=== PATIENT | male | born 1945 | race African-American/Black ===

== ENCOUNTER 2017-10-17 09:22 | Inpatient (IN) ==
--- NOTE | 2017-10-17 09:31 | DR.SOBA ---
HPI Time Seen Time Seen by Provider: 10/17/17 09:30 HPI Comment HPI Comment: PATIENT FROM SKILLED NURSING WENT TO XRAY FOR CHEST XRAY. HE DEVELOP SOB ABD IS BROUGHT TO ED. O2 DESATURATION WAS NOTED IN XRAY DEPARTMENT. PATIENT IS BEING COUGHING CLEAR SPUTUM AND VOMITED FEW DAYS AGO WITH POSSIBLE ASPIRATION. Complaints Chief Complaint Doctors Comments: SOB, O2 DESATURATION. Reviewed Nurses Notes Reviewed: Yes Source History Provided: Patient, Long-Term and Other (STAFF FROM XRAY DEPARTMENT.) Mode of Arrival Mode of Arrival: Wheelchair Duration Duration: Hours Context Onset:: At Rest PE Risk Factors:: Immobilization History of:: CHF Currently on:: Neither Prehospital Care:: O2 Modifying Factors Worsens:: Nothing Improves:: Nothing Associated Signs and Symptoms Associated Signs and Symptoms: Cough If Cough Cough: Clear PMH PMH Past Medical History: Coronary Artery Disease, Depression, Diabetes, Dyslipidemia, Hypertension, Liver Disease and Seizures Past Surgical History: Yes Surgical History: Appendectomy Family History Family Medical History: Diabetes Mellitus, Cancer, [place], Coronary Artery Disease, Heart Failure, Sudden Cardiac and Hypertension Social History Do you use any recreational Drugs:: No ROS Review of Systems Eyes: No Symptoms Reported ENTM: No Symptoms Reported Respiratoy: Productive Cough and Short of Breath Gastrointestinal/Abdominal: No Symptoms Reported Genitourinary: No Symptoms Reported Neurological: No Symptoms Reported Musculoskeletal: No Symptoms Reported Integumentary: Dryness Hematologic/Lymphatic: No Symptoms Reported Endocrine: No Symptoms Reported All Other Systems: Reviewed and Negative PE Vital Signs Vitals: Temperature 98.8 F Pulse Rate [Right Radial] 81 Pulse Rate 91 Respiratory Rate 24 Blood Pressure [Right Arm] 146/69 Blood Pressure [Left Arm] 141/88 Blood Pressure 183/82 O2 Sat by Pulse Oximetry 100 General Limitations: No Limitations General Appearance: Alert and In Distress Head Head Exam: Normal Inspection Eyes Eye exam: Normal Appearance and PERRL; negative Scleral Icterus and Conjunctival Injection ENT ENT Exam: Normal External Ear Exam Neck Neck Exam: Normal Inspection and Trachea Midline Chest Chest Inspection: Symmetric Chest Wall Rise Respiratory Respiratory Exam: Normal Lung Sounds Bilat and Respiratory Distress Respiratory Exam: Bilateral: Wheezing and Bilateral: Rhonchi, Left: Decreased Breath Sounds, Upper: Wheezing and Lower: Wheezing and Lower: Rhonchi Cardiovascular Cardiovascular Exam: Regular Rate, Normal Rhythm and Normal Heart Sounds Abdominal Exam Abdominal Exam: Normal Inspection, Normal Bowel Sounds and Soft; negative Tenderness Extremities Extremities Exam: Edema Back Back Exam: Normal Inspection Neurologic Neurological Exam: Alert and Oriented X3 MDM Differential Diagnosis Differential Diagnosis: Bronchitis, CHF, COPD, Dysrhythmia, Hyponatremia, Mycardial Infarction, Pneumonia, Pneumothorax, Pulmonary embolism, Respiratory Failure and Respiratory Insufficiency COURSE Treatment Treatment: SEE ORDERS. Education/Counseling Education/Counseling: Patient ROR Labs Reviewed Laboratory Results Reviewed?: Yes Result Diagrams: 10/17/17 09:40 10/17/17 09:40 Laboratory: WBC 7.0 X10^3/uL (3.6-10.0) 10/17/17 09:40 RBC 4.82 X10^6/uL (4.7-6.0) 10/17/17 09:40 Hgb 13.2 g/dL (13.5-18.0) L 10/17/17 09:40 Hct 39.5 % (42.0-54.0) L 10/17/17 09:40 MCV 82.0 fL (80.0-100.0) 10/17/17 09:40 MCH 27.4 pg (27.0-34.0) 10/17/17 09:40 MCHC 33.4 g/dL (33.0-35.0) 10/17/17 09:40 RDW 14.6 % (11.6-16.5) 10/17/17 09:40 Plt Count 189 X10^3/uL (150.0-450.0) 10/17/17 09:40 MPV 9.8 fL (7.4-11.0) 10/17/17 09:40 Neut % (Auto) 75.1 % (42.0-75.0) H 10/17/17 09:40 Lymph % (Auto) 14.1 % (21.0-51.0) L 10/17/17 09:40 [place] % (Auto) 9.8 % (0.0-13.0) 10/17/17 09:40 Eos % (Auto) 0.5 % (0.9-2.9) L 10/17/17 09:40 Baso % (Auto) 0.5 % (0.2-1.0) 10/17/17 09:40 Neut # (Auto) 5.2 x10^3/uL (2.2-4.8) H 10/17/17 09:40 Lymph # (Auto) 1.0 X10^3/uL (1.3-2.9) L 10/17/17 09:40 [place] # (Auto) 0.7 x10^3/uL (0.3-0.8) 10/17/17 09:40 Eos # (Auto) 0.0 x10^3/uL (0.0-0.2) 10/17/17 09:40 Baso # (Auto) 0.0 X10^3/uL (0.0-0.1) 10/17/17 09:40 Absolute Nucleated RBC 0.1 /100WBC 10/17/17 09:40 Sample Site Rr 10/17/17 11:33 ABG pH 7.370 (7.35-7.45) 10/17/17 11:33 ABG pCO2 42.0 mmHg (35.0-45.0) 10/17/17 11:33 ABG pO2 91.0 mmHg (80.0-100.0) 10/17/17 11:33 ABG HCO3 24.3 mmol/L (22-26) 10/17/17 11:33 ABG O2 Saturation 97.0 % (90-100) 10/17/17 11:33 ABG Base Excess -1.0 mmol/L (-2.0-2.0) 10/17/17 11:33 Ganesh Test Pos 10/17/17 11:33 A-a Gradient 356.0 mmHg 10/17/17 11:33 FiO2 70.000 10/17/17 11:33 Blood Gas Comments Pt lorenza well llj 10/17/17 11:33 Sodium 140 mmol/L (136-145) 10/17/17 09:40 Corrected Sodium 145 mmol/L (136-145) 10/17/17 09:40 Potassium 4.9 mmol/L (3.5-5.1) 10/17/17 09:40 Chloride 104 mmol/L (98-107) 10/17/17 09:40 Carbon Dioxide 26.9 mmol/L (21-32) 10/17/17 09:40 BUN 50 mg/dL (7-18) H 10/17/17 09:40 Creatinine 1.92 mg/dL (0.70-1.30) H 10/17/17 09:40 Est GFR (MDRD) Af Amer 45 (>60) L 10/17/17 09:40 Est GFR (MDRD) Non-Af 37 (>60) L 10/17/17 09:40 Glucose 297 mg/dL (65-99) H 10/17/17 09:40 Lactic Acid 2.4 mmol/L (0.4-2.0) H 10/17/17 09:40 Calcium 9.3 mg/dL (8.5-10.1) 10/17/17 09:40 Corrected Calcium TNP 10/17/17 09:40 Total Bilirubin 0.70 mg/dL (0.2-1.0) 10/17/17 09:40 AST 14 Units/L (15-37) L 10/17/17 09:40 ALT 17 Units/L (12-78) 10/17/17 09:40 Alkaline Phosphatase 67 Units/L (46-116) 10/17/17 09:40 Creatine Kinase 149 Units/L (39-308) 10/17/17 09:40 CK-MB (CK-2) 7.5 ng/mL (0-4.0) H* 10/17/17 09:40 CK/CKMB % Calc 5.0 % (<4) 10/17/17 09:40 Troponin I 0.07 ng/mL (0-1.5) 10/17/17 09:40 B-Natriuretic Peptide 420 pg/mL (0-79) H 10/17/17 09:40 Total Protein 8.2 g/dL (6.4-8.2) 10/17/17 09:40 Albumin 3.6 g/dL (3.4-5.0) 10/17/17 09:40 Globulin 4.6 g/dL (2.5-4.5) H 10/17/17 09:40 Albumin/Globulin Ratio 0.8 Ratio (1.1-2.1) L 10/17/17 09:40 XRAY XRAY Interpreted by: Radiologist XRAY Findings: REPORT DISCUSS WITH PATIENT. EKG Rhythm: NSR Block: RBBB ST: Old (EKG SIMILAR TO ONE ON RECORD.) and Infarct Diagnosis Discharge Problem: Pneumonia, Acute respiratory insufficiency
[2017-10-17 09:52] LABS: ABG BASE EXCESS -1.5 mmol/L (-2.0-2.0); ABG HCO3 23.7 mmol/L (22-26)
[2017-10-17 09:54] LABS: ABG ALLEN TEST POS
[2017-10-17 09:56] LABS: BASOPHILS % (AUTO) 0.5 % (0.2-1.0); EOSINOPHILS % (AUTO) 0.5 % (0.9-2.9); HEMATOCRIT 39.5 % (42.0-54.0); HEMOGLOBIN 13.2 g/dL (13.5-18.0); LYMPHOCYTES % (AUTO) 14.1 % (21.0-51.0); MEAN CORPUSCULAR HEMOGLOBIN 27.4 pg (27.0-34.0); MEAN CORPUSCULAR HGB CONC 33.4 g/dL (33.0-35.0); MEAN PLATELET VOLUME 9.8 fL (7.4-11.0); MONOCYTES # (AUTO) 0.7 x10^3/uL (0.3-0.8); MONOCYTES % (AUTO) 9.8 % (0.0-13.0); NEUTROPHILS # (AUTO) 5.2 x10^3/uL (2.2-4.8); NEUTROPHILS % (AUTO) 75.1 % (42.0-75.0); PLATELET COUNT 189 X10^3/uL (150.0-450.0); RED BLOOD COUNT 4.82 X10^6/uL (4.7-6.0); RED CELL DISTRIBUTION WIDTH 14.6 % (11.6-16.5)
[2017-10-17 10:11] LABS: LACTIC ACID 2.4 mmol/L (0.4-2.0)
[2017-10-17 10:21] LABS: B-TYPE NATRIURETIC PEPTIDE 420 pg/mL (0-79)
[2017-10-17] MEDS ORDERED: DUONEB 0.5 MG/3 MG ONE (10:26)
[2017-10-17] MEDS ORDERED: SALINE 3% 15 ML NEB TX ONE (10:26)
[2017-10-17] MEDS ORDERED: DUONEB 0.5 MG/3 MG NEB ONE (10:30)
[2017-10-17 10:35] LABS: ALANINE AMINOTRANSFERASE 17 Units/L (12-78); ALBUMIN 3.6 g/dL (3.4-5.0); ALKALINE PHOSPHATASE 67 Units/L (46-116); ASPARTATE AMINO TRANSFERASE 14 Units/L (15-37); BLOOD UREA NITROGEN 50 mg/dL (7-18); CALCIUM 9.3 mg/dL (8.5-10.1); CARBON DIOXIDE 26.9 mmol/L (21-32); CHLORIDE 104 mmol/L (98-107); COR NA(FOR HYPERGLY) 145 mmol/L (136-145); CREATINE KINASE 149 Units/L (39-308); CREATININE 1.92 mg/dL (0.70-1.30); SODIUM 140 mmol/L (136-145); TOTAL PROTEIN 8.2 g/dL (6.4-8.2); TROPONIN I 0.07 ng/mL (0-1.5); eGFR NON BLACK RACES 37 (>60)
[2017-10-17 10:36] LABS: CREATINE KINASE MB 7.5 ng/mL (0-4.0)
[2017-10-17] MEDS ORDERED: NS 1000 ML 1,000 ML IV SCH (11:00)
[2017-10-17] MEDS: CIPRO IV 400 MG PREMIX* 400 MG/200 ML IV.SOLN. IV SCH ×2 (11:07→20:32)
[2017-10-17 11:39] LABS: ABG HCO3 24.3 mmol/L (22-26)
[2017-10-17 11:40] LABS: ABG ALLEN TEST POS
[2017-10-17] MEDS ORDERED: TUSSIONEX PENNKINETIC SUSP PO PRN (12:16)
[2017-10-17] MEDS ORDERED: LASIX PO PRN ×2 (12:16→21:00)
[2017-10-17] MEDS ORDERED: LEVEMIR SC SCH (12:16)
[2017-10-17] MEDS: DUONEB 0.5 MG/3 MG NEB SCH ×3 (12:41→20:24)
[2017-10-17] MEDS ORDERED: DUONEB 0.5 MG/3 MG NEB SCH (13:00)
[2017-10-17 13:16] LABS: BILIRUBIN,URINE NEGATIVE (NEGATIVE); BLOOD/HEMOGLOBIN,URINE 5+ (NEGATIVE); GLUCOSE, URINE 3+ (NEGATIVE); KETONES,URINE NEGATIVE (NEGATIVE); LEUKOCYTE ESTERASE ,URINE 2+ (NEGATIVE); NITRITES,URINE NEGATIVE (NEGATIVE); PROTEIN,URINE 1+ (NEGATIVE); UROBILINOGEN,URINE NORMAL (NORMAL)
[2017-10-17 13:24] LABS: APPEARANCE,URINE CLOUDY (CLEAR); COLOR,URINE YELLOW (YELLOW)
[2017-10-17 13:25] LABS: AMORPHOUS SEDIMENT,UR 1+ /HPF (NEGATIVE); BACTERIA,URINE 2+ /HPF (NEGATIVE); MUCUS,URINE FEW /HPF (NEGATIVE); SQUAMOUS EPITHELIAL CELL,UR RARE /HPF (NEGATIVE)
[2017-10-17] MEDS ORDERED: NS 1/2 1000 ML IV 1,000 ML IV ONE (14:22)
[2017-10-17] MEDS: NS 1/2 1000 ML IV 1,000 ML IV SCH (14:28)
[2017-10-17] MEDS: ZOSYN VIAL 2.25 GRAMS 2.25 G in NS 100 ML IV + SPIKE MINIBAG* 100 ML IV SCH ×3 (14:28→20:40)
[2017-10-17] MEDS: ROBITUSSIN DM PO SCH ×3 (14:28→20:41)
[2017-10-17] MEDS: NORVASC TAB 10 MG PO SCH (14:31)
[2017-10-17] MEDS: ZOCOR TAB 20 MG PO SCH ×2 (14:33→20:39)
[2017-10-17 14:49] VITALS: BMI 41.0
[2017-10-17 15:20] LABS: CKMB % 4.8 % (<4); TROPONIN I 0.07 ng/mL (0-1.5)
[2017-10-17 15:25] LABS: CREATINE KINASE MB 5.9 ng/mL (0-4.0)
[2017-10-17] MEDS ORDERED: GLUCOPHAGE ONE (20:13)
[2017-10-17] MEDS: LEVEMIR SC SCH (20:33)
[2017-10-17] MEDS: OXYBUTYNIN CHLORIDE ER PO SCH (20:39)
[2017-10-17] MEDS: GLUCOPHAGE PO SCH (20:39)
[2017-10-17] MEDS: NEURONTIN CAP 300 MG PO SCH (20:39)
[2017-10-17] MEDS: COREG TAB 25 MG PO SCH (20:39)
[2017-10-17] MEDS ORDERED: VOLTAREN 1 % GEL MULTI DOSE TUBE TOP SCH (21:00)
[2017-10-17 21:26] LABS: CKMB % 4.5 % (<4); TROPONIN I 0.06 ng/mL (0-1.5)
[2017-10-17 21:29] LABS: CREATINE KINASE MB 4.8 ng/mL (0-4.0)
[2017-10-18] MEDS: DUONEB 0.5 MG/3 MG NEB SCH ×6 (00:25→20:02)
[2017-10-18] MEDS: ZOSYN VIAL 2.25 GRAMS 2.25 G in NS 100 ML IV + SPIKE MINIBAG* 100 ML IV SCH ×2 (03:11→09:32)
[2017-10-18] MEDS: NS 1/2 1000 ML IV 1,000 ML IV SCH ×3 (05:24→17:01)
[2017-10-18 06:31] LABS: BASOPHILS % (AUTO) 0.4 % (0.2-1.0); EOSINOPHILS # (AUTO) 0.1 x10^3/uL (0.0-0.2); HEMOGLOBIN 12.3 g/dL (13.5-18.0); LYMPHOCYTES # (AUTO) 1.2 X10^3/uL (1.3-2.9); LYMPHOCYTES % (AUTO) 14.4 % (21.0-51.0); MEAN CORPUSCULAR HEMOGLOBIN 26.9 pg (27.0-34.0); MEAN CORPUSCULAR HGB CONC 33.1 g/dL (33.0-35.0); MEAN CORPUSCULAR VOLUME 81.1 fL (80.0-100.0); MEAN PLATELET VOLUME 9.7 fL (7.4-11.0); MONOCYTES # (AUTO) 0.7 x10^3/uL (0.3-0.8); MONOCYTES % (AUTO) 8.9 % (0.0-13.0); NEUTROPHILS # (AUTO) 6.1 x10^3/uL (2.2-4.8); NEUTROPHILS % (AUTO) 75.3 % (42.0-75.0); PLATELET COUNT 177 X10^3/uL (150.0-450.0); RED BLOOD COUNT 4.56 X10^6/uL (4.7-6.0); RED CELL DISTRIBUTION WIDTH 14.3 % (11.6-16.5)
[2017-10-18 06:39] LABS: ALBUMIN 2.9 g/dL (3.4-5.0); CALCIUM 8.9 mg/dL (8.5-10.1); CARBON DIOXIDE 27.7 mmol/L (21-32); COR CA(FOR HYPOALB) 9.8 mg/dL (8.5-10.1); CREATININE 1.59 mg/dL (0.70-1.30); TOTAL PROTEIN 7.7 g/dL (6.4-8.2)
[2017-10-18] MEDS ORDERED: GLUCOPHAGE ONE (08:26)
[2017-10-18] MEDS: CIPRO IV 400 MG PREMIX* 400 MG/200 ML IV.SOLN. IV SCH ×2 (08:29→21:05)
[2017-10-18] MEDS: K-DUR TAB 20 MEQ PO SCH (08:31)
[2017-10-18] MEDS: GLUCOPHAGE PO SCH (08:31)
[2017-10-18] MEDS: ASPIRIN EC 81 MG PO SCH (08:31)
[2017-10-18] MEDS: ROBITUSSIN DM PO SCH ×4 (08:31→21:05)
[2017-10-18] MEDS: ZESTRIL TAB 40 MG PO SCH (08:31)
[2017-10-18] MEDS: NORVASC TAB 10 MG PO SCH (08:32)
[2017-10-18] MEDS: GLUCOTROL XL PO SCH (08:34)
[2017-10-18] MEDS: COREG TAB 25 MG PO SCH ×2 (08:37→21:05)
[2017-10-18] MEDS: LASIX IVP SCH ×2 (08:48→21:05)
[2017-10-18] MEDS ORDERED: LISINOPRIL 40 MG PO SCH (09:00)
[2017-10-18] MEDS ORDERED: GLIPIZIDE PO SCH (09:00)
--- NOTE | 2017-10-18 10:46 | DR.H&P ---
H&P - History & Physical for Day of: H&P Date: 10/17/17 - Chief Complaint Chief Complaint: SOB, COUGH - History of Present Illness History of Present Illness: IS A 72 YEAR OLD PATIENT OF OURS WHO IS A RESIDENT OF [facility]. HE PRESENTED WITH COMPLAINTS OF SHORNTESS OF BREATH, COUGH, AND VOMITING. GROUP HOME STAFF REPORTS THAT OXYGEN SATURATIONS HAVE BEEN DROPPING AND THAT PATIENT MAY HAVE ASPIRATED. ON ARRIVAL, VITALS WERE 98.8-91-26-56%RA-183/82. PATIENT WAS PLACED ON NASAL CANNULA WHERE AN INCREASE IN OXYGENATION TO THE 80S WAS NOTED. LABS WERE OBTAINED. ABNORMAL LAB VALUES INCLUDE THE FOLLOWING: HGB 13.2, HCT 39.5, BUN 50, CREATININE 1.92, GLUCOSE 297, LACTIC ACID 2.4, AST 14, CK-MB 7.5, BNP 420, GLOBULIN 4.6. URINALYSIS REVEALED: WBC 10-20, RBC 10-20, LEUKOCYTS 2+, BACTERIA 2+, OCCULT BLOOD 5+. ABG REVEALED: PH 7.370, PC02 41.0, P02 41.0, HC03 23.7, 02 SATURATION 74. URINE, BLOOD, AND SPUTUM CULTURES ARE PENDING. CHEST XRAY REVEALED DIFFUSE ALVEOLAR LEFT LUNG PNEUMONIA INVOLVING APPROXIMATELY 2/3 OF THE LEFT LUNG. HE WAS PLACED ON THE BIPAP AND ADMITTED TO THE INTENSIVE CARE UNIT ON THE PNEUMONIA PROTOCOL. HE WAS STARTED ON 1/2 NORMAL SALINE AT 75ML/HR, CIPRO 400MG IV Q12H, AND ZOSYN 2.25GM IV Q6H. WE WILL FOLLOW UP WITH AM LABS AND CHEST XRAY AND CONTINUE TO MONITOR. - Past Medical History Past Medical History: Coronary Artery Disease, Hypertension, Dyslipidemia, Diabetes, Liver Disease, Depression, Seizures - Past Surgical History Surgical History: Appendectomy - Family History Family Medical History: Diabetes Mellitus, Cancer, [place], Hypertension - Social History Does patient currently use any type of tobacco product: No Have you used tobacco products in the last 12 months: No Type of Tobacco Use: None Alcohol Use: None Drug Use: None - Medications Home Medications: No Known Drug Allergies Allergy (Verified 10/17/17 09:23) CONTINUE taking the following medications amlodipine [Norvasc] 10 mg PO QDAY 10/17/17 [History] diclofenac sodium [Voltaren] 2 g TOPICAL BID 10/17/17 [History] furosemide [Lasix] 20 mg PO BID 10/17/17 [History] gabapentin 300 mg PO HS 10/17/17 [History] insulin detemir U-100 [Levemir U-100 Insulin] 30 unit SUBCUT DAILY 10/17/17 [ History] insulin detemir U-100 [Levemir U-100 Insulin] 35 unit SUBCUT QHS 10/17/17 [ History] simvastatin 20 mg PO QHS 10/17/17 [History] - Review of Systems Constitutional: Weakness Eyes: No Symptoms Reported ENT: No Symptoms Reported Respiratory: See HPI, Cough, Shortness of Breath, SOB with Excertion, Sputum, Wheezing Cardiovascular: No Symptoms Reported Gastrointestinal: See HPI, Nausea, Vomiting Genitourinary: No Symptoms Reported Musculoskeletal: No Symptoms Reported Skin: No Symptoms Reported Neurological: Weakness - Physical Exam Vital Signs: Temperature 97.4 F Pulse Rate [Right Radial] 75 Pulse Rate 90 Respiratory Rate 22 Blood Pressure [Right Arm] 146/69 Blood Pressure [Left Arm] 158/72 Blood Pressure 183/82 O2 Sat by Pulse Oximetry 97 Oriented: Normal Eyes: Normal Ear: Normal Nose: Normal Throat: Normal Respiratory: Rhonchi Throughout, Wheezes Throughout Cardiovascular: Edema (BILATERAL LOWER EXTREMITIES ). negative: S3, S4, Murmur : Normal Auscultation: Bowel Sounds: Normal Palpation: Normal Tenderness: Normal Skin: Normal Musculoskeletal: Normal Psychiatric: Normal Mood Description: Calm Affect: Normal Speech Pattern: Clear - Assessment/Plan (1) Pneumonia Qualifiers: Pneumonia type: aspiration pneumonia Laterality: left Lung location: lower lobe of lung Qualified Code(s): J18.1 - Lobar pneumonia, unspecified organism Status: Acute Plan: ADMIT, PNEUMONIA PROTOCOL, CIPRO AND ZOSYN IV, SUPPLEMENTAL OXYGEN, RESPIRATORY TREATMENTS, BIPAP, CONTINUE TO MONITOR (2) Acute respiratory insufficiency Status: Acute Plan: BIPAP, MONITOR ABG, RESPIRATORY TREATMENTS, CONTINUE TO MONITOR - Allergies Allergies/Adverse Reactions: Allergies Allergy/AdvReac Type Severity Reaction Status Date / Time No Known Drug Allergies Allergy Verified 10/17/17 09:23
[2017-10-18] MEDS: HumuLIN R SUBCUT PRN ×3 (11:06→21:05)
[2017-10-18] MEDS: ZOSYN VIAL 3.375 GRAMS 3.375 G in NS 100 ML IV + SPIKE MINIBAG* 100 ML IV SCH ×2 (13:33→22:03)
[2017-10-18] MEDS ORDERED: NS 1/2 1000 ML IV 1,000 ML IV ONE (13:57)
[2017-10-18] MEDS: SNACK - Diabetic Appropriate PO SCH (20:16)
[2017-10-18] MEDS: NEURONTIN CAP 300 MG PO SCH (21:05)
[2017-10-18] MEDS: OXYBUTYNIN CHLORIDE ER PO SCH (21:05)
[2017-10-18] MEDS: ZOCOR TAB 20 MG PO SCH (21:05)
[2017-10-18] MEDS: LEVEMIR SC SCH (21:13)
[2017-10-19] MEDS: DUONEB 0.5 MG/3 MG NEB SCH ×6 (00:30→21:18)
[2017-10-19] MEDS ORDERED: NS 1/2 1000 ML IV 1,000 ML IV ONE ×2 (05:32→20:48)
[2017-10-19] MEDS: ZOSYN VIAL 3.375 GRAMS 3.375 G in NS 100 ML IV + SPIKE MINIBAG* 100 ML IV SCH (05:41)
[2017-10-19] MEDS: NS 1/2 1000 ML IV 1,000 ML IV SCH (05:41)
[2017-10-19 06:05] LABS: BASOPHILS % (AUTO) 0.2 % (0.2-1.0); EOSINOPHILS # (AUTO) 0.2 x10^3/uL (0.0-0.2); EOSINOPHILS % (AUTO) 2.1 % (0.9-2.9); HEMOGLOBIN 12.5 g/dL (13.5-18.0); LYMPHOCYTES # (AUTO) 0.9 X10^3/uL (1.3-2.9); LYMPHOCYTES % (AUTO) 11.6 % (21.0-51.0); MEAN CORPUSCULAR HEMOGLOBIN 27.3 pg (27.0-34.0); MEAN CORPUSCULAR HGB CONC 33.6 g/dL (33.0-35.0); MEAN CORPUSCULAR VOLUME 81.3 fL (80.0-100.0); MEAN PLATELET VOLUME 9.4 fL (7.4-11.0); MONOCYTES # (AUTO) 0.7 x10^3/uL (0.3-0.8); MONOCYTES % (AUTO) 8.7 % (0.0-13.0); NEUTROPHILS # (AUTO) 5.9 x10^3/uL (2.2-4.8); NEUTROPHILS % (AUTO) 77.4 % (42.0-75.0); PLATELET COUNT 198 X10^3/uL (150.0-450.0); RED BLOOD COUNT 4.56 X10^6/uL (4.7-6.0); RED CELL DISTRIBUTION WIDTH 14.6 % (11.6-16.5); WHITE BLOOD COUNT 7.6 X10^3/uL (3.6-10.0)
[2017-10-19 06:12] LABS: ALBUMIN 2.9 g/dL (3.4-5.0); CALCIUM 9.1 mg/dL (8.5-10.1); CARBON DIOXIDE 28.4 mmol/L (21-32); CREATININE 1.53 mg/dL (0.70-1.30); TOTAL PROTEIN 7.3 g/dL (6.4-8.2)
--- NOTE | 2017-10-19 08:21 | RAD ---
HISTORY: Hypoxia Study: Single-view chest Comparison: 10/17/2017 Findings: There has been worsening airspace disease throughout the left lung, with more confluent or consolidat steve disease now present within the mid and lower left lung and more patchy airspace opacities within the left lung apex. The right lung is relatively clear. No definite pleural effusion is identified. T he bony thorax is grossly intact IMPRESSION: 1. Overall worsened appearance of pneumonia throughout the left lung as above. Reported By:
[2017-10-19] MEDS: COREG TAB 25 MG PO SCH ×2 (08:39→20:55)
[2017-10-19] MEDS: ASPIRIN EC 81 MG PO SCH (08:39)
[2017-10-19] MEDS: GLUCOTROL XL PO SCH (08:39)
[2017-10-19] MEDS: ROBITUSSIN DM PO SCH ×4 (08:39→20:55)
[2017-10-19] MEDS: K-DUR TAB 20 MEQ PO SCH (08:39)
[2017-10-19] MEDS: ZESTRIL TAB 40 MG PO SCH (08:39)
[2017-10-19] MEDS: NORVASC TAB 10 MG PO SCH (08:39)
[2017-10-19] MEDS: CIPRO IV 400 MG PREMIX* 400 MG/200 ML IV.SOLN. IV SCH (08:40)
[2017-10-19] MEDS ORDERED: CONSULT PHARMACY - ANTIBIOTIC XX SCH (11:00)
[2017-10-19] MEDS: HumuLIN R SUBCUT PRN ×2 (11:36→16:55)
[2017-10-19] MEDS: MERREM VIAL 500 MG in NS 100 ML IV + SPIKE MINIBAG* 100 ML IV SCH ×2 (13:58→21:09)
[2017-10-19] MEDS: FORTAZ or TAZICEF VIAL INJ 2 G in NS 100 ML IV + SPIKE MINIBAG* 100 ML IV SCH ×2 (14:46→22:45)
[2017-10-19] MEDS: SNACK - Diabetic Appropriate PO SCH (20:52)
[2017-10-19] MEDS: LEVEMIR SC SCH (20:53)
[2017-10-19] MEDS: ZOCOR TAB 20 MG PO SCH (20:55)
[2017-10-19] MEDS: NEURONTIN CAP 300 MG PO SCH (20:56)
[2017-10-19] MEDS: OXYBUTYNIN CHLORIDE ER PO SCH (21:20)
[2017-10-20] MEDS: DUONEB 0.5 MG/3 MG NEB SCH ×6 (01:21→21:54)
[2017-10-20] MEDS: NS 1/2 1000 ML IV 1,000 ML IV SCH ×3 (04:52→17:24)
[2017-10-20 05:02] LABS: ABG BASE EXCESS 0.5 mmol/L (-2.0-2.0); ABG HCO3 24.6 mmol/L (22-26)
[2017-10-20 05:03] LABS: ABG ALLEN TEST POS
[2017-10-20] MEDS: MERREM VIAL 500 MG in NS 100 ML IV + SPIKE MINIBAG* 100 ML IV SCH (05:08)
[2017-10-20 05:15] LABS: BASOPHILS # (AUTO) 0.1 X10^3/uL (0.0-0.1); BASOPHILS % (AUTO) 0.6 % (0.2-1.0); EOSINOPHILS % (AUTO) 0.2 % (0.9-2.9); HEMATOCRIT 35.5 % (42.0-54.0); HEMOGLOBIN 11.7 g/dL (13.5-18.0); LYMPHOCYTES # (AUTO) 0.9 X10^3/uL (1.3-2.9); LYMPHOCYTES % (AUTO) 8.5 % (21.0-51.0); MEAN CORPUSCULAR HEMOGLOBIN 26.5 pg (27.0-34.0); MEAN CORPUSCULAR VOLUME 80.1 fL (80.0-100.0); MEAN PLATELET VOLUME 9.4 fL (7.4-11.0); MONOCYTES # (AUTO) 0.8 x10^3/uL (0.3-0.8); MONOCYTES % (AUTO) 8.2 % (0.0-13.0); NEUTROPHILS # (AUTO) 8.3 x10^3/uL (2.2-4.8); NEUTROPHILS % (AUTO) 82.5 % (42.0-75.0); PLATELET COUNT 213 X10^3/uL (150.0-450.0); RED BLOOD COUNT 4.43 X10^6/uL (4.7-6.0); RED CELL DISTRIBUTION WIDTH 14.4 % (11.6-16.5); WHITE BLOOD COUNT 10.1 X10^3/uL (3.6-10.0)
[2017-10-20 05:30] LABS: ALBUMIN 2.5 g/dL (3.4-5.0); CALCIUM 8.5 mg/dL (8.5-10.1); CARBON DIOXIDE 26.1 mmol/L (21-32); COR CA(FOR HYPOALB) 9.7 mg/dL (8.5-10.1); CREATININE 1.51 mg/dL (0.70-1.30); TOTAL PROTEIN 6.8 g/dL (6.4-8.2)
[2017-10-20] MEDS: FORTAZ or TAZICEF VIAL INJ 2 G in NS 100 ML IV + SPIKE MINIBAG* 100 ML IV SCH ×3 (06:05→21:07)
[2017-10-20] MEDS: HumuLIN R SUBCUT PRN (06:06)
[2017-10-20] MEDS: GLUCOTROL XL PO SCH (06:52)
--- NOTE | 2017-10-20 07:11 | RAD ---
HISTORY: Follow-up pneumonia Study: Chest AP portable Comparison: 10/18/2017, 10/17/2017 Findings: The patient is rotated to the left. The heart remains enlarged. No congestive heart failure is noted. The right lung is clear. Diffuse alveolar infiltrate is present in the left lung most prominent in t he upper lobe. This is most consistent with pneumonia. It is unchanged when compared with the prior e xamination. No definite pleural effusions are identified. The bony thorax is unremarkable. IMPRESSION: No change left lung infiltrates Reported By:
[2017-10-20] MEDS: ROBITUSSIN DM PO SCH ×4 (08:14→21:11)
[2017-10-20] MEDS: NORVASC TAB 10 MG PO SCH (08:14)
[2017-10-20] MEDS: K-DUR TAB 20 MEQ PO SCH (08:14)
[2017-10-20] MEDS: COREG TAB 25 MG PO SCH ×2 (08:15→21:11)
[2017-10-20] MEDS: ZESTRIL TAB 40 MG PO SCH (08:15)
[2017-10-20] MEDS: ASPIRIN EC 81 MG PO SCH (08:15)
[2017-10-20] MEDS ORDERED: HALDOL INJ IVP PRN (09:25)
[2017-10-20] MEDS ORDERED: HALDOL INJ IVP SCH (10:00)
--- NOTE | 2017-10-20 11:29 | PCM.PROG ---
Progress Note - Progress Note for Day of Date of Exam: 10/18/17 - Subjective Subjective: WAS ADMITTED FOR LEFT SIDED PNEUMONIA AND RESPIRATORY INSUFFICIENCY. HE REMAINS IN THE INTENSIVE CARE UNIT ON THE BIPAP. HE IS LYING IN BED WITH EYES CLOSED, BUT IS RESPONSIVE TO VERBAL STIMULI. ON EXAMINATION, HEART IS REGULAR IN RATE AND RHYTHM. BILATERAL LUNGS CONTINUE WITH SCATTERED WHEEZING AND RHONCHI. ABDOMEN IS ROUND, SOFT, AND NON-TENDER WITH NORMAL BOWEL SOUNDS NOTED IN ALL QUADRANTS. BILATERAL LOWER EXTREMITIES CONTINUE WITH 1+ PITTING EDEMA. THERE IS A WHATLEY CATHETER NOTED TO BEDSIDE DRAINAGE. HIS VITALS THIS MORNING ARE 97.4-75-22-99%-158/72. LABS WERE OBTAINED. ABNORMAL LAB VALUES INCLUDE THE FOLLOWING: RBC 4.56, HGB 12.3, HCT 37.0, CHLORIDE 108, BUN 41, CREATININE 1.59, GLUCOSE 197, AST 14, ALBUMIN 2.9. BLOOD, SPUTUM, AND URINE CULTURES ARE PENDING. TODAY, WE WILL CONTINUE WITH IV ANTIBIOTICS, BIPAP, AND RESPIRATORY TREATMENTS. OTHERWISE, WE WILL FOLLOW UP WITH AM LABS AND CONTINUE TO MONITOR PATIENT. - Past Medical Family Social History Past Med/Fam/Surg Hx: No changes since H&P Allergies: Allergies No Known Drug Allergies Allergy (Verified 10/17/17 09:23) - Review of Systems ROS: No change since H&P - Vital Signs and I&O's Vital Signs: Temperature 97.6 F Pulse Rate [Right Radial] 75 Pulse Rate 86 Respiratory Rate 22 Blood Pressure [Right Arm] 146/69 Blood Pressure [Left Arm] 167/78 Blood Pressure 183/82 O2 Sat by Pulse Oximetry 91 Intake and Output: Intake & Output 10/17/17 10/18/17 10/19/17 10/20/17 11:59 11:59 11:59 11:59 Intake Total 1920 / 1920 3482 / 3482 3282 / 3282 Output Total 1175 / 1175 2950 / 2950 1450 / 1450 Balance 745 / 745 532 / 532 1832 / 1832 - Physical Exam Oriented: Normal Eyes: Normal Ear: Normal Nose: Normal Throat: Normal Respiratory: Generalized, Diminished, Wheezes, Rhonchi Cardiovascular: Edema (BILATERAL LOWER EXTREMITIES ). negative: S3, S4, Murmur : Normal Auscultation: Bowel Sounds: Normal Palpation: Normal Tenderness: Normal Skin: Normal Musculoskeletal: Normal Psychiatric: Normal Mood Description: Calm Affect: Normal Speech Pattern: Clear - Laboratory and Diagnostics Result Diagrams: 10/20/17 04:50 10/20/17 04:50 Labs: 10/17/17 09:30 Blood Blood Culture - Preliminary 10/17/17 09:40 Blood Blood Culture - Preliminary 10/17/17 10:30 Sputum - Expectorated Sputum Sputum Culture - Final 10/17/17 10:30 Sputum - Expectorated Sputum - Final 10/17/17 12:51 Urine,Catheterized Urine Culture - Final [facility] WBC 10.1 X10^3/uL (3.6-10.0) H 10/20/17 04:50 RBC 4.43 X10^6/uL (4.7-6.0) L 10/20/17 04:50 Hgb 11.7 g/dL (13.5-18.0) L 10/20/17 04:50 Hct 35.5 % (42.0-54.0) L 10/20/17 04:50 MCV 80.1 fL (80.0-100.0) 10/20/17 04:50 MCH 26.5 pg (27.0-34.0) L 10/20/17 04:50 MCHC 33.0 g/dL (33.0-35.0) 10/20/17 04:50 RDW 14.4 % (11.6-16.5) 10/20/17 04:50 Plt Count 213 X10^3/uL (150.0-450.0) 10/20/17 04:50 MPV 9.4 fL (7.4-11.0) 10/20/17 04:50 Neut % (Auto) 82.5 % (42.0-75.0) H 10/20/17 04:50 Lymph % (Auto) 8.5 % (21.0-51.0) L 10/20/17 04:50 [place] % (Auto) 8.2 % (0.0-13.0) 10/20/17 04:50 Eos % (Auto) 0.2 % (0.9-2.9) L 10/20/17 04:50 Baso % (Auto) 0.6 % (0.2-1.0) 10/20/17 04:50 Neut # (Auto) 8.3 x10^3/uL (2.2-4.8) H 10/20/17 04:50 Lymph # (Auto) 0.9 X10^3/uL (1.3-2.9) L 10/20/17 04:50 [place] # (Auto) 0.8 x10^3/uL (0.3-0.8) 10/20/17 04:50 Eos # (Auto) 0.0 x10^3/uL (0.0-0.2) 10/20/17 04:50 Baso # (Auto) 0.1 X10^3/uL (0.0-0.1) 10/20/17 04:50 Absolute Nucleated RBC 0.0 /100WBC 10/20/17 04:50 Sample Site Rrad 10/20/17 04:52 ABG pH 7.430 (7.35-7.45) 10/20/17 04:52 ABG pCO2 37.0 mmHg (35.0-45.0) 10/20/17 04:52 ABG pO2 55.0 mmHg (80.0-100.0) L 10/20/17 04:52 ABG HCO3 24.6 mmol/L (22-26) 10/20/17 04:52 ABG O2 Saturation 89.0 % (90-100) L 10/20/17 04:52 ABG Base Excess 0.5 mmol/L (-2.0-2.0) 10/20/17 04:52 Ganesh Test Pos 10/20/17 04:52 A-a Gradient 469.0 mmHg 10/20/17 04:52 FiO2 80.000 10/20/17 04:52 Blood Gas Comments Katy abg well-mtf 10/20/17 04:52 Sodium 141 mmol/L (136-145) 10/20/17 04:50 Corrected Sodium 143 mmol/L (136-145) 10/20/17 04:50 Potassium 4.7 mmol/L (3.5-5.1) 10/20/17 04:50 Chloride 107 mmol/L (98-107) 10/20/17 04:50 Carbon Dioxide 26.1 mmol/L (21-32) 10/20/17 04:50 BUN 31 mg/dL (7-18) H 10/20/17 04:50 Creatinine 1.51 mg/dL (0.70-1.30) H 10/20/17 04:50 Est GFR (MDRD) Af Amer 59 (>60) 10/20/17 04:50 Est GFR (MDRD) Non-Af 49 (>60) L 10/20/17 04:50 Glucose 195 mg/dL (65-99) H 10/20/17 04:50 POC Glucose (mg/dL) 190 mg/dL (65-99) H 10/20/17 05:56 Lactic Acid 2.4 mmol/L (0.4-2.0) H 10/17/17 09:40 Calcium 8.5 mg/dL (8.5-10.1) 10/20/17 04:50 Corrected Calcium 9.7 mg/dL (8.5-10.1) 10/20/17 04:50 Total Bilirubin 0.80 mg/dL (0.2-1.0) 10/20/17 04:50 AST 20 Units/L (15-37) 10/20/17 04:50 ALT 19 Units/L (12-78) 10/20/17 04:50 Alkaline Phosphatase 55 Units/L (46-116) 10/20/17 04:50 Creatine Kinase 106 Units/L (39-308) 10/17/17 20:35 CK-MB (CK-2) 4.8 ng/mL (0-4.0) H* 10/17/17 20:35 CK/CKMB % Calc 4.5 % (<4) 10/17/17 20:35 Troponin I 0.06 ng/mL (0-1.5) 10/17/17 20:35 B-Natriuretic Peptide 420 pg/mL (0-79) H 10/17/17 09:40 Total Protein 6.8 g/dL (6.4-8.2) 10/20/17 04:50 Albumin 2.5 g/dL (3.4-5.0) L 10/20/17 04:50 Globulin 4.3 g/dL (2.5-4.5) 10/20/17 04:50 Albumin/Globulin Ratio 0.6 Ratio (1.1-2.1) L 10/20/17 04:50 Specimen Type Catherized urine 10/17/17 12:51 Urine Color Yellow (YELLOW) 10/17/17 12:51 Urine Appearance Cloudy (CLEAR) 10/17/17 12:51 Urine pH 8.0 (5.0 - 8.0) 10/17/17 12:51 Ur Specific Burt 1.010 (1.000-1.030) 10/17/17 12:51 Urine Protein 1+ (NEGATIVE) 10/17/17 12:51 Urine Glucose (UA) 3+ (NEGATIVE) 10/17/17 12:51 Urine Ketones Negative (NEGATIVE) 10/17/17 12:51 Urine Occult Blood 5+ (NEGATIVE) 10/17/17 12:51 Urine Nitrite Negative (NEGATIVE) 10/17/17 12:51 Urine Bilirubin Negative (NEGATIVE) 10/17/17 12:51 Urine Urobilinogen Normal (NORMAL) 10/17/17 12:51 Ur Leukocyte Esterase 2+ (NEGATIVE) 10/17/17 12:51 Urine RBC 10-20 /HPF (NONE SEEN) 10/17/17 12:51 Urine WBC 10-20 /HPF (NONE SEEN) 10/17/17 12:51 Ur Squamous Epith Cells Rare /HPF (NEGATIVE) 10/17/17 12:51 Amorphous Sediment 1+ /HPF (NEGATIVE) 10/17/17 12:51 Urine Bacteria 2+ /HPF (NEGATIVE) 10/17/17 12:51 Urine Mucus Few /HPF (NEGATIVE) 10/17/17 12:51 Ur Culture Indicated? 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 Diabetes mellitus complication status: with hyperglycemia Qualified Code(s): E11.65 - Type 2 diabetes mellitus with hyperglycemia; Z79.4 - assistant terminal manager (current) use of insulin Plan: MONITOR OTBS, CONTINUE GLUCOTROL, HMULIN R SLIDING SCALE, CONTINUE LEVEMIR , CONTINUE TO MONITOR (4) Hyperlipidemia Status: Acute Qualifiers: Hyperlipidemia type: mixed hyperlipidemia Qualified Code(s): E78.2 - Mixed hyperlipidemia Plan: CONTINUE ZOCOR, CONTINUE TO MONITOR (5) CHF (congestive heart failure) Status: Acute Qualifiers: Heart failure type: unspecified Heart failure chronicity: chronic Qualified Code(s): I50.9 - Heart failure, unspecified Plan: CONTINUE COREG, CONTINUE LASIX, CONTINUE ZESTRIL, CONTINUE TO MONITOR
[2017-10-20] MEDS: ZOFRAN INJ 4 MG VIAL IVP PRN (13:00)
[2017-10-20] MEDS ORDERED: NS 1/2 1000 ML IV 1,000 ML IV ONE (16:20)
--- NOTE | 2017-10-20 16:49 | PCM.PROG ---
Progress Note - Progress Note for Day of Date of Exam: 10/19/17 - Subjective Subjective: WAS ADMITTED FOR LEFT SIDED PNEUMONIA AND RESPIRATORY INSUFFICIENCY. HE REMAINS IN THE INTENSIVE CARE UNIT ON THE BIPAP. HE IS LYING IN BED WITH EYES CLOSED, BUT IS RESPONSIVE TO VERBAL STIMULI. ON EXAMINATION, HEART IS REGULAR IN RATE AND RHYTHM. BILATERAL LUNGS CONTINUE WITH SCATTERED WHEEZING AND RHONCHI. ABDOMEN IS ROUND, SOFT, AND NON-TENDER WITH NORMAL BOWEL SOUNDS NOTED IN ALL QUADRANTS. BILATERAL LOWER EXTREMITIES CONTINUE WITH 1+ PITTING EDEMA. THERE IS A WHATLEY CATHETER NOTED TO BEDSIDE DRAINAGE. HIS VITALS THIS MORNING ARE 99.0-77-22-97%bipap-166/73. LABS WERE OBTAINED. ABNORMAL LAB VALUES INCLUDE THE FOLLOWING: RBC 4.56, HGB 12.5, HCT 37.0, BUN 33, CREATININE 1.53, GLUCOSE 133, AST 14, ALBUMIN 2.9. URINE CULTURE REPORTS GROWTH OF PROTEUS MIRABILIS. IT IS RESISTANT TO THE CIPRO THAT HE IS CURRENTLY ON. A CHEST XRAY WAS OBTAINED AND REVEALED: There has been worsening airspace disease throughout the left lung, with more confluent or consolidative disease now present within the mid and lower left lung and more patchy airspace opacities within the left lung apex. The right lung is relatively clear. No definite pleural effusion is identified. The bony thorax is grossly intact. TODAY, WE WILL DISCONTINUE THE CIPRO AND ZOSYN AND START FORTAZ 2GM IV Q8H. OTHERWISE, WE WILL CONTINUE WITH RESPIRATORY TREATMENTS, BIPAP, AND CURRENT PLAN OF CARE. WE WILL FOLLOW UP WITH AM LABS AND CONTINUE TO MONITOR PATIENT. - Past Medical Family Social History Past Med/Fam/Surg Hx: No changes since H&P Allergies: Allergies No Known Drug Allergies Allergy (Verified 10/17/17 09:23) - Review of Systems ROS: No change since H&P - Vital Signs and I&O's Vital Signs: Temperature 97.3 F Pulse Rate [Right Radial] 73 Pulse Rate 70 Respiratory Rate 20 Blood Pressure [Right Arm] 146/69 Blood Pressure [Left Arm] 143/82 Blood Pressure 183/82 O2 Sat by Pulse Oximetry 91 Intake and Output: Intake & Output 10/18/17 10/19/17 10/20/17 10/21/17 11:59 11:59 11:59 11:59 Intake Total 0 / 1920 3482 / 3482 3282 / 3282 835 / 835 Output Total 1175 / 1175 2950 / 2950 1450 / 1450 350 / 350 Balance 745 / 745 532 / 532 1832 / 1832 485 / 485 - Physical Exam Oriented: Normal Eyes: Normal Ear: Normal Nose: Normal Throat: Normal Respiratory: Generalized, Diminished, Wheezes, Rhonchi Cardiovascular: Edema (BILATERAL LOWER EXTREMITIES ). negative: S3, S4, Murmur : Normal Auscultation: Bowel Sounds: Normal Palpation: Normal Tenderness: Normal Skin: Normal Musculoskeletal: Normal Psychiatric: Normal Mood Description: Calm Affect: Normal Speech Pattern: Clear - Laboratory and Diagnostics Result Diagrams: 10/20/17 04:50 10/20/17 04:50 Labs: 10/17/17 09:30 Blood Blood Culture - Preliminary 10/17/17 09:40 Blood Blood Culture - Preliminary 10/17/17 10:30 Sputum - Expectorated Sputum Sputum Culture - Final 10/17/17 10:30 Sputum - Expectorated Sputum - Final 10/17/17 12:51 Urine,Catheterized Urine Culture - Final [facility] WBC 10.1 X10^3/uL (3.6-10.0) H 10/20/17 04:50 RBC 4.43 X10^6/uL (4.7-6.0) L 10/20/17 04:50 Hgb 11.7 g/dL (13.5-18.0) L 10/20/17 04:50 Hct 35.5 % (42.0-54.0) L 10/20/17 04:50 MCV 80.1 fL (80.0-100.0) 10/20/17 04:50 MCH 26.5 pg (27.0-34.0) L 10/20/17 04:50 MCHC 33.0 g/dL (33.0-35.0) 10/20/17 04:50 RDW 14.4 % (11.6-16.5) 10/20/17 04:50 Plt Count 213 X10^3/uL (150.0-450.0) 10/20/17 04:50 MPV 9.4 fL (7.4-11.0) 10/20/17 04:50 Neut % (Auto) 82.5 % (42.0-75.0) H 10/20/17 04:50 Lymph % (Auto) 8.5 % (21.0-51.0) L 10/20/17 04:50 [place] % (Auto) 8.2 % (0.0-13.0) 10/20/17 04:50 Eos % (Auto) 0.2 % (0.9-2.9) L 10/20/17 04:50 Baso % (Auto) 0.6 % (0.2-1.0) 10/20/17 04:50 Neut # (Auto) 8.3 x10^3/uL (2.2-4.8) H 10/20/17 04:50 Lymph # (Auto) 0.9 X10^3/uL (1.3-2.9) L 10/20/17 04:50 [place] # (Auto) 0.8 x10^3/uL (0.3-0.8) 10/20/17 04:50 Eos # (Auto) 0.0 x10^3/uL (0.0-0.2) 10/20/17 04:50 Baso # (Auto) 0.1 X10^3/uL (0.0-0.1) 10/20/17 04:50 Absolute Nucleated RBC 0.0 /100WBC 10/20/17 04:50 Sample Site Rrad 10/20/17 04:52 ABG pH 7.430 (7.35-7.45) 10/20/17 04:52 ABG pCO2 37.0 mmHg (35.0-45.0) 10/20/17 04:52 ABG pO2 55.0 mmHg (80.0-100.0) L 10/20/17 04:52 ABG HCO3 24.6 mmol/L (22-26) 10/20/17 04:52 ABG O2 Saturation 89.0 % (90-100) L 10/20/17 04:52 ABG Base Excess 0.5 mmol/L (-2.0-2.0) 10/20/17 04:52 Ganesh Test Pos 10/20/17 04:52 A-a Gradient 469.0 mmHg 10/20/17 04:52 FiO2 80.000 10/20/17 04:52 Blood Gas Comments Katy abg well-mtf 10/20/17 04:52 Sodium 141 mmol/L (136-145) 10/20/17 04:50 Corrected Sodium 143 mmol/L (136-145) 10/20/17 04:50 Potassium 4.7 mmol/L (3.5-5.1) 10/20/17 04:50 Chloride 107 mmol/L (98-107) 10/20/17 04:50 Carbon Dioxide 26.1 mmol/L (21-32) 10/20/17 04:50 BUN 31 mg/dL (7-18) H 10/20/17 04:50 Creatinine 1.51 mg/dL (0.70-1.30) H 10/20/17 04:50 Est GFR (MDRD) Af Amer 59 (>60) 10/20/17 04:50 Est GFR (MDRD) Non-Af 49 (>60) L 10/20/17 04:50 Glucose 195 mg/dL (65-99) H 10/20/17 04:50 POC Glucose (mg/dL) 173 mg/dL (65-99) H 10/20/17 16:18 Lactic Acid 2.4 mmol/L (0.4-2.0) H 10/17/17 09:40 Calcium 8.5 mg/dL (8.5-10.1) 10/20/17 04:50 Corrected Calcium 9.7 mg/dL (8.5-10.1) 10/20/17 04:50 Total Bilirubin 0.80 mg/dL (0.2-1.0) 10/20/17 04:50 AST 20 Units/L (15-37) 10/20/17 04:50 ALT 19 Units/L (12-78) 10/20/17 04:50 Alkaline Phosphatase 55 Units/L (46-116) 10/20/17 04:50 Creatine Kinase 106 Units/L (39-308) 10/17/17 20:35 CK-MB (CK-2) 4.8 ng/mL (0-4.0) H* 10/17/17 20:35 CK/CKMB % Calc 4.5 % (<4) 10/17/17 20:35 Troponin I 0.06 ng/mL (0-1.5) 10/17/17 20:35 B-Natriuretic Peptide 420 pg/mL (0-79) H 10/17/17 09:40 Total Protein 6.8 g/dL (6.4-8.2) 10/20/17 04:50 Albumin 2.5 g/dL (3.4-5.0) L 10/20/17 04:50 Globulin 4.3 g/dL (2.5-4.5) 10/20/17 04:50 Albumin/Globulin Ratio 0.6 Ratio (1.1-2.1) L 10/20/17 04:50 Specimen Type Catherized urine 10/17/17 12:51 Urine Color Yellow (YELLOW) 10/17/17 12:51 Urine Appearance Cloudy (CLEAR) 10/17/17 12:51 Urine pH 8.0 (5.0 - 8.0) 10/17/17 12:51 Ur Specific [place] 1.010 (1.000-1.030) 10/17/17 12:51 Urine Protein 1+ (NEGATIVE) 10/17/17 12:51 Urine Glucose (UA) 3+ (NEGATIVE) 10/17/17 12:51 Urine Ketones Negative (NEGATIVE) 10/17/17 12:51 Urine Occult Blood 5+ (NEGATIVE) 10/17/17 12:51 Urine Nitrite Negative (NEGATIVE) 10/17/17 12:51 Urine Bilirubin Negative (NEGATIVE) 10/17/17 12:51 Urine Urobilinogen Normal (NORMAL) 10/17/17 12:51 Ur Leukocyte Esterase 2+ (NEGATIVE) 10/17/17 12:51 Urine RBC 10-20 /HPF (NONE SEEN) 10/17/17 12:51 Urine WBC 10-20 /HPF (NONE SEEN) 10/17/17 12:51 Ur Squamous Epith Cells Rare /HPF (NEGATIVE) 10/17/17 12:51 Amorphous Sediment 1+ /HPF (NEGATIVE) 10/17/17 12:51 Urine Bacteria 2+ /HPF (NEGATIVE) 10/17/17 12:51 Urine Mucus Few /HPF (NEGATIVE) 10/17/17 12:51 Ur Culture Indicated? Yes/culture set up 10/17/17 12:51 - Plan (1) Pneumonia Status: Acute Qualifiers: Pneumonia type: aspiration pneumonia Laterality: left Lung location: lower lobe of lung Qualified Code(s): J18.1 - Lobar pneumonia, unspecified organism Plan: ADMIT, PNEUMONIA PROTOCOL, CIPRO AND ZOSYN IV, SUPPLEMENTAL OXYGEN, RESPIRATORY TREATMENTS, BIPAP, CONTINUE TO MONITOR (2) Acute respiratory insufficiency Status: Acute Plan: BIPAP, MONITOR ABG, RESPIRATORY TREATMENTS, CONTINUE TO MONITOR (3) Diabetes Status: Acute Qualifiers: Diabetes mellitus type: type 2 Diabetes mellitus fpc insulin use: with fpc use Diabetes mellitus complication status: with hyperglycemia Qualified Code(s): E11.65 - Type 2 diabetes mellitus with hyperglycemia; Z79.4 - alf (current) use of insulin Plan: MONITOR OTBS, CONTINUE GLUCOTROL, HMULIN R SLIDING SCALE, CONTINUE LEVEMIR , CONTINUE TO MONITOR (4) Hyperlipidemia Status: Acute Qualifiers: Hyperlipidemia type: mixed hyperlipidemia Qualified Code(s): E78.2 - Mixed hyperlipidemia Plan: CONTINUE ZOCOR, CONTINUE TO MONITOR (5) CHF (congestive heart failure) Status: Acute Qualifiers: Heart failure type: unspecified Heart failure chronicity: chronic Qualified Code(s): I50.9 - Heart failure, unspecified Plan: CONTINUE COREG, CONTINUE LASIX, CONTINUE ZESTRIL, CONTINUE TO MONITOR (6) Urinary tract infection Status: Acute Qualifiers: Urinary tract infection type: acute cystitis Hematuria presence: with hematuria Qualified Code(s): N30.01 - Acute cystitis with hematuria Plan: FORTAZ 1GM IV Q8H, CONTINUE TO MONITOR
[2017-10-20] MEDS: ZOCOR TAB 20 MG PO SCH (21:11)
[2017-10-20] MEDS: COLACE CAP 100 MG PO SCH (21:11)
[2017-10-20] MEDS: NEURONTIN CAP 300 MG PO SCH (21:11)
[2017-10-20] MEDS: OXYBUTYNIN CHLORIDE ER PO SCH (21:11)
[2017-10-20] MEDS: LEVEMIR SC SCH (21:12)
[2017-10-20] MEDS: SNACK - Diabetic Appropriate PO SCH (23:27)
[2017-10-21] MEDS: DUONEB 0.5 MG/3 MG NEB SCH ×6 (00:41→20:00)
[2017-10-21 05:48] LABS: BASOPHILS % (AUTO) 0.3 % (0.2-1.0); EOSINOPHILS # (AUTO) 0.1 x10^3/uL (0.0-0.2); EOSINOPHILS % (AUTO) 0.8 % (0.9-2.9); HEMATOCRIT 33.2 % (42.0-54.0); HEMOGLOBIN 11.2 g/dL (13.5-18.0); LYMPHOCYTES % (AUTO) 10.4 % (21.0-51.0); MEAN CORPUSCULAR HEMOGLOBIN 27.3 pg (27.0-34.0); MEAN CORPUSCULAR HGB CONC 33.6 g/dL (33.0-35.0); MEAN CORPUSCULAR VOLUME 81.1 fL (80.0-100.0); MEAN PLATELET VOLUME 9.1 fL (7.4-11.0); MONOCYTES # (AUTO) 0.9 x10^3/uL (0.3-0.8); MONOCYTES % (AUTO) 9.4 % (0.0-13.0); NEUTROPHILS # (AUTO) 7.3 x10^3/uL (2.2-4.8); NEUTROPHILS % (AUTO) 79.1 % (42.0-75.0); PLATELET COUNT 231 X10^3/uL (150.0-450.0); RED CELL DISTRIBUTION WIDTH 14.8 % (11.6-16.5); WHITE BLOOD COUNT 9.2 X10^3/uL (3.6-10.0)
[2017-10-21 05:59] LABS: ALBUMIN 2.3 g/dL (3.4-5.0); CALCIUM 8.4 mg/dL (8.5-10.1); CARBON DIOXIDE 25.3 mmol/L (21-32); COR CA(FOR HYPOALB) 9.8 mg/dL (8.5-10.1); CREATININE 1.94 mg/dL (0.70-1.30); TOTAL PROTEIN 6.6 g/dL (6.4-8.2)
[2017-10-21] MEDS: NS 1/2 1000 ML IV 1,000 ML IV SCH ×3 (06:19→14:59)
[2017-10-21] MEDS: FORTAZ or TAZICEF VIAL INJ 2 G in NS 100 ML IV + SPIKE MINIBAG* 100 ML IV SCH ×2 (06:39→23:14)
--- NOTE | 2017-10-21 07:19 | RAD ---
HISTORY: Shortness of breath Study: Chest AP portable Comparison: 10/20/2017 Findings: The heart remains enlarged. No definite congestive heart failure is noted. The lungs are hypo inflate d. Left upper lobe pneumonia is unchanged. There are now some infiltrates visualized in the right upp er lobe. The right lower lobe is clear. No pleural effusions are identified. The bony thorax is unrem arkable. IMPRESSION: No change left lung infiltrates Infiltrate now visualized right upper lobe Reported By:
[2017-10-21] MEDS ORDERED: NS 1/2 1000 ML IV 1,000 ML IV ONE (08:34)
[2017-10-21] MEDS: ROBITUSSIN DM PO SCH ×4 (08:39→21:11)
[2017-10-21] MEDS: COREG TAB 25 MG PO SCH ×2 (08:40→22:04)
[2017-10-21] MEDS: MILK OF MAGNESIA PO SCH (08:40)
[2017-10-21] MEDS: ZESTRIL TAB 40 MG PO SCH (08:40)
[2017-10-21] MEDS: K-DUR TAB 20 MEQ PO SCH (08:40)
[2017-10-21] MEDS: NORVASC TAB 10 MG PO SCH (08:40)
[2017-10-21] MEDS: GLUCOTROL XL PO SCH (08:40)
[2017-10-21] MEDS: ASPIRIN EC 81 MG PO SCH (08:40)
[2017-10-21] MEDS: SOLU-Medrol 40 MG VIAL IVP SCH ×3 (09:36→21:59)
[2017-10-21] MEDS: ZOFRAN INJ 4 MG VIAL IVP PRN (09:47)
--- NOTE | 2017-10-21 09:59 | PCM.PROG ---
Progress Note - Progress Note for Day of Date of Exam: 10/20/17 - Subjective Subjective: WAS ADMITTED FOR LEFT SIDED PNEUMONIA AND RESPIRATORY INSUFFICIENCY. HE REMAINS IN THE INTENSIVE CARE UNIT ON THE BIPAP. STAFF REPORTS THAT PATIENT HAS BEEN AGITATED THROUGHOUT THE NIGHT AND PULLING MASK OFF CONSTANTLY. THEY REPORT THAT WHEN MASK IS REMOVED, PATIENTS OXYGEN SATURATIONS FALL INTO THE 70S. HE IS LYING IN BED WITH EYES CLOSED, BUT IS RESPONSIVE TO VERBAL STIMULI. ON EXAMINATION, HEART IS REGULAR IN RATE AND RHYTHM. BILATERAL LUNGS CONTINUE WITH SCATTERED WHEEZING AND RHONCHI. ABDOMEN IS ROUND, SOFT, AND NON-TENDER WITH NORMAL BOWEL SOUNDS NOTED IN ALL QUADRANTS. BILATERAL LOWER EXTREMITIES CONTINUE WITH 1+ PITTING EDEMA. THERE IS A WHATLEY CATHETER NOTED TO BEDSIDE DRAINAGE. HIS VITALS THIS MORNING ARE 97.6-75-22-92% BIPAP-167/78. LABS WERE OBTAINED. ABNORMAL LAB VALUES INCLUDE THE FOLLOWING: WBC 10.1-RBC 4.43, HGB 11.7, HCT 35.5, BUN 31, CREATININE 1.51, GLUCOSE 195, ALBUMIN 2.5. TODAYS ABG REVEALED: PH 7.430, PC02 37.0, P02 55.0, HC03 24.6, 02 SATURATION 89.0. A CHEST XRAY WAS OBTAINED AND REVEALED: The patient is rotated to the left. The heart remains enlarged. No congestive heart failure is noted. The right lung is clear. Diffuse alveolar infiltrate is present in the left lung most prominent in the upper lobe. This is most consistent with pneumonia. It is unchanged when compared with the prior examination. No definite pleural effusions are identified. The bony thorax is unremarkable. TODAY, WE WILL START HALDOL 1-2MG IV Q4H PRN AGITATION. OTHERWISE, WE WILL CONTINUE WITH IV ANTIBIOTICS, RESPIRATORY TREATMENTS, BIPAP, AND CURRENT PLAN OF CARE. PHYSICAL THERAPY WILL CONSULT WITH PATIENT. WE WILL FOLLOW UP WITH AM LABS AND CONTINUE TO MONITOR PATIENT. - Past Medical Family Social History Past Med/Fam/Surg Hx: No changes since H&P Allergies: Allergies No Known Drug Allergies Allergy (Verified 10/17/17 09:23) - Review of Systems ROS: No change since H&P - Vital Signs and I&O's Vital Signs: Temperature 97.2 F Pulse Rate [Right Radial] 70 Pulse Rate 72 Respiratory Rate 22 Blood Pressure [Right Arm] 146/69 Blood Pressure [Left Arm] 148/71 Blood Pressure 183/82 O2 Sat by Pulse Oximetry 95 Intake and Output: Intake & Output 10/18/17 10/19/17 10/20/17 10/21/17 11:59 11:59 11:59 11:59 Intake Total 1920 / 1920 3482 / 3482 3282 / 3282 2046 / 2046 Output Total 1175 / 1175 2950 / 2950 1450 / 1450 725 / 725 Balance 745 / 745 532 / 532 1832 / 1832 1322 / 1322 - Physical Exam Oriented: Normal Eyes: Normal Ear: Normal Nose: Normal Throat: Normal Respiratory: Generalized, Diminished, Wheezes, Rhonchi Cardiovascular: Edema (BILATERAL LOWER EXTREMITIES ). negative: S3, S4, Murmur : Normal Auscultation: Bowel Sounds: Normal Tenderness: Normal Skin: Normal Musculoskeletal: Normal Psychiatric: Normal Mood Description: Calm Affect: Normal Speech Pattern: Appropriate - Laboratory and Diagnostics Result Diagrams: 10/21/17 05:05 10/21/17 05:05 Labs: 10/17/17 09:30 Blood Blood Culture - Preliminary 10/17/17 09:40 Blood Blood Culture - Preliminary 10/17/17 10:30 Sputum - Expectorated Sputum Sputum Culture - Final 10/17/17 10:30 Sputum - Expectorated Sputum - Final 10/17/17 12:51 Urine,Catheterized Urine Culture - Final [facility] WBC 9.2 X10^3/uL (3.6-10.0) 10/21/17 05:05 RBC 4.10 X10^6/uL (4.7-6.0) L 10/21/17 05:05 Hgb 11.2 g/dL (13.5-18.0) L 10/21/17 05:05 Hct 33.2 % (42.0-54.0) L 10/21/17 05:05 MCV 81.1 fL (80.0-100.0) 10/21/17 05:05 MCH 27.3 pg (27.0-34.0) 10/21/17 05:05 MCHC 33.6 g/dL (33.0-35.0) 10/21/17 05:05 RDW 14.8 % (11.6-16.5) 10/21/17 05:05 Plt Count 231 X10^3/uL (150.0-450.0) 10/21/17 05:05 MPV 9.1 fL (7.4-11.0) 10/21/17 05:05 Neut % (Auto) 79.1 % (42.0-75.0) H 10/21/17 05:05 Lymph % (Auto) 10.4 % (21.0-51.0) L 10/21/17 05:05 [place] % (Auto) 9.4 % (0.0-13.0) 10/21/17 05:05 Eos % (Auto) 0.8 % (0.9-2.9) L 10/21/17 05:05 Baso % (Auto) 0.3 % (0.2-1.0) 10/21/17 05:05 Neut # (Auto) 7.3 x10^3/uL (2.2-4.8) H 10/21/17 05:05 Lymph # (Auto) 1.0 X10^3/uL (1.3-2.9) L 10/21/17 05:05 [place] # (Auto) 0.9 x10^3/uL (0.3-0.8) H 10/21/17 05:05 Eos # (Auto) 0.1 x10^3/uL (0.0-0.2) 10/21/17 05:05 Baso # (Auto) 0.0 X10^3/uL (0.0-0.1) 10/21/17 05:05 Absolute Nucleated RBC 0.0 /100WBC 10/21/17 05:05 Sample Site Rrad 10/20/17 04:52 ABG pH 7.430 (7.35-7.45) 10/20/17 04:52 ABG pCO2 37.0 mmHg (35.0-45.0) 10/20/17 04:52 ABG pO2 55.0 mmHg (80.0-100.0) L 10/20/17 04:52 ABG HCO3 24.6 mmol/L (22-26) 10/20/17 04:52 ABG O2 Saturation 89.0 % (90-100) L 10/20/17 04:52 ABG Base Excess 0.5 mmol/L (-2.0-2.0) 10/20/17 04:52 Ganesh Test Pos 10/20/17 04:52 A-a Gradient 469.0 mmHg 10/20/17 04:52 FiO2 80.000 10/20/17 04:52 Blood Gas Comments Katy abg well-mtf 10/20/17 04:52 Sodium 142 mmol/L (136-145) 10/21/17 05:05 Corrected Sodium 144 mmol/L (136-145) 10/21/17 05:05 Potassium 5.0 mmol/L (3.5-5.1) 10/21/17 05:05 Chloride 108 mmol/L (98-107) H 10/21/17 05:05 Carbon Dioxide 25.3 mmol/L (21-32) 10/21/17 05:05 BUN 47 mg/dL (7-18) H 10/21/17 05:05 Creatinine 1.94 mg/dL (0.70-1.30) H 10/21/17 05:05 Est GFR (MDRD) Af Amer 44 (>60) L 10/21/17 05:05 Est GFR (MDRD) Non-Af 36 (>60) L 10/21/17 05:05 Glucose 182 mg/dL (65-99) H 10/21/17 05:05 POC Glucose (mg/dL) 178 mg/dL (65-99) H 10/21/17 05:04 Lactic Acid 2.4 mmol/L (0.4-2.0) H 10/17/17 09:40 Calcium 8.4 mg/dL (8.5-10.1) L 10/21/17 05:05 Corrected Calcium 9.8 mg/dL (8.5-10.1) 10/21/17 05:05 Total Bilirubin 0.60 mg/dL (0.2-1.0) 10/21/17 05:05 AST 19 Units/L (15-37) 10/21/17 05:05 ALT 19 Units/L (12-78) 10/21/17 05:05 Alkaline Phosphatase 57 Units/L (46-116) 10/21/17 05:05 Creatine Kinase 106 Units/L (39-308) 10/17/17 20:35 CK-MB (CK-2) 4.8 ng/mL (0-4.0) H* 10/17/17 20:35 CK/CKMB % Calc 4.5 % (<4) 10/17/17 20:35 Troponin I 0.06 ng/mL (0-1.5) 10/17/17 20:35 B-Natriuretic Peptide 420 pg/mL (0-79) H 10/17/17 09:40 Total Protein 6.6 g/dL (6.4-8.2) 10/21/17 05:05 Albumin 2.3 g/dL (3.4-5.0) L 10/21/17 05:05 Globulin 4.3 g/dL (2.5-4.5) 10/21/17 05:05 Albumin/Globulin Ratio 0.5 Ratio (1.1-2.1) L 10/21/17 05:05 Specimen Type Catherized urine 10/17/17 12:51 Urine Color Yellow (YELLOW) 10/17/17 12:51 Urine Appearance Cloudy (CLEAR) 10/17/17 12:51 Urine pH 8.0 (5.0 - 8.0) 10/17/17 12:51 Ur Specific [place] 1.010 (1.000-1.030) 10/17/17 12:51 Urine Protein 1+ (NEGATIVE) 10/17/17 12:51 Urine Glucose (UA) 3+ (NEGATIVE) 10/17/17 12:51 Urine Ketones Negative (NEGATIVE) 10/17/17 12:51 Urine Occult Blood 5+ (NEGATIVE) 10/17/17 12:51 Urine Nitrite Negative (NEGATIVE) 10/17/17 12:51 Urine Bilirubin Negative (NEGATIVE) 10/17/17 12:51 Urine Urobilinogen Normal (NORMAL) 10/17/17 12:51 Ur Leukocyte Esterase 2+ (NEGATIVE) 10/17/17 12:51 Urine RBC 10-20 /HPF (NONE SEEN) 10/17/17 12:51 Urine WBC 10-20 /HPF (NONE SEEN) 10/17/17 12:51 Ur Squamous Epith Cells Rare /HPF (NEGATIVE) 10/17/17 12:51 Amorphous Sediment 1+ /HPF (NEGATIVE) 10/17/17 12:51 Urine Bacteria 2+ /HPF (NEGATIVE) 10/17/17 12:51 Urine Mucus Few /HPF (NEGATIVE) 10/17/17 12:51 Ur Culture Indicated? Yes/culture set up 10/17/17 12:51 - Plan (1) Pneumonia Status: Acute Qualifiers: Pneumonia type: aspiration pneumonia Laterality: left Lung location: lower lobe of lung Qualified Code(s): J18.1 - Lobar pneumonia, unspecified organism Plan: ADMIT, PNEUMONIA PROTOCOL, CIPRO AND ZOSYN IV, SUPPLEMENTAL OXYGEN, RESPIRATORY TREATMENTS, BIPAP, CONTINUE TO MONITOR (2) Acute respiratory insufficiency Status: Acute Plan: BIPAP, MONITOR ABG, RESPIRATORY TREATMENTS, CONTINUE TO MONITOR (3) Diabetes Status: Acute Qualifiers: Diabetes mellitus type: type 2 Diabetes mellitus long term acute care registered nurse insulin use: with long term acute care registered nurse use Diabetes mellitus complication status: with hyperglycemia Qualified Code(s): E11.65 - Type 2 diabetes mellitus with hyperglycemia; Z79.4 - MCC (current) use of insulin Plan: MONITOR OTBS, CONTINUE GLUCOTROL, HMULIN R SLIDING SCALE, CONTINUE LEVEMIR , CONTINUE TO MONITOR (4) Hyperlipidemia Status: Acute Qualifiers: Hyperlipidemia type: mixed hyperlipidemia Qualified Code(s): E78.2 - Mixed hyperlipidemia Plan: CONTINUE ZOCOR, CONTINUE TO MONITOR (5) CHF (congestive heart failure) Status: Acute Qualifiers: Heart failure type: unspecified Heart failure chronicity: chronic Qualified Code(s): I50.9 - Heart failure, unspecified Plan: CONTINUE COREG, CONTINUE LASIX, CONTINUE ZESTRIL, CONTINUE TO MONITOR (6) Urinary tract infection Status: Acute Qualifiers: Urinary tract infection type: acute cystitis Hematuria presence: with hematuria Qualified Code(s): N30.01 - Acute cystitis with hematuria Plan: FORTAZ 1GM IV Q8H, CONTINUE TO MONITOR (7) Agitation Status: Acute Plan: HALDOL 1-2MG IV Q4H PRN AGITATION, CONTINUE TO MONITOR
[2017-10-21] MEDS: HumuLIN R SUBCUT PRN ×3 (11:13→22:08)
--- NOTE | 2017-10-21 11:44 | PCM.PROG ---
Progress Note - Progress Note for Day of Date of Exam: 10/21/17 - Subjective Subjective: WAS ADMITTED FOR LEFT SIDED PNEUMONIA AND RESPIRATORY INSUFFICIENCY. HE REMAINS IN THE INTENSIVE CARE UNIT ON THE BIPAP. STAFF REPORTS THAT PATIENTS OXYGEN SATURATIONS CONTINUE TO FALL INTO THE 60S AND 70S WHEN THAT BIPAP IS REMOVED. ON EXAMINATION, HEART IS REGULAR IN RATE AND RHYTHM. BILATERAL LUNGS CONTINUE WITH SCATTERED WHEEZING AND RHONCHI. ABDOMEN IS ROUND, SOFT, AND NON-TENDER WITH NORMAL BOWEL SOUNDS NOTED IN ALL QUADRANTS. BILATERAL LOWER EXTREMITIES CONTINUE WITH 1+ PITTING EDEMA. THERE IS A WHATLEY CATHETER NOTED TO BEDSIDE DRAINAGE. HIS VITALS THIS MORNING ARE 97.2-70-22-96% BIPAP-148/71. LABS WERE OBTAINED. ABNORMAL LAB VALUES INCLUDE THE FOLLOWING: RBC 4.10, HGB 11.2, HCT 33.2, CHLORIDE 108, BUN 47, CREATININE 1.94, GLUCOSE 182 , CALCIUM 8.4, ALBUMIN 2.3. A CHEST XRAY WAS OBTAINED AND REVEALED: The heart remains enlarged. No definite congestive heart failure is noted. The lungs are hypo inflated. Left upper lobe pneumonia is unchanged. There are now some infiltrates visualized in the right upper lobe. The right lower lobe is clear. No pleural effusions are identified. The bony thorax is unremarkable. TODAY, WE WILL CONTINUE WITH IV ANTIBIOTICS, RESPIRATORY TREATMENTS, BIPAP, AND CURRENT PLAN OF CARE. WE WILL ALSO ADD SOLU-MEDROL 40MG IV Q8H. OTHERWISE, WE WILL FOLLOW UP WITH AM LABS AND CHEST XRAY AND CONTINUE TO MONITOR PATIENT. - Past Medical Family Social History Past Med/Fam/Surg Hx: No changes since H&P Allergies: Allergies No Known Drug Allergies Allergy (Verified 10/17/17 09:23) - Review of Systems ROS: No change since H&P - Vital Signs and I&O's Vital Signs: Temperature 97.2 F Pulse Rate [Right Radial] 70 Pulse Rate 72 Respiratory Rate 22 Blood Pressure [Right Arm] 146/69 Blood Pressure [Left Arm] 148/71 Blood Pressure 183/82 O2 Sat by Pulse Oximetry 95 Intake and Output: Intake & Output 10/18/17 10/19/17 10/20/17 10/21/17 11:59 11:59 11:59 11:59 Intake Total 1920 / 1920 3482 / 3482 3282 / 3282 [id number] Output Total 1175 / 1175 2950 / 2950 1450 / 1450 725 / 725 Balance 745 / 745 532 / 532 1832 / 1832 1322 / 1322 - Physical Exam Oriented: Normal Eyes: Normal Ear: Normal Nose: Normal Throat: Normal Respiratory: Generalized, Diminished, Wheezes, Rhonchi Cardiovascular: Edema (BILATERAL LOWER EXTREMITIES ). negative: S3, S4, Murmur : Normal Auscultation: Bowel Sounds: Normal Tenderness: Normal Skin: Normal Musculoskeletal: Normal Psychiatric: Normal Mood Description: Calm Affect: Normal Speech Pattern: Appropriate - Laboratory and Diagnostics Result Diagrams: 10/21/17 05:05 10/21/17 05:05 Labs: 10/17/17 09:30 Blood Blood Culture - Preliminary 10/17/17 09:40 Blood Blood Culture - Preliminary 10/17/17 10:30 Sputum - Expectorated Sputum Sputum Culture - Final 10/17/17 10:30 Sputum - Expectorated Sputum - Final 10/17/17 12:51 Urine,Catheterized Urine Culture - Final [facility] WBC 9.2 X10^3/uL (3.6-10.0) 10/21/17 05:05 RBC 4.10 X10^6/uL (4.7-6.0) L 10/21/17 05:05 Hgb 11.2 g/dL (13.5-18.0) L 10/21/17 05:05 Hct 33.2 % (42.0-54.0) L 10/21/17 05:05 MCV 81.1 fL (80.0-100.0) 10/21/17 05:05 MCH 27.3 pg (27.0-34.0) 10/21/17 05:05 MCHC 33.6 g/dL (33.0-35.0) 10/21/17 05:05 RDW 14.8 % (11.6-16.5) 10/21/17 05:05 Plt Count 231 X10^3/uL (150.0-450.0) 10/21/17 05:05 MPV 9.1 fL (7.4-11.0) 10/21/17 05:05 Neut % (Auto) 79.1 % (42.0-75.0) H 10/21/17 05:05 Lymph % (Auto) 10.4 % (21.0-51.0) L 10/21/17 05:05 [place] % (Auto) 9.4 % (0.0-13.0) 10/21/17 05:05 Eos % (Auto) 0.8 % (0.9-2.9) L 10/21/17 05:05 Baso % (Auto) 0.3 % (0.2-1.0) 10/21/17 05:05 Neut # (Auto) 7.3 x10^3/uL (2.2-4.8) H 10/21/17 05:05 Lymph # (Auto) 1.0 X10^3/uL (1.3-2.9) L 10/21/17 05:05 [place] # (Auto) 0.9 x10^3/uL (0.3-0.8) H 10/21/17 05:05 Eos # (Auto) 0.1 x10^3/uL (0.0-0.2) 10/21/17 05:05 Baso # (Auto) 0.0 X10^3/uL (0.0-0.1) 10/21/17 05:05 Absolute Nucleated RBC 0.0 /100WBC 10/21/17 05:05 Sample Site Rrad 10/20/17 04:52 ABG pH 7.430 (7.35-7.45) 10/20/17 04:52 ABG pCO2 37.0 mmHg (35.0-45.0) 10/20/17 04:52 ABG pO2 55.0 mmHg (80.0-100.0) L 10/20/17 04:52 ABG HCO3 24.6 mmol/L (22-26) 10/20/17 04:52 ABG O2 Saturation 89.0 % (90-100) L 10/20/17 04:52 ABG Base Excess 0.5 mmol/L (-2.0-2.0) 10/20/17 04:52 Agnesh Test Pos 10/20/17 04:52 A-a Gradient 469.0 mmHg 10/20/17 04:52 FiO2 80.000 10/20/17 04:52 Blood Gas Comments Katy abg well-mtf 10/20/17 04:52 Sodium 142 mmol/L (136-145) 10/21/17 05:05 Corrected Sodium 144 mmol/L (136-145) 10/21/17 05:05 Potassium 5.0 mmol/L (3.5-5.1) 10/21/17 05:05 Chloride 108 mmol/L (98-107) H 10/21/17 05:05 Carbon Dioxide 25.3 mmol/L (21-32) 10/21/17 05:05 BUN 47 mg/dL (7-18) H 10/21/17 05:05 Creatinine 1.94 mg/dL (0.70-1.30) H 10/21/17 05:05 Est GFR (MDRD) Af Amer 44 (>60) L 10/21/17 05:05 Est GFR (MDRD) Non-Af 36 (>60) L 10/21/17 05:05 Glucose 182 mg/dL (65-99) H 10/21/17 05:05 POC Glucose (mg/dL) 182 mg/dL (65-99) H 10/21/17 11:06 Lactic Acid 2.4 mmol/L (0.4-2.0) H 10/17/17 09:40 Calcium 8.4 mg/dL (8.5-10.1) L 10/21/17 05:05 Corrected Calcium 9.8 mg/dL (8.5-10.1) 10/21/17 05:05 Total Bilirubin 0.60 mg/dL (0.2-1.0) 10/21/17 05:05 AST 19 Units/L (15-37) 10/21/17 05:05 ALT 19 Units/L (12-78) 10/21/17 05:05 Alkaline Phosphatase 57 Units/L (46-116) 10/21/17 05:05 Creatine Kinase 106 Units/L (39-308) 10/17/17 20:35 CK-MB (CK-2) 4.8 ng/mL (0-4.0) H* 10/17/17 20:35 CK/CKMB % Calc 4.5 % (<4) 10/17/17 20:35 Troponin I 0.06 ng/mL (0-1.5) 10/17/17 20:35 B-Natriuretic Peptide 420 pg/mL (0-79) H 10/17/17 09:40 Total Protein 6.6 g/dL (6.4-8.2) 10/21/17 05:05 Albumin 2.3 g/dL (3.4-5.0) L 10/21/17 05:05 Globulin 4.3 g/dL (2.5-4.5) 10/21/17 05:05 Albumin/Globulin Ratio 0.5 Ratio (1.1-2.1) L 10/21/17 05:05 Specimen Type Catherized urine 10/17/17 12:51 Urine Color Yellow (YELLOW) 10/17/17 12:51 Urine Appearance Cloudy (CLEAR) 10/17/17 12:51 Urine pH 8.0 (5.0 - 8.0) 10/17/17 12:51 Ur Specific [place] 1.010 (1.000-1.030) 10/17/17 12:51 Urine Protein 1+ (NEGATIVE) 10/17/17 12:51 Urine Glucose (UA) 3+ (NEGATIVE) 10/17/17 12:51 Urine Ketones Negative (NEGATIVE) 10/17/17 12:51 Urine Occult Blood 5+ (NEGATIVE) 10/17/17 12:51 Urine Nitrite Negative (NEGATIVE) 10/17/17 12:51 Urine Bilirubin Negative (NEGATIVE) 10/17/17 12:51 Urine Urobilinogen Normal (NORMAL) 10/17/17 12:51 Ur Leukocyte Esterase 2+ (NEGATIVE) 10/17/17 12:51 Urine RBC 10-20 /HPF (NONE SEEN) 10/17/17 12:51 Urine WBC 10-20 /HPF (NONE SEEN) 10/17/17 12:51 Ur Squamous Epith Cells Rare /HPF (NEGATIVE) 10/17/17 12:51 Amorphous Sediment 1+ /HPF (NEGATIVE) 10/17/17 12:51 Urine Bacteria 2+ /HPF (NEGATIVE) 10/17/17 12:51 Urine Mucus Few /HPF (NEGATIVE) 10/17/17 12:51 Ur Culture Indicated? Yes/culture set up 10/17/17 12:51 - Plan (1) Pneumonia Status: Acute Qualifiers: Pneumonia type: aspiration pneumonia Laterality: left Lung location: lower lobe of lung Qualified Code(s): J18.1 - Lobar pneumonia, unspecified organism Plan: PNEUMONIA PROTOCOL, FORTAZ 2GM IV Q8H, SOLU-MEDROL 40MG IV Q8H, SUPPLEMENTAL OXYGEN, RESPIRATORY TREATMENTS, BIPAP, CONTINUE TO MONITOR (2) Acute respiratory insufficiency Status: Acute Plan: BIPAP, SOLU-MEDROL 40MG IV Q8H, MONITOR ABG, RESPIRATORY TREATMENTS, CONTINUE TO MONITOR (3) Diabetes Status: Acute Qualifiers: Diabetes mellitus type: type 2 Diabetes mellitus roasterman insulin use: with senior living use Diabetes mellitus complication status: with hyperglycemia Qualified Code(s): E11.65 - Type 2 diabetes mellitus with hyperglycemia; Z79.4 - ferry terminal agent (current) use of insulin Plan: MONITOR OTBS, CONTINUE GLUCOTROL, HMULIN R SLIDING SCALE, CONTINUE LEVEMIR , CONTINUE TO MONITOR (4) Hyperlipidemia Status: Acute Qualifiers: Hyperlipidemia type: mixed hyperlipidemia Qualified Code(s): E78.2 - Mixed hyperlipidemia Plan: CONTINUE ZOCOR, CONTINUE TO MONITOR (5) CHF (congestive heart failure) Status: Acute Qualifiers: Heart failure type: unspecified Heart failure chronicity: chronic Qualified Code(s): I50.9 - Heart failure, unspecified Plan: CONTINUE COREG, CONTINUE LASIX, CONTINUE ZESTRIL, CONTINUE TO MONITOR (6) Urinary tract infection Status: Acute Qualifiers: Urinary tract infection type: acute cystitis Hematuria presence: with hematuria Qualified Code(s): N30.01 - Acute cystitis with hematuria Plan: FORTAZ 1GM IV Q8H, CONTINUE TO MONITOR (7) Agitation Status: Acute Plan: HALDOL 1-2MG IV Q4H PRN AGITATION, CONTINUE TO MONITOR
[2017-10-21] MEDS: LEVEMIR SC SCH (21:59)
[2017-10-21] MEDS: COLACE CAP 100 MG PO SCH (22:02)
[2017-10-21] MEDS: OXYBUTYNIN CHLORIDE ER PO SCH (22:03)
[2017-10-21] MEDS: ZOCOR TAB 20 MG PO SCH (22:03)
[2017-10-21] MEDS: NEURONTIN CAP 300 MG PO SCH (22:03)
[2017-10-21] MEDS: SNACK - Diabetic Appropriate PO SCH (23:10)
[2017-10-22] MEDS ORDERED: NS 1/2 1000 ML IV 1,000 ML IV ONE ×2 (00:29→08:34)
[2017-10-22] MEDS: NS 1/2 1000 ML IV 1,000 ML IV SCH ×4 (00:47→18:39)
[2017-10-22] MEDS: DUONEB 0.5 MG/3 MG NEB SCH ×6 (00:55→20:36)
[2017-10-22] MEDS: SOLU-Medrol 40 MG VIAL IVP SCH ×3 (05:02→21:47)
[2017-10-22] MEDS: HumuLIN R SUBCUT PRN ×3 (05:43→16:10)
[2017-10-22 06:04] LABS: ABG BASE EXCESS -5.5 mmol/L (-2.0-2.0); ABG HCO3 20.7 mmol/L (22-26)
[2017-10-22 06:05] LABS: ABG ALLEN TEST POS
[2017-10-22 06:21] LABS: ALBUMIN 2.3 g/dL (3.4-5.0); CALCIUM 8.3 mg/dL (8.5-10.1); CARBON DIOXIDE 22.4 mmol/L (21-32); COR CA(FOR HYPOALB) 9.7 mg/dL (8.5-10.1); CREATININE 2.57 mg/dL (0.70-1.30); TOTAL PROTEIN 7.2 g/dL (6.4-8.2)
--- NOTE | 2017-10-22 06:37 | RAD ---
HISTORY: Shortness of breath Study: Chest AP portable Comparison: 10/21/2017 Findings: The heart remains mildly enlarged. No definite congestive heart failure is noted. Hypo inflation kevin ins present. Left upper lobe infiltrate is slightly improved when compared with the prior examination . The right upper lobe infiltrate is unchanged and could be seen to abut the minor fissure. The right lower lobe is clear. No pleural effusions are identified. The bony thorax is unremarkable. IMPRESSION: No significant change from the prior day's examination Reported By:
[2017-10-22 06:38] LABS: BASOPHILS # (AUTO) 0.1 X10^3/uL (0.0-0.1); BASOPHILS % (AUTO) 0.6 % (0.2-1.0); HEMATOCRIT 34.7 % (42.0-54.0); HEMOGLOBIN 11.4 g/dL (13.5-18.0); LYMPHOCYTES # (AUTO) 0.6 X10^3/uL (1.3-2.9); LYMPHOCYTES % (AUTO) 6.3 % (21.0-51.0); MEAN CORPUSCULAR HEMOGLOBIN 26.7 pg (27.0-34.0); MEAN CORPUSCULAR HGB CONC 32.9 g/dL (33.0-35.0); MEAN CORPUSCULAR VOLUME 81.2 fL (80.0-100.0); MEAN PLATELET VOLUME 8.7 fL (7.4-11.0); MONOCYTES # (AUTO) 0.3 x10^3/uL (0.3-0.8); MONOCYTES % (AUTO) 3.1 % (0.0-13.0); NEUTROPHILS # (AUTO) 8.4 x10^3/uL (2.2-4.8); PLATELET COUNT 266 X10^3/uL (150.0-450.0); RED BLOOD COUNT 4.27 X10^6/uL (4.7-6.0); RED CELL DISTRIBUTION WIDTH 14.4 % (11.6-16.5); WHITE BLOOD COUNT 9.3 X10^3/uL (3.6-10.0)
[2017-10-22] MEDS: NORVASC TAB 10 MG PO SCH (08:48)
[2017-10-22] MEDS: ROBITUSSIN DM PO SCH ×4 (08:48→20:31)
[2017-10-22] MEDS: GLUCOTROL XL PO SCH (08:49)
[2017-10-22] MEDS: ASPIRIN EC 81 MG PO SCH (08:49)
[2017-10-22] MEDS: MILK OF MAGNESIA PO SCH (08:49)
[2017-10-22] MEDS: COREG TAB 25 MG PO SCH ×2 (08:49→20:32)
[2017-10-22] MEDS: ZESTRIL TAB 40 MG PO SCH (08:49)
[2017-10-22] MEDS: FORTAZ or TAZICEF VIAL INJ 2 G in NS 100 ML IV + SPIKE MINIBAG* 100 ML IV SCH ×2 (08:54→09:14)
[2017-10-22] MEDS: K-DUR TAB 20 MEQ PO SCH (09:02)
[2017-10-22] MEDS: SNACK - Diabetic Appropriate PO SCH (20:30)
[2017-10-22] MEDS: NEURONTIN CAP 300 MG PO SCH (20:31)
[2017-10-22] MEDS: ZOCOR TAB 20 MG PO SCH (20:31)
[2017-10-22] MEDS: LEVEMIR SC SCH (20:31)
[2017-10-22] MEDS: OXYBUTYNIN CHLORIDE ER PO SCH (20:32)
[2017-10-22] MEDS: COLACE CAP 100 MG PO SCH (20:32)
[2017-10-22] MEDS: FORTAZ or TAZICEF VIAL INJ 1 G in NS 100 ML IV + SPIKE MINIBAG* 100 ML IV SCH (21:46)
[2017-10-23] MEDS: DUONEB 0.5 MG/3 MG NEB SCH ×5 (00:04→21:04)
[2017-10-23] MEDS ORDERED: NS 1/2 1000 ML IV 1,000 ML IV ONE ×2 (03:05→18:27)
[2017-10-23] MEDS: NS 1/2 1000 ML IV 1,000 ML IV SCH ×3 (05:41→18:29)
[2017-10-23] MEDS: SOLU-Medrol 40 MG VIAL IVP SCH ×3 (05:41→22:20)
[2017-10-23] MEDS: HumuLIN R SUBCUT PRN ×3 (05:43→16:25)
[2017-10-23 06:03] LABS: BASOPHILS % (AUTO) 0.2 % (0.2-1.0); HEMATOCRIT 34.2 % (42.0-54.0); HEMOGLOBIN 11.4 g/dL (13.5-18.0); LYMPHOCYTES # (AUTO) 0.4 X10^3/uL (1.3-2.9); LYMPHOCYTES % (AUTO) 3.4 % (21.0-51.0); MEAN CORPUSCULAR HEMOGLOBIN 26.9 pg (27.0-34.0); MEAN CORPUSCULAR HGB CONC 33.4 g/dL (33.0-35.0); MEAN CORPUSCULAR VOLUME 80.5 fL (80.0-100.0); MEAN PLATELET VOLUME 8.6 fL (7.4-11.0); MONOCYTES # (AUTO) 0.4 x10^3/uL (0.3-0.8); MONOCYTES % (AUTO) 3.9 % (0.0-13.0); NEUTROPHILS # (AUTO) 9.8 x10^3/uL (2.2-4.8); NEUTROPHILS % (AUTO) 92.5 % (42.0-75.0); PLATELET COUNT 293 X10^3/uL (150.0-450.0); RED BLOOD COUNT 4.25 X10^6/uL (4.7-6.0); WHITE BLOOD COUNT 10.6 X10^3/uL (3.6-10.0)
[2017-10-23 06:34] LABS: ALBUMIN 2.2 g/dL (3.4-5.0); CALCIUM 8.2 mg/dL (8.5-10.1); CARBON DIOXIDE 24.5 mmol/L (21-32); COR CA(FOR HYPOALB) 9.6 mg/dL (8.5-10.1); CREATININE 2.39 mg/dL (0.70-1.30); TOTAL PROTEIN 6.8 g/dL (6.4-8.2)
[2017-10-23] MEDS: GLUCOTROL XL PO SCH (06:37)
--- NOTE | 2017-10-23 06:54 | RAD ---
HISTORY: Shortness of breath. Prior history of coronary artery disease, CHF, hypertension and diabet es. Study: Single-view chest Comparison: 10/22/2017. Technique: Examination is again seen to be expiratory. Findings: Trachea is midline. There is mild cardiomegaly. A changing pattern of bilateral infiltrates is seen w ith improvement in the left perihilar/left upper lobe infiltrate and worsening of right perihilar inf iltrate. No pleural effusion or pneumothorax is seen. Degenerative changes seen involving the left sh oulder. IMPRESSION: Changing pattern of bilateral infiltrates without overall improvement. Mild cardiomegaly. Reported By:
[2017-10-23 07:08] LABS: BAND NEUTROPHILS % 3 % (0-10); PLATELET MORPHOLOGY COMMENT NORMAL (NORMAL)
[2017-10-23] MEDS: ZOFRAN INJ 4 MG VIAL IVP PRN (08:00)
[2017-10-23] MEDS: K-DUR TAB 20 MEQ PO SCH (08:10)
[2017-10-23] MEDS: ASPIRIN EC 81 MG PO SCH (09:48)
[2017-10-23] MEDS: ROBITUSSIN DM PO SCH ×4 (09:48→20:50)
[2017-10-23] MEDS: MILK OF MAGNESIA PO SCH (09:48)
[2017-10-23] MEDS: COREG TAB 25 MG PO SCH ×2 (09:48→20:50)
[2017-10-23] MEDS: NORVASC TAB 10 MG PO SCH (09:48)
[2017-10-23] MEDS: ZESTRIL TAB 40 MG PO SCH (09:48)
[2017-10-23] MEDS: FORTAZ or TAZICEF VIAL INJ 1 G in NS 100 ML IV + SPIKE MINIBAG* 100 ML IV SCH ×2 (09:49→22:19)
[2017-10-23] MEDS: LEVEMIR SC SCH ×2 (09:54→20:50)
[2017-10-23] MEDS: SNACK - Diabetic Appropriate PO SCH (20:49)
[2017-10-23] MEDS: COLACE CAP 100 MG PO SCH (20:50)
[2017-10-23] MEDS: NEURONTIN CAP 300 MG PO SCH (20:50)
[2017-10-23] MEDS: OXYBUTYNIN CHLORIDE ER PO SCH (20:50)
[2017-10-23] MEDS: ZOCOR TAB 20 MG PO SCH (20:50)
[2017-10-24] MEDS: ZOFRAN INJ 4 MG VIAL IVP PRN (01:15)
[2017-10-24] MEDS: DUONEB 0.5 MG/3 MG NEB SCH ×6 (01:49→21:03)
[2017-10-24 05:15] LABS: ABG BASE EXCESS -1.9 mmol/L (-2.0-2.0); ABG HCO3 24.3 mmol/L (22-26)
[2017-10-24 05:20] LABS: ABG ALLEN TEST POS
[2017-10-24] MEDS ORDERED: DULCOLAX SUPPOSITORY 10 MG RECTAL ONE (05:27)
[2017-10-24 05:33] LABS: BASOPHILS # (AUTO) 0.1 X10^3/uL (0.0-0.1); BASOPHILS % (AUTO) 0.5 % (0.2-1.0); HEMATOCRIT 34.5 % (42.0-54.0); HEMOGLOBIN 11.6 g/dL (13.5-18.0); LYMPHOCYTES # (AUTO) 0.4 X10^3/uL (1.3-2.9); LYMPHOCYTES % (AUTO) 3.4 % (21.0-51.0); MEAN CORPUSCULAR HEMOGLOBIN 26.8 pg (27.0-34.0); MEAN CORPUSCULAR HGB CONC 33.7 g/dL (33.0-35.0); MEAN CORPUSCULAR VOLUME 79.5 fL (80.0-100.0); MEAN PLATELET VOLUME 8.5 fL (7.4-11.0); MONOCYTES # (AUTO) 0.7 x10^3/uL (0.3-0.8); MONOCYTES % (AUTO) 6.2 % (0.0-13.0); NEUTROPHILS % (AUTO) 89.9 % (42.0-75.0); PLATELET COUNT 340 X10^3/uL (150.0-450.0); RED BLOOD COUNT 4.34 X10^6/uL (4.7-6.0); RED CELL DISTRIBUTION WIDTH 14.4 % (11.6-16.5); WHITE BLOOD COUNT 11.1 X10^3/uL (3.6-10.0)
[2017-10-24] MEDS: SOLU-Medrol 40 MG VIAL IVP SCH (05:42)
[2017-10-24] MEDS: HumuLIN R SUBCUT PRN ×4 (05:43→21:30)
[2017-10-24 05:47] LABS: ALBUMIN 2.2 g/dL (3.4-5.0); CARBON DIOXIDE 24.9 mmol/L (21-32); COR CA(FOR HYPOALB) 9.4 mg/dL (8.5-10.1); CREATININE 1.81 mg/dL (0.70-1.30); TOTAL PROTEIN 6.5 g/dL (6.4-8.2)
[2017-10-24] MEDS: NS 1/2 1000 ML IV 1,000 ML IV SCH ×3 (07:00→11:30)
[2017-10-24] MEDS: ROBITUSSIN DM PO SCH ×4 (08:17→21:16)
[2017-10-24] MEDS: MILK OF MAGNESIA PO SCH (08:17)
[2017-10-24] MEDS: NORVASC TAB 10 MG PO SCH (08:18)
[2017-10-24] MEDS: COREG TAB 25 MG PO SCH ×2 (08:18→21:14)
[2017-10-24] MEDS: LEVEMIR SC SCH ×2 (08:18→21:31)
[2017-10-24] MEDS: ZESTRIL TAB 40 MG PO SCH (08:18)
[2017-10-24] MEDS: ASPIRIN EC 81 MG PO SCH (08:18)
[2017-10-24] MEDS: K-DUR TAB 20 MEQ PO SCH (08:19)
[2017-10-24] MEDS ORDERED: NS 1/2 1000 ML IV 1,000 ML IV ONE (08:35)
[2017-10-24] MEDS: FORTAZ or TAZICEF VIAL INJ 1 G in NS 100 ML IV + SPIKE MINIBAG* 100 ML IV SCH ×2 (09:00→21:19)
--- NOTE | 2017-10-24 10:35 | RAD ---
HISTORY: Shortness of breath Study: Single view of the chest. Comparison: 10/23/2017 Findings: Cardiomegaly with pulmonary edema like pattern. There is a more confluent opacity in the right upper lobe. Small bilateral pleural effusions. Osseous structures demonstrate no acute abnormality. IMPRESSION: 1. Cardiomegaly and pulmonary edema with more confluent opacity in the right upper lobe. This makes it impossible to exclude superimposed infection. Reported By:
[2017-10-24] MEDS: MUCOMYST 20% 200 MG/ML NEB SCH ×2 (12:35→21:04)
[2017-10-24] MEDS: LEVAQUIN PREMIX IV 750 MG 750 MG/150 ML BAG IV SCH (15:43)
[2017-10-24] MEDS: COLACE CAP 100 MG PO SCH (21:13)
[2017-10-24] MEDS: NEURONTIN CAP 300 MG PO SCH (21:14)
[2017-10-24] MEDS: ZOCOR TAB 20 MG PO SCH (21:17)
[2017-10-24] MEDS: OXYBUTYNIN CHLORIDE ER PO SCH (21:18)
[2017-10-25] MEDS: DUONEB 0.5 MG/3 MG NEB SCH ×6 (01:47→20:59)
[2017-10-25] MEDS ORDERED: NS 1/2 1000 ML IV 1,000 ML IV ONE ×2 (02:39→23:54)
[2017-10-25] MEDS: NS 1/2 1000 ML IV 1,000 ML IV SCH ×2 (02:55→06:57)
[2017-10-25] MEDS: SNACK - Diabetic Appropriate PO SCH ×2 (02:56→20:20)
[2017-10-25] MEDS: FORTAZ or TAZICEF VIAL INJ 1 G in NS 100 ML IV + SPIKE MINIBAG* 100 ML IV SCH ×3 (06:14→21:05)
[2017-10-25 06:49] LABS: BASOPHILS % (AUTO) 0.2 % (0.2-1.0); EOSINOPHILS # (AUTO) 0.1 x10^3/uL (0.0-0.2); EOSINOPHILS % (AUTO) 0.9 % (0.9-2.9); HEMOGLOBIN 11.8 g/dL (13.5-18.0); LYMPHOCYTES # (AUTO) 0.9 X10^3/uL (1.3-2.9); LYMPHOCYTES % (AUTO) 9.4 % (21.0-51.0); MEAN CORPUSCULAR HGB CONC 33.7 g/dL (33.0-35.0); MEAN PLATELET VOLUME 8.1 fL (7.4-11.0); MONOCYTES % (AUTO) 10.5 % (0.0-13.0); NEUTROPHILS # (AUTO) 7.3 x10^3/uL (2.2-4.8); PLATELET COUNT 339 X10^3/uL (150.0-450.0); RED BLOOD COUNT 4.38 X10^6/uL (4.7-6.0); RED CELL DISTRIBUTION WIDTH 14.4 % (11.6-16.5); WHITE BLOOD COUNT 9.3 X10^3/uL (3.6-10.0)
[2017-10-25 07:15] LABS: ALANINE AMINOTRANSFERASE 17 Units/L (12-78); ALBUMIN 2.1 g/dL (3.4-5.0); ALKALINE PHOSPHATASE 55 Units/L (46-116); ASPARTATE AMINO TRANSFERASE 13 Units/L (15-37); BLOOD UREA NITROGEN 70 mg/dL (7-18); CALCIUM 8.5 mg/dL (8.5-10.1); CARBON DIOXIDE 28.3 mmol/L (21-32); CHLORIDE 108 mmol/L (98-107); CREATININE 1.53 mg/dL (0.70-1.30); SODIUM 141 mmol/L (136-145); TOTAL PROTEIN 6.4 g/dL (6.4-8.2); eGFR NON BLACK RACES 48 (>60)
[2017-10-25] MEDS: ASPIRIN EC 81 MG PO SCH (08:52)
[2017-10-25] MEDS: MUCOMYST 20% 200 MG/ML NEB SCH ×2 (09:58→20:59)
[2017-10-25] MEDS: COREG TAB 25 MG PO SCH ×2 (10:01→21:02)
[2017-10-25] MEDS: ZESTRIL TAB 40 MG PO SCH (10:01)
[2017-10-25] MEDS: ROBITUSSIN DM PO SCH ×4 (10:01→21:02)
[2017-10-25] MEDS: MILK OF MAGNESIA PO SCH (10:04)
[2017-10-25] MEDS: NORVASC TAB 10 MG PO SCH (10:04)
[2017-10-25] MEDS: K-DUR TAB 20 MEQ PO SCH (10:04)
[2017-10-25] MEDS: LEVEMIR SC SCH ×2 (11:10→21:03)
--- NOTE | 2017-10-25 11:23 | PCM.PROG ---
Progress Note - Progress Note for Day of Date of Exam: 10/25/17 - Subjective Subjective: WAS ADMITTED FOR LEFT SIDED PNEUMONIA AND RESPIRATORY INSUFFICIENCY. HE REMAINS IN THE INTENSIVE CARE UNIT ON THE BIPAP. STAFF REPORTS THAT PATIENTS OXYGEN SATURATIONS CONTINUE TO FALL INTO THE 60S AND 70S WHEN THAT BIPAP IS REMOVED. ON EXAMINATION, HEART IS REGULAR IN RATE AND RHYTHM. BILATERAL LUNGS CONTINUE WITH SCATTERED WHEEZING AND RHONCHI. ABDOMEN IS ROUND, SOFT, AND NON-TENDER WITH NORMAL BOWEL SOUNDS NOTED IN ALL QUADRANTS. BILATERAL LOWER EXTREMITIES CONTINUE WITH 1+ PITTING EDEMA. THERE IS A WHATLEY CATHETER NOTED TO BEDSIDE DRAINAGE. HIS VITALS THIS MORNING ARE 97.2-70-22-96% BIPAP-148/71. LABS WERE OBTAINED. ABNORMAL LAB VALUES INCLUDE THE FOLLOWING: RBC 4.10, HGB 11.2, HCT 33.2, CHLORIDE 108, BUN 47, CREATININE 1.94, GLUCOSE 182 , CALCIUM 8.4, ALBUMIN 2.3. A CHEST XRAY WAS OBTAINED AND REVEALED: The heart remains enlarged. No definite congestive heart failure is noted. The lungs are hypo inflated. Left upper lobe pneumonia is unchanged. There are now some infiltrates visualized in the right upper lobe. The right lower lobe is clear. No pleural effusions are identified. The bony thorax is unremarkable. TODAY, WE WILL CONTINUE WITH IV ANTIBIOTICS, RESPIRATORY TREATMENTS, BIPAP, AND CURRENT PLAN OF CARE. WE WILL ALSO ADD SOLU-MEDROL 40MG IV Q8H. OTHERWISE, WE WILL FOLLOW UP WITH AM LABS AND CHEST XRAY AND CONTINUE TO MONITOR PATIENT. - Past Medical Family Social History Past Med/Fam/Surg Hx: No changes since H&P Allergies: Allergies No Known Drug Allergies Allergy (Verified 10/17/17 09:23) - Review of Systems ROS: No change since H&P - Vital Signs and I&O's Vital Signs: Temperature 97.5 F Pulse Rate [Left Brachial] 58 Pulse Rate [Apical] 74 Pulse Rate [Right Radial] 68 Pulse Rate 69 Respiratory Rate 19 Blood Pressure [Right Arm] 146/69 Blood Pressure [Left Arm] 139/64 Blood Pressure 183/82 O2 Sat by Pulse Oximetry 87 Intake and Output: Intake & Output 10/22/17 10/23/17 10/24/17 10/25/17 11:59 11:59 11:59 11:59 Intake Total 3278 / 3278 3658 / 3658 2089 / 208 2365 / 2365 Output Total 550 / 550 1200 / 1200 2225 / 2225 2300 / 2300 Balance 2728 / 2728 2458 / 2458 -136 / -136 65 / 65 - Physical Exam Oriented: Normal Eyes: Normal Ear: Normal Nose: Normal Throat: Normal Respiratory: Generalized, Diminished, Wheezes, Rhonchi Cardiovascular: Edema (BILATERAL LOWER EXTREMITIES ). negative: S3, S4, Murmur : Normal Auscultation: Bowel Sounds: Normal Tenderness: Normal Skin: Normal Musculoskeletal: Normal Psychiatric: Normal Mood Description: Calm Affect: Normal Speech Pattern: Unclear (MODERATE RESP DISTRESS) - Laboratory and Diagnostics Result Diagrams: 10/25/17 05:50 10/25/17 05:50 Labs: 10/24/17 11:19 Stool Stool Culture - Preliminary 10/24/17 11:19 Stool - Final 10/17/17 09:40 Blood Blood Culture - Final 10/17/17 09:30 Blood Blood Culture - Final 10/17/17 10:30 Sputum - Expectorated Sputum Sputum Culture - Final 10/17/17 10:30 Sputum - Expectorated Sputum - Final 10/17/17 12:51 Urine,Catheterized Urine Culture - Final [facility] WBC 9.3 X10^3/uL (3.6-10.0) 10/25/17 05:50 RBC 4.38 X10^6/uL (4.7-6.0) L 10/25/17 05:50 Hgb 11.8 g/dL (13.5-18.0) L 10/25/17 05:50 Hct 35.0 % (42.0-54.0) L 10/25/17 05:50 MCV 80.0 fL (80.0-100.0) 10/25/17 05:50 MCH 27.0 pg (27.0-34.0) 10/25/17 05:50 MCHC 33.7 g/dL (33.0-35.0) 10/25/17 05:50 RDW 14.4 % (11.6-16.5) 10/25/17 05:50 Plt Count 339 X10^3/uL (150.0-450.0) 10/25/17 05:50 Plt Count Comment Adequate (ADEQUATE) 10/23/17 05:35 MPV 8.1 fL (7.4-11.0) 10/25/17 05:50 Neut % (Auto) 79.0 % (42.0-75.0) H 10/25/17 05:50 Lymph % (Auto) 9.4 % (21.0-51.0) L 10/25/17 05:50 [place] % (Auto) 10.5 % (0.0-13.0) 10/25/17 05:50 Eos % (Auto) 0.9 % (0.9-2.9) 10/25/17 05:50 Baso % (Auto) 0.2 % (0.2-1.0) 10/25/17 05:50 Neut # (Auto) 7.3 x10^3/uL (2.2-4.8) H 10/25/17 05:50 Lymph # (Auto) 0.9 X10^3/uL (1.3-2.9) L 10/25/17 05:50 [place] # (Auto) 1.0 x10^3/uL (0.3-0.8) H 10/25/17 05:50 Eos # (Auto) 0.1 x10^3/uL (0.0-0.2) 10/25/17 05:50 Baso # (Auto) 0.0 X10^3/uL (0.0-0.1) 10/25/17 05:50 Absolute Nucleated RBC 0.0 /100WBC 10/25/17 05:50 Total Counted 100 10/23/17 05:35 Neutrophils % (Manual) 86 % (39-76) H 10/23/17 05:35 Band Neutrophils % 3 % (0-10) 10/23/17 05:35 Lymphocytes % (Manual) 7 % (13-43) L 10/23/17 05:35 Monocytes % (Manual) 4 % (4-9) 10/23/17 05:35 Plt Morphology Comment Normal (NORMAL) 10/23/17 05:35 RBC Morphology Normal (NORMAL) 10/23/17 05:35 Sample Site Lrad 10/24/17 05:03 ABG pH 7.330 (7.35-7.45) L 10/24/17 05:03 ABG pCO2 46.0 mmHg (35.0-45.0) H 10/24/17 05:03 ABG pO2 44.0 mmHg (80.0-100.0) L* 10/24/17 05:03 ABG HCO3 24.3 mmol/L (22-26) 10/24/17 05:03 ABG O2 Saturation 76.0 % (90-100) L* 10/24/17 05:03 ABG Base Excess -1.9 mmol/L (-2.0-2.0) 10/24/17 05:03 Ganesh Test Pos 10/24/17 05:03 A-a Gradient 255.0 mmHg 10/24/17 05:03 FiO2 50.000 10/24/17 05:03 Blood Gas Comments Katy abg well-mtf 10/24/17 05:03 Sodium 141 mmol/L (136-145) 10/25/17 05:50 Corrected Sodium TNP 10/25/17 05:50 Potassium 4.9 mmol/L (3.5-5.1) 10/25/17 05:50 Chloride 108 mmol/L (98-107) H 10/25/17 05:50 Carbon Dioxide 28.3 mmol/L (21-32) 10/25/17 05:50 BUN 70 mg/dL (7-18) H 10/25/17 05:50 Creatinine 1.53 mg/dL (0.70-1.30) H 10/25/17 05:50 Est GFR (MDRD) Af Amer 58 (>60) L 10/25/17 05:50 Est GFR (MDRD) Non-Af 48 (>60) L 10/25/17 05:50 Glucose 65 mg/dL (65-99) 10/25/17 05:50 POC Glucose (mg/dL) 68 mg/dL (65-99) 10/25/17 11:07 Lactic Acid 2.4 mmol/L (0.4-2.0) H 10/17/17 09:40 Calcium 8.5 mg/dL (8.5-10.1) 10/25/17 05:50 Corrected Calcium 10.0 mg/dL (8.5-10.1) 10/25/17 05:50 Total Bilirubin 0.40 mg/dL (0.2-1.0) 10/25/17 05:50 AST 13 Units/L (15-37) L 10/25/17 05:50 ALT 17 Units/L (12-78) 10/25/17 05:50 Alkaline Phosphatase 55 Units/L (46-116) 10/25/17 05:50 Creatine Kinase 106 Units/L (39-308) 10/17/17 20:35 CK-MB (CK-2) 4.8 ng/mL (0-4.0) H* 10/17/17 20:35 CK/CKMB % Calc 4.5 % (<4) 10/17/17 20:35 Troponin I 0.06 ng/mL (0-1.5) 10/17/17 20:35 B-Natriuretic Peptide 420 pg/mL (0-79) H 10/17/17 09:40 Total Protein 6.4 g/dL (6.4-8.2) 10/25/17 05:50 Albumin 2.1 g/dL (3.4-5.0) L 10/25/17 05:50 Globulin 4.3 g/dL (2.5-4.5) 10/25/17 05:50 Albumin/Globulin Ratio 0.5 Ratio (1.1-2.1) L 10/25/17 05:50 Specimen Type Catherized urine 10/17/17 12:51 Urine Color Yellow (YELLOW) 10/17/17 12:51 Urine Appearance Cloudy (CLEAR) 10/17/17 12:51 Urine pH 8.0 (5.0 - 8.0) 10/17/17 12:51 Ur Specific [place] 1.010 (1.000-1.030) 10/17/17 12:51 Urine Protein 1+ (NEGATIVE) 10/17/17 12:51 Urine Glucose (UA) 3+ (NEGATIVE) 10/17/17 12:51 Urine Ketones Negative (NEGATIVE) 10/17/17 12:51 Urine Occult Blood 5+ (NEGATIVE) 10/17/17 12:51 Urine Nitrite Negative (NEGATIVE) 10/17/17 12:51 Urine Bilirubin Negative (NEGATIVE) 10/17/17 12:51 Urine Urobilinogen Normal (NORMAL) 10/17/17 12:51 Ur Leukocyte Esterase 2+ (NEGATIVE) 10/17/17 12:51 Urine RBC 10-20 /HPF (NONE SEEN) 10/17/17 12:51 Urine WBC 10-20 /HPF (NONE SEEN) 10/17/17 12:51 Ur Squamous Epith Cells Rare /HPF (NEGATIVE) 10/17/17 12:51 Amorphous Sediment 1+ /HPF (NEGATIVE) 10/17/17 12:51 Urine Bacteria 2+ /HPF (NEGATIVE) 10/17/17 12:51 Urine Mucus Few /HPF (NEGATIVE) 10/17/17 12:51 Ur Culture Indicated? Yes/culture set up 10/17/17 12:51 Stool Description 10g brn semisolid 10/24/17 11:19 Stl Occult Blood (IFOB) Negative (NEGATIVE) 10/24/17 11:19 - Plan (1) Pneumonia Status: Acute Qualifiers: Pneumonia type: aspiration pneumonia Laterality: left Lung location: lower lobe of lung Qualified Code(s): J18.1 - Lobar pneumonia, unspecified organism Plan: PNEUMONIA PROTOCOL, FORTAZ 2GM IV Q8H, SOLU-MEDROL 40MG IV Q8H, SUPPLEMENTAL OXYGEN, RESPIRATORY TREATMENTS, BIPAP, CONTINUE TO MONITOR. ABGS, NURSING STAFF TO ATTEMPT TO CONTACT FAMILY FOR CODE STATUS AND DISCUSS POSSIBLE TRANSFER TO TERTIARY CARE (2) CHF (congestive heart failure) Status: Acute Qualifiers: Heart failure type: unspecified Heart failure chronicity: chronic Qualified Code(s): I50.9 - Heart failure, unspecified Plan: CONTINUE COREG, CONTINUE LASIX, CONTINUE ZESTRIL, CONTINUE TO MONITOR (3) Acute respiratory insufficiency Status: Acute Plan: BIPAP, SOLU-MEDROL 40MG IV Q8H, MONITOR ABG, RESPIRATORY TREATMENTS, CONTINUE TO MONITOR (4) Diabetes Status: Acute Qualifiers: Diabetes mellitus type: type 2 Diabetes mellitus termite helper insulin use: with termite helper use Diabetes mellitus complication status: with hyperglycemia Qualified Code(s): E11.65 - Type 2 diabetes mellitus with hyperglycemia; Z79.4 - intermediate (current) use of insulin Plan: MONITOR OTBS, CONTINUE GLUCOTROL, HMULIN R SLIDING SCALE, CONTINUE LEVEMIR , CONTINUE TO MONITOR (5) Hyperlipidemia Status: Acute Qualifiers: Hyperlipidemia type: mixed hyperlipidemia Qualified Code(s): E78.2 - Mixed hyperlipidemia Plan: CONTINUE ZOCOR, CONTINUE TO MONITOR
[2017-10-25 11:46] LABS: ABG ALLEN TEST POS; ABG BASE EXCESS -0.3 mmol/L (-2.0-2.0); ABG HCO3 25.4 mmol/L (22-26)
[2017-10-25] MEDS: LASIX IVP SCH ×2 (12:09→21:02)
[2017-10-25] MEDS: ZOCOR TAB 20 MG PO SCH (21:02)
[2017-10-25] MEDS: NEURONTIN CAP 300 MG PO SCH (21:02)
[2017-10-25] MEDS: OXYBUTYNIN CHLORIDE ER PO SCH (21:02)
[2017-10-25] MEDS: COLACE CAP 100 MG PO SCH (21:02)
[2017-10-25] MEDS: HumuLIN R SUBCUT PRN (21:03)
[2017-10-26] MEDS: DUONEB 0.5 MG/3 MG NEB SCH ×6 (01:09→20:20)
[2017-10-26] MEDS: HumuLIN R SUBCUT PRN (06:01)
[2017-10-26] MEDS: FORTAZ or TAZICEF VIAL INJ 1 G in NS 100 ML IV + SPIKE MINIBAG* 100 ML IV SCH ×3 (06:01→22:01)
[2017-10-26 06:24] LABS: BASOPHILS % (AUTO) 0.2 % (0.2-1.0); EOSINOPHILS # (AUTO) 0.4 x10^3/uL (0.0-0.2); EOSINOPHILS % (AUTO) 4.2 % (0.9-2.9); HEMATOCRIT 34.7 % (42.0-54.0); HEMOGLOBIN 11.9 g/dL (13.5-18.0); LYMPHOCYTES # (AUTO) 0.6 X10^3/uL (1.3-2.9); LYMPHOCYTES % (AUTO) 6.8 % (21.0-51.0); MEAN CORPUSCULAR HEMOGLOBIN 27.2 pg (27.0-34.0); MEAN CORPUSCULAR HGB CONC 34.3 g/dL (33.0-35.0); MEAN CORPUSCULAR VOLUME 79.2 fL (80.0-100.0); MEAN PLATELET VOLUME 8.5 fL (7.4-11.0); MONOCYTES # (AUTO) 0.8 x10^3/uL (0.3-0.8); MONOCYTES % (AUTO) 8.7 % (0.0-13.0); NEUTROPHILS # (AUTO) 7.5 x10^3/uL (2.2-4.8); NEUTROPHILS % (AUTO) 80.1 % (42.0-75.0); PLATELET COUNT 332 X10^3/uL (150.0-450.0); RED BLOOD COUNT 4.38 X10^6/uL (4.7-6.0); RED CELL DISTRIBUTION WIDTH 14.2 % (11.6-16.5); WHITE BLOOD COUNT 9.4 X10^3/uL (3.6-10.0)
[2017-10-26 06:38] LABS: ALBUMIN 2.1 g/dL (3.4-5.0); CALCIUM 8.3 mg/dL (8.5-10.1); CARBON DIOXIDE 24.9 mmol/L (21-32); COR CA(FOR HYPOALB) 9.8 mg/dL (8.5-10.1); CREATININE 1.55 mg/dL (0.70-1.30); TOTAL PROTEIN 6.3 g/dL (6.4-8.2)
--- NOTE | 2017-10-26 07:42 | RAD ---
Examination: Portable AP chest History: Pneumonia Comparison reference 10/24/2017 Findings: Continued mild cardiomegaly. Marked pulmonary vascular distention with diffuse bilateral in terstitial infiltrates. The previously noted confluent density in the right upper lobe has cleared. T here is no evidence for large pleural effusion or pneumothorax. Impression: Persistent cardiomegaly and vascular congestion with suspect pulmonary edema. No localize d consolidation to suggest pneumonia is demonstrated at this time. Reported By:
[2017-10-26] MEDS: MUCOMYST 20% 200 MG/ML NEB SCH ×2 (08:48→20:20)
[2017-10-26] MEDS: ASPIRIN EC 81 MG PO SCH (10:10)
[2017-10-26] MEDS: ROBITUSSIN DM PO SCH ×4 (10:10→22:00)
[2017-10-26] MEDS: NORVASC TAB 10 MG PO SCH (10:11)
[2017-10-26] MEDS: MILK OF MAGNESIA PO SCH (10:11)
[2017-10-26] MEDS: COREG TAB 25 MG PO SCH ×2 (10:11→21:58)
[2017-10-26] MEDS: ZESTRIL TAB 40 MG PO SCH (10:11)
[2017-10-26] MEDS: K-DUR TAB 20 MEQ PO SCH (10:11)
[2017-10-26] MEDS: LEVEMIR SC SCH ×2 (10:13→21:59)
--- NOTE | 2017-10-26 13:30 | PCM.PROG ---
Progress Note - Progress Note for Day of Date of Exam: 10/26/17 - Subjective Subjective: WAS ADMITTED FOR LEFT SIDED PNEUMONIA AND RESPIRATORY INSUFFICIENCY. HE REMAINS IN THE INTENSIVE CARE UNIT WITH BIPAP PRN, CURRENTLY ON NC AT [facility], IMPROVING RESP DISTRESS SINCE YESTERDAY AFTERNOON. ON EXAMINATION, HEART IS REGULAR IN RATE AND RHYTHM. BILATERAL LUNGS CONTINUE WITH SCATTERED WHEEZING AND RHONCHI. ABDOMEN IS ROUND, SOFT, AND NON-TENDER WITH NORMAL BOWEL SOUNDS NOTED IN ALL QUADRANTS. BILATERAL LOWER EXTREMITIES CONTINUE WITH 1+ PITTING EDEMA. THERE IS A WHATLEY CATHETER NOTED TO BEDSIDE DRAINAGE. WE WILL CONTINUE WITH IV ANTIBIOTICS, RESPIRATORY TREATMENTS, BIPAP, AND CURRENT PLAN OF CARE. WILL FOLLOW UP WITH AM LABS AND CHEST XRAY AND CONTINUE TO MONITOR PATIENT. - Past Medical Family Social History Past Med/Fam/Surg Hx: No changes since H&P Allergies: Allergies No Known Drug Allergies Allergy (Verified 10/17/17 09:23) - Review of Systems ROS: No change since H&P - Vital Signs and I&O's Vital Signs: Temperature 97.8 F Pulse Rate [Left Brachial] 94 Pulse Rate [Apical] 74 Pulse Rate [Right Radial] 68 Pulse Rate 62 Respiratory Rate 15 Blood Pressure [Right Arm] 146/69 Blood Pressure [Left Arm] 172/76 Blood Pressure 183/82 O2 Sat by Pulse Oximetry 91 Intake and Output: Intake & Output 10/24/17 10/25/17 10/26/17 10/27/17 11:59 11:59 11:59 11:59 Intake Total 2089 / 2089 3165 / 3165 1900 / 1900 Output Total 2225 / 2225 2300 / 2300 2620 / 2620 Balance -136 / -136 865 / 865 -720 / -720 - Physical Exam Oriented: Normal Eyes: Normal Ear: Normal Nose: Normal Throat: Normal Respiratory: Generalized, Diminished, Wheezes, Rhonchi Cardiovascular: Edema (BILATERAL LOWER EXTREMITIES ). negative: S3, S4, Murmur : Normal Auscultation: Bowel Sounds: Normal Tenderness: Normal Skin: Normal Musculoskeletal: Motor Deficit (MILD GENERALIZED MUSCLE WEAKNESS) Psychiatric: Normal Mood Description: Calm Affect: Normal Speech Pattern: Clear, Appropriate - Laboratory and Diagnostics Result Diagrams: 10/26/17 05:31 10/26/17 05:31 Labs: 10/24/17 11:19 Stool Stool Culture - Preliminary 10/24/17 11:19 Stool - Final 10/17/17 09:40 Blood Blood Culture - Final 10/17/17 09:30 Blood Blood Culture - Final 10/17/17 10:30 Sputum - Expectorated Sputum Sputum Culture - Final 10/17/17 10:30 Sputum - Expectorated Sputum - Final 10/17/17 12:51 Urine,Catheterized Urine Culture - Final [facility] WBC 9.4 X10^3/uL (3.6-10.0) 10/26/17 05:31 RBC 4.38 X10^6/uL (4.7-6.0) L 10/26/17 05:31 Hgb 11.9 g/dL (13.5-18.0) L 10/26/17 05:31 Hct 34.7 % (42.0-54.0) L 10/26/17 05:31 MCV 79.2 fL (80.0-100.0) L 10/26/17 05:31 MCH 27.2 pg (27.0-34.0) 10/26/17 05:31 MCHC 34.3 g/dL (33.0-35.0) 10/26/17 05:31 RDW 14.2 % (11.6-16.5) 10/26/17 05:31 Plt Count 332 X10^3/uL (150.0-450.0) 10/26/17 05:31 Plt Count Comment Adequate (ADEQUATE) 10/23/17 05:35 MPV 8.5 fL (7.4-11.0) 10/26/17 05:31 Neut % (Auto) 80.1 % (42.0-75.0) H 10/26/17 05:31 Lymph % (Auto) 6.8 % (21.0-51.0) L 10/26/17 05:31 [place] % (Auto) 8.7 % (0.0-13.0) 10/26/17 05:31 Eos % (Auto) 4.2 % (0.9-2.9) H 10/26/17 05:31 Baso % (Auto) 0.2 % (0.2-1.0) 10/26/17 05:31 Neut # (Auto) 7.5 x10^3/uL (2.2-4.8) H 10/26/17 05:31 Lymph # (Auto) 0.6 X10^3/uL (1.3-2.9) L 10/26/17 05:31 [place] # (Auto) 0.8 x10^3/uL (0.3-0.8) 10/26/17 05:31 Eos # (Auto) 0.4 x10^3/uL (0.0-0.2) H 10/26/17 05:31 Baso # (Auto) 0.0 X10^3/uL (0.0-0.1) 10/26/17 05:31 Absolute Nucleated RBC 0.0 /100WBC 10/26/17 05:31 Total Counted 100 10/23/17 05:35 Neutrophils % (Manual) 86 % (39-76) H 10/23/17 05:35 Band Neutrophils % 3 % (0-10) 10/23/17 05:35 Lymphocytes % (Manual) 7 % (13-43) L 10/23/17 05:35 Monocytes % (Manual) 4 % (4-9) 10/23/17 05:35 Plt Morphology Comment Normal (NORMAL) 10/23/17 05:35 RBC Morphology Normal (NORMAL) 10/23/17 05:35 Sample Site Rr 10/25/17 11:41 ABG pH 7.360 (7.35-7.45) 10/25/17 11:41 ABG pCO2 45.0 mmHg (35.0-45.0) 10/25/17 11:41 ABG pO2 58.0 mmHg (80.0-100.0) L 10/25/17 11:41 ABG HCO3 25.4 mmol/L (22-26) 10/25/17 11:41 ABG O2 Saturation 89.0 % (90-100) L 10/25/17 11:41 ABG Base Excess -0.3 mmol/L (-2.0-2.0) 10/25/17 11:41 Ganesh Test Pos 10/25/17 11:41 A-a Gradient 171.0 mmHg 10/25/17 11:41 FiO2 40.000 10/25/17 11:41 Blood Gas Comments Pt lorenza well. cdn 10/25/17 11:41 Sodium 140 mmol/L (136-145) 10/26/17 05:31 Corrected Sodium 142 mmol/L (136-145) 10/26/17 05:31 Potassium 4.6 mmol/L (3.5-5.1) 10/26/17 05:31 Chloride 108 mmol/L (98-107) H 10/26/17 05:31 Carbon Dioxide 24.9 mmol/L (21-32) 10/26/17 05:31 BUN 62 mg/dL (7-18) H 10/26/17 05:31 Creatinine 1.55 mg/dL (0.70-1.30) H 10/26/17 05:31 Est GFR (MDRD) Af Amer 57 (>60) L 10/26/17 05:31 Est GFR (MDRD) Non-Af 47 (>60) L 10/26/17 05:31 Glucose 180 mg/dL (65-99) H 10/26/17 05:31 POC Glucose (mg/dL) 129 mg/dL (65-99) H 10/26/17 11:46 Lactic Acid 2.4 mmol/L (0.4-2.0) H 10/17/17 09:40 Calcium 8.3 mg/dL (8.5-10.1) L 10/26/17 05:31 Corrected Calcium 9.8 mg/dL (8.5-10.1) 10/26/17 05:31 Total Bilirubin 0.40 mg/dL (0.2-1.0) 10/26/17 05:31 AST 20 Units/L (15-37) 10/26/17 05:31 ALT 20 Units/L (12-78) 10/26/17 05:31 Alkaline Phosphatase 58 Units/L (46-116) 10/26/17 05:31 Creatine Kinase 106 Units/L (39-308) 10/17/17 20:35 CK-MB (CK-2) 4.8 ng/mL (0-4.0) H* 10/17/17 20:35 CK/CKMB % Calc 4.5 % (<4) 10/17/17 20:35 Troponin I 0.06 ng/mL (0-1.5) 10/17/17 20:35 B-Natriuretic Peptide 420 pg/mL (0-79) H 10/17/17 09:40 Total Protein 6.3 g/dL (6.4-8.2) L 10/26/17 05:31 Albumin 2.1 g/dL (3.4-5.0) L 10/26/17 05:31 Globulin 4.2 g/dL (2.5-4.5) 10/26/17 05:31 Albumin/Globulin Ratio 0.5 Ratio (1.1-2.1) L 10/26/17 05:31 Specimen Type Catherized urine 10/17/17 12:51 Urine Color Yellow (YELLOW) 10/17/17 12:51 Urine Appearance Cloudy (CLEAR) 10/17/17 12:51 Urine pH 8.0 (5.0 - 8.0) 10/17/17 12:51 Ur Specific [place] 1.010 (1.000-1.030) 10/17/17 12:51 Urine Protein 1+ (NEGATIVE) 10/17/17 12:51 Urine Glucose (UA) 3+ (NEGATIVE) 10/17/17 12:51 Urine Ketones Negative (NEGATIVE) 10/17/17 12:51 Urine Occult Blood 5+ (NEGATIVE) 10/17/17 12:51 Urine Nitrite Negative (NEGATIVE) 10/17/17 12:51 Urine Bilirubin Negative (NEGATIVE) 10/17/17 12:51 Urine Urobilinogen Normal (NORMAL) 10/17/17 12:51 Ur Leukocyte Esterase 2+ (NEGATIVE) 10/17/17 12:51 Urine RBC 10-20 /HPF (NONE SEEN) 10/17/17 12:51 Urine WBC 10-20 /HPF (NONE SEEN) 10/17/17 12:51 Ur Squamous Epith Cells Rare /HPF (NEGATIVE) 10/17/17 12:51 Amorphous Sediment 1+ /HPF (NEGATIVE) 10/17/17 12:51 Urine Bacteria 2+ /HPF (NEGATIVE) 10/17/17 12:51 Urine Mucus Few /HPF (NEGATIVE) 10/17/17 12:51 Ur Culture Indicated? Yes/culture set up 10/17/17 12:51 Stool Description 10g brn semisolid 10/24/17 11:19 Stl Occult Blood (IFOB) Negative (NEGATIVE) 10/24/17 11:19 - Plan (1) Pneumonia Status: Acute Qualifiers: Pneumonia type: aspiration pneumonia Laterality: left Lung location: lower lobe of lung Qualified Code(s): J18.1 - Lobar pneumonia, unspecified organism Plan: PNEUMONIA PROTOCOL, FORTAZ 2GM IV Q8H, SOLU-MEDROL 40MG IV Q8H, SUPPLEMENTAL OXYGEN, RESPIRATORY TREATMENTS, BIPAP PRN AND CONTINUOUS SUPPLEMENTAL O2. CONTINUE TO MONITOR. ABGS, NURSING STAFF TO ATTEMPT TO CONTACT FAMILY FOR CODE STATUS AND DISCUSS POSSIBLE TRANSFER TO TERTIARY CARE IF CONDITION WORSENS. PT CURRENTLY STABLE THIS AM. (2) CHF (congestive heart failure) Status: Acute Qualifiers: Heart failure type: unspecified Heart failure chronicity: chronic Qualified Code(s): I50.9 - Heart failure, unspecified Plan: CONTINUE COREG, CONTINUE LASIX, CONTINUE ZESTRIL, CONTINUE TO MONITOR (3) Acute respiratory insufficiency Status: Acute Plan: BIPAP, SOLU-MEDROL 40MG IV Q8H, MONITOR ABG, RESPIRATORY TREATMENTS, CONTINUE TO MONITOR (4) Diabetes Status: Acute Qualifiers: Diabetes mellitus type: type 2 Diabetes mellitus superintendent marine oil terminal insulin use: with superintendent marine oil terminal use Diabetes mellitus complication status: with hyperglycemia Qualified Code(s): E11.65 - Type 2 diabetes mellitus with hyperglycemia; Z79.4 - half-way (current) use of insulin Plan: MONITOR OTBS, CONTINUE GLUCOTROL, HMULIN R SLIDING SCALE, CONTINUE LEVEMIR , CONTINUE TO MONITOR (5) Hyperlipidemia Status: Acute Qualifiers: Hyperlipidemia type: mixed hyperlipidemia Qualified Code(s): E78.2 - Mixed hyperlipidemia Plan: CONTINUE ZOCOR, CONTINUE TO MONITOR
[2017-10-26] MEDS: NS 1/2 1000 ML IV 1,000 ML IV SCH ×3 (13:36→17:17)
[2017-10-26] MEDS: LEVAQUIN PREMIX IV 750 MG 750 MG/150 ML BAG IV SCH ×2 (14:40→17:20)
[2017-10-26] MEDS: LASIX IVP SCH ×2 (14:41→21:59)
[2017-10-26] MEDS: SNACK - Diabetic Appropriate PO SCH (20:30)
[2017-10-26] MEDS: COLACE CAP 100 MG PO SCH (21:58)
[2017-10-26] MEDS: NEURONTIN CAP 300 MG PO SCH (21:59)
[2017-10-26] MEDS: OXYBUTYNIN CHLORIDE ER PO SCH (22:00)
[2017-10-26] MEDS: ZOCOR TAB 20 MG PO SCH (22:00)
[2017-10-27] MEDS: DUONEB 0.5 MG/3 MG NEB SCH ×6 (00:17→20:03)
[2017-10-27 05:23] LABS: BASOPHILS # (AUTO) 0.1 X10^3/uL (0.0-0.1); BASOPHILS % (AUTO) 0.8 % (0.2-1.0); EOSINOPHILS # (AUTO) 0.5 x10^3/uL (0.0-0.2); EOSINOPHILS % (AUTO) 5.8 % (0.9-2.9); HEMATOCRIT 32.5 % (42.0-54.0); HEMOGLOBIN 11.1 g/dL (13.5-18.0); LYMPHOCYTES # (AUTO) 0.7 X10^3/uL (1.3-2.9); LYMPHOCYTES % (AUTO) 8.7 % (21.0-51.0); MEAN CORPUSCULAR VOLUME 79.4 fL (80.0-100.0); MEAN PLATELET VOLUME 8.8 fL (7.4-11.0); MONOCYTES # (AUTO) 0.5 x10^3/uL (0.3-0.8); MONOCYTES % (AUTO) 6.4 % (0.0-13.0); NEUTROPHILS # (AUTO) 6.3 x10^3/uL (2.2-4.8); NEUTROPHILS % (AUTO) 78.3 % (42.0-75.0); PLATELET COUNT 305 X10^3/uL (150.0-450.0); RED CELL DISTRIBUTION WIDTH 14.5 % (11.6-16.5)
[2017-10-27 05:35] LABS: ALBUMIN 1.9 g/dL (3.4-5.0); CALCIUM 8.1 mg/dL (8.5-10.1); CARBON DIOXIDE 26.6 mmol/L (21-32); COR CA(FOR HYPOALB) 9.8 mg/dL (8.5-10.1); CREATININE 1.49 mg/dL (0.70-1.30); TOTAL PROTEIN 5.9 g/dL (6.4-8.2)
[2017-10-27] MEDS: FORTAZ or TAZICEF VIAL INJ 1 G in NS 100 ML IV + SPIKE MINIBAG* 100 ML IV SCH ×3 (05:44→22:37)
[2017-10-27] MEDS: ROBITUSSIN DM PO SCH ×4 (08:35→20:48)
[2017-10-27] MEDS: LEVEMIR SC SCH ×2 (08:35→20:49)
[2017-10-27] MEDS: ASPIRIN EC 81 MG PO SCH (08:37)
[2017-10-27] MEDS: NORVASC TAB 10 MG PO SCH (08:37)
[2017-10-27] MEDS: MILK OF MAGNESIA PO SCH (08:37)
[2017-10-27] MEDS: ZESTRIL TAB 40 MG PO SCH (08:37)
[2017-10-27] MEDS: K-DUR TAB 20 MEQ PO SCH (08:37)
[2017-10-27] MEDS: COREG TAB 25 MG PO SCH ×2 (08:37→20:47)
[2017-10-27] MEDS: NS 1/2 1000 ML IV 1,000 ML IV SCH ×2 (08:38→13:48)
--- NOTE | 2017-10-27 13:46 | PCM.PROG ---
Progress Note - Progress Note for Day of Date of Exam: 10/22/17 - Subjective Subjective: WAS ADMITTED FOR LEFT SIDED PNEUMONIA AND RESPIRATORY INSUFFICIENCY. HE REMAINS IN THE INTENSIVE CARE UNIT ON THE BIPAP. HE CONTINUES WITH SHORTNESS OF BREATH AND COUGH. ON EXAMINATION, HEART IS REGULAR IN RATE AND RHYTHM. BILATERAL LUNGS CONTINUE WITH SCATTERED WHEEZING AND RHONCHI. ABDOMEN IS ROUND, SOFT, AND NON-TENDER WITH NORMAL BOWEL SOUNDS NOTED IN ALL QUADRANTS. BILATERAL LOWER EXTREMITIES CONTINUE WITH 1+ PITTING EDEMA. THERE IS A WHATLEY CATHETER NOTED TO BEDSIDE DRAINAGE. HIS VITALS THIS MORNING ARE 97.0-69- 12-99%-141/67. LABS WERE OBTAINED. ABNORMAL LAB VALUES INCLUDE THE FOLLOWING: RBC 4.27, HGB 11.4, HCT 34.7, POTASSIUM 5.5, BUN 80, CREATININE 2.57, GLUCOSE 299, CALCIUM 8.3, ALBUMIN 2.3, GLOBULIN 4.9. TODAYS ABG REVEALED PH 7.300, P02 74, HC03 20.7, BASE EXCESS -5.5. A CHEST XRAY WAS OBTAINED AND REVEALED: The heart remains mildly enlarged. No definite congestive heart failure is noted. Hypo inflation remains present. Left upper lobe infiltrate is slightly improved when compared with the prior examination. The right upper lobe infiltrate is unchanged and could be seen to abut the minor fissure. The right lower lobe is clear. No pleural effusions are identified. The bony thorax is unremarkable. TODAY, WE WILL CONTINUE WITH IV ANTIBIOTICS, RESPIRATORY TREATMENTS, BIPAP, AND CURRENT PLAN OF CARE. WE WILL OBTAIN AN ECHOCARDIOGRAM THIS MORNING AND CONTINUE WITH IV FLUIDS. OTHERWISE, WE WILL FOLLOW UP WITH AM LABS AND CHEST XRAY AND CONTINUE TO MONITOR PATIENT. - Past Medical Family Social History Past Med/Fam/Surg Hx: No changes since H&P Allergies: Allergies No Known Drug Allergies Allergy (Verified 10/17/17 09:23) - Review of Systems ROS: No change since H&P - Vital Signs and I&O's Vital Signs: Temperature 98.3 F Pulse Rate [Left Brachial] 67 Pulse Rate [Apical] 74 Pulse Rate [Right Radial] 68 Pulse Rate 71 Respiratory Rate 13 Blood Pressure [Right Arm] 146/69 Blood Pressure [Left Arm] 149/66 Blood Pressure 183/82 O2 Sat by Pulse Oximetry 95 Intake and Output: Intake & Output 10/25/17 10/26/17 10/27/1710/28/18 11:59 11:59 11:59 11:59 Intake Total 3165 / 3165 1900 / 1900 1212 / 1212 Output Total 2300 / 2300 2620 / 2620 3300 / 3300 Balance 865 / 865 -720 / -720 -2088 / -2087 - Physical Exam Oriented: Normal Eyes: Normal Ear: Normal Nose: Normal Throat: Normal Respiratory: Generalized, Diminished, Wheezes, Rhonchi Cardiovascular: Edema (BILATERAL LOWER EXTREMITIES ). negative: S3, S4, Murmur : Normal Auscultation: Bowel Sounds: Normal Tenderness: Normal Skin: Normal Musculoskeletal: Motor Deficit (MILD GENERALIZED MUSCLE WEAKNESS) Psychiatric: Normal Mood Description: Calm Affect: Normal Speech Pattern: Clear, Appropriate - Laboratory and Diagnostics Result Diagrams: 10/27/17 04:54 10/27/17 04:54 Labs: 10/24/17 11:19 Stool Stool Culture - Final 10/24/17 11:19 Stool - Final 10/17/17 09:40 Blood Blood Culture - Final 10/17/17 09:30 Blood Blood Culture - Final 10/17/17 10:30 Sputum - Expectorated Sputum Sputum Culture - Final 10/17/17 10:30 Sputum - Expectorated Sputum - Final 10/17/17 12:51 Urine,Catheterized Urine Culture - Final [facility] WBC 8.0 X10^3/uL (3.6-10.0) 10/27/17 04:54 RBC 4.10 X10^6/uL (4.7-6.0) L 10/27/17 04:54 Hgb 11.1 g/dL (13.5-18.0) L 10/27/17 04:54 Hct 32.5 % (42.0-54.0) L 10/27/17 04:54 MCV 79.4 fL (80.0-100.0) L 10/27/17 04:54 MCH 27.0 pg (27.0-34.0) 10/27/17 04:54 MCHC 34.0 g/dL (33.0-35.0) 10/27/17 04:54 RDW 14.5 % (11.6-16.5) 10/27/17 04:54 Plt Count 305 X10^3/uL (150.0-450.0) 10/27/17 04:54 Plt Count Comment Adequate (ADEQUATE) 10/23/17 05:35 MPV 8.8 fL (7.4-11.0) 10/27/17 04:54 Neut % (Auto) 78.3 % (42.0-75.0) H 10/27/17 04:54 Lymph % (Auto) 8.7 % (21.0-51.0) L 10/27/17 04:54 [place] % (Auto) 6.4 % (0.0-13.0) 10/27/17 04:54 Eos % (Auto) 5.8 % (0.9-2.9) H 10/27/17 04:54 Baso % (Auto) 0.8 % (0.2-1.0) 10/27/17 04:54 Neut # (Auto) 6.3 x10^3/uL (2.2-4.8) H 10/27/17 04:54 Lymph # (Auto) 0.7 X10^3/uL (1.3-2.9) L 10/27/17 04:54 [place] # (Auto) 0.5 x10^3/uL (0.3-0.8) 10/27/17 04:54 Eos # (Auto) 0.5 x10^3/uL (0.0-0.2) H 10/27/17 04:54 Baso # (Auto) 0.1 X10^3/uL (0.0-0.1) 10/27/17 04:54 Absolute Nucleated RBC 0.1 /100WBC 10/27/17 04:54 Total Counted 100 10/23/17 05:35 Neutrophils % (Manual) 86 % (39-76) H 10/23/17 05:35 Band Neutrophils % 3 % (0-10) 10/23/17 05:35 Lymphocytes % (Manual) 7 % (13-43) L 10/23/17 05:35 Monocytes % (Manual) 4 % (4-9) 10/23/17 05:35 Plt Morphology Comment Normal (NORMAL) 10/23/17 05:35 RBC Morphology Normal (NORMAL) 10/23/17 05:35 Sample Site Rr 10/25/17 11:41 ABG pH 7.360 (7.35-7.45) 10/25/17 11:41 ABG pCO2 45.0 mmHg (35.0-45.0) 10/25/17 11:41 ABG pO2 58.0 mmHg (80.0-100.0) L 10/25/17 11:41 ABG HCO3 25.4 mmol/L (22-26) 10/25/17 11:41 ABG O2 Saturation 89.0 % (90-100) L 10/25/17 11:41 ABG Base Excess -0.3 mmol/L (-2.0-2.0) 10/25/17 11:41 Ganesh Test Pos 10/25/17 11:41 A-a Gradient 171.0 mmHg 10/25/17 11:41 FiO2 40.000 10/25/17 11:41 Blood Gas Comments Pt lorenza well. cdn 10/25/17 11:41 Sodium 142 mmol/L (136-145) 10/27/17 04:54 Corrected Sodium 143 mmol/L (136-145) 10/27/17 04:54 Potassium 4.5 mmol/L (3.5-5.1) 10/27/17 04:54 Chloride 109 mmol/L (98-107) H 10/27/17 04:54 Carbon Dioxide 26.6 mmol/L (21-32) 10/27/17 04:54 BUN 49 mg/dL (7-18) H 10/27/17 04:54 Creatinine 1.49 mg/dL (0.70-1.30) H 10/27/17 04:54 Est GFR (MDRD) Af Amer 60 (>60) 10/27/17 04:54 Est GFR (MDRD) Non-Af 49 (>60) L 10/27/17 04:54 Glucose 141 mg/dL (65-99) H 10/27/17 04:54 POC Glucose (mg/dL) 157 mg/dL (65-99) H 10/27/17 11:25 Lactic Acid 2.4 mmol/L (0.4-2.0) H 10/17/17 09:40 Calcium 8.1 mg/dL (8.5-10.1) L 10/27/17 04:54 Corrected Calcium 9.8 mg/dL (8.5-10.1) 10/27/17 04:54 Total Bilirubin 0.40 mg/dL (0.2-1.0) 10/27/17 04:54 AST 16 Units/L (15-37) 10/27/17 04:54 ALT 18 Units/L (12-78) 10/27/17 04:54 Alkaline Phosphatase 57 Units/L (46-116) 10/27/17 04:54 Creatine Kinase 106 Units/L (39-308) 10/17/17 20:35 CK-MB (CK-2) 4.8 ng/mL (0-4.0) H* 10/17/17 20:35 CK/CKMB % Calc 4.5 % (<4) 10/17/17 20:35 Troponin I 0.06 ng/mL (0-1.5) 10/17/17 20:35 B-Natriuretic Peptide 420 pg/mL (0-79) H 10/17/17 09:40 Total Protein 5.9 g/dL (6.4-8.2) L 10/27/17 04:54 Albumin 1.9 g/dL (3.4-5.0) L 10/27/17 04:54 Globulin 4.0 g/dL (2.5-4.5) 10/27/17 04:54 Albumin/Globulin Ratio 0.5 Ratio (1.1-2.1) L 10/27/17 04:54 Specimen Type Catherized urine 10/17/17 12:51 Urine Color Yellow (YELLOW) 10/17/17 12:51 Urine Appearance Cloudy (CLEAR) 10/17/17 12:51 Urine pH 8.0 (5.0 - 8.0) 10/17/17 12:51 Ur Specific [place] 1.010 (1.000-1.030) 10/17/17 12:51 Urine Protein 1+ (NEGATIVE) 10/17/17 12:51 Urine Glucose (UA) 3+ (NEGATIVE) 10/17/17 12:51 Urine Ketones Negative (NEGATIVE) 10/17/17 12:51 Urine Occult Blood 5+ (NEGATIVE) 10/17/17 12:51 Urine Nitrite Negative (NEGATIVE) 10/17/17 12:51 Urine Bilirubin Negative (NEGATIVE) 10/17/17 12:51 Urine Urobilinogen Normal (NORMAL) 10/17/17 12:51 Ur Leukocyte Esterase 2+ (NEGATIVE) 10/17/17 12:51 Urine RBC 10-20 /HPF (NONE SEEN) 10/17/17 12:51 Urine WBC 10-20 /HPF (NONE SEEN) 10/17/17 12:51 Ur Squamous Epith Cells Rare /HPF (NEGATIVE) 10/17/17 12:51 Amorphous Sediment 1+ /HPF (NEGATIVE) 10/17/17 12:51 Urine Bacteria 2+ /HPF (NEGATIVE) 10/17/17 12:51 Urine Mucus Few /HPF (NEGATIVE) 10/17/17 12:51 Ur Culture Indicated? Yes/culture set up 10/17/17 12:51 Stool Description 10g brn semisolid 10/24/17 11:19 Stl Occult Blood (IFOB) Negative (NEGATIVE) 10/24/17 11:19 - Plan (1) Pneumonia Status: Acute Qualifiers: Pneumonia type: aspiration pneumonia Laterality: left Lung location: lower lobe of lung Qualified Code(s): J18.1 - Lobar pneumonia, unspecified organism Plan: PNEUMONIA PROTOCOL, FORTAZ 2GM IV Q8H, SOLU-MEDROL 40MG IV Q8H, SUPPLEMENTAL OXYGEN, RESPIRATORY TREATMENTS, BIPAP PRN AND CONTINUOUS SUPPLEMENTAL O2. CONTINUE TO MONITOR. ABGS, NURSING STAFF TO ATTEMPT TO CONTACT FAMILY FOR CODE STATUS AND DISCUSS POSSIBLE TRANSFER TO TERTIARY CARE IF CONDITION WORSENS. PT CURRENTLY STABLE THIS AM. (2) Acute respiratory insufficiency Status: Acute Plan: BIPAP, SOLU-MEDROL 40MG IV Q8H, MONITOR ABG, RESPIRATORY TREATMENTS, CONTINUE TO MONITOR (3) Diabetes Status: Acute Qualifiers: Diabetes mellitus type: type 2 Diabetes mellitus nursing home insulin use: with nursing home use Diabetes mellitus complication status: with hyperglycemia Qualified Code(s): E11.65 - Type 2 diabetes mellitus with hyperglycemia; Z79.4 - rat exterminator (current) use of insulin Plan: MONITOR OTBS, CONTINUE GLUCOTROL, HMULIN R SLIDING SCALE, CONTINUE LEVEMIR , CONTINUE TO MONITOR (4) Hyperlipidemia Status: Acute Qualifiers: Hyperlipidemia type: mixed hyperlipidemia Qualified Code(s): E78.2 - Mixed hyperlipidemia Plan: CONTINUE ZOCOR, CONTINUE TO MONITOR (5) CHF (congestive heart failure) Status: Acute Qualifiers: Heart failure type: unspecified Heart failure chronicity: chronic Qualified Code(s): I50.9 - Heart failure, unspecified Plan: CONTINUE COREG, CONTINUE LASIX, CONTINUE ZESTRIL, CONTINUE TO MONITOR (6) Urinary tract infection Status: Acute Qualifiers: Urinary tract infection type: acute cystitis Hematuria presence: with hematuria Qualified Code(s): N30.01 - Acute cystitis with hematuria Plan: FORTAZ 1GM IV Q8H, CONTINUE TO MONITOR (7) Agitation Status: Acute Plan: HALDOL 1-2MG IV Q4H PRN AGITATION, CONTINUE TO MONITOR
--- NOTE | 2017-10-27 14:17 | PCM.PROG ---
Progress Note - Progress Note for Day of Date of Exam: 10/23/17 - Subjective Subjective: WAS ADMITTED FOR LEFT SIDED PNEUMONIA AND RESPIRATORY INSUFFICIENCY. HE REMAINS IN THE INTENSIVE CARE UNIT ON THE BIPAP. HE CONTINUES WITH SHORTNESS OF BREATH AND COUGH. ON EXAMINATION, HEART IS REGULAR IN RATE AND RHYTHM. BILATERAL LUNGS CONTINUE WITH SCATTERED WHEEZING AND RHONCHI. ABDOMEN IS ROUND, SOFT, AND NON-TENDER WITH NORMAL BOWEL SOUNDS NOTED IN ALL QUADRANTS. BILATERAL LOWER EXTREMITIES CONTINUE WITH 1+ PITTING EDEMA. THERE IS A WHATLEY CATHETER NOTED TO BEDSIDE DRAINAGE. HIS VITALS THIS MORNING ARE 97.0-69- 12-99%-141/67. LABS WERE OBTAINED. ABNORMAL LAB VALUES INCLUDE THE FOLLOWING: RBC 4.27, HGB 11.4, HCT 34.7, POTASSIUM 5.5, BUN 80, CREATININE 2.57, GLUCOSE 299, CALCIUM 8.3, ALBUMIN 2.3, GLOBULIN 4.9. TODAYS ABG REVEALED PH 7.300, P02 74, HC03 20.7, BASE EXCESS -5.5. A CHEST XRAY WAS OBTAINED AND REVEALED: The heart remains mildly enlarged. No definite congestive heart failure is noted. Hypo inflation remains present. Left upper lobe infiltrate is slightly improved when compared with the prior examination. The right upper lobe infiltrate is unchanged and could be seen to abut the minor fissure. The right lower lobe is clear. No pleural effusions are identified. The bony thorax is unremarkable. TODAY, WE WILL CONTINUE WITH IV ANTIBIOTICS, RESPIRATORY TREATMENTS, BIPAP, AND CURRENT PLAN OF CARE. WE WILL OBTAIN AN ECHOCARDIOGRAM THIS MORNING AND CONTINUE WITH IV FLUIDS. OTHERWISE, WE WILL FOLLOW UP WITH AM LABS AND CHEST XRAY AND CONTINUE TO MONITOR PATIENT. - Past Medical Family Social History Past Med/Fam/Surg Hx: No changes since H&P Allergies: Allergies No Known Drug Allergies Allergy (Verified 10/17/17 09:23) - Review of Systems ROS: No change since H&P - Vital Signs and I&O's Vital Signs: Temperature 98.2 F Pulse Rate [Left Brachial] 74 Pulse Rate [Apical] 74 Pulse Rate [Right Radial] 68 Pulse Rate 71 Respiratory Rate 16 Blood Pressure [Right Arm] 146/69 Blood Pressure [Left Arm] 157/72 Blood Pressure 183/82 O2 Sat by Pulse Oximetry 93 Intake and Output: Intake & Output 10/25/17 10/26/17 10/27/1710/28/18 11:59 11:59 11:59 11:59 Intake Total 3165 / 3165 1900 / 1900 1212 / 1212 1080 / 1080 Output Total 2300 / 2300 2620 / 2620 3300 / 3300 700 / 700 Balance 865 / 865 -720 / -720 -2088 / -2088 380 / 380 - Physical Exam Oriented: Normal Eyes: Normal Ear: Normal Nose: Normal Throat: Normal Respiratory: Generalized, Diminished, Wheezes, Rhonchi Cardiovascular: Edema (BILATERAL LOWER EXTREMITIES ). negative: S3, S4, Murmur : Normal Auscultation: Bowel Sounds: Normal Palpation: Normal Tenderness: Normal Skin: Normal Musculoskeletal: Motor Deficit (MILD GENERALIZED MUSCLE WEAKNESS) Psychiatric: Normal Mood Description: Calm Affect: Normal Speech Pattern: Clear, Appropriate - Laboratory and Diagnostics Result Diagrams: 10/27/17 04:54 10/27/17 04:54 Labs: 10/24/17 11:19 Stool Stool Culture - Final 10/24/17 11:19 Stool - Final 10/17/17 09:40 Blood Blood Culture - Final 10/17/17 09:30 Blood Blood Culture - Final 10/17/17 10:30 Sputum - Expectorated Sputum Sputum Culture - Final 10/17/17 10:30 Sputum - Expectorated Sputum - Final 10/17/17 12:51 Urine,Catheterized Urine Culture - Final [facility] WBC 8.0 X10^3/uL (3.6-10.0) 10/27/17 04:54 RBC 4.10 X10^6/uL (4.7-6.0) L 10/27/17 04:54 Hgb 11.1 g/dL (13.5-18.0) L 10/27/17 04:54 Hct 32.5 % (42.0-54.0) L 10/27/17 04:54 MCV 79.4 fL (80.0-100.0) L 10/27/17 04:54 MCH 27.0 pg (27.0-34.0) 10/27/17 04:54 MCHC 34.0 g/dL (33.0-35.0) 10/27/17 04:54 RDW 14.5 % (11.6-16.5) 10/27/17 04:54 Plt Count 305 X10^3/uL (150.0-450.0) 10/27/17 04:54 Plt Count Comment Adequate (ADEQUATE) 10/23/17 05:35 MPV 8.8 fL (7.4-11.0) 10/27/17 04:54 Neut % (Auto) 78.3 % (42.0-75.0) H 10/27/17 04:54 Lymph % (Auto) 8.7 % (21.0-51.0) L 10/27/17 04:54 [place] % (Auto) 6.4 % (0.0-13.0) 10/27/17 04:54 Eos % (Auto) 5.8 % (0.9-2.9) H 10/27/17 04:54 Baso % (Auto) 0.8 % (0.2-1.0) 10/27/17 04:54 Neut # (Auto) 6.3 x10^3/uL (2.2-4.8) H 10/27/17 04:54 Lymph # (Auto) 0.7 X10^3/uL (1.3-2.9) L 10/27/17 04:54 [place] # (Auto) 0.5 x10^3/uL (0.3-0.8) 10/27/17 04:54 Eos # (Auto) 0.5 x10^3/uL (0.0-0.2) H 10/27/17 04:54 Baso # (Auto) 0.1 X10^3/uL (0.0-0.1) 10/27/17 04:54 Absolute Nucleated RBC 0.1 /100WBC 10/27/17 04:54 Total Counted 100 10/23/17 05:35 Neutrophils % (Manual) 86 % (39-76) H 10/23/17 05:35 Band Neutrophils % 3 % (0-10) 10/23/17 05:35 Lymphocytes % (Manual) 7 % (13-43) L 10/23/17 05:35 Monocytes % (Manual) 4 % (4-9) 10/23/17 05:35 Plt Morphology Comment Normal (NORMAL) 10/23/17 05:35 RBC Morphology Normal (NORMAL) 10/23/17 05:35 Sample Site Rr 10/25/17 11:41 ABG pH 7.360 (7.35-7.45) 10/25/17 11:41 ABG pCO2 45.0 mmHg (35.0-45.0) 10/25/17 11:41 ABG pO2 58.0 mmHg (80.0-100.0) L 10/25/17 11:41 ABG HCO3 25.4 mmol/L (22-26) 10/25/17 11:41 ABG O2 Saturation 89.0 % (90-100) L 10/25/17 11:41 ABG Base Excess -0.3 mmol/L (-2.0-2.0) 10/25/17 11:41 Ganesh Test Pos 10/25/17 11:41 A-a Gradient 171.0 mmHg 10/25/17 11:41 FiO2 40.000 10/25/17 11:41 Blood Gas Comments Pt lorenza well. cdn 10/25/17 11:41 Sodium 142 mmol/L (136-145) 10/27/17 04:54 Corrected Sodium 143 mmol/L (136-145) 10/27/17 04:54 Potassium 4.5 mmol/L (3.5-5.1) 10/27/17 04:54 Chloride 109 mmol/L (98-107) H 10/27/17 04:54 Carbon Dioxide 26.6 mmol/L (21-32) 10/27/17 04:54 BUN 49 mg/dL (7-18) H 10/27/17 04:54 Creatinine 1.49 mg/dL (0.70-1.30) H 10/27/17 04:54 Est GFR (MDRD) Af Amer 60 (>60) 10/27/17 04:54 Est GFR (MDRD) Non-Af 49 (>60) L 10/27/17 04:54 Glucose 141 mg/dL (65-99) H 10/27/17 04:54 POC Glucose (mg/dL) 157 mg/dL (65-99) H 10/27/17 11:25 Lactic Acid 2.4 mmol/L (0.4-2.0) H 10/17/17 09:40 Calcium 8.1 mg/dL (8.5-10.1) L 10/27/17 04:54 Corrected Calcium 9.8 mg/dL (8.5-10.1) 10/27/17 04:54 Total Bilirubin 0.40 mg/dL (0.2-1.0) 10/27/17 04:54 AST 16 Units/L (15-37) 10/27/17 04:54 ALT 18 Units/L (12-78) 10/27/17 04:54 Alkaline Phosphatase 57 Units/L (46-116) 10/27/17 04:54 Creatine Kinase 106 Units/L (39-308) 10/17/17 20:35 CK-MB (CK-2) 4.8 ng/mL (0-4.0) H* 10/17/17 20:35 CK/CKMB % Calc 4.5 % (<4) 10/17/17 20:35 Troponin I 0.06 ng/mL (0-1.5) 10/17/17 20:35 B-Natriuretic Peptide 420 pg/mL (0-79) H 10/17/17 09:40 Total Protein 5.9 g/dL (6.4-8.2) L 10/27/17 04:54 Albumin 1.9 g/dL (3.4-5.0) L 10/27/17 04:54 Globulin 4.0 g/dL (2.5-4.5) 10/27/17 04:54 Albumin/Globulin Ratio 0.5 Ratio (1.1-2.1) L 10/27/17 04:54 Specimen Type Catherized urine 10/17/17 12:51 Urine Color Yellow (YELLOW) 10/17/17 12:51 Urine Appearance Cloudy (CLEAR) 10/17/17 12:51 Urine pH 8.0 (5.0 - 8.0) 10/17/17 12:51 Ur Specific [place] 1.010 (1.000-1.030) 10/17/17 12:51 Urine Protein 1+ (NEGATIVE) 10/17/17 12:51 Urine Glucose (UA) 3+ (NEGATIVE) 10/17/17 12:51 Urine Ketones Negative (NEGATIVE) 10/17/17 12:51 Urine Occult Blood 5+ (NEGATIVE) 10/17/17 12:51 Urine Nitrite Negative (NEGATIVE) 10/17/17 12:51 Urine Bilirubin Negative (NEGATIVE) 10/17/17 12:51 Urine Urobilinogen Normal (NORMAL) 10/17/17 12:51 Ur Leukocyte Esterase 2+ (NEGATIVE) 10/17/17 12:51 Urine RBC 10-20 /HPF (NONE SEEN) 10/17/17 12:51 Urine WBC 10-20 /HPF (NONE SEEN) 10/17/17 12:51 Ur Squamous Epith Cells Rare /HPF (NEGATIVE) 10/17/17 12:51 Amorphous Sediment 1+ /HPF (NEGATIVE) 10/17/17 12:51 Urine Bacteria 2+ /HPF (NEGATIVE) 10/17/17 12:51 Urine Mucus Few /HPF (NEGATIVE) 10/17/17 12:51 Ur Culture Indicated? Yes/culture set up 10/17/17 12:51 Stool Description 10g brn semisolid 10/24/17 11:19 Stl Occult Blood (IFOB) Negative (NEGATIVE) 10/24/17 11:19 - Plan (1) Pneumonia Status: Acute Qualifiers: Pneumonia type: aspiration pneumonia Laterality: left Lung location: lower lobe of lung Qualified Code(s): J18.1 - Lobar pneumonia, unspecified organism Plan: PNEUMONIA PROTOCOL, FORTAZ 2GM IV Q8H, SOLU-MEDROL 40MG IV Q8H, SUPPLEMENTAL OXYGEN, RESPIRATORY TREATMENTS, BIPAP PRN AND CONTINUOUS SUPPLEMENTAL O2. CONTINUE TO MONITOR. ABGS, NURSING STAFF TO ATTEMPT TO CONTACT FAMILY FOR CODE STATUS AND DISCUSS POSSIBLE TRANSFER TO TERTIARY CARE IF CONDITION WORSENS. PT CURRENTLY STABLE THIS AM. (2) Acute respiratory insufficiency Status: Acute Plan: BIPAP, SOLU-MEDROL 40MG IV Q8H, MONITOR ABG, RESPIRATORY TREATMENTS, CONTINUE TO MONITOR (3) Diabetes Status: Acute Qualifiers: Diabetes mellitus type: type 2 Diabetes mellitus terminal make up operator insulin use: with terminal make up operator use Diabetes mellitus complication status: with hyperglycemia Qualified Code(s): E11.65 - Type 2 diabetes mellitus with hyperglycemia; Z79.4 - longterm (current) use of insulin Plan: MONITOR OTBS, CONTINUE GLUCOTROL, HMULIN R SLIDING SCALE, CONTINUE LEVEMIR , CONTINUE TO MONITOR (4) Hyperlipidemia Status: Acute Qualifiers: Hyperlipidemia type: mixed hyperlipidemia Qualified Code(s): E78.2 - Mixed hyperlipidemia Plan: CONTINUE ZOCOR, CONTINUE TO MONITOR (5) CHF (congestive heart failure) Status: Acute Qualifiers: Heart failure type: unspecified Heart failure chronicity: chronic Qualified Code(s): I50.9 - Heart failure, unspecified Plan: CONTINUE COREG, CONTINUE LASIX, CONTINUE ZESTRIL, CONTINUE TO MONITOR (6) Urinary tract infection Status: Acute Qualifiers: Urinary tract infection type: acute cystitis Hematuria presence: with hematuria Qualified Code(s): N30.01 - Acute cystitis with hematuria Plan: FORTAZ 1GM IV Q8H, CONTINUE TO MONITOR (7) Agitation Status: Acute Plan: HALDOL 1-2MG IV Q4H PRN AGITATION, CONTINUE TO MONITOR
[2017-10-27] MEDS: HumuLIN R SUBCUT PRN ×2 (16:48→21:17)
[2017-10-27] MEDS ORDERED: NS 500 ML IV 500 ML IV ONE (16:52)
--- NOTE | 2017-10-27 18:29 | PCM.PROG ---
Progress Note - Progress Note for Day of Date of Exam: 10/24/17 - Subjective Subjective: WAS ADMITTED FOR LEFT SIDED PNEUMONIA AND RESPIRATORY INSUFFICIENCY. HE REMAINS IN THE INTENSIVE CARE UNIT ON THE BIPAP. HE CONTINUES WITH SHORTNESS OF BREATH AND COUGH. HE CONTINUES TO DESAT WHEN THE BIPAP IS REMOVED. ON EXAMINATION, HEART IS REGULAR IN RATE AND RHYTHM. BILATERAL LUNGS CONTINUE WITH SCATTERED WHEEZING AND RHONCHI. ABDOMEN IS ROUND, SOFT, AND NON- TENDER WITH NORMAL BOWEL SOUNDS NOTED IN ALL QUADRANTS. BILATERAL LOWER EXTREMITIES CONTINUE WITH 1+ PITTING EDEMA. THERE IS A WHATLEY CATHETER NOTED TO BEDSIDE DRAINAGE. HIS VITALS THIS MORNING ARE 97.9-66-20-97%bipap- 165/72. LABS WERE OBTAINED. ABNORMAL LAB VALUES INCLUDE THE FOLLOWING: WBC 11.1, RBC 4.34, HGB 11.6, HCT 34.5, BUN 86, CREATININE 1.81, GLUCOSE 266, CALCIUM 8.0, ALBUMIN 2.2. AN AB02 SATURATION 76.0, HC03 G WAS OBTAINED TODAY ANND REVEALED: PH 7.330, PC02 46.0, P02 44.0, HC03 24.3. A CHEST XRAY WAS OBTAINED AND REVEALED : Cardiomegaly and pulmonary edema with more confluent opacity in the right upper lobe. This makes it impossible to exclude superimposed infection. TODAY, WE WILL CONTINUE WITH IV ANTIBIOTICS, RESPIRATORY TREATMENTS, BIPAP, AND CURRENT PLAN OF CARE. WE WILL ADD MUCOMYST TO HIS NEB [place]. OTHERWISE, WE WILL FOLLOW UP WITH AM LABS AND CHEST XRAY AND CONTINUE TO MONITOR PATIENT. - Past Medical Family Social History Past Med/Fam/Surg Hx: No changes since H&P Allergies: Allergies No Known Drug Allergies Allergy (Verified 10/17/17 09:23) - Review of Systems ROS: No change since H&P - Vital Signs and I&O's Vital Signs: Temperature 97.6 F Pulse Rate [Left Brachial] 64 Pulse Rate [Apical] 74 Pulse Rate [Right Radial] 68 Pulse Rate 63 Respiratory Rate 15 Blood Pressure [Right Arm] 146/69 Blood Pressure [Left Arm] 168/75 Blood Pressure 183/82 O2 Sat by Pulse Oximetry 94 Intake and Output: Intake & Output 10/25/17 10/26/17 10/27/17 10/28/17 11:59 11:59 11:59 11:59 Intake Total 3165 / 3165 1900 / 1900 1212 / 1212 1455 / 1455 Output Total 2300 / 2300 2620 / 2620 3300 / 3300 700 / 700 Balance 865 / 865 -720 / -720 -2088 / -2088 755 / 755 - Physical Exam Oriented: Normal Eyes: Normal Ear: Normal Nose: Normal Throat: Normal Respiratory: Generalized, Diminished, Wheezes, Rhonchi Cardiovascular: Edema (BILATERAL LOWER EXTREMITIES ). negative: S3, S4, Murmur : Normal Auscultation: Bowel Sounds: Normal Tenderness: Normal Skin: Normal Musculoskeletal: Motor Deficit (MILD GENERALIZED MUSCLE WEAKNESS) Psychiatric: Normal Mood Description: Calm Affect: Normal Speech Pattern: Clear, Appropriate - Laboratory and Diagnostics Result Diagrams: 10/27/17 04:54 10/27/17 04:54 Labs: 10/24/17 11:19 Stool Stool Culture - Final 10/24/17 11:19 Stool - Final 10/17/17 09:40 Blood Blood Culture - Final 10/17/17 09:30 Blood Blood Culture - Final 10/17/17 10:30 Sputum - Expectorated Sputum Sputum Culture - Final 10/17/17 10:30 Sputum - Expectorated Sputum - Final 10/17/17 12:51 Urine,Catheterized Urine Culture - Final [facility] WBC 8.0 X10^3/uL (3.6-10.0) 10/27/17 04:54 RBC 4.10 X10^6/uL (4.7-6.0) L 10/27/17 04:54 Hgb 11.1 g/dL (13.5-18.0) L 10/27/17 04:54 Hct 32.5 % (42.0-54.0) L 10/27/17 04:54 MCV 79.4 fL (80.0-100.0) L 10/27/17 04:54 MCH 27.0 pg (27.0-34.0) 10/27/17 04:54 MCHC 34.0 g/dL (33.0-35.0) 10/27/17 04:54 RDW 14.5 % (11.6-16.5) 10/27/17 04:54 Plt Count 305 X10^3/uL (150.0-450.0) 10/27/17 04:54 Plt Count Comment Adequate (ADEQUATE) 10/23/17 05:35 MPV 8.8 fL (7.4-11.0) 10/27/17 04:54 Neut % (Auto) 78.3 % (42.0-75.0) H 10/27/17 04:54 Lymph % (Auto) 8.7 % (21.0-51.0) L 10/27/17 04:54 [place] % (Auto) 6.4 % (0.0-13.0) 10/27/17 04:54 Eos % (Auto) 5.8 % (0.9-2.9) H 10/27/17 04:54 Baso % (Auto) 0.8 % (0.2-1.0) 10/27/17 04:54 Neut # (Auto) 6.3 x10^3/uL (2.2-4.8) H 10/27/17 04:54 Lymph # (Auto) 0.7 X10^3/uL (1.3-2.9) L 10/27/17 04:54 [place] # (Auto) 0.5 x10^3/uL (0.3-0.8) 10/27/17 04:54 Eos # (Auto) 0.5 x10^3/uL (0.0-0.2) H 10/27/17 04:54 Baso # (Auto) 0.1 X10^3/uL (0.0-0.1) 10/27/17 04:54 Absolute Nucleated RBC 0.1 /100WBC 10/27/17 04:54 Total Counted 100 10/23/17 05:35 Neutrophils % (Manual) 86 % (39-76) H 10/23/17 05:35 Band Neutrophils % 3 % (0-10) 10/23/17 05:35 Lymphocytes % (Manual) 7 % (13-43) L 10/23/17 05:35 Monocytes % (Manual) 4 % (4-9) 10/23/17 05:35 Plt Morphology Comment Normal (NORMAL) 10/23/17 05:35 RBC Morphology Normal (NORMAL) 10/23/17 05:35 Sample Site Rr 10/25/17 11:41 ABG pH 7.360 (7.35-7.45) 10/25/17 11:41 ABG pCO2 45.0 mmHg (35.0-45.0) 10/25/17 11:41 ABG pO2 58.0 mmHg (80.0-100.0) L 10/25/17 11:41 ABG HCO3 25.4 mmol/L (22-26) 10/25/17 11:41 ABG O2 Saturation 89.0 % (90-100) L 10/25/17 11:41 ABG Base Excess -0.3 mmol/L (-2.0-2.0) 10/25/17 11:41 Ganesh Test Pos 10/25/17 11:41 A-a Gradient 171.0 mmHg 10/25/17 11:41 FiO2 40.000 10/25/17 11:41 Blood Gas Comments Pt lorenza well. cdn 10/25/17 11:41 Sodium 142 mmol/L (136-145) 10/27/17 04:54 Corrected Sodium 143 mmol/L (136-145) 10/27/17 04:54 Potassium 4.5 mmol/L (3.5-5.1) 10/27/17 04:54 Chloride 109 mmol/L (98-107) H 10/27/17 04:54 Carbon Dioxide 26.6 mmol/L (21-32) 10/27/17 04:54 BUN 49 mg/dL (7-18) H 10/27/17 04:54 Creatinine 1.49 mg/dL (0.70-1.30) H 10/27/17 04:54 Est GFR (MDRD) Af Amer 60 (>60) 10/27/17 04:54 Est GFR (MDRD) Non-Af 49 (>60) L 10/27/17 04:54 Glucose 141 mg/dL (65-99) H 10/27/17 04:54 POC Glucose (mg/dL) 202 mg/dL (65-99) H 10/27/17 16:41 Lactic Acid 2.4 mmol/L (0.4-2.0) H 10/17/17 09:40 Calcium 8.1 mg/dL (8.5-10.1) L 10/27/17 04:54 Corrected Calcium 9.8 mg/dL (8.5-10.1) 10/27/17 04:54 Total Bilirubin 0.40 mg/dL (0.2-1.0) 10/27/17 04:54 AST 16 Units/L (15-37) 10/27/17 04:54 ALT 18 Units/L (12-78) 10/27/17 04:54 Alkaline Phosphatase 57 Units/L (46-116) 10/27/17 04:54 Creatine Kinase 106 Units/L (39-308) 10/17/17 20:35 CK-MB (CK-2) 4.8 ng/mL (0-4.0) H* 10/17/17 20:35 CK/CKMB % Calc 4.5 % (<4) 10/17/17 20:35 Troponin I 0.06 ng/mL (0-1.5) 10/17/17 20:35 B-Natriuretic Peptide 420 pg/mL (0-79) H 10/17/17 09:40 Total Protein 5.9 g/dL (6.4-8.2) L 10/27/17 04:54 Albumin 1.9 g/dL (3.4-5.0) L 10/27/17 04:54 Globulin 4.0 g/dL (2.5-4.5) 10/27/17 04:54 Albumin/Globulin Ratio 0.5 Ratio (1.1-2.1) L 10/27/17 04:54 Specimen Type Catherized urine 10/17/17 12:51 Urine Color Yellow (YELLOW) 10/17/17 12:51 Urine Appearance Cloudy (CLEAR) 10/17/17 12:51 Urine pH 8.0 (5.0 - 8.0) 10/17/17 12:51 Ur Specific [place] 1.010 (1.000-1.030) 10/17/17 12:51 Urine Protein 1+ (NEGATIVE) 10/17/17 12:51 Urine Glucose (UA) 3+ (NEGATIVE) 10/17/17 12:51 Urine Ketones Negative (NEGATIVE) 10/17/17 12:51 Urine Occult Blood 5+ (NEGATIVE) 10/17/17 12:51 Urine Nitrite Negative (NEGATIVE) 10/17/17 12:51 Urine Bilirubin Negative (NEGATIVE) 10/17/17 12:51 Urine Urobilinogen Normal (NORMAL) 10/17/17 12:51 Ur Leukocyte Esterase 2+ (NEGATIVE) 10/17/17 12:51 Urine RBC 10-20 /HPF (NONE SEEN) 10/17/17 12:51 Urine WBC 10-20 /HPF (NONE SEEN) 10/17/17 12:51 Ur Squamous Epith Cells Rare /HPF (NEGATIVE) 10/17/17 12:51 Amorphous Sediment 1+ /HPF (NEGATIVE) 10/17/17 12:51 Urine Bacteria 2+ /HPF (NEGATIVE) 10/17/17 12:51 Urine Mucus Few /HPF (NEGATIVE) 10/17/17 12:51 Ur Culture Indicated? Yes/culture set up 10/17/17 12:51 Stool Description 10g brn semisolid 10/24/17 11:19 Stl Occult Blood (IFOB) Negative (NEGATIVE) 10/24/17 11:19 - Plan (1) Pneumonia Status: Acute Qualifiers: Pneumonia type: aspiration pneumonia Laterality: left Lung location: lower lobe of lung Qualified Code(s): J18.1 - Lobar pneumonia, unspecified organism Plan: PNEUMONIA PROTOCOL, FORTAZ 2GM IV Q8H, SOLU-MEDROL 40MG IV Q8H, SUPPLEMENTAL OXYGEN, RESPIRATORY TREATMENTS, BIPAP PRN AND CONTINUOUS SUPPLEMENTAL O2. CONTINUE TO MONITOR. ABGS, NURSING STAFF TO ATTEMPT TO CONTACT FAMILY FOR CODE STATUS AND DISCUSS POSSIBLE TRANSFER TO TERTIARY CARE IF CONDITION WORSENS. PT CURRENTLY STABLE THIS AM. (2) Acute respiratory insufficiency Status: Acute Plan: BIPAP, SOLU-MEDROL 40MG IV Q8H, MONITOR ABG, RESPIRATORY TREATMENTS, CONTINUE TO MONITOR (3) Diabetes Status: Acute Qualifiers: Diabetes mellitus type: type 2 Diabetes mellitus buttermaker helper insulin use: with buttermaker helper use Diabetes mellitus complication status: with hyperglycemia Qualified Code(s): E11.65 - Type 2 diabetes mellitus with hyperglycemia; Z79.4 - termination clerk (current) use of insulin Plan: MONITOR OTBS, CONTINUE GLUCOTROL, HMULIN R SLIDING SCALE, CONTINUE LEVEMIR , CONTINUE TO MONITOR (4) Hyperlipidemia Status: Acute Qualifiers: Hyperlipidemia type: mixed hyperlipidemia Qualified Code(s): E78.2 - Mixed hyperlipidemia Plan: CONTINUE ZOCOR, CONTINUE TO MONITOR (5) CHF (congestive heart failure) Status: Acute Qualifiers: Heart failure type: unspecified Heart failure chronicity: chronic Qualified Code(s): I50.9 - Heart failure, unspecified Plan: CONTINUE COREG, CONTINUE LASIX, CONTINUE ZESTRIL, CONTINUE TO MONITOR (6) Urinary tract infection Status: Acute Qualifiers: Urinary tract infection type: acute cystitis Hematuria presence: with hematuria Qualified Code(s): N30.01 - Acute cystitis with hematuria Plan: FORTAZ 1GM IV Q8H, CONTINUE TO MONITOR (7) Agitation Status: Acute Plan: HALDOL 1-2MG IV Q4H PRN AGITATION, CONTINUE TO MONITOR
[2017-10-27] MEDS: SNACK - Diabetic Appropriate PO SCH (19:59)
[2017-10-27] MEDS: NEURONTIN CAP 300 MG PO SCH (20:47)
[2017-10-27] MEDS: COLACE CAP 100 MG PO SCH (20:47)
[2017-10-27] MEDS: OXYBUTYNIN CHLORIDE ER PO SCH (20:48)
[2017-10-27] MEDS: ZOCOR TAB 20 MG PO SCH (20:49)
[2017-10-28] MEDS: NS 1/2 1000 ML IV 1,000 ML IV SCH ×2 (01:12→15:51)
[2017-10-28] MEDS: DUONEB 0.5 MG/3 MG NEB SCH ×6 (01:20→21:16)
[2017-10-28] MEDS: FORTAZ or TAZICEF VIAL INJ 1 G in NS 100 ML IV + SPIKE MINIBAG* 100 ML IV SCH ×3 (05:30→21:16)
[2017-10-28 06:08] LABS: BASOPHILS % (AUTO) 0.3 % (0.2-1.0); EOSINOPHILS # (AUTO) 0.5 x10^3/uL (0.0-0.2); EOSINOPHILS % (AUTO) 6.1 % (0.9-2.9); HEMATOCRIT 34.1 % (42.0-54.0); HEMOGLOBIN 11.5 g/dL (13.5-18.0); LYMPHOCYTES # (AUTO) 1.1 X10^3/uL (1.3-2.9); LYMPHOCYTES % (AUTO) 12.7 % (21.0-51.0); MEAN CORPUSCULAR HGB CONC 33.8 g/dL (33.0-35.0); MEAN PLATELET VOLUME 8.8 fL (7.4-11.0); MONOCYTES # (AUTO) 0.7 x10^3/uL (0.3-0.8); MONOCYTES % (AUTO) 7.6 % (0.0-13.0); NEUTROPHILS # (AUTO) 6.4 x10^3/uL (2.2-4.8); NEUTROPHILS % (AUTO) 73.3 % (42.0-75.0); PLATELET COUNT 333 X10^3/uL (150.0-450.0); RED BLOOD COUNT 4.27 X10^6/uL (4.7-6.0); RED CELL DISTRIBUTION WIDTH 14.2 % (11.6-16.5); WHITE BLOOD COUNT 8.7 X10^3/uL (3.6-10.0)
[2017-10-28 06:39] LABS: ALANINE AMINOTRANSFERASE 23 Units/L (12-78); ALBUMIN 2.2 g/dL (3.4-5.0); ALKALINE PHOSPHATASE 65 Units/L (46-116); ASPARTATE AMINO TRANSFERASE 22 Units/L (15-37); BLOOD UREA NITROGEN 36 mg/dL (7-18); CALCIUM 8.5 mg/dL (8.5-10.1); CARBON DIOXIDE 27.4 mmol/L (21-32); CHLORIDE 109 mmol/L (98-107); COR CA(FOR HYPOALB) 9.9 mg/dL (8.5-10.1); COR NA(FOR HYPERGLY) 143 mmol/L (136-145); CREATININE 1.35 mg/dL (0.70-1.30); SODIUM 142 mmol/L (136-145); TOTAL PROTEIN 6.6 g/dL (6.4-8.2); eGFR NON BLACK RACES 55 (>60)
--- NOTE | 2017-10-28 07:42 | RAD ---
History follow-up of pneumonia Reported By: Study: Portable AP chest Comparison: October 26 Findings: The heart is mildly enlarged as before. There is improvement in airspace disease most sugge stive of resolving pulmonary edema. There is no significant vascular congestion or pleural effusion. Impression: 1. Resolving pulmonary edema 2. Mild cardiomegaly
[2017-10-28] MEDS: NORVASC TAB 10 MG PO SCH (08:52)
[2017-10-28] MEDS: MILK OF MAGNESIA PO SCH (08:52)
[2017-10-28] MEDS: ASPIRIN EC 81 MG PO SCH (08:52)
[2017-10-28] MEDS: ROBITUSSIN DM PO SCH ×4 (08:52→21:15)
[2017-10-28] MEDS: K-DUR TAB 20 MEQ PO SCH (08:52)
[2017-10-28] MEDS: COREG TAB 25 MG PO SCH ×2 (08:52→21:14)
[2017-10-28] MEDS: ZESTRIL TAB 40 MG PO SCH (08:52)
[2017-10-28] MEDS: LEVEMIR SC SCH ×2 (08:54→21:15)
[2017-10-28] MEDS: HumuLIN R SUBCUT PRN ×3 (10:54→21:16)
[2017-10-28] MEDS ORDERED: DULCOLAX SUPPOSITORY 10 MG RECTAL ONE (15:59)
[2017-10-28] MEDS: LEVAQUIN PREMIX IV 750 MG 750 MG/150 ML BAG IV SCH (16:02)
[2017-10-28] MEDS: SNACK - Diabetic Appropriate PO SCH (21:14)
[2017-10-28] MEDS: COLACE CAP 100 MG PO SCH (21:14)
[2017-10-28] MEDS: OXYBUTYNIN CHLORIDE ER PO SCH (21:15)
[2017-10-28] MEDS: NEURONTIN CAP 300 MG PO SCH (21:15)
[2017-10-28] MEDS: ZOCOR TAB 20 MG PO SCH (21:16)
[2017-10-29] MEDS: DUONEB 0.5 MG/3 MG NEB SCH ×3 (01:20→09:10)
[2017-10-29] MEDS: NS 1/2 1000 ML IV 1,000 ML IV SCH (03:16)
[2017-10-29 06:17] LABS: BASOPHILS # (AUTO) 0.1 X10^3/uL (0.0-0.1); BASOPHILS % (AUTO) 0.7 % (0.2-1.0); EOSINOPHILS # (AUTO) 0.4 x10^3/uL (0.0-0.2); EOSINOPHILS % (AUTO) 5.3 % (0.9-2.9); HEMATOCRIT 32.8 % (42.0-54.0); HEMOGLOBIN 11.2 g/dL (13.5-18.0); LYMPHOCYTES # (AUTO) 1.2 X10^3/uL (1.3-2.9); LYMPHOCYTES % (AUTO) 14.4 % (21.0-51.0); MEAN CORPUSCULAR HEMOGLOBIN 27.2 pg (27.0-34.0); MEAN CORPUSCULAR VOLUME 79.9 fL (80.0-100.0); MEAN PLATELET VOLUME 8.8 fL (7.4-11.0); MONOCYTES # (AUTO) 0.7 x10^3/uL (0.3-0.8); MONOCYTES % (AUTO) 8.3 % (0.0-13.0); NEUTROPHILS % (AUTO) 71.3 % (42.0-75.0); PLATELET COUNT 300 X10^3/uL (150.0-450.0); RED BLOOD COUNT 4.11 X10^6/uL (4.7-6.0); RED CELL DISTRIBUTION WIDTH 14.1 % (11.6-16.5); WHITE BLOOD COUNT 8.4 X10^3/uL (3.6-10.0)
[2017-10-29] MEDS: FORTAZ or TAZICEF VIAL INJ 1 G in NS 100 ML IV + SPIKE MINIBAG* 100 ML IV SCH (06:19)
[2017-10-29 06:24] LABS: ALANINE AMINOTRANSFERASE 24 Units/L (12-78); ALBUMIN 2.1 g/dL (3.4-5.0); ALKALINE PHOSPHATASE 66 Units/L (46-116); ASPARTATE AMINO TRANSFERASE 22 Units/L (15-37); BLOOD UREA NITROGEN 27 mg/dL (7-18); CALCIUM 8.5 mg/dL (8.5-10.1); CARBON DIOXIDE 29.3 mmol/L (21-32); CHLORIDE 109 mmol/L (98-107); COR NA(FOR HYPERGLY) 144 mmol/L (136-145); CREATININE 1.22 mg/dL (0.70-1.30); SODIUM 142 mmol/L (136-145); TOTAL PROTEIN 6.3 g/dL (6.4-8.2); eGFR NON BLACK RACES > 60 (>60)
--- NOTE | 2017-10-29 06:59 | RAD ---
HISTORY: Follow-up pneumonia Study: Chest AP portable Comparison: 10/28/2017 Findings: The heart is enlarged. No congestive heart failure is noted. The lungs are hypo inflated. No infiltra francisco or pleural effusions are identified. The visualized bony thorax is unremarkable. IMPRESSION: Moderate cardiomegaly without congestive heart failure No infiltrates Reported By:
[2017-10-29] MEDS: NORVASC TAB 10 MG PO SCH (08:34)
[2017-10-29] MEDS: ASPIRIN EC 81 MG PO SCH (08:34)
[2017-10-29] MEDS: ZESTRIL TAB 40 MG PO SCH (08:34)
[2017-10-29] MEDS: MILK OF MAGNESIA PO SCH (08:34)
[2017-10-29] MEDS: ROBITUSSIN DM PO SCH ×3 (08:34→13:25)
[2017-10-29] MEDS: LEVEMIR SC SCH (08:34)
[2017-10-29] MEDS: COREG TAB 25 MG PO SCH (08:34)
[2017-10-29] MEDS: K-DUR TAB 20 MEQ PO SCH (08:34)
[2017-10-29] MEDS: HumuLIN R SUBCUT PRN (11:07)
[2017-10-29 13:04] VITALS: BP 149/73
--- NOTE | 2018-01-30 01:37 | DR.CARTERD ---
- Discharge Summary for: Discharge Summary for Date of:: 10/29/17 - Admission Date Date of Admission: 10/17/17 - Admission Diagnoses Admission Diagnosis: (1) Pneumonia (2) Acute respiratory insufficiency - Discharge Date Discharge Date: 10/29/17 - Discharge Diagnoses Discharge Diagnosis: (1) Pneumonia (2) Acute respiratory insufficiency (3) Diabetes (4) Hyperlipidemia (5) CHF (congestive heart failure) (6) Urinary tract infection (7) Agitation - Hospital Course Hospital Course: DAY ONE, IS A 72 YEAR OLD PATIENT OF OURS WHO IS A RESIDENT OF [facility]. HE PRESENTED WITH COMPLAINTS OF SHORNTESS OF BREATH, COUGH, AND VOMITING. [facility] STAFF REPORTED THAT OXYGEN SATURATIONS HAVE BEEN DROPPING AND THAT PATIENT MAY HAVE ASPIRATED. ON ARRIVAL, VITALS WERE 98.8-91-26-56%RA-183/82. PATIENT WAS PLACED ON NASAL CANNULA WHERE AN INCREASE IN OXYGENATION TO THE 80S WAS NOTED. LABS WERE OBTAINED. ABNORMAL LAB VALUES INCLUDED THE FOLLOWING: HGB 13.2, HCT 39.5, BUN 50, CREATININE 1.92, GLUCOSE 297, LACTIC ACID 2.4, AST 14, CK-MB 7.5, BNP 420, GLOBULIN 4.6. URINALYSIS REVE ALED: WBC 10-20, RBC 10-20, LEUKOCYTS 2+, BACTERIA 2+, OCCULT BLOOD 5+. ABG REVEALED: PH 7.370, PC02 41.0, P02 41.0, HC03 23.7, 02 SATURATION 74. URINE, BLOOD, AND SPUTUM CULTURES ARE PENDING. CHEST XRAY REVEALED DIFFUSE ALVEOLAR LEFT LUNG PNEUMONIA INVOLVING APPROXIMATELY 2/3 OF THE LEFT LUNG. HE WAS PLACED ON THE BIPAP AND ADMITTED TO THE INTENSIVE CARE UNIT ON THE PNEUMONIA PROTOCOL. HE WAS STARTED ON 1/2 NORMAL SALINE AT 75ML/HR, CIPRO 400MG IV Q12H, AND ZOSYN 2.25GM IV Q6H. WE FOLLOWED UP WITH AM LABS AND CHEST XRAY AND CONTINUED TO MONITOR. DAY TWO, HE REMAINED IN THE INTENSIVE CARE UNIT ON THE BIPAP. HE WAS LYING IN BED WITH EYES CLOSED, BUT WAS RESPONSIVE TO VERBAL STIMULI. ON EXAMINATION, HEART WAS REGULAR IN RATE AND RHYTHM. BILATERAL LUNGS CONTINUED WITH SCATTERED WHEEZING AND RHONCHI. ABDOMEN WAS ROUND, SOFT, AND NON-TENDER WITH NORMAL BOWEL SOUNDS NOTED IN ALL QUADRANTS. BILATERAL LOWER EXTREMITIES CONTINUED WITH 1+ PITTING EDEMA. THERE WAS A WHATLEY CATHETER NOTED TO BEDSIDE DRAINAGE. HIS VITALS THIS MORNING WERE 97.4-75-22-99%-158/72. LABS WERE OBTAINED. ABNORMAL LAB VALUES INCLUDED THE FOLLOWING: RBC 4.56, HGB 12.3, HCT 37.0, CHLORIDE 108, BUN 41, CREATININE 1.59, GLUCOSE 197, AST 14, ALBUMIN 2.9. BLOOD, SPUTUM, AND URINE CULTURES ARE PENDING. WE CONTINUED WITH IV ANTIBIOTICS, BIPAP, AND RESPIRATORY TREATMENTS. WE FOLLOWED UP WITH AM LABS AND CONTINUED TO MONITOR PATIENT. DAY FOUR, HE REMAINED IN THE INTENSIVE CARE UNIT ON THE BIPAP. STAFF REPORTED THAT PATIENT HAD BEEN AGITATED THROUGHOUT THE NIGHT AND PULLING MASK OFF CONSTANTLY. THEY REPORTED THAT WHEN MASK IS REMOVED, PATIENTS OXYGEN SATURATIONS FELL INTO THE 70S. HE WAS LYING IN BED WITH EYES CLOSED, BUT WAS RESPONSIVE TO VERBAL STIMULI. ON EXAMINATION, HEART WAS REGULAR IN RATE AND RHYTHM. BILATERAL LUNGS CONTINUED WITH SCATTERED WHEEZING AND RHONCHI. ABDOMEN WAS ROUND, SOFT, AND NON-TENDER WITH NORMAL BOWEL SOUNDS NOTED IN ALL QUADRANTS. BILATERAL LOWER EXTREMITIES CONTINUED WITH 1+ PITTING EDEMA. THERE WAS A WHATLEY CATHETER NOTED TO BEDSIDE DRAINAGE. HIS VITALS THIS MORNING WERE 97.6-75-22-92% BIPAP-167/78. LABS WERE OBTAINED. ABNORMAL LAB VALUES INCLUDED THE FOLLOWING: WBC 10.1-RBC 4.43, HGB 11.7, HCT 35.5, BUN 31, CREATININE 1.51, GLUCOSE 195, ALBUMIN 2.5. TODAYS ABG REVEALED: PH 7.430, PC02 37.0, P02 55.0, HC03 24.6, 02 SATURATION 89.0. A CHEST XRAY WAS OBTAINED AND REVEALED: The patient is rotated to the left. The heart remains enlarged. No congestive heart failure is noted. The right lung is clear. Diffuse alveolar infiltrate is present in the left lung most prominent in the upper lobe. This is most consistent with pneumonia. It is unchanged when compared with the prior examination. No definite pleural effusions are identified. The bony thorax is unremarkable. TODAY, WE STARTED HALDOL 1-2MG IV Q4H PRN AGITATION. WE CONTINUED WITH IV ANTIBIOTICS, RESPIRATORY TREATMENTS, BIPAP, AND CURRENT PLAN OF CARE. PHYSICAL THERAPY CONSULTED WITH PATIENT. WE FOLLOWED UP WITH AM LABS AND CONTINUED TO MONITOR PATIENT. DAY SEVEN, HE REMAINED IN THE INTENSIVE CARE UNIT ON THE BIPAP. HE CONTINUED WITH SHORTNESS OF BREATH AND COUGH. ON EXAMINATION, HEART WAS REGULAR IN RATE AND RHYTHM. BILATERAL LUNGS CONTINUED WITH SCATTERED WHEEZING AND RHONCHI. ABDOMEN WAS ROUND, SOFT, AND NON-TENDER WITH NORMAL BOWEL SOUNDS NOTED IN ALL QUADRANTS. BILATERAL LOWER EXTREMITIES CONTINUED WITH 1+ PITTING EDEMA. THERE WAS A WHATLEY CATHETER NOTED TO BEDSIDE DRAINAGE. HIS VITALS THIS MORNING WERE 97.0-69-12-99%-141/67. LABS WERE OBTAINED. ABNORMAL LAB VALUES INCLUDED THE FOLLOWING: RBC 4.27, HGB 11.4, HCT 34.7, POTASSIUM 5.5, BUN 80, CREATININE 2.57, GLUCOSE 299, CALCIUM 8.3, ALBUMIN 2.3, GLOBULIN 4.9. TODAYS ABG REVEALED PH 7.300, P02 74, HC03 20.7, BASE EXCESS -5.5. A CHEST XRAY WAS OBTAINED AND REVEALED: The heart remains mildly enlarged. No definite congestive heart failure is noted. Hypo inflation remains present. Left upper lobe infiltrate is slightly improved when compared with the prior examination. The right upper lobe infiltrate is unchanged and could be seen to abut the minor fissure. The right lower lobe is clear. No pleural effusions are identified. The bony thorax is u nremarkable. WE CONTINUED WITH IV ANTIBIOTICS, RESPIRATORY TREATMENTS, BIPAP, AND CURRENT PLAN OF CARE. WE OBTAINED AN ECHOCARDIOGRAM THIS MORNING AND CONTINUED WITH IV FLUIDS. WE FOLLOWED UP WITH AM LABS AND CHEST XRAY AND CONTINUED TO MONITOR PATIENT. DAY THIRTEEN, HE REMAINED IN THE INTENSIVE CARE UNIT.HE CURRENTLY ON NASAL CANNULA AT 4 LITERS. A BIPAP UNIT WAS OBTAINED FOR [facility] USE FOR PATIENT. LAB VALUES ARE WITHIN NORMAL RANGE FOR PATIENT. VITALS ARE STABLE. LUNG SOUNDS NOTED TO BE CLEAR BILATERALLY. A REPEAT CHEST X- RAY REVEALED: Moderate cardiomegaly without congestive heart failure. WE DISCUSSED WITH PATIENT ON PLAN TO DISCHARGE HIM BACK TO THE [facility] WITH BIPAP. PATIENT WAS IN AGREEMENT WITH PLAN. WE PLANNED FOR DISCHARGE. INSTRUCTION S FOR MEDICATIONS AND FOLLOW UP DISCUSSED WITH PATIENT AND FAMILY, BOTH VOICED UNDERSTANDING. PATIENT DISCHARGED TO [facility] IN STABLE CONDITION WITH STAFF. - Discharge Medications Discharge Medications: Home Medication List amlodipine [Norvasc] 10 mg PO QDAY 10/17/17 [History] diclofenac sodium [Voltaren] 2 g TOPICAL BID 10/17/17 [History] gabapentin 300 mg PO HS 10/17/17 [History] simvastatin 20 mg PO QHS 10/17/17 [History] ipratropium-albuterol 1 ea NEB TID #50 ml 10/28/17 [Rx] levofloxacin [Levaquin] 500 mg PO QDAY #7 tab 10/28/17 [Rx] Prescriptions: levofloxacin [Levaquin] Nick Dinero Ambulatory Orders Lisinopril 40 mg PO DAILY 09/05/14 aspirin 1 tab PO DAILY 09/05/14 carvedilol 25 mg PO BID 09/05/14 furosemide 20 mg PO BID PRN 09/05/14 oxybutynin chloride [Ditropan XL] 5 mg PO HS 09/05/14 potassium chloride [K-Tab] 20 meq PO DAILY 09/05/14 Insulin Aspart [NovoLog insulin 10 mL vial] 5 unit SC AC 02/09/16 insulin detemir U-100 [Levemir U-100 Insulin] 30 units SUBCUT DAILY 02/09/16 insulin detemir U-100 [Levemir U-100 Insulin] 35 units SUBCUT HS 02/09/16 metformin 1,000 mg PO BID 02/09/16 naproxen 1 tab PO Q8H PRN 02/09/16 furosemide [Lasix] 20 mg PO BID 11/04/17 glipizide 5 mg PO QDAY 11/04/17 - Discharge Disposition Discharge Disposition: WE WILL FOLLOW UP WITH PATIENT AT [facility] IN ONE WEEK.
== END 2017-10-29 14:05 | DRG 178 ==
LOC: ER 09:22 → ICU 12:05
PROVIDERS: ADMIT Internal Medicine; ATTEND Internal Medicine
DX: J69.0 Pneumonitis due to inhalation of food and vomit; R26.89 Other abnormalities of gait and mobility; E78.2 Mixed hyperlipidemia; F32.89 Other specified depressive episodes; R94.31 Abnormal electrocardiogram [ECG] [EKG]; B96.4 Proteus (mirabilis) (morganii) as the cause of diseases classified elsewhere; R06.02 Shortness of breath; E11.65 Type 2 diabetes mellitus with hyperglycemia; Z79.4 Long term (current) use of insulin; R05 Cough; I51.7 Cardiomegaly; R06.89 Other abnormalities of breathing; R60.0 Localized edema; I25.10 Atherosclerotic heart disease of native coronary artery without angina pectoris; N30.01 Acute cystitis with hematuria; I50.9 Heart failure, unspecified
CPT/HCPCS: 36415; 36600; 71010; 71020; 71045; 71046; 80053; 81001; 82270; 82550; 82553; 82705; 82803; 83605; 83880; 84484; 85025; 87040; 87045; 87070; 87086; 87088; 87186; 87205; 87427; 87449; 87899; 93005; 93306; 94640; 94660; 96365; 96367; 96374; 97110; 97163; 97166; 97530; 99231; 99283; 99284; 99285; A4222; A4618; A7030; J0713; J0744; J1630; J1815; J1940; J1956; J2185; J2405; J2543; J2920; J7030; J7040; J7050; J7608; J7620

== ENCOUNTER 2019-03-04 23:44 | Inpatient (IN) ==
[2019-03-05 00:23] VITALS: BMI 42.0
--- NOTE | 2019-03-05 00:28 | DR.GENAD ---
HPI Time Seen Time Seen by Provider: 03/05/19 00:26 PCP Primary Care Physician: ENEDELIA HPI Comment HPI Comment: PATIENT IS 73YR OLD MALE IN THE EMERGENCY ROOM FROM THE NE WITH CHEST PAIN AND INCREASING SOB ALL DAY. HE DID NOT FEEL GOOD YESTERDAY. HISTORY HTN AND DM. EXTREMITIES ARE SWOLLEN AND PATIENT IS SOB. NO FEVER. Complaint/Symptoms Chief Complaint Doctors Comments: CHEST PAIN WITH INCREASING SOB ALL DAY. Chief Complaint:: LONGTERM CALLED AND STATES PT HAS HAD SOB AND CHEST TIGHT ALL DAY , UPON ASKING PT HE STATES HE HAS BEEN FEELING BAD WITH SOB AND CHEST SINCE 2 PM. PT IN NO DISTRESS IN TRIAGE. Nurses notes reviewed Nurses Notes Review: Yes Source History Provided: Patient and [facility] Mode of Arrival Mode of Arrival: Stretcher Timing Onset of Chief Complaint: 03/05/19 Came on: Gradually Duration Duration: Constant Duration: Days Location Location: LEGS TIGHT. Modifying Factors Worsens:: MOVEMENT. Improves:: LAYING STILL. Associated Signs and Symptoms Associated Signs and Symptoms: SOB. Other History Other History: HTN AND DM. PMH PMH Past Medical History: Yes Past Medical History: Anemia, Arthritis, Coronary Artery Disease, Depression, Diabetes, Dyslipidemia, Hypertension, Liver Disease and Seizures Past Surgical History: Yes Surgical History: Appendectomy Family History History of Family Medical Conditions: Yes Family Medical History: Diabetes Mellitus, Cancer, [place] and Hypertension Social History Does patient currently use any type of tobacco product: No Have you used tobacco products in the last 12 months: No Type of Tobacco Use: None Does any household member use tobacco: No Alcohol Use: None Do you use any recreational Drugs:: No Lives With: Other Lives Where: [facility] infectious screening In the last 2 months have you had wt loss of >10#?: NO Have you had fever, night sweats or hemotysis?: No Have you traveled outside the country in the last 6 months?: No Isolation: Standard ROS Review of Systems Constitutional: Weakness and Fatigue; negative Chills and Fever Eyes: See HPI ENTM: See HPI, Nose Discharge and Nose Congestion; negative Ear Pain and Throat Pain Respiratoy: See HPI, Moist Cough, Short of Breath and Wheezing Cardiovascular: See HPI, Chest Pain and Other (SUBSTERNAL CHEST TIGHTNESS.) Gastrointestinal/Abdominal: See HPI; negative Abdominal Pain, Constipation, Di arrhea, Nausea and Vomiting Genitourinary: See HPI; negative Dysuria and Hematuria Neurological: See HPI and Weakness; negative Headache and Dizziness Musculoskeletal: See HPI and Muscle Pain Integumentary: See HPI Hematologic/Lymphatic: See HPI, Easy Bleeding and Easy Bruising; negative Swollen Glands and Lymphadenopathy Endocrine: No Symptoms Reported and See HPI Psychiatric: No Symptoms Reported and See HPI All Other Systems: Reviewed and Negative PE Vital Signs Vitals: Temperature 96 F Pulse Rate [Right] 56 Pulse Rate 60 Respiratory Rate 21 Blood Pressure [Right Arm] 167/70 Blood Pressure [Left Arm] 147/57 Blood Pressure 181/84 O2 Sat by Pulse Oximetry 90 General Limitations: No Limitations General Appearance: Alert and In Distress Head Head Exam: Normal Inspection and Atraumatic Eyes Eye exam: PERRL; negative Scleral Icterus and Conjunctival Injection ENT ENT Exam: Normal Oropharynx, Normal External Ear Exam and TM's Normal Bilaterally External Ear Exam: Normal External Inspection; negative Mastoid Tenderness TM/Canal Exam: Bilateral: Normal Nose Exam: Normal Nose Exam; negative Sinus Tenderness, Nasal Deviation and Septal Hematoma Mouth Exam: negative Lip Swelling and Tongue Swelling Throat Exam: negative Tonsillar Erythema, Tonsillomegaly and Tonsillar Exudate Neck Neck Exam: Full ROM Chest Chest Inspection: Normal Inspection and Symmetric Chest Wall Rise Respiratory Respiratory Exam: Accessory Muscle Use and Respiratory Distress; negative Chest Wall Tenderness Respiratory Exam: Bilateral: Wheezing and Bilateral: Rhonchi and Lower: Wheezing and Lower: Rhonchi Cardiovascular Cardiovascular Exam: Normal Rhythm, Normal Heart Sounds and +S3; negative Systolic Murmur and Diastolic Murmur Abdominal Exam Abdominal Exam: Normal Bowel Sounds and Soft; negative Tenderness Extremities Extremities Exam: Edema Back Back Exam: Tenderness and Paraspinal Tenderness; negative (R) CVA Tenderness and (L) CVA Tenderness Neurologic Neurological Exam: Alert and Oriented X3; negative Motor Sensory Deficit Psychiatric Psychiatric Exam: Normal Affect and Normal Mood Skin Skin Exam: Other (EDMA EXTREMITIES.) MDM Differential Diagnosis Differential Diagnosis: CHF, CP, [place], COPD, HTN COURSE Treatment Treatment: SEE ORDERS. LASIX 40MG IV. Consultation Consultation Comments: DR. MCDANIELS WILL ADMIT PATIENT. Education/Counseling Education/Counseling: Patient and Family Educated On: Diagnosis ROR Labs Reviewed Laboratory Results Reviewed?: Yes Result Diagrams: 03/11/19 04:01 03/11/19 04:01 Laboratory: 03/05/19 00:37 Blood Blood Culture - Final 03/05/19 00:45 Blood Blood Culture - Final 03/05/19 03:34 Urine,Catheterized Urine Culture - Final Proteus Mirabilis WBC 7.7 X10^3/uL (3.6-10.0) 03/06/19 06:04 RBC 3.77 X10^6/uL (4.7-6.0) L 03/06/19 06:04 Hgb 10.4 g/dL (13.5-18.0) L 03/06/19 06:04 Hct 32.2 % (42.0-54.0) L 03/06/19 06:04 MCV 85.4 fL (80.0-100.0) 03/06/19 06:04 MCH 27.6 pg (27.0-34.0) 03/06/19 06:04 MCHC 32.3 g/dL (33.0-35.0) L 03/06/19 06:04 RDW 15.7 % (11.6-16.5) 03/06/19 06:04 Plt Count 193 X10^3/uL (150.0-450.0) 03/06/19 06:04 MPV 8.8 fL (7.4-11.0) 03/06/19 06:04 Neut % (Auto) 85.6 % (42.0-75.0) H 03/06/19 06:04 Lymph % (Auto) 8.0 % (21.0-51.0) L 03/06/19 06:04 Moody % (Auto) 5.8 % (0.0-13.0) 03/06/19 06:04 Eos % (Auto) 0.3 % (0.9-2.9) L 03/06/19 06:04 Baso % (Auto) 0.3 % (0.2-1.0) 03/06/19 06:04 Neut # (Auto) 6.6 x10^3/uL (2.2-4.8) H 03/06/19 06:04 Lymph # (Auto) 0.6 X10^3/uL (1.3-2.9) L 03/06/19 06:04 Moody # (Auto) 0.4 x10^3/uL (0.3-0.8) 03/06/19 06:04 Eos # (Auto) 0.0 x10^3/uL (0.0-0.2) 03/06/19 06:04 Baso # (Auto) 0.0 X10^3/uL (0.0-0.1) 03/06/19 06:04 Absolute Nucleated RBC 0.0 /100WBC 03/06/19 06:04 Sample Site Left radial 03/06/19 13:12 ABG pH 7.140 (7.35-7.45) L* 03/06/19 13:12 ABG pCO2 92.0 mmHg (35.0-45.0) H* 03/06/19 13:12 ABG pO2 56.0 mmHg (80.0-100.0) L 03/06/19 13:12 ABG HCO3 31.3 mmol/L (22-26) H* 03/06/19 13:12 ABG O2 Saturation 78.0 % (90-100) L* 03/06/19 13:12 ABG Base Excess -0.1 mmol/L (-2.0-2.0) 03/06/19 13:12 Ganesh Test Pos 03/06/19 13:12 A-a Gradient 57.0 mmHg 03/06/19 13:12 FiO2 32.0 03/06/19 13:12 Blood Gas Comments Katy well aw 03/06/19 13:12 Sodium 146 mmol/L (136-145) H 03/06/19 06:04 Corrected Sodium 148 mmol/L (136-145) H 03/06/19 06:04 Potassium 5.8 mmol/L (3.5-5.1) H 03/06/19 06:04 Chloride 111 mmol/L (98-107) H 03/06/19 06:04 Carbon Dioxide 31.4 mmol/L (21-32) 03/06/19 06:04 BUN 51 mg/dL (7-18) H 03/06/19 06:04 Creatinine 1.65 mg/dL (0.70-1.30) H 03/06/19 06:04 Est GFR (MDRD) Af Amer 53 (>60) L 03/06/19 06:04 Est GFR (MDRD) Non-Af 44 (>60) L 03/06/19 06:04 Glucose 179 mg/dL (65-99) H 03/06/19 06:04 POC Glucose (mg/dL) 164 mg/dL (65-99) H 03/06/19 12:04 Calcium 8.3 mg/dL (8.5-10.1) L 03/06/19 06:04 Corrected Calcium 8.9 mg/dL (8.5-10.1) 03/06/19 06:04 Total Bilirubin 0.70 mg/dL (0.2-1.0) 03/06/19 06:04 AST 22 Units/L (15-37) 03/06/19 06:04 ALT 38 Units/L (12-78) 03/06/19 06:04 Alkaline Phosphatase 90 Units/L (46-116) 03/06/19 06:04 Creatine Kinase 243 Units/L (39-308) 03/06/19 06:04 CK-MB (CK-2) 7.1 ng/mL (0-4.0) H* 03/06/19 06:04 CK/CKMB % Calc 2.9 % (<4) 03/06/19 06:04 Troponin I 0.08 ng/mL (0-1.5) 03/06/19 06:04 Total Protein 6.8 g/dL (6.4-8.2) 03/06/19 06:04 Albumin 3.3 g/dL (3.4-5.0) L 03/06/19 06:04 Globulin 3.5 g/dL (2.5-4.5) 03/06/19 06:04 Albumin/Globulin Ratio 0.9 Ratio (1.1-2.1) L 03/06/19 06:04 Specimen Type Catherized urine 03/05/19 03:34 Urine Color Yellow (YELLOW) 03/05/19 03:34 Urine Appearance Slightly hazy (CLEAR) 03/05/19 03:34 Urine pH 5.0 (5.0 - 8.0) 03/05/19 03:34 Ur Specific [place]aton 1.015 (1.000-1.030) 03/05/19 03:34 Urine Protein 1+ (NEGATIVE) 03/05/19 03:34 Urine Glucose (UA) Negative (NEGATIVE) 03/05/19 03:34 Urine Ketones Negative (NEGATIVE) 03/05/19 03:34 Urine Occult Blood Negative (NEGATIVE) 03/05/19 03:34 Urine Nitrite Negative (NEGATIVE) 03/05/19 03:34 Urine Bilirubin Negative (NEGATIVE) 03/05/19 03:34 Urine Urobilinogen Normal (NORMAL) 03/05/19 03:34 Ur Leukocyte Esterase 2+ (NEGATIVE) 03/05/19 03:34 Urine RBC 0-2 /HPF (0-3) 03/05/19 03:34 Urine WBC 5-10 /HPF (0-5) A 03/05/19 03:34 Ur Squamous Epith Cells Few /HPF (NEGATIVE) 03/05/19 03:34 Amorphous Sediment Trace /HPF (NEGATIVE) 03/05/19 03:34 Urine Bacteria Trace /HPF (NEGATIVE) 03/05/19 03:34 Hyaline Casts Few /LPF (NEGATIVE) 03/05/19 03:34 Urine Trichomonas Rare /HPF (NEGATIVE) 03/05/19 03:34 Ur Culture Indicated? Yes/culture set up 03/05/19 03:34 XRAY XRAY Interpreted by: Radiologist XRAY Findings: REPORT NOTED AND DISCUSSED WITH PATIENT AND FAMILY. EKG Rate: 55 [place]: Normal Rhythm: SB Block: RBBB Hypertrophy: None ST: Old, Inf and Infarct Opioid Opioid Risk Tool Age (Paras box if 16-45): No Total: 0 Total Score Risk Category: Low Risk Copyright: Daniel NAGY predicting aberrant behaviors Diagnosis Discharge Problem: Trichomonas infection CHF (congestive heart failure) Qualifiers: Heart failure type: combined systolic and diastolic Heart failure chronicity: acute on chronic Qualified Code(s): I50.43 - Acute on chronic combined systolic (congestive) and diastolic (congestive) heart failure UTI (urinary tract infection) Qualifiers: Urinary tract infection type: site unspecified Hematuria presence: with hematuria Qualified Code(s): N39.0 - Urinary tract infection, site not specified Chest pain Qualifiers: Chest pain type: precordial pain Qualified Code(s): R07.2 - Precordial pain Instructions Forms: Excuse From Work Patient Portal
[2019-03-05 01:06] LABS: BASOPHILS % (AUTO) 0.4 % (0.2-1.0); EOSINOPHILS # (AUTO) 0.1 x10^3/uL (0.0-0.2); HEMATOCRIT 33.7 % (42.0-54.0); HEMOGLOBIN 10.8 g/dL (13.5-18.0); LYMPHOCYTES # (AUTO) 0.8 X10^3/uL (1.3-2.9); LYMPHOCYTES % (AUTO) 14.5 % (21.0-51.0); MEAN CORPUSCULAR HEMOGLOBIN 27.4 pg (27.0-34.0); MEAN CORPUSCULAR HGB CONC 32.2 g/dL (33.0-35.0); MEAN PLATELET VOLUME 8.7 fL (7.4-11.0); MONOCYTES # (AUTO) 0.3 x10^3/uL (0.3-0.8); NEUTROPHILS # (AUTO) 4.2 x10^3/uL (2.2-4.8); NEUTROPHILS % (AUTO) 78.1 % (42.0-75.0); PLATELET COUNT 220 X10^3/uL (150.0-450.0); RED BLOOD COUNT 3.96 X10^6/uL (4.7-6.0); RED CELL DISTRIBUTION WIDTH 15.1 % (11.6-16.5); WHITE BLOOD COUNT 5.4 X10^3/uL (3.6-10.0)
[2019-03-05 01:20] LABS: BLOOD UREA NITROGEN 47 mg/dL (7-18); CARBON DIOXIDE 29.9 mmol/L (21-32); CHLORIDE 109 mmol/L (98-107); COR NA(FOR HYPERGLY) 148 mmol/L (136-145); CREATININE 1.75 mg/dL (0.70-1.30); SODIUM 145 mmol/L (136-145); eGFR NON BLACK RACES 41 (>60)
[2019-03-05 01:42] LABS: ALANINE AMINOTRANSFERASE 42 Units/L (12-78); ALBUMIN 3.4 g/dL (3.4-5.0); ALKALINE PHOSPHATASE 91 Units/L (46-116); ASPARTATE AMINO TRANSFERASE 22 Units/L (15-37); CKMB % 2.3 % (<4); CREATINE KINASE 287 Units/L (39-308); TOTAL PROTEIN 7.1 g/dL (6.4-8.2)
[2019-03-05 01:44] LABS: CREATINE KINASE MB 6.7 ng/mL (0-4.0)
[2019-03-05] MEDS ORDERED: LASIX IVP ONE ×2 (02:15→02:22)
[2019-03-05 03:45] LABS: BILIRUBIN,URINE NEGATIVE (NEGATIVE); BLOOD/HEMOGLOBIN,URINE NEGATIVE (NEGATIVE); GLUCOSE, URINE NEGATIVE (NEGATIVE); KETONES,URINE NEGATIVE (NEGATIVE); LEUKOCYTE ESTERASE ,URINE 2+ (NEGATIVE); NITRITES,URINE NEGATIVE (NEGATIVE); PROTEIN,URINE 1+ (NEGATIVE); UROBILINOGEN,URINE NORMAL (NORMAL)
[2019-03-05 03:55] LABS: APPEARANCE,URINE SLIGHTLY HAZY (CLEAR); COLOR,URINE YELLOW (YELLOW)
[2019-03-05 03:56] LABS: AMORPHOUS SEDIMENT,UR TRACE /HPF (NEGATIVE); BACTERIA,URINE TRACE /HPF (NEGATIVE); HYALINE CASTS, URINE FEW /LPF (NEGATIVE); RBC,URINE 0-2 /HPF (0-3); SQUAMOUS EPITHELIAL CELL,UR FEW /HPF (NEGATIVE); TRICHOMONAS,URINE RARE /HPF (NEGATIVE)
[2019-03-05 09:31] LABS: CKMB % 2.4 % (<4)
[2019-03-05 09:45] LABS: TROPONIN I 0.08 ng/mL (0-1.5)
[2019-03-05 09:46] LABS: CREATINE KINASE MB 5.9 ng/mL (0-4.0)
--- NOTE | 2019-03-05 11:14 | DR.H&P ---
H&P - History & Physical for Day of: H&P Date: 03/05/19 - Chief Complaint Chief Complaint: CHEST PAIN, SOB - History of Present Illness History of Present Illness: IS A 73 YEAR OLD PATIENT OF OURS WHO IS A RESIDENT OF [facility]. ABIDA COMPLAINED OF CHEST PAIN AND SHORTNESS OF BREATH SINCE 2PM. HE REPORTS THAT SYMPTOMS HAVE INCREASINGLY WORSENED. HE HAS A PMH OF Anemia, Arthritis, Coronary Artery Disease, Depression, Diabetes, Dyslipidemia, Hypertension, Liver Disease, and Seizures. ON ARRIVAL, VITALS WERE 96.4-60-18-94%-181/84. LABS WERE OBTAINED. ABNORMAL LAB VALUES INCLUDE THE FOLLOWING: RBC 3.96, HGB 10.8, HCT 33.7, POTASSIUM 5.4, CHLORIDE 109, BUN 47, CREATININE 1.75, GLUCOSE 226, CALCIUM 8.0, CK-MB 6.7. CARDIAC ENZYMES ARE OTHERWISE WITHIN NORMAL LIMITS. URINALYSIS REVEALED: WBC 5- 10, RBC 0-2, LEUKOCYTES 2+, BACTERIA TRACE, TRICHOMONAS RARE. URINE AND BLOOD CULTURES WERE SET UP. AN EKG WAS OBTAINED AND REVEALED: SINUS RHYTHM WITH HR 55. A CHEST XRAY WAS OBTAINED AND REVEALED: PERSISTENT CARDIOMEGALY WITH MODERATE TO SEVERE PULMOARY EDEMA IS SEEN WHICH APPEARS WORSE WHEN COMPARED TO PRIOR EXAMINATION. THIS IS WORRISOME FOR PROGRESSION OF CONGESTIVE HEART FAILURE. HE WAS GIVEN LASIX 40MG IV X 1 DOSE IN THE ER. HE WAS ADMITTED FOR FURTHER EVALUATION AND TREATMENT OF CHF, CHEST PAIN, AND A URINARY TRACT INFECTION. HE WAS STARTED ON ROCEPHIN 1G IV DAILY, LASIX 40MG IV Q12H, AND HOME MEDICATIONS W ERE RESUMED. WE WILL OBTAIN AN ECHO, CAROTID DOPPLER, AND SERIAL CARDIAC ENZYMES AND EKGS. OTHERWISE, WE PLAN TO FOLLOW UP WITH AM LABS AND CONTINUE TO MONITOR. - Past Medical History Past Medical History: Coronary Artery Disease, Hypertension, Dyslipidemia, Diabetes, Liver Disease, Depression, Anemia, Seizures, Arthritis - Past Surgical History Surgical History: Appendectomy - Family History Family Medical History: Diabetes Mellitus, Cancer, [place], Hypertension - Social History Does patient currently use any type of tobacco product: No Have you used tobacco products in the last 12 months: No Type of Tobacco Use: None Does any household member use tobacco: No Alcohol Use: None Prescription drug monitoring program results: PDMP was not reviewed - Medications Home Medications: No Known Drug Allergies Allergy (Verified 03/05/19 00:25) CONTINUE taking the following medications aspirin [Aspir-81] 81 mg PO DAILY 03/05/19 [History] clonidine 1 patch TRANSDERMAL WEEKLY 03/05/19 [History] ferrous fumarate [Ferrocite] 324 mg PO DAILY 03/05/19 [History] furosemide 40 mg PO PRN PRN 03/05/19 [History] insulin regular human [Novolin R Regular U-100 Insuln] See Protocol SUBCUT PRN PRN 03/05/19 [History] lisinopril 40 mg PO DAILY 03/05/19 [History] - Review of Systems Eyes: No Symptoms Reported ENT: No Symptoms Reported Respiratory: Shortness of Breath, SOB with Excertion Cardiovascular: Chest Pain, Edema (BLE 1+ PITTING EDEMA ) Gastrointestinal: No Symptoms Reported Genitourinary: No Symptoms Reported Musculoskeletal: No Symptoms Reported Skin: No Symptoms Reported Neurological: No Symptoms Reported - Physical Exam Vital Signs: Temperature 96.4 F Pulse Rate [Right] 61 Pulse Rate 60 Respiratory Rate 32 Blood Pressure [Right Arm] 168/88 Blood Pressure [Left Arm] 147/57 Blood Pressure 181/84 O2 Sat by Pulse Oximetry 95 Oriented: Normal Eyes: Normal Ear: Normal Nose: Normal Throat: Normal Respiratory: Diminished Throughout Cardiovascular: Normal, Edema (BLE 1+ PITTING EDEMA ). negative: S3, S4, Murmur : Normal Auscultation: Bowel Sounds: Normal Palpation: Normal Tenderness: Normal Skin: Normal Musculoskeletal: Normal Psychiatric: Normal Mood Description: Calm Affect: Normal Speech Pattern: Clear - Assessment/Plan (1) CHF (congestive heart failure) Qualifiers: Heart failure type: unspecified Heart failure chronicity: acute on chronic Qualified Code(s): I50.9 - Heart failure, unspecified Status: Acute Plan: LASIX 40MG IV BID, RESUME HOME MEDS, SUPPLEMENTAL OXYGEN, CONTINUE TO MONITOR (2) UTI (urinary tract infection) Qualifiers: Urinary tract infection type: site unspecified Hematuria presence: with hematuria Qualified Code(s): N39.0 - Urinary tract infection, site not specified; R31.9 - Hematuria, unspecified Status: Acute Plan: ROCEPHIN 1G IV DAILY, CONTINUE TO MONITOR (3) Chest pain Qualifiers: Chest pain type: precordial pain Qualified Code(s): R07.2 - Precordial pain Status: Acute Plan: SERIAL CE AND EKG, ECHO, CAROTID DOPPLER (4) Diabetes Qualifiers: Diabetes mellitus type: type 2 Diabetes mellitus fdc insulin use: without fdc use Diabetes mellitus complication status: with other specified complication Qualified Code(s): E11.69 - Type 2 diabetes mellitus with other specified complication Status: Acute Plan: MONITOR OTBS, HUMULIN R SLIDING SCALE, CONTINUE TO MONITOR - Allergies Allergies/Adverse Reactions: Allergies Allergy/AdvReac Type Severity Reaction Status Date / Time No Known Drug Allergies Allergy Verified 03/05/19 00:25
[2019-03-05] MEDS ORDERED: LISINOPRIL 40 MG PO SCH (12:33)
[2019-03-05] MEDS ORDERED: K-DUR TAB 20 MEQ PO SCH (12:33)
[2019-03-05] MEDS ORDERED: CATAPRES-TTS-1 TD SCH (12:33)
[2019-03-05] MEDS ORDERED: NS 500 ML IV 500 ML IV ONE (12:51)
--- NOTE | 2019-03-05 12:51 | VAS ---
HISTORYCP, SOB, HX CVA Concern for carotid artery stenosis. [Carotid atherosclerosis].EXAM: BILATERAL DOPPLER CAROTID ULTRASOUND EXAMTechnique: Multiple spain scale and color flow Doppler images of the right and left carotid arterial system were obtained. The vertebral arterial system was evaluated as well.Findings:Nonocclusive color flow Doppler is seen throughout the right and left carotid arterial system. No hemodynamically significant carotid arterial stenosis is seen based on velocity criteria. There is [mild] atherosclerosis and [soft] plaque formation of the bilateral carotid bulbs and ICAs with associated intimal thickening but [without] evidence for high-grade stenosis (>70%) or occlusion of the carotid arteries. The right and left vertebral artery demonstrate antegrade flow.IMPRESSION:[Mild] atherosclerosis and [soft] plaque formation of the bilateral carotid bulbs and [in both] ICAs with associated carotid intimal thickening but without evidence for high-grade stenosis or occlusion of the carotid arteries, based on Doppler velocity criteria.Appropriate, antegrade, vertebral arterial flow.Peak right ICA velocity: [101] centimeter/seconds.Peak right CCA velocity: [99] centimeter/seconds.Peak left ICA velocity: [104] centimeter/seconds.Peak left CCA velocity: [83] centimeter/seconds.Right ICA to CCA ratio: [1.0].Left ICA to CCA ratio: [1.2].Electronically signed by: DIANE MATIAS III (Mar 05, 2019 12:50:42)
[2019-03-05] MEDS: ASPIRIN EC 81 MG PO SCH (12:53)
[2019-03-05] MEDS: NORVASC TAB 10 MG PO SCH (12:54)
[2019-03-05] MEDS: COREG TAB 25 MG PO SCH ×2 (12:54→20:45)
[2019-03-05] MEDS: ROCEPHIN VIAL 1 GRAM 1 G in NS 100 ML IV + SPIKE MINIBAG* 100 ML IV SCH (12:54)
[2019-03-05] MEDS: ZOCOR TAB 20 MG PO SCH ×2 (12:55→20:45)
[2019-03-05] MEDS: K-DUR TAB 20 MEQ PO SCH (12:55)
[2019-03-05] MEDS: LASIX IVP SCH ×2 (12:56→20:45)
[2019-03-05] MEDS: FERROUS GLUCONATE PO SCH (13:23)
[2019-03-05] MEDS: ZESTRIL TAB 40 MG PO SCH (13:23)
[2019-03-05 13:48] LABS: CKMB % 2.9 % (<4); TROPONIN I 0.09 ng/mL (0-1.5)
[2019-03-05 13:50] LABS: CREATINE KINASE MB 6.7 ng/mL (0-4.0)
[2019-03-05] MEDS: VOLTAREN 1 % GEL MULTI DOSE TUBE TOP SCH ×2 (14:58→23:30)
[2019-03-05] MEDS: SNACK - Diabetic Appropriate PO SCH (20:30)
[2019-03-05] MEDS: NEURONTIN CAP 300 MG PO SCH (20:45)
[2019-03-05] MEDS: OXYBUTYNIN CHLORIDE ER PO SCH (20:45)
[2019-03-06 06:28] LABS: BASOPHILS % (AUTO) 0.3 % (0.2-1.0); EOSINOPHILS % (AUTO) 0.3 % (0.9-2.9); HEMATOCRIT 32.2 % (42.0-54.0); HEMOGLOBIN 10.4 g/dL (13.5-18.0); LYMPHOCYTES # (AUTO) 0.6 X10^3/uL (1.3-2.9); MEAN CORPUSCULAR HEMOGLOBIN 27.6 pg (27.0-34.0); MEAN CORPUSCULAR HGB CONC 32.3 g/dL (33.0-35.0); MEAN CORPUSCULAR VOLUME 85.4 fL (80.0-100.0); MEAN PLATELET VOLUME 8.8 fL (7.4-11.0); MONOCYTES # (AUTO) 0.4 x10^3/uL (0.3-0.8); MONOCYTES % (AUTO) 5.8 % (0.0-13.0); NEUTROPHILS # (AUTO) 6.6 x10^3/uL (2.2-4.8); NEUTROPHILS % (AUTO) 85.6 % (42.0-75.0); PLATELET COUNT 193 X10^3/uL (150.0-450.0); RED BLOOD COUNT 3.77 X10^6/uL (4.7-6.0); RED CELL DISTRIBUTION WIDTH 15.7 % (11.6-16.5); WHITE BLOOD COUNT 7.7 X10^3/uL (3.6-10.0)
[2019-03-06 07:06] LABS: ALBUMIN 3.3 g/dL (3.4-5.0); CALCIUM 8.3 mg/dL (8.5-10.1); CARBON DIOXIDE 31.4 mmol/L (21-32); COR CA(FOR HYPOALB) 8.9 mg/dL (8.5-10.1); CREATININE 1.65 mg/dL (0.70-1.30); TOTAL PROTEIN 6.8 g/dL (6.4-8.2); TROPONIN I 0.08 ng/mL (0-1.5)
[2019-03-06 07:51] LABS: CKMB % 2.9 % (<4); CREATINE KINASE MB 7.1 ng/mL (0-4.0)
[2019-03-06] MEDS: ROCEPHIN VIAL 1 GRAM 1 G in NS 100 ML IV + SPIKE MINIBAG* 100 ML IV SCH (11:13)
[2019-03-06 13:18] LABS: ABG BASE EXCESS -0.1 mmol/L (-2.0-2.0)
[2019-03-06 13:20] LABS: ABG ALLEN TEST POS; ABG HCO3 31.3 mmol/L (22-26)
--- NOTE | 2019-03-06 13:21 | RAD ---
HISTORYCHF chest painSTUDYAP [id number] cardiac enlargement with bilateral pulmonary edema. Radio graphic detail is quite limited on this image. Considering technical differences there is no change s patito 1 day earlier.IMPRESSIONPersistent cardiomegaly with bilateral pulmonary edema, no change.Electr onically signed by: TONY GOLDMAN (Mar 06, 2019 13:19:48)
[2019-03-06] MEDS ORDERED: HumuLIN R SUBCUT PRN (13:42)
[2019-03-06] MEDS ORDERED: SOLU-Medrol 40 MG VIAL ONE (13:44)
[2019-03-06] MEDS ORDERED: NS 1000 ML 1,000 ML ONE (13:44)
[2019-03-06] MEDS ORDERED: LEVAQUIN PREMIX IV 500 MG 500 MG/100 ML BAG IV ONE (13:44)
[2019-03-06] MEDS: NS 1000 ML 1,000 ML IV SCH (13:48)
[2019-03-06] MEDS: SOLU-Medrol 40 MG VIAL IVP SCH ×2 (13:49→21:48)
[2019-03-06] MEDS: LEVAQUIN PREMIX IV 500 MG 500 MG/100 ML BAG IV SCH (13:50)
[2019-03-06] MEDS: DUONEB 0.5 MG/3 MG (3 mL) NEB SCH ×3 (14:00→19:59)
[2019-03-06] MEDS: PULMICORT NEB TX 0.5 MG NEB SCH ×2 (14:00→19:59)
[2019-03-06] MEDS ORDERED: ATROPINE SULFATE ABBOJECT IVP ONE ×2 (14:01→16:28)
[2019-03-06] MEDS ORDERED: ATROPINE SULFATE ABBOJECT ONE ×2 (14:06→16:30)
[2019-03-06] MEDS: ASPIRIN EC 81 MG PO SCH (14:39)
[2019-03-06] MEDS: FERROUS GLUCONATE PO SCH (14:39)
[2019-03-06] MEDS: LASIX IVP SCH ×2 (14:39→21:46)
[2019-03-06] MEDS: K-DUR TAB 20 MEQ PO SCH (14:39)
[2019-03-06] MEDS: COREG TAB 25 MG PO SCH ×2 (14:39→21:46)
[2019-03-06] MEDS: NORVASC TAB 10 MG PO SCH (14:40)
[2019-03-06] MEDS: VOLTAREN 1 % GEL MULTI DOSE TUBE TOP SCH ×2 (14:41→21:48)
[2019-03-06] MEDS: ZESTRIL TAB 40 MG PO SCH (14:42)
[2019-03-06] MEDS: HumuLIN R SUBCUT PRN ×2 (16:23→21:49)
[2019-03-06 17:19] LABS: ABG BASE EXCESS -0.2 mmol/L (-2.0-2.0)
[2019-03-06 17:20] LABS: ABG ALLEN TEST POS; ABG HCO3 30.2 mmol/L (22-26)
[2019-03-06] MEDS ORDERED: SNACK - Diabetic Appropriate PO SCH (20:00)
[2019-03-06] MEDS: ZOCOR TAB 20 MG PO SCH (21:47)
[2019-03-06] MEDS: OXYBUTYNIN CHLORIDE ER PO SCH (21:47)
[2019-03-06] MEDS: NEURONTIN CAP 300 MG PO SCH (21:47)
[2019-03-07] MEDS: NS 1000 ML 1,000 ML IV SCH (04:30)
[2019-03-07 06:00] LABS: ALBUMIN 3.1 g/dL (3.4-5.0); CALCIUM 8.4 mg/dL (8.5-10.1); CARBON DIOXIDE 28.4 mmol/L (21-32); COR CA(FOR HYPOALB) 9.1 mg/dL (8.5-10.1); CREATININE 1.76 mg/dL (0.70-1.30); TOTAL PROTEIN 6.9 g/dL (6.4-8.2)
[2019-03-07 06:04] LABS: BASOPHILS % (AUTO) 0.1 % (0.2-1.0); HEMATOCRIT 33.3 % (42.0-54.0); HEMOGLOBIN 10.9 g/dL (13.5-18.0); LYMPHOCYTES # (AUTO) 0.3 X10^3/uL (1.3-2.9); LYMPHOCYTES % (AUTO) 5.8 % (21.0-51.0); MEAN CORPUSCULAR HEMOGLOBIN 27.6 pg (27.0-34.0); MEAN CORPUSCULAR HGB CONC 32.6 g/dL (33.0-35.0); MEAN CORPUSCULAR VOLUME 84.7 fL (80.0-100.0); MEAN PLATELET VOLUME 9.3 fL (7.4-11.0); MONOCYTES # (AUTO) 0 x10^3/uL (0.3-0.8); MONOCYTES % (AUTO) 0.6 % (0.0-13.0); NEUTROPHILS # (AUTO) 5.2 x10^3/uL (2.2-4.8); NEUTROPHILS % (AUTO) 93.5 % (42.0-75.0); PLATELET COUNT 199 X10^3/uL (150.0-450.0); RED BLOOD COUNT 3.93 X10^6/uL (4.7-6.0); WHITE BLOOD COUNT 5.6 X10^3/uL (3.6-10.0)
[2019-03-07] MEDS: SOLU-Medrol 40 MG VIAL IVP SCH ×2 (06:22→14:03)
[2019-03-07] MEDS: HumuLIN R SUBCUT PRN ×2 (06:23→21:05)
[2019-03-07 07:23] LABS: PLATELET MORPHOLOGY COMMENT NORMAL (NORMAL)
[2019-03-07] MEDS: MORPHINE SULFATE INJ 2 MG INJ IVP PRN ×2 (07:44→13:21)
--- NOTE | 2019-03-07 08:21 | RAD ---
HISTORYCHF. Hypoxia.STUDYCHEST, 1 [id number]/11/2020.FINDINGSThe trachea is midline. The cardiac silhouette is enlarged. There is diffuse interstitial prominence throughout both lungs compatible with pulmonary edema. No dense consolidation is evident within the limitations of the study. Bony thorax is grossly unremarkable.IMPRESSIONCardiomegaly and pulmonary edema similar to the comparison study.Electronically signed by: KIMBERLY LYONS (Mar 07, 2019 08:20:30)
[2019-03-07] MEDS: LEVAQUIN PREMIX IV 500 MG 500 MG/100 ML BAG IV SCH (09:30)
[2019-03-07] MEDS: LASIX IVP SCH (09:30)
[2019-03-07] MEDS: K-DUR TAB 20 MEQ PO SCH (09:35)
[2019-03-07] MEDS: ASPIRIN EC 81 MG PO SCH (09:35)
[2019-03-07] MEDS: NORVASC TAB 10 MG PO SCH (09:35)
[2019-03-07] MEDS: ZESTRIL TAB 40 MG PO SCH (09:35)
[2019-03-07] MEDS: FERROUS GLUCONATE PO SCH (09:35)
[2019-03-07] MEDS: COREG TAB 25 MG PO SCH ×2 (09:35→21:04)
[2019-03-07] MEDS: DUONEB 0.5 MG/3 MG (3 mL) NEB SCH ×4 (09:35→21:18)
[2019-03-07] MEDS: PULMICORT NEB TX 0.5 MG NEB SCH ×2 (09:35→21:18)
[2019-03-07] MEDS: ROCEPHIN VIAL 1 GRAM 1 G in NS 100 ML IV + SPIKE MINIBAG* 100 ML IV SCH (09:36)
[2019-03-07] MEDS: VOLTAREN 1 % GEL MULTI DOSE TUBE TOP SCH (09:36)
[2019-03-07 12:06] LABS: ABG ALLEN TEST POS; ABG BASE EXCESS 0.9 mmol/L (-2.0-2.0); ABG HCO3 28.2 mmol/L (22-26)
[2019-03-07 13:01] LABS: CKMB % 1.7 % (<4); TROPONIN I 0.06 ng/mL (0-1.5)
[2019-03-07 13:05] LABS: CREATINE KINASE MB 5.7 ng/mL (0-4.0)
[2019-03-07] MEDS ORDERED: NS 1/2 1000 ML IV 1,000 ML IV ONE (13:28)
[2019-03-07] MEDS ORDERED: HALDOL INJ IVP PRN (13:59)
[2019-03-07] MEDS: NS 1/2 1000 ML IV 1,000 ML IV SCH ×2 (14:02→20:01)
[2019-03-07 19:26] LABS: CKMB % 1.2 % (<4); TROPONIN I 0.07 ng/mL (0-1.5)
[2019-03-07] MEDS: COLACE CAP 100 MG PO SCH (21:03)
[2019-03-07] MEDS: SNACK - Diabetic Appropriate PO SCH (21:03)
[2019-03-07] MEDS: MILK OF MAGNESIA PO SCH (21:04)
[2019-03-07] MEDS: NEURONTIN CAP 300 MG PO SCH (21:04)
[2019-03-07] MEDS: OXYBUTYNIN CHLORIDE ER PO SCH (21:05)
[2019-03-07] MEDS: ZOCOR TAB 20 MG PO SCH (21:05)
[2019-03-08 01:07] LABS: CKMB % 0.8 % (<4); TROPONIN I 0.07 ng/mL (0-1.5)
[2019-03-08 01:09] LABS: CREATINE KINASE MB 5.6 ng/mL (0-4.0)
[2019-03-08] MEDS ORDERED: NS 1/2 1000 ML IV 1,000 ML IV ONE ×2 (03:42→23:22)
[2019-03-08] MEDS: NS 1/2 1000 ML IV 1,000 ML IV SCH ×3 (03:45→20:39)
[2019-03-08 05:13] LABS: BASOPHILS % (AUTO) 0.1 % (0.2-1.0); HEMOGLOBIN 10.1 g/dL (13.5-18.0); LYMPHOCYTES # (AUTO) 0.3 X10^3/uL (1.3-2.9); LYMPHOCYTES % (AUTO) 5.3 % (21.0-51.0); MEAN CORPUSCULAR HEMOGLOBIN 28.2 pg (27.0-34.0); MEAN CORPUSCULAR HGB CONC 33.6 g/dL (33.0-35.0); MEAN CORPUSCULAR VOLUME 83.7 fL (80.0-100.0); MEAN PLATELET VOLUME 9.2 fL (7.4-11.0); MONOCYTES # (AUTO) 0.1 x10^3/uL (0.3-0.8); MONOCYTES % (AUTO) 2.3 % (0.0-13.0); NEUTROPHILS # (AUTO) 5.9 x10^3/uL (2.2-4.8); NEUTROPHILS % (AUTO) 92.3 % (42.0-75.0); PLATELET COUNT 182 X10^3/uL (150.0-450.0); RED BLOOD COUNT 3.59 X10^6/uL (4.7-6.0); RED CELL DISTRIBUTION WIDTH 15.3 % (11.6-16.5); WHITE BLOOD COUNT 6.3 X10^3/uL (3.6-10.0)
[2019-03-08 05:22] LABS: ALBUMIN 3.2 g/dL (3.4-5.0); CALCIUM 8.5 mg/dL (8.5-10.1); CARBON DIOXIDE 28.9 mmol/L (21-32); COR CA(FOR HYPOALB) 9.1 mg/dL (8.5-10.1); CREATININE 1.57 mg/dL (0.70-1.30); TOTAL PROTEIN 6.7 g/dL (6.4-8.2)
[2019-03-08] MEDS: HumuLIN R SUBCUT PRN ×4 (05:46→22:33)
[2019-03-08] MEDS: SOLU-Medrol 40 MG VIAL IVP SCH ×4 (05:46→21:00)
[2019-03-08 05:47] LABS: ABG BASE EXCESS 5.6 mmol/L (-2.0-2.0)
[2019-03-08 05:50] LABS: ABG ALLEN TEST POS; ABG HCO3 31.6 mmol/L (22-26)
[2019-03-08 06:08] LABS: PLATELET MORPHOLOGY COMMENT NORMAL (NORMAL)
--- NOTE | 2019-03-08 08:39 | RAD ---
HISTORYCHF and coronary artery diseaseSTUDYPortable AP chestCOMPARISONJanuary 2019FINDINGSThere is limited inspiration overall. There is mild vascular congestion overall improved. There is improved pulmonary edema. There is unchanged cardiomegaly. There is no obvious pleural effusion. There is severe elevation of the right hemidiaphragm.IMPRESSIONPersistent moderately severe cardiomegaly. Improving vascular congestion and pulmonary edema.Electronically signed by: LAURI MARIN (Mar 08, 2019 08:38:02)
[2019-03-08] MEDS: LEVAQUIN PREMIX IV 500 MG 500 MG/100 ML BAG IV SCH (08:48)
[2019-03-08] MEDS: ROCEPHIN VIAL 1 GRAM 1 G in NS 100 ML IV + SPIKE MINIBAG* 100 ML IV SCH (08:49)
[2019-03-08] MEDS: COREG TAB 25 MG PO SCH ×2 (08:49→20:41)
[2019-03-08] MEDS: ZESTRIL TAB 40 MG PO SCH (08:49)
[2019-03-08] MEDS: ASPIRIN EC 81 MG PO SCH (08:49)
[2019-03-08] MEDS: NORVASC TAB 10 MG PO SCH (08:49)
[2019-03-08] MEDS: FERROUS GLUCONATE PO SCH (08:50)
[2019-03-08] MEDS: K-DUR TAB 20 MEQ PO SCH (08:50)
[2019-03-08] MEDS: VOLTAREN 1 % GEL MULTI DOSE TUBE TOP SCH ×3 (09:00→22:32)
[2019-03-08] MEDS: DUONEB 0.5 MG/3 MG (3 mL) NEB SCH ×4 (09:14→21:40)
[2019-03-08] MEDS: PULMICORT NEB TX 0.5 MG NEB SCH ×2 (09:15→21:40)
--- NOTE | 2019-03-08 11:27 | PCM.PROG ---
Progress Note - Progress Note for Day of Date of Exam: 03/06/19 - Subjective Subjective: WAS ADMITTED FOR TREATMENT OF CHF, UTI, COPD EXACERBATION, CHEST PAIN, AND DIABETES. TODAY, HE IS LYING IN BED WITH EYES CLOSED ON MORNING ROUNDS. HE AWAKENS TO VERBAL STIMULI. NURSING STAFF REPORTS THAT HIS OXYGEN SATURATIONS FELL TO THE LOW 70s WHEN OXYGEN WAS OFF EARLY THIS MORNING. THEY REPORT THAT HE HAS BEEN CONFUSED AND AGITATED. ON EXAMINATION, HEART IS REGULAR IN RATE AND RHYTHM. BILATERAL LUNGS ARE NOTED WITH SCATTERED WHEEZING THROUGHOUT, DIMINISHED. ABDOMEN IS ROUND, SOFT, AND NOTED WITH NORMAL BOWEL SOUNDS IN ALL QUADRANTS. HIS VITALS THIS MORNING ARE: 96.9-52-22-99%NC-151/67. LABS WERE OBTAINED. ABNORMAL LAB VALUES INCLUDED THE FOLLOWING: RBC 3.77, HGB 10.4, HCT 32.2, SODIUM 146, POTASSIUM 5.8, CHLORIDE 111, BUN 51, CREATININE 1.65, GLUCOSE 179, CALCIUM 8.3, CK-MB 7.1, ALBUMIN 3.3. URINE CULTURE AND BLOOD CULTURES ARE PENDING. A CHEST XRAY WAS OBTAINED AND REVEALED: Persistent cardiomegaly with bilateral pulmonary edema, no change. ECHO REVEALED AN EJECTIO N FRACTION OF 58%. HE IS CURRENTLY RECEIVING NS AT 75ML/HR, LASIX 40MG IV Q12H, HUMULIN R SLIDING SCAEL, ROCEPHIN 1G IV DAILY, AND RESPIRATORY TX. TODAY, WE WILL START LEVAQUIN 500MG IV DAILY, ADD PULMICORT TO NEB TX, SOLU-MEDROL 80MG IV Q8H, MORPHINE 2MG IV Q2H PRN PAIN, AND ORDER FOR HIM TO WEAR THE BIPAP. OTHERWISE, WE WILL CONTINUE WITH CURRENT PLAN OF CARE. WE WILL FOLLOW UP WITH AM LABS AND CONTINUE TO MONITOR. - Past Medical Family Social History Past Med/Fam/Surg Hx: No changes since H&P Allergies: Allergies No Known Drug Allergies Allergy (Verified 03/05/19 00:25) - Review of Systems ROS: No change since H&P - Vital Signs and I&O's Vital Signs: Temperature 98.3 F Pulse Rate [Right] 77 Pulse Rate 71 Respiratory Rate 25 Blood Pressure [Right Arm] 178/74 Blood Pressure [Left Arm] 147/57 Blood Pressure 181/84 O2 Sat by Pulse Oximetry 95 Intake and Output: Intake & Output 03/05/19 03/06/19 03/07/19 03/08/19 11:59 11:59 11:59 11:59 Intake Total 295 / 295 1420 / 1420 2309 / 2309 Output Total 1750 / 1750 1100 / 1100 2925 / 2925 Balance -1455 / -1455 320 / 320 -616 / -616 - Physical Exam Oriented: Normal Eyes: Normal Ear: Normal Nose: Normal Throat: Normal Cardiovascular: Normal, Edema (BLE 1+ PITTING EDEMA ). negative: S3, S4, Murmur : Normal Auscultation: Bowel Sounds: Normal Palpation: Normal Tenderness: Normal Skin: Normal Musculoskeletal: Normal Psychiatric: Normal Mood Description: Calm Affect: Normal Speech Pattern: Appropriate - Laboratory and Diagnostics Result Diagrams: 03/08/19 04:14 03/08/19 04:14 Labs: 03/05/19 00:45 Blood Blood Culture - Preliminary 03/05/19 00:37 Blood Blood Culture - Preliminary 03/05/19 03:34 Urine,Catheterized Urine Culture - Final [facility] WBC 6.3 X10^3/uL (3.6-10.0) 03/08/19 04:14 RBC 3.59 X10^6/uL (4.7-6.0) L 03/08/19 04:14 Hgb 10.1 g/dL (13.5-18.0) L 03/08/19 04:14 Hct 30.0 % (42.0-54.0) L 03/08/19 04:14 MCV 83.7 fL (80.0-100.0) 03/08/19 04:14 MCH 28.2 pg (27.0-34.0) 03/08/19 04:14 MCHC 33.6 g/dL (33.0-35.0) 03/08/19 04:14 RDW 15.3 % (11.6-16.5) 03/08/19 04:14 Plt Count 182 X10^3/uL (150.0-450.0) 03/08/19 04:14 Plt Count Comment Adequate (ADEQUATE) 03/08/19 04:14 MPV 9.2 fL (7.4-11.0) 03/08/19 04:14 Neut % (Auto) 92.3 % (42.0-75.0) H 03/08/19 04:14 Lymph % (Auto) 5.3 % (21.0-51.0) L 03/08/19 04:14 [place] % (Auto) 2.3 % (0.0-13.0) 03/08/19 04:14 Eos % (Auto) 0.0 % (0.9-2.9) L 03/08/19 04:14 Baso % (Auto) 0.1 % (0.2-1.0) L 03/08/19 04:14 Neut # (Auto) 5.9 x10^3/uL (2.2-4.8) H 03/08/19 04:14 Lymph # (Auto) 0.3 X10^3/uL (1.3-2.9) L 03/08/19 04:14 [place] # (Auto) 0.1 x10^3/uL (0.3-0.8) L 03/08/19 04:14 Eos # (Auto) 0.0 x10^3/uL (0.0-0.2) 03/08/19 04:14 Baso # (Auto) 0.0 X10^3/uL (0.0-0.1) 03/08/19 04:14 Absolute Nucleated RBC 0.2 /100WBC 03/08/19 04:14 Total Counted 100 03/08/19 04:14 Neutrophils % (Manual) 93 % (39-76) H 03/08/19 04:14 Lymphocytes % (Manual) 4 % (13-43) L 03/08/19 04:14 Monocytes % (Manual) 3 % (4-9) L 03/08/19 04:14 Plt Morphology Comment Normal (NORMAL) 03/08/19 04:14 RBC Morphology Normal (NORMAL) 03/08/19 04:14 Sample Site Lrad 03/08/19 05:44 ABG pH 7.400 (7.35-7.45) 03/08/19 05:44 ABG pCO2 51.0 mmHg (35.0-45.0) H* 03/08/19 05:44 ABG pO2 77.0 mmHg (80.0-100.0) L 03/08/19 05:44 ABG HCO3 31.6 mmol/L (22-26) H* 03/08/19 05:44 ABG O2 Saturation 95.0 % (90-100) 03/08/19 05:44 ABG Base Excess 5.6 mmol/L (-2.0-2.0) H 03/08/19 05:44 Ganesh Test Pos 03/08/19 05:44 A-a Gradient 180.0 mmHg 03/08/19 05:44 FiO2 45.0 03/08/19 05:44 Blood Gas Comments Katy abg well-mtf 03/08/19 05:44 Sodium 147 mmol/L (136-145) H 03/08/19 04:14 Corrected Sodium 150 mmol/L (136-145) H 03/08/19 04:14 Potassium 5.4 mmol/L (3.5-5.1) H 03/08/19 04:14 Chloride 112 mmol/L (98-107) H 03/08/19 04:14 Carbon Dioxide 28.9 mmol/L (21-32) 03/08/19 04:14 BUN 57 mg/dL (7-18) H 03/08/19 04:14 Creatinine 1.57 mg/dL (0.70-1.30) H 03/08/19 04:14 Est GFR (MDRD) Af Amer 56 (>60) L 03/08/19 04:14 Est GFR (MDRD) Non-Af 46 (>60) L 03/08/19 04:14 Glucose 236 mg/dL (65-99) H 03/08/19 04:14 POC Glucose (mg/dL) 241 mg/dL (65-99) H 03/08/19 05:25 Calcium 8.5 mg/dL (8.5-10.1) 03/08/19 04:14 Corrected Calcium 9.1 mg/dL (8.5-10.1) 03/08/19 04:14 Total Bilirubin 0.50 mg/dL (0.2-1.0) 03/08/19 04:14 AST 30 Units/L (15-37) 03/08/19 04:14 ALT 39 Units/L (12-78) 03/08/19 04:14 Alkaline Phosphatase 80 Units/L (46-116) 03/08/19 04:14 Creatine Kinase 673 Units/L (39-308) H 03/08/19 00:15 CK-MB (CK-2) 5.6 ng/mL (0-4.0) H* 03/08/19 00:15 CK/CKMB % Calc 0.8 % (<4) 03/08/19 00:15 Troponin I 0.07 ng/mL (0-1.5) 03/08/19 00:15 Total Protein 6.7 g/dL (6.4-8.2) 03/08/19 04:14 Albumin 3.2 g/dL (3.4-5.0) L 03/08/19 04:14 Globulin 3.5 g/dL (2.5-4.5) 03/08/19 04:14 Albumin/Globulin Ratio 0.9 Ratio (1.1-2.1) L 03/08/19 04:14 Specimen Type Catherized urine 03/05/19 03:34 Urine Color Yellow (YELLOW) 03/05/19 03:34 Urine Appearance Slightly hazy (CLEAR) 03/05/19 03:34 Urine pH 5.0 (5.0 - 8.0) 03/05/19 03:34 Ur Specific [place] 1.015 (1.000-1.030) 03/05/19 03:34 Urine Protein 1+ (NEGATIVE) 03/05/19 03:34 Urine Glucose (UA) Negative (NEGATIVE) 03/05/19 03:34 Urine Ketones Negative (NEGATIVE) 03/05/19 03:34 Urine Occult Blood Negative (NEGATIVE) 03/05/19 03:34 Urine Nitrite Negative (NEGATIVE) 03/05/19 03:34 Urine Bilirubin Negative (NEGATIVE) 03/05/19 03:34 Urine Urobilinogen Normal (NORMAL) 03/05/19 03:34 Ur Leukocyte Esterase 2+ (NEGATIVE) 03/05/19 03:34 Urine RBC 0-2 /HPF (0-3) 03/05/19 03:34 Urine WBC 5-10 /HPF (0-5) A 03/05/19 03:34 Ur Squamous Epith Cells Few /HPF (NEGATIVE) 03/05/19 03:34 Amorphous Sediment Trace /HPF (NEGATIVE) 03/05/19 03:34 Urine Bacteria Trace /HPF (NEGATIVE) 03/05/19 03:34 Hyaline Casts Few /LPF (NEGATIVE) 03/05/19 03:34 Urine Trichomonas Rare /HPF (NEGATIVE) 03/05/19 03:34 Ur Culture Indicated? Yes/culture set up 03/05/19 03:34 - Plan (1) CHF (congestive heart failure) Status: Acute Qualifiers: Heart failure type: unspecified Heart failure chronicity: acute on chronic Qualified Code(s): I50.9 - Heart failure, unspecified Plan: LASIX 40MG IV BID, NEB TX, BIPAP, RESUME HOME MEDS, SUPPLEMENTAL OXYGEN, CONTINUE TO MONITOR (2) COPD exacerbation Status: Acute Plan: SOLU-MEDROL IV, MORPHINE PRN, NEB TX, BIPAP, CONTINUE TO MONITOR (3) UTI (urinary tract infection) Status: Acute Qualifiers: Urinary tract infection type: site unspecified Hematuria presence: with hematuria Qualified Code(s): N39.0 - Urinary tract infection, site not specified; R31.9 - Hematuria, unspecified Plan: LEVAQUIN IV, ROCEPHIN 1G IV DAILY, CONTINUE TO MONITOR (4) Chest pain Status: Acute Qualifiers: Chest pain type: precordial pain Qualified Code(s): R07.2 - Precordial pain Plan: SERIAL CE AND EKG, ECHO, CAROTID DOPPLER (5) Diabetes Status: Acute Qualifiers: Diabetes mellitus type: type 2 Diabetes mellitus middle or intermediate school principal insulin use: without senior care use Diabetes mellitus complication status: with other specified complication Qualified Code(s): E11.69 - Type 2 diabetes mellitus with other specified complication Plan: MONITOR OTBS, HUMULIN R SLIDING SCALE, CONTINUE TO MONITOR
--- NOTE | 2019-03-08 11:40 | PCM.PROG ---
Progress Note - Progress Note for Day of Date of Exam: 03/07/19 - Subjective Subjective: WAS ADMITTED FOR TREATMENT OF CHF, UTI, COPD EXACERBATION, CHEST PAIN, AND DIABETES. TODAY, HE IS LYING IN BED WITH EYES CLOSED ON MORNING ROUNDS. HE AWAKENS TO VERBAL STIMULI. HE IS UTILIZING THE BIPAP. THEY REPORT THAT HE HAS CONTINUED WITH CONFUSION AND AGITATION. HIS HEART RATE FELL INTO THE 30S-40S THROUGHOUT THE NIGHT.HE WAS GIVEN ATROPINE IV. ON EXAMINATION, HEART IS REGULAR IN RATE AND RHYTHM. BILATERAL LUNGS ARE NOTED WITH SCATTERED WHEEZING THROUGHOUT, DIMINISHED. ABDOMEN IS ROUND, SOFT, AND NOTED WITH NORMAL BOWEL SOUNDS IN ALL QUADRANTS. HIS VITALS THIS MORNING ARE: 98.3-72-25-91%-172/77. LABS WERE OBTAINED. ABNORMAL LAB VALUES INCLUDED THE FOLLOWING: RBC 3.93, HGB 10.9, HCT 33.3, SODIUM 148, POTASSIUM 5.4, CHLORIDE 111, BUN 60, CREATININE 1.76, GLUCOSE 195, CALCIUM 8.4, ALBUMIN 3.1. ABG REVEALED: PH 7.310, PC02 56.0, P02 75.0, HC03 28.2, 02 SATURATION 93.0. URINE CULTURE AND BLOOD CULTURES ARE PENDING. A CHEST XRAY WAS OBTAINED AND REVEALED: Cardiomegaly and pulmonary edema similar to the comparison study. ECHO REVEALED AN EJECTION FRACTION OF 58%. HE IS CURRENTLY RECEIVING NS AT 75ML/HR, LASIX 40MG IV Q12H, HUMULIN R SLIDING SCALE, ROCEPHIN 1G IV DAILY, LEVAQUIN IV, SOLU-MEDROL 80MG IV Q8H, AND RESPIRATORY TX. TODAY, WE WILL HOLD LASIX AND CHANGE IV FLUIDS TO 1/2NS AT 125ML/HR DUE TO KIDNEY FUNCTION. OTHERWISE, WE WILL CONTINUE WITH CURRENT PLAN O F CARE. WE WILL FOLLOW UP WITH AM LABS, ABG, CHEST XRAY, AND CONTINUE TO MONITOR. - Past Medical Family Social History Past Med/Fam/Surg Hx: No changes since H&P Allergies: Allergies No Known Drug Allergies Allergy (Verified 03/05/19 00:25) - Review of Systems ROS: No change since H&P - Vital Signs and I&O's Vital Signs: Temperature 98.3 F Pulse Rate [Right] 77 Pulse Rate 71 Respiratory Rate 25 Blood Pressure [Right Arm] 178/74 Blood Pressure [Left Arm] 147/57 Blood Pressure 181/84 O2 Sat by Pulse Oximetry 95 Intake and Output: Intake & Output 03/05/19 03/06/19 03/07/19 03/08/19 11:59 11:59 11:59 11:59 Intake Total 295 / 295 1420 / 1420 2309 / 2309 Output Total 1750 / 1750 1100 / 1100 2925 / 2925 Balance -1455 / -1455 320 / 320 -616 / -616 - Physical Exam Oriented: Normal Eyes: Normal Ear: Normal Nose: Normal Throat: Normal Cardiovascular: Normal, Edema (BLE 1+ PITTING EDEMA ). negative: S3, S4, Murmur : Normal Auscultation: Bowel Sounds: Normal Tenderness: Normal Skin: Normal Musculoskeletal: Normal Psychiatric: Normal Mood Description: Calm Affect: Normal Speech Pattern: Appropriate - Laboratory and Diagnostics Result Diagrams: 03/08/19 04:14 03/08/19 04:14 Labs: 03/05/19 00:45 Blood Blood Culture - Preliminary 03/05/19 00:37 Blood Blood Culture - Preliminary 03/05/19 03:34 Urine,Catheterized Urine Culture - Final [facility] WBC 6.3 X10^3/uL (3.6-10.0) 03/08/19 04:14 RBC 3.59 X10^6/uL (4.7-6.0) L 03/08/19 04:14 Hgb 10.1 g/dL (13.5-18.0) L 03/08/19 04:14 Hct 30.0 % (42.0-54.0) L 03/08/19 04:14 MCV 83.7 fL (80.0-100.0) 03/08/19 04:14 MCH 28.2 pg (27.0-34.0) 03/08/19 04:14 MCHC 33.6 g/dL (33.0-35.0) 03/08/19 04:14 RDW 15.3 % (11.6-16.5) 03/08/19 04:14 Plt Count 182 X10^3/uL (150.0-450.0) 03/08/19 04:14 Plt Count Comment Adequate (ADEQUATE) 03/08/19 04:14 MPV 9.2 fL (7.4-11.0) 03/08/19 04:14 Neut % (Auto) 92.3 % (42.0-75.0) H 03/08/19 04:14 Lymph % (Auto) 5.3 % (21.0-51.0) L 03/08/19 04:14 [place] % (Auto) 2.3 % (0.0-13.0) 03/08/19 04:14 Eos % (Auto) 0.0 % (0.9-2.9) L 03/08/19 04:14 Baso % (Auto) 0.1 % (0.2-1.0) L 03/08/19 04:14 Neut # (Auto) 5.9 x10^3/uL (2.2-4.8) H 03/08/19 04:14 Lymph # (Auto) 0.3 X10^3/uL (1.3-2.9) L 03/08/19 04:14 Henry # (Auto) 0.1 x10^3/uL (0.3-0.8) L 03/08/19 04:14 Eos # (Auto) 0.0 x10^3/uL (0.0-0.2) 03/08/19 04:14 Baso # (Auto) 0.0 X10^3/uL (0.0-0.1) 03/08/19 04:14 Absolute Nucleated RBC 0.2 /100WBC 03/08/19 04:14 Total Counted 100 03/08/19 04:14 Neutrophils % (Manual) 93 % (39-76) H 03/08/19 04:14 Lymphocytes % (Manual) 4 % (13-43) L 03/08/19 04:14 Monocytes % (Manual) 3 % (4-9) L 03/08/19 04:14 Plt Morphology Comment Normal (NORMAL) 03/08/19 04:14 RBC Morphology Normal (NORMAL) 03/08/19 04:14 Sample Site Lrad 03/08/19 05:44 ABG pH 7.400 (7.35-7.45) 03/08/19 05:44 ABG pCO2 51.0 mmHg (35.0-45.0) H* 03/08/19 05:44 ABG pO2 77.0 mmHg (80.0-100.0) L 03/08/19 05:44 ABG HCO3 31.6 mmol/L (22-26) H* 03/08/19 05:44 ABG O2 Saturation 95.0 % (90-100) 03/08/19 05:44 ABG Base Excess 5.6 mmol/L (-2.0-2.0) H 03/08/19 05:44 Ganesh Test Pos 03/08/19 05:44 A-a Gradient 180.0 mmHg 03/08/19 05:44 FiO2 45.0 03/08/19 05:44 Blood Gas Comments Katy abg well-mtf 03/08/19 05:44 Sodium 147 mmol/L (136-145) H 03/08/19 04:14 Corrected Sodium 150 mmol/L (136-145) H 03/08/19 04:14 Potassium 5.4 mmol/L (3.5-5.1) H 03/08/19 04:14 Chloride 112 mmol/L (98-107) H 03/08/19 04:14 Carbon Dioxide 28.9 mmol/L (21-32) 03/08/19 04:14 BUN 57 mg/dL (7-18) H 03/08/19 04:14 Creatinine 1.57 mg/dL (0.70-1.30) H 03/08/19 04:14 Est GFR (MDRD) Af Amer 56 (>60) L 03/08/19 04:14 Est GFR (MDRD) Non-Af 46 (>60) L 03/08/19 04:14 Glucose 236 mg/dL (65-99) H 03/08/19 04:14 POC Glucose (mg/dL) 241 mg/dL (65-99) H 03/08/19 05:25 Calcium 8.5 mg/dL (8.5-10.1) 03/08/19 04:14 Corrected Calcium 9.1 mg/dL (8.5-10.1) 03/08/19 04:14 Total Bilirubin 0.50 mg/dL (0.2-1.0) 03/08/19 04:14 AST 30 Units/L (15-37) 03/08/19 04:14 ALT 39 Units/L (12-78) 03/08/19 04:14 Alkaline Phosphatase 80 Units/L (46-116) 03/08/19 04:14 Creatine Kinase 673 Units/L (39-308) H 03/08/19 00:15 CK-MB (CK-2) 5.6 ng/mL (0-4.0) H* 03/08/19 00:15 CK/CKMB % Calc 0.8 % (<4) 03/08/19 00:15 Troponin I 0.07 ng/mL (0-1.5) 03/08/19 00:15 Total Protein 6.7 g/dL (6.4-8.2) 03/08/19 04:14 Albumin 3.2 g/dL (3.4-5.0) L 03/08/19 04:14 Globulin 3.5 g/dL (2.5-4.5) 03/08/19 04:14 Albumin/Globulin Ratio 0.9 Ratio (1.1-2.1) L 03/08/19 04:14 Specimen Type Catherized urine 03/05/19 03:34 Urine Color Yellow (YELLOW) 03/05/19 03:34 Urine Appearance Slightly hazy (CLEAR) 03/05/19 03:34 Urine pH 5.0 (5.0 - 8.0) 03/05/19 03:34 Ur Specific [place] 1.015 (1.000-1.030) 03/05/19 03:34 Urine Protein 1+ (NEGATIVE) 03/05/19 03:34 Urine Glucose (UA) Negative (NEGATIVE) 03/05/19 03:34 Urine Ketones Negative (NEGATIVE) 03/05/19 03:34 Urine Occult Blood Negative (NEGATIVE) 03/05/19 03:34 Urine Nitrite Negative (NEGATIVE) 03/05/19 03:34 Urine Bilirubin Negative (NEGATIVE) 03/05/19 03:34 Urine Urobilinogen Normal (NORMAL) 03/05/19 03:34 Ur Leukocyte Esterase 2+ (NEGATIVE) 03/05/19 03:34 Urine RBC 0-2 /HPF (0-3) 03/05/19 03:34 Urine WBC 5-10 /HPF (0-5) A 03/05/19 03:34 Ur Squamous Epith Cells Few /HPF (NEGATIVE) 03/05/19 03:34 Amorphous Sediment Trace /HPF (NEGATIVE) 03/05/19 03:34 Urine Bacteria Trace /HPF (NEGATIVE) 03/05/19 03:34 Hyaline Casts Few /LPF (NEGATIVE) 03/05/19 03:34 Urine Trichomonas Rare /HPF (NEGATIVE) 03/05/19 03:34 Ur Culture Indicated? Yes/culture set up 03/05/19 03:34 - Plan (1) CHF (congestive heart failure) Status: Acute Qualifiers: Heart failure type: unspecified Heart failure chronicity: acute on chronic Qualified Code(s): I50.9 - Heart failure, unspecified Plan: LASIX 40MG IV BID, NEB TX, BIPAP, RESUME HOME MEDS, SUPPLEMENTAL OXYGEN, CONTINUE TO MONITOR (2) COPD exacerbation Status: Acute Plan: SOLU-MEDROL IV, MORPHINE PRN, NEB TX, BIPAP, CONTINUE TO MONITOR (3) UTI (urinary tract infection) Status: Acute Qualifiers: Urinary tract infection type: site unspecified Hematuria presence: with hematuria Qualified Code(s): N39.0 - Urinary tract infection, site not specified; R31.9 - Hematuria, unspecified Plan: LEVAQUIN IV, ROCEPHIN 1G IV DAILY, CONTINUE TO MONITOR (4) Chest pain Status: Acute Qualifiers: Chest pain type: precordial pain Qualified Code(s): R07.2 - Precordial pain Plan: SERIAL CE AND EKG, ECHO, CAROTID DOPPLER (5) Diabetes Status: Acute Qualifiers: Diabetes mellitus type: type 2 Diabetes mellitus penitentiary insulin use: without penitentiary use Diabetes mellitus complication status: with other specified complication Qualified Code(s): E11.69 - Type 2 diabetes mellitus with other specified complication Plan: MONITOR OTBS, HUMULIN R SLIDING SCALE, CONTINUE TO MONITOR
[2019-03-08] MEDS: LASIX IVP SCH ×2 (12:17→20:34)
[2019-03-08] MEDS: MILK OF MAGNESIA PO SCH ×2 (12:50→20:39)
[2019-03-08] MEDS ORDERED: FLAGYL TAB 500 MG PO NR (15:00)
[2019-03-08] MEDS: ZOCOR TAB 20 MG PO SCH (20:34)
[2019-03-08] MEDS: NEURONTIN CAP 300 MG PO SCH (20:34)
[2019-03-08] MEDS: OXYBUTYNIN CHLORIDE ER PO SCH (20:34)
[2019-03-08] MEDS: SNACK - Diabetic Appropriate PO SCH (20:36)
[2019-03-08] MEDS: COLACE CAP 100 MG PO SCH (20:38)
--- NOTE | 2019-03-08 21:25 | PCM.PROG ---
Progress Note - Progress Note for Day of Date of Exam: 03/08/19 - Subjective Subjective: WAS ADMITTED FOR TREATMENT OF CHF, UTI, COPD EXACERBATION, CHEST PAIN, AND DIABETIES. TODAY, HE IS LYING IN BED WITH EYES CLOSED ON MORNING ROUNDS. HE AWAKENS TO VERBAL STIMULI. HE IS UTILIZING THE BIPAP. STAFF REPORTS THAT HE HAS RESTED BETTER THROUGHTOUT THE NIGHT. ON EXAMINATION, HEART IS REGULAR IN RATE AND RHYTHM. BILATERAL LUNGS ARE NOTED WITH SCATTERED WHEEZING THROUGHOUT, DIMINISHED. ABDOMEN IS ROUND, SOFT, AND NOTED WITH NORMAL BOWEL SOUNDS IN ALL QUADRANTS. HIS VITALS THIS MORNING ARE: 98.3-77-24-94%-180/72. LABS WERE OBTAINED. ABNORMAL LAB VALUES INCLUDED THE FOLLOWING: RBC 3.59, HGB 10.1, HCT 30.0, SODIUM 147, POTASSIUM 5.4, CHLORIDE 112, BUN 57, CREATININE 1.57, GLUCOSE 236, ALBUMIN 3.2. ABG REVEALED: PH 7.400, PC02 51.0, P02 77.0, HC03 31.6, 02 SATURATION 95.0, BASE EXCESS 5.6. URINE CULTURE REPORTED GROWTH OF PROTEUS MIRABILIS. A CHEST XRAY WAS OBTAINED AND REVEALED: Persistent moderately severe cardiomegaly. Improving vascular congestion and pulmonary edema. ECHO REVEALED AN EJECTION FRACTION OF 58%. HE IS CURRENTLY RECEIVING NS AT 125ML/HR, HUMULIN R SLIDING SCALE, ROCEPHIN 1G IV DAILY, LEVAQUIN IV, SOLU-MEDROL 80MG IV Q8H, AND RESPIRATORY TX. TODAY, WE WILL DECREASE IV FLUIDS AND RESUME LASIX. OTHERWISE, WE WILL CONTINUE WITH CURRENT PLAN OF CARE. WE WILL FOLLOW UP WITH AM LABS, ABG, CHEST XRAY, AND CONTINUE TO MONITOR. - Past Medical Family Social History Past Med/Fam/Surg Hx: No changes since H&P Allergies: Allergies No Known Drug Allergies Allergy (Verified 03/05/19 00:25) - Review of Systems ROS: No change since H&P - Vital Signs and I&O's Vital Signs: Temperature 98.5 F Pulse Rate [Right] 77 Pulse Rate 75 Respiratory Rate 26 Blood Pressure [Right Arm] 178/74 Blood Pressure [Left Arm] 147/57 Blood Pressure 175/77 O2 Sat by Pulse Oximetry 91 Intake and Output: Intake & Output 03/06/19 03/07/19 03/08/1920 11:59 11:59 11:59 11:59 Intake Total 295 / 295 1420 / 1420 2309 / 2309 1228 / 1228 Output Total 1750 / 1750 1100 / 1100 2925 / 2925 1100 / 1100 Balance -1455 / -1455 320 / 320 -616 / -616 128 / 128 - Physical Exam Oriented: Normal Eyes: Normal Ear: Normal Nose: Normal Throat: Normal Cardiovascular: Normal, Edema (BLE 1+ PITTING EDEMA ). negative: S3, S4, Murmur : Normal Auscultation: Bowel Sounds: Normal Palpation: Normal Tenderness: Normal Skin: Normal Musculoskeletal: Normal Psychiatric: Normal Mood Description: Calm Affect: Normal Speech Pattern: Appropriate - Laboratory and Diagnostics Result Diagrams: 03/08/19 04:14 03/08/19 04:14 Labs: 03/05/19 00:45 Blood Blood Culture - Preliminary 03/05/19 00:37 Blood Blood Culture - Preliminary 03/05/19 03:34 Urine,Catheterized Urine Culture - Final [facility] WBC 6.3 X10^3/uL (3.6-10.0) 03/08/19 04:14 RBC 3.59 X10^6/uL (4.7-6.0) L 03/08/19 04:14 Hgb 10.1 g/dL (13.5-18.0) L 03/08/19 04:14 Hct 30.0 % (42.0-54.0) L 03/08/19 04:14 MCV 83.7 fL (80.0-100.0) 03/08/19 04:14 MCH 28.2 pg (27.0-34.0) 03/08/19 04:14 MCHC 33.6 g/dL (33.0-35.0) 03/08/19 04:14 RDW 15.3 % (11.6-16.5) 03/08/19 04:14 Plt Count 182 X10^3/uL (150.0-450.0) 03/08/19 04:14 Plt Count Comment Adequate (ADEQUATE) 03/08/19 04:14 MPV 9.2 fL (7.4-11.0) 03/08/19 04:14 Neut % (Auto) 92.3 % (42.0-75.0) H 03/08/19 04:14 Lymph % (Auto) 5.3 % (21.0-51.0) L 03/08/19 04:14 [place] % (Auto) 2.3 % (0.0-13.0) 03/08/19 04:14 Eos % (Auto) 0.0 % (0.9-2.9) L 03/08/19 04:14 Baso % (Auto) 0.1 % (0.2-1.0) L 03/08/19 04:14 Neut # (Auto) 5.9 x10^3/uL (2.2-4.8) H 03/08/19 04:14 Lymph # (Auto) 0.3 X10^3/uL (1.3-2.9) L 03/08/19 04:14 [place] # (Auto) 0.1 x10^3/uL (0.3-0.8) L 03/08/19 04:14 Eos # (Auto) 0.0 x10^3/uL (0.0-0.2) 03/08/19 04:14 Baso # (Auto) 0.0 X10^3/uL (0.0-0.1) 03/08/19 04:14 Absolute Nucleated RBC 0.2 /100WBC 03/08/19 04:14 Total Counted 100 03/08/19 04:14 Neutrophils % (Manual) 93 % (39-76) H 03/08/19 04:14 Lymphocytes % (Manual) 4 % (13-43) L 03/08/19 04:14 Monocytes % (Manual) 3 % (4-9) L 03/08/19 04:14 Plt Morphology Comment Normal (NORMAL) 03/08/19 04:14 RBC Morphology Normal (NORMAL) 03/08/19 04:14 Sample Site Lrad 03/08/19 05:44 ABG pH 7.400 (7.35-7.45) 03/08/19 05:44 ABG pCO2 51.0 mmHg (35.0-45.0) H* 03/08/19 05:44 ABG pO2 77.0 mmHg (80.0-100.0) L 03/08/19 05:44 ABG HCO3 31.6 mmol/L (22-26) H* 03/08/19 05:44 ABG O2 Saturation 95.0 % (90-100) 03/08/19 05:44 ABG Base Excess 5.6 mmol/L (-2.0-2.0) H 03/08/19 05:44 Ganesh Test Pos 03/08/19 05:44 A-a Gradient 180.0 mmHg 03/08/19 05:44 FiO2 45.0 03/08/19 05:44 Blood Gas Comments Katy abg well-mtf 03/08/19 05:44 Sodium 147 mmol/L (136-145) H 03/08/19 04:14 Corrected Sodium 150 mmol/L (136-145) H 03/08/19 04:14 Potassium 5.4 mmol/L (3.5-5.1) H 03/08/19 04:14 Chloride 112 mmol/L (98-107) H 03/08/19 04:14 Carbon Dioxide 28.9 mmol/L (21-32) 03/08/19 04:14 BUN 57 mg/dL (7-18) H 03/08/19 04:14 Creatinine 1.57 mg/dL (0.70-1.30) H 03/08/19 04:14 Est GFR (MDRD) Af Amer 56 (>60) L 03/08/19 04:14 Est GFR (MDRD) Non-Af 46 (>60) L 03/08/19 04:14 Glucose 236 mg/dL (65-99) H 03/08/19 04:14 POC Glucose (mg/dL) 217 mg/dL (65-99) H 03/08/19 20:21 Calcium 8.5 mg/dL (8.5-10.1) 03/08/19 04:14 Corrected Calcium 9.1 mg/dL (8.5-10.1) 03/08/19 04:14 Total Bilirubin 0.50 mg/dL (0.2-1.0) 03/08/19 04:14 AST 30 Units/L (15-37) 03/08/19 04:14 ALT 39 Units/L (12-78) 03/08/19 04:14 Alkaline Phosphatase 80 Units/L (46-116) 03/08/19 04:14 Creatine Kinase 673 Units/L (39-308) H 03/08/19 00:15 CK-MB (CK-2) 5.6 ng/mL (0-4.0) H* 03/08/19 00:15 CK/CKMB % Calc 0.8 % (<4) 03/08/19 00:15 Troponin I 0.07 ng/mL (0-1.5) 03/08/19 00:15 Total Protein 6.7 g/dL (6.4-8.2) 03/08/19 04:14 Albumin 3.2 g/dL (3.4-5.0) L 03/08/19 04:14 Globulin 3.5 g/dL (2.5-4.5) 03/08/19 04:14 Albumin/Globulin Ratio 0.9 Ratio (1.1-2.1) L 03/08/19 04:14 Specimen Type Catherized urine 03/05/19 03:34 Urine Color Yellow (YELLOW) 03/05/19 03:34 Urine Appearance Slightly hazy (CLEAR) 03/05/19 03:34 Urine pH 5.0 (5.0 - 8.0) 03/05/19 03:34 Ur Specific [place] 1.015 (1.000-1.030) 03/05/19 03:34 Urine Protein 1+ (NEGATIVE) 03/05/19 03:34 Urine Glucose (UA) Negative (NEGATIVE) 03/05/19 03:34 Urine Ketones Negative (NEGATIVE) 03/05/19 03:34 Urine Occult Blood Negative (NEGATIVE) 03/05/19 03:34 Urine Nitrite Negative (NEGATIVE) 03/05/19 03:34 Urine Bilirubin Negative (NEGATIVE) 03/05/19 03:34 Urine Urobilinogen Normal (NORMAL) 03/05/19 03:34 Ur Leukocyte Esterase 2+ (NEGATIVE) 03/05/19 03:34 Urine RBC 0-2 /HPF (0-3) 03/05/19 03:34 Urine WBC 5-10 /HPF (0-5) A 03/05/19 03:34 Ur Squamous Epith Cells Few /HPF (NEGATIVE) 03/05/19 03:34 Amorphous Sediment Trace /HPF (NEGATIVE) 03/05/19 03:34 Urine Bacteria Trace /HPF (NEGATIVE) 03/05/19 03:34 Hyaline Casts Few /LPF (NEGATIVE) 03/05/19 03:34 Urine Trichomonas Rare /HPF (NEGATIVE) 03/05/19 03:34 Ur Culture Indicated? Yes/culture set up 03/05/19 03:34 - Plan (1) CHF (congestive heart failure) Status: Acute Qualifiers: Heart failure type: unspecified Heart failure chronicity: acute on chronic Qualified Code(s): I50.9 - Heart failure, unspecified Plan: LASIX 20MG IV BID, NEB TX, BIPAP, RESUME HOME MEDS, SUPPLEMENTAL OXYGEN, CONTINUE TO MONITOR (2) COPD exacerbation Status: Acute Plan: SOLU-MEDROL IV, MORPHINE PRN, NEB TX, BIPAP, CONTINUE TO MONITOR (3) UTI (urinary tract infection) Status: Acute Qualifiers: Urinary tract infection type: site unspecified Hematuria presence: with hematuria Qualified Code(s): N39.0 - Urinary tract infection, site not specified; R31.9 - Hematuria, unspecified Plan: LEVAQUIN IV, ROCEPHIN 1G IV DAILY, CONTINUE TO MONITOR (4) Chest pain Status: Acute Qualifiers: Chest pain type: precordial pain Qualified Code(s): R07.2 - Precordial pain Plan: SERIAL CE AND EKG, ECHO, CAROTID DOPPLER (5) Diabetes Status: Acute Qualifiers: Diabetes mellitus type: type 2 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
[2019-03-09] MEDS: NS 1/2 1000 ML IV 1,000 ML IV SCH ×4 (00:07→20:07)
[2019-03-09 04:45] LABS: ABG ALLEN TEST P; ABG HCO3 32.4 mmol/L (22-26)
[2019-03-09] MEDS: SOLU-Medrol 40 MG VIAL IVP SCH (05:26)
[2019-03-09] MEDS: HumuLIN R SUBCUT PRN ×3 (06:09→20:53)
[2019-03-09 06:21] LABS: BASOPHILS % (AUTO) 0.1 % (0.2-1.0); HEMATOCRIT 31.6 % (42.0-54.0); HEMOGLOBIN 10.5 g/dL (13.5-18.0); LYMPHOCYTES # (AUTO) 0.3 X10^3/uL (1.3-2.9); LYMPHOCYTES % (AUTO) 4.2 % (21.0-51.0); MEAN CORPUSCULAR HEMOGLOBIN 27.7 pg (27.0-34.0); MEAN CORPUSCULAR HGB CONC 33.2 g/dL (33.0-35.0); MEAN CORPUSCULAR VOLUME 83.6 fL (80.0-100.0); MEAN PLATELET VOLUME 9.6 fL (7.4-11.0); MONOCYTES # (AUTO) 0.4 x10^3/uL (0.3-0.8); MONOCYTES % (AUTO) 5.1 % (0.0-13.0); NEUTROPHILS # (AUTO) 6.7 x10^3/uL (2.2-4.8); NEUTROPHILS % (AUTO) 90.6 % (42.0-75.0); PLATELET COUNT 195 X10^3/uL (150.0-450.0); RED BLOOD COUNT 3.78 X10^6/uL (4.7-6.0); RED CELL DISTRIBUTION WIDTH 15.1 % (11.6-16.5); WHITE BLOOD COUNT 7.4 X10^3/uL (3.6-10.0)
[2019-03-09 06:48] LABS: ALANINE AMINOTRANSFERASE 78 Units/L (12-78); ALBUMIN 3.4 g/dL (3.4-5.0); ALKALINE PHOSPHATASE 80 Units/L (46-116); ASPARTATE AMINO TRANSFERASE 80 Units/L (15-37); BLOOD UREA NITROGEN 59 mg/dL (7-18); CALCIUM 8.5 mg/dL (8.5-10.1); CARBON DIOXIDE 28.1 mmol/L (21-32); CHLORIDE 110 mmol/L (98-107); COR NA(FOR HYPERGLY) 152 mmol/L (136-145); CREATININE 1.76 mg/dL (0.70-1.30); SODIUM 148 mmol/L (136-145); TOTAL PROTEIN 6.8 g/dL (6.4-8.2); eGFR NON BLACK RACES 41 (>60)
[2019-03-09 07:30] LABS: PLATELET MORPHOLOGY COMMENT NORMAL (NORMAL)
--- NOTE | 2019-03-09 07:32 | RAD ---
HISTORYShortness of breathSTUDYCHEST, 1 [id number] twinFINDINGSThe heart is markedly enlarged. Mild pulmonary venous congestion is present. No definite interstitial edema, alveolar edema, or alveolar infiltrates are identified. Hypo inflation is present. No definite pleural effusions are identified. Bony thorax is unremarkable.IMPRESSIONMarked cardiomegaly with pulmonary venous congestionLungs hypoinflated but free of acute infiltratesElectronically signed by: KATHRINE FALLON (Mar 09, 2019 07:31:10)
[2019-03-09] MEDS: ROCEPHIN VIAL 1 GRAM 1 G in NS 100 ML IV + SPIKE MINIBAG* 100 ML IV SCH (08:42)
[2019-03-09] MEDS: LEVAQUIN PREMIX IV 500 MG 500 MG/100 ML BAG IV SCH (08:42)
[2019-03-09] MEDS: LASIX IVP SCH (08:42)
[2019-03-09] MEDS: NORVASC TAB 10 MG PO SCH (08:43)
[2019-03-09] MEDS: FERROUS GLUCONATE PO SCH (08:43)
[2019-03-09] MEDS: VOLTAREN 1 % GEL MULTI DOSE TUBE TOP SCH ×2 (08:43→20:08)
[2019-03-09] MEDS: ASPIRIN EC 81 MG PO SCH (08:43)
[2019-03-09] MEDS: COREG TAB 25 MG PO SCH ×2 (08:43→20:06)
[2019-03-09] MEDS: ZESTRIL TAB 40 MG PO SCH (08:44)
[2019-03-09] MEDS: MILK OF MAGNESIA PO SCH ×2 (08:45→20:07)
[2019-03-09] MEDS: PULMICORT NEB TX 0.5 MG NEB SCH ×2 (08:50→20:59)
[2019-03-09] MEDS: DUONEB 0.5 MG/3 MG (3 mL) NEB SCH ×4 (08:51→20:59)
[2019-03-09] MEDS: MORPHINE SULFATE INJ 2 MG INJ IVP PRN (09:40)
[2019-03-09] MEDS ORDERED: MORPHINE SULFATE INJ 2 MG INJ IVP ONE (10:05)
[2019-03-09] MEDS ORDERED: XYLOCAINE JELLY TOP ONE ×2 (10:05→10:14)
[2019-03-09] MEDS: K-DUR TAB 20 MEQ PO SCH (10:46)
[2019-03-09] MEDS: FORTAZ or TAZICEF VIAL INJ 1 G in NS 100 ML IV + SPIKE MINIBAG* 100 ML IV SCH ×3 (12:01→21:25)
[2019-03-09] MEDS: NEURONTIN CAP 300 MG PO SCH (20:06)
[2019-03-09] MEDS: COLACE CAP 100 MG PO SCH (20:06)
[2019-03-09] MEDS: OXYBUTYNIN CHLORIDE ER PO SCH (20:06)
[2019-03-09] MEDS: SNACK - Diabetic Appropriate PO SCH (20:07)
[2019-03-09] MEDS: ZOCOR TAB 20 MG PO SCH (20:07)
--- NOTE | 2019-03-09 21:03 | PCM.PROG ---
Progress Note - Progress Note for Day of Date of Exam: 03/09/19 - Subjective Subjective: WAS ADMITTED FOR TREATMENT OF CHF, UTI, COPD EXACERBATION, CHEST PAIN, AND DIABETIES. TODAY, HE IS LYING IN BED WITH EYES OPEN ON MORNING ROUNDS. HE CONTINUES WITH COMPLAINTS OF SHORTNESS OF BREATH. HE IS CURRENTLY UTILIZING OXYGEN VIA NASAL CANNULA AT 2L/MIN. STAFF REPORTS THAT HE HAS BEEN AGITATED AND PULLING AT EQUIPMENT LAST NIGHT AND THIS MORNING. ON EXAMINATION, HEART IS REGULAR IN RATE AND RHYTHM. BILATERAL LUNGS ARE NOTED WITH SCATTERED WHEEZING THROUGHOUT, DIMINISHED. ABDOMEN IS ROUND, SOFT, AND NOTED WITH NORMAL BOWEL SOUNDS IN ALL QUADRANTS. HIS VITALS THIS MORNING ARE: 98.8-76-10-92%-180/77. LABS WERE OBTAINED. ABNORMAL LAB VALUES INCLUDED THE FOLLOWING: RBC 3.78, HGB 10.5, HCT 31.6, SODIUM 148, CHLORIDE 110, BUN 59, CREATININE 1.76, GLUCOSE 250, AST 80. URINE CULTURE REPORTED GROWTH OF PROTEUS MIRABILIS. A CHEST XRAY WAS OBTAINED AND REVEALED: Marked cardiomegaly with pulmonary venous congestion. Lungs hypoinflated but free of acute infiltrates. HE IS CURRENTLY RECEIVING NS AT 125ML/HR, HUMULIN R SLIDING SCALE, ROCEPHIN 1G IV DAILY, LEVAQUIN IV, SOLU-MEDROL 80MG IV Q8H, AND RESPIRATORY TX. TODAY, WE WILL HOLD LASIX, DISCONTINUE ROCEPHIN, AND START FORTAZ 1G IV Q8H. OTHERWISE, WE WILL CONTINUE WITH CURRENT PLAN OF CARE. WE WILL FOLLOW UP WITH AM LABS, ABG, CHEST XRAY, AND CONTINUE TO MONITOR. - Past Medical Family Social History Past Med/Fam/Surg Hx: No changes since H&P Allergies: Allergies No Known Drug Allergies Allergy (Verified 03/05/19 00:25) - Review of Systems ROS: No change since H&P - Vital Signs and I&O's Vital Signs: Temperature 98.2 F Pulse Rate [Right] 77 Pulse Rate 65 Respiratory Rate 14 Blood Pressure [Right Arm] 178/74 Blood Pressure [Left Arm] 147/57 Blood Pressure 144/68 O2 Sat by Pulse Oximetry 99 Intake and Output: Intake & Output 03/07/19 03/08/19 03/09/19 03/10/19 11:59 11:59 11:59 11:59 Intake Total 1420 / 1420 2309 / 2309 2741 / 2741 1124 / 1124 Output Total 1100 / 1100 2925 / 2925 2425 / 2425 1100 / 1100 Balance 320 / 320 -616 / -616 316 / 316 - Physical Exam Oriented: Normal Eyes: Normal Ear: Normal Nose: Normal Throat: Normal Cardiovascular: Normal, Edema (BLE 1+ PITTING EDEMA ). negative: S3, S4, Murmur : Normal Auscultation: Bowel Sounds: Normal Palpation: Normal Tenderness: Normal Skin: Normal Musculoskeletal: Normal Psychiatric: Normal Mood Description: Calm Affect: Normal Speech Pattern: Appropriate - Laboratory and Diagnostics Result Diagrams: 03/09/19 04:33 03/09/19 04:33 Labs: 03/05/19 00:45 Blood Blood Culture - Preliminary 03/05/19 00:37 Blood Blood Culture - Preliminary 03/05/19 03:34 Urine,Catheterized Urine Culture - Final [facility] WBC 7.4 X10^3/uL (3.6-10.0) 03/09/19 04:33 RBC 3.78 X10^6/uL (4.7-6.0) L 03/09/19 04:33 Hgb 10.5 g/dL (13.5-18.0) L 03/09/19 04:33 Hct 31.6 % (42.0-54.0) L 03/09/19 04:33 MCV 83.6 fL (80.0-100.0) 03/09/19 04:33 MCH 27.7 pg (27.0-34.0) 03/09/19 04:33 MCHC 33.2 g/dL (33.0-35.0) 03/09/19 04:33 RDW 15.1 % (11.6-16.5) 03/09/19 04:33 Plt Count 195 X10^3/uL (150.0-450.0) 03/09/19 04:33 Plt Count Comment Adequate (ADEQUATE) 03/09/19 04:33 MPV 9.6 fL (7.4-11.0) 03/09/19 04:33 Neut % (Auto) 90.6 % (42.0-75.0) H 03/09/19 04:33 Lymph % (Auto) 4.2 % (21.0-51.0) L 03/09/19 04:33 [place] % (Auto) 5.1 % (0.0-13.0) 03/09/19 04:33 Eos % (Auto) 0.0 % (0.9-2.9) L 03/09/19 04:33 Baso % (Auto) 0.1 % (0.2-1.0) L 03/09/19 04:33 Neut # (Auto) 6.7 x10^3/uL (2.2-4.8) H 03/09/19 04:33 Lymph # (Auto) 0.3 X10^3/uL (1.3-2.9) L 03/09/19 04:33 [place] # (Auto) 0.4 x10^3/uL (0.3-0.8) 03/09/19 04:33 Eos # (Auto) 0.0 x10^3/uL (0.0-0.2) 03/09/19 04:33 Baso # (Auto) 0.0 X10^3/uL (0.0-0.1) 03/09/19 04:33 Absolute Nucleated RBC 0.2 /100WBC 03/09/19 04:33 Total Counted 100 03/09/19 04:33 Neutrophils % (Manual) 82 % (39-76) H 03/09/19 04:33 Lymphocytes % (Manual) 10 % (13-43) L 03/09/19 04:33 Monocytes % (Manual) 6 % (4-9) 03/09/19 04:33 Eosinophils % (Manual) 2 % (0-6) 03/09/19 04:33 Plt Morphology Comment Normal (NORMAL) 03/09/19 04:33 RBC Morphology Normal (NORMAL) 03/09/19 04:33 PT 15.8 SECONDS (11.8-14.3) 03/09/19 04:33 INR Target Range - 03/09/19 04:33 INR 1.31 (0.8-1.3) H 03/09/19 04:33 APTT 23.5 SECONDS (22.9-36.5) 03/09/19 04:33 PTT Comment - 03/09/19 04:33 Sample Site Rr 03/09/19 04:43 ABG pH 7.340 (7.35-7.45) L 03/09/19 04:43 ABG pCO2 60.0 mmHg (35.0-45.0) H* 03/09/19 04:43 ABG pO2 67.0 mmHg (80.0-100.0) L 03/09/19 04:43 ABG HCO3 32.4 mmol/L (22-26) H* 03/09/19 04:43 ABG O2 Saturation 92.0 % (90-100) 03/09/19 04:43 ABG Base Excess 5.0 mmol/L (-2.0-2.0) H 03/09/19 04:43 Ganesh Test P 03/09/19 04:43 A-a Gradient 86.0 mmHg 03/09/19 04:43 FiO2 32.0 03/09/19 04:43 Blood Gas Comments Katy well 03/09/19 04:43 Sodium 148 mmol/L (136-145) H 03/09/19 04:33 Corrected Sodium 152 mmol/L (136-145) H 03/09/19 04:33 Potassium 5.0 mmol/L (3.5-5.1) 03/09/19 04:33 Chloride 110 mmol/L (98-107) H 03/09/19 04:33 Carbon Dioxide 28.1 mmol/L (21-32) 03/09/19 04:33 BUN 59 mg/dL (7-18) H 03/09/19 04:33 Creatinine 1.76 mg/dL (0.70-1.30) H 03/09/19 04:33 Est GFR (MDRD) Af Amer 49 (>60) L 03/09/19 04:33 Est GFR (MDRD) Non-Af 41 (>60) L 03/09/19 04:33 Glucose 250 mg/dL (65-99) H 03/09/19 04:33 POC Glucose (mg/dL) 234 mg/dL (65-99) H 03/09/19 19:49 Calcium 8.5 mg/dL (8.5-10.1) 03/09/19 04:33 Corrected Calcium TNP 03/09/19 04:33 Total Bilirubin 0.70 mg/dL (0.2-1.0) 03/09/19 04:33 AST 80 Units/L (15-37) H 03/09/19 04:33 ALT 78 Units/L (12-78) 03/09/19 04:33 Alkaline Phosphatase 80 Units/L (46-116) 03/09/19 04:33 Creatine Kinase 673 Units/L (39-308) H 03/08/19 00:15 CK-MB (CK-2) 5.6 ng/mL (0-4.0) H* 03/08/19 00:15 CK/CKMB % Calc 0.8 % (<4) 03/08/19 00:15 Troponin I 0.07 ng/mL (0-1.5) 03/08/19 00:15 Total Protein 6.8 g/dL (6.4-8.2) 03/09/19 04:33 Albumin 3.4 g/dL (3.4-5.0) 03/09/19 04:33 Globulin 3.4 g/dL (2.5-4.5) 03/09/19 04:33 Albumin/Globulin Ratio 1.0 Ratio (1.1-2.1) L 03/09/19 04:33 Specimen Type Catherized urine 03/05/19 03:34 Urine Color Yellow (YELLOW) 03/05/19 03:34 Urine Appearance Slightly hazy (CLEAR) 03/05/19 03:34 Urine pH 5.0 (5.0 - 8.0) 03/05/19 03:34 Ur Specific [place] 1.015 (1.000-1.030) 03/05/19 03:34 Urine Protein 1+ (NEGATIVE) 03/05/19 03:34 Urine Glucose (UA) Negative (NEGATIVE) 03/05/19 03:34 Urine Ketones Negative (NEGATIVE) 03/05/19 03:34 Urine Occult Blood Negative (NEGATIVE) 03/05/19 03:34 Urine Nitrite Negative (NEGATIVE) 03/05/19 03:34 Urine Bilirubin Negative (NEGATIVE) 03/05/19 03:34 Urine Urobilinogen Normal (NORMAL) 03/05/19 03:34 Ur Leukocyte Esterase 2+ (NEGATIVE) 03/05/19 03:34 Urine RBC 0-2 /HPF (0-3) 03/05/19 03:34 Urine WBC 5-10 /HPF (0-5) A 03/05/19 03:34 Ur Squamous Epith Cells Few /HPF (NEGATIVE) 03/05/19 03:34 Amorphous Sediment Trace /HPF (NEGATIVE) 03/05/19 03:34 Urine Bacteria Trace /HPF (NEGATIVE) 03/05/19 03:34 Hyaline Casts Few /LPF (NEGATIVE) 03/05/19 03:34 Urine Trichomonas Rare /HPF (NEGATIVE) 03/05/19 03:34 Ur Culture Indicated? Yes/culture set up 03/05/19 03:34 - Plan (1) CHF (congestive heart failure) Status: Acute Qualifiers: Heart failure type: unspecified Heart failure chronicity: acute on chronic Qualified Code(s): I50.9 - Heart failure, unspecified Plan: NEB TX, BIPAP, RESUME HOME MEDS, SUPPLEMENTAL OXYGEN, CONTINUE TO MONITOR (2) COPD exacerbation Status: Acute Plan: SOLU-MEDROL IV, MORPHINE PRN, NEB TX, BIPAP, CONTINUE TO MONITOR (3) UTI (urinary tract infection) Status: Acute Qualifiers: Urinary tract infection type: site unspecified Hematuria presence: with hematuria Qualified Code(s): N39.0 - Urinary tract infection, site not specified; R31.9 - Hematuria, unspecified Plan: LEVAQUIN IV, FORTAZ 1G IV Q8H, CONTINUE TO MONITOR (4) Chest pain Status: Acute Qualifiers: Chest pain type: precordial pain Qualified Code(s): R07.2 - Precordial pain Plan: SERIAL CE AND EKG, ECHO, CAROTID DOPPLER (5) Diabetes Status: Acute Qualifiers: Diabetes mellitus type: type 2 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
[2019-03-10] MEDS ORDERED: NS 1/2 1000 ML IV 1,000 ML IV ONE (02:30)
[2019-03-10] MEDS: NS 1/2 1000 ML IV 1,000 ML IV SCH ×3 (02:33→13:59)
[2019-03-10] MEDS: FORTAZ or TAZICEF VIAL INJ 1 G in NS 100 ML IV + SPIKE MINIBAG* 100 ML IV SCH ×3 (05:25→21:10)
[2019-03-10 06:14] LABS: BASOPHILS % (AUTO) 0.1 % (0.2-1.0); HEMATOCRIT 29.3 % (42.0-54.0); HEMOGLOBIN 9.9 g/dL (13.5-18.0); LYMPHOCYTES # (AUTO) 0.5 X10^3/uL (1.3-2.9); LYMPHOCYTES % (AUTO) 6.1 % (21.0-51.0); MEAN CORPUSCULAR HGB CONC 33.7 g/dL (33.0-35.0); MEAN CORPUSCULAR VOLUME 83.1 fL (80.0-100.0); MEAN PLATELET VOLUME 9.1 fL (7.4-11.0); MONOCYTES # (AUTO) 0.7 x10^3/uL (0.3-0.8); MONOCYTES % (AUTO) 9.1 % (0.0-13.0); NEUTROPHILS # (AUTO) 6.2 x10^3/uL (2.2-4.8); NEUTROPHILS % (AUTO) 84.7 % (42.0-75.0); PLATELET COUNT 187 X10^3/uL (150.0-450.0); RED BLOOD COUNT 3.53 X10^6/uL (4.7-6.0); RED CELL DISTRIBUTION WIDTH 15.5 % (11.6-16.5); WHITE BLOOD COUNT 7.4 X10^3/uL (3.6-10.0)
--- NOTE | 2019-03-10 06:33 | RAD ---
HISTORYCongestive heart failureSTUDYCHEST, 1 [id number] examination is under exposed. The heart is enlarged. No congestive heart failure, infiltrates, or pleural effusions are identified. The bony thorax is unremarkable.IMPRESSIONMarked cardiomegaly without congestive heart failureNo infiltratesElectronically signed by: KATHRINE FALLON (Mar 10, 2019 06:31:34)
[2019-03-10 06:44] LABS: ABG BASE EXCESS 6.7 mmol/L (-2.0-2.0)
[2019-03-10 06:46] LABS: ABG HCO3 33.9 mmol/L (22-26)
[2019-03-10 06:58] LABS: ALBUMIN 3.1 g/dL (3.4-5.0); CALCIUM 8.3 mg/dL (8.5-10.1); CARBON DIOXIDE 33.6 mmol/L (21-32); CREATININE 1.52 mg/dL (0.70-1.30); TOTAL PROTEIN 6.3 g/dL (6.4-8.2)
[2019-03-10] MEDS: DUONEB 0.5 MG/3 MG (3 mL) NEB SCH ×4 (08:45→20:22)
[2019-03-10] MEDS: PULMICORT NEB TX 0.5 MG NEB SCH ×2 (08:46→20:19)
[2019-03-10] MEDS: NORVASC TAB 10 MG PO SCH (09:52)
[2019-03-10] MEDS: LEVAQUIN PREMIX IV 500 MG 500 MG/100 ML BAG IV SCH (09:52)
[2019-03-10] MEDS: ASPIRIN EC 81 MG PO SCH (09:52)
[2019-03-10] MEDS: FERROUS GLUCONATE PO SCH (09:52)
[2019-03-10] MEDS: COREG TAB 25 MG PO SCH ×2 (09:52→21:08)
[2019-03-10] MEDS: MILK OF MAGNESIA PO SCH ×2 (09:53→21:08)
[2019-03-10] MEDS: VOLTAREN 1 % GEL MULTI DOSE TUBE TOP SCH ×2 (09:53→21:09)
[2019-03-10] MEDS: ZESTRIL TAB 40 MG PO SCH (09:53)
[2019-03-10] MEDS: K-DUR TAB 20 MEQ PO SCH (09:54)
[2019-03-10] MEDS ORDERED: AMINOPHYLLINE IV NR (12:00)
[2019-03-10] MEDS ORDERED: NS IV NR (12:00)
[2019-03-10] MEDS: HumuLIN R SUBCUT PRN ×3 (14:11→21:12)
--- NOTE | 2019-03-10 16:56 | PCM.PROG ---
Progress Note - Progress Note for Day of Date of Exam: 03/10/19 - Subjective Subjective: WAS ADMITTED FOR TREATMENT OF CHF, UTI, COPD EXACERBATION, CHEST PAIN, AND DIABETIES. TODAY, HE IS LYING IN BED WITH EYES CLOSED ON MORNING ROUNDS. HE AWAKENS TO VERBAL STIMULI. HE CONTINUES WITH COMPLAINTS OF SHORTNESS OF BREATH. HE IS CURRENTLY UTILIZING OXYGEN VIA NASAL CANNULA AT 2L/MIN. STAFF REPORTS THAT HE HAS BEEN AGITATED AND PULLING AT EQUIPMENT LAST NIGHT AND THIS MORNING. HE IS CURRENTLY IN SOFT WRIST RESTRAINTS. ON EXAMINATION, HEART IS REGULAR IN RATE AND RHYTHM. BILATERAL LUNGS ARE NOTED WITH SCATTERED WHEEZING THROUGHOUT, DIMINISHED. ABDOMEN IS ROUND, SOFT, AND NOTED WITH NORMAL BOWEL SOUNDS IN ALL QUADRANTS. HIS VITALS THIS MORNING ARE: 97.0-71-21-99%-178/79. LABS WERE OBTAINED. ABNORMAL LAB VALUES INCLUDED THE FOLLOWING: RBC 3.53, HGB 9.9, HCT 29.3, SODIUM 149, CHLORIDE 111, CARBON DIOXIDE 33.6, BUN 54, CREATININE 1.52, GLUCOSE 161, CALCIUM 8.3, AST 76, ALT 89, TOTAL PROTEIN 6.3, ALBUMIN 3.1. URINE CULTURE REPORTED GROWTH OF PROTEUS MIRABILIS. BLOOD AND SPUTUM CULTURES ARE PENDING. A CHEST XRAY WAS OBTAINED AND REVEALED: Marked cardiomegaly without congestive heart failure. No infiltrate. HE IS CURRENTLY RECEIVING NS AT 125ML/HR, HUMULIN R SLIDING SCALE, FORTAZ 1G IV Q8H, LEVAQUIN IV, SOLU-MEDROL 80MG IV Q8H, AND RESPIRATORY TX. TODAY, WE WILL START THEOPHYLLINE, PHARMACY TO DOSE. OTHERWISE, WE WILL CONTINUE WITH CURRENT PLAN OF CARE. WE WILL FOLLOW UP WITH AM LABS, ABG, CHEST XRAY, AND CONTINUE TO MONITOR. - Past Medical Family Social History Past Med/Fam/Surg Hx: No changes since H&P Allergies: Allergies No Known Drug Allergies Allergy (Verified 03/05/19 00:25) - Review of Systems ROS: No change since H&P - Vital Signs and I&O's Vital Signs: Temperature 97.9 F Pulse Rate [Right] 77 Pulse Rate 69 Respiratory Rate 14 Blood Pressure [Right Arm] 178/74 Blood Pressure [Left Arm] 147/57 Blood Pressure 171/78 O2 Sat by Pulse Oximetry 99 Intake and Output: Intake & Output 03/08/19 03/09/19 03/10/1916/20 11:59 11:59 11:59 11:59 Intake Total 2309 / 2309 2741 / 2741 2300 / 2300 Output Total 2925 / 2925 2425 / 2425 1999 Balance -616 / -616 316 / 316 300 / 300 - Physical Exam Oriented: Normal Eyes: Normal Ear: Normal Nose: Normal Throat: Normal Cardiovascular: Normal, Edema (BLE 1+ PITTING EDEMA ). negative: S3, S4, Murmur : Normal Auscultation: Bowel Sounds: Normal Tenderness: Normal Skin: Normal Musculoskeletal: Normal Psychiatric: Normal Mood Description: Calm Affect: Normal Speech Pattern: Appropriate, Unclear - Laboratory and Diagnostics Result Diagrams: 03/10/19 04:19 03/10/19 04:19 Labs: 03/05/19 00:37 Blood Blood Culture - Final 03/05/19 00:45 Blood Blood Culture - Final 03/10/19 09:13 Sputum - Expectorated Sputum - Final 03/05/19 03:34 Urine,Catheterized Urine Culture - Final [facility] WBC 7.4 X10^3/uL (3.6-10.0) 03/10/19 04:19 RBC 3.53 X10^6/uL (4.7-6.0) L 03/10/19 04:19 Hgb 9.9 g/dL (13.5-18.0) L 03/10/19 04:19 Hct 29.3 % (42.0-54.0) L 03/10/19 04:19 MCV 83.1 fL (80.0-100.0) 03/10/19 04:19 MCH 28.0 pg (27.0-34.0) 03/10/19 04:19 MCHC 33.7 g/dL (33.0-35.0) 03/10/19 04:19 RDW 15.5 % (11.6-16.5) 03/10/19 04:19 Plt Count 187 X10^3/uL (150.0-450.0) 03/10/19 04:19 Plt Count Comment Adequate (ADEQUATE) 03/09/19 04:33 MPV 9.1 fL (7.4-11.0) 03/10/19 04:19 Neut % (Auto) 84.7 % (42.0-75.0) H 03/10/19 04:19 Lymph % (Auto) 6.1 % (21.0-51.0) L 03/10/19 04:19 [place] % (Auto) 9.1 % (0.0-13.0) 03/10/19 04:19 Eos % (Auto) 0.0 % (0.9-2.9) L 03/10/19 04:19 Baso % (Auto) 0.1 % (0.2-1.0) L 03/10/19 04:19 Neut # (Auto) 6.2 x10^3/uL (2.2-4.8) H 03/10/19 04:19 Lymph # (Auto) 0.5 X10^3/uL (1.3-2.9) L 03/10/19 04:19 [place] # (Auto) 0.7 x10^3/uL (0.3-0.8) 03/10/19 04:19 Eos # (Auto) 0.0 x10^3/uL (0.0-0.2) 03/10/19 04:19 Baso # (Auto) 0.0 X10^3/uL (0.0-0.1) 03/10/19 04:19 Absolute Nucleated RBC 0.1 /100WBC 03/10/19 04:19 Total Counted 100 03/09/19 04:33 Neutrophils % (Manual) 82 % (39-76) H 03/09/19 04:33 Lymphocytes % (Manual) 10 % (13-43) L 03/09/19 04:33 Monocytes % (Manual) 6 % (4-9) 03/09/19 04:33 Eosinophils % (Manual) 2 % (0-6) 03/09/19 04:33 Plt Morphology Comment Normal (NORMAL) 03/09/19 04:33 RBC Morphology Normal (NORMAL) 03/09/19 04:33 PT 15.8 SECONDS (11.8-14.3) 03/09/19 04:33 INR Target Range - 03/09/19 04:33 INR 1.31 (0.8-1.3) H 03/09/19 04:33 APTT 23.5 SECONDS (22.9-36.5) 03/09/19 04:33 PTT Comment - 03/09/19 04:33 Sample Site Lrad 03/10/19 06:39 ABG pH 7.360 (7.35-7.45) 03/10/19 06:39 ABG pCO2 60.0 mmHg (35.0-45.0) H* 03/10/19 06:39 ABG pO2 78.0 mmHg (80.0-100.0) L 03/10/19 06:39 ABG HCO3 33.9 mmol/L (22-26) H* 03/10/19 06:39 ABG O2 Saturation 95.0 % (90-100) 03/10/19 06:39 ABG Base Excess 6.7 mmol/L (-2.0-2.0) H 03/10/19 06:39 Ganesh Test Na 03/10/19 06:39 A-a Gradient 47.0 mmHg 03/10/19 06:39 FiO2 28.0 03/10/19 06:39 Blood Gas Comments Katy abg well-mtf 03/10/19 06:39 Sodium 149 mmol/L (136-145) H 03/10/19 04:19 Corrected Sodium 150 mmol/L (136-145) H 03/10/19 04:19 Potassium 4.9 mmol/L (3.5-5.1) 03/10/19 04:19 Chloride 111 mmol/L (98-107) H 03/10/19 04:19 Carbon Dioxide 33.6 mmol/L (21-32) H 03/10/19 04:19 BUN 54 mg/dL (7-18) H 03/10/19 04:19 Creatinine 1.52 mg/dL (0.70-1.30) H 03/10/19 04:19 Est GFR (MDRD) Af Amer 58 (>60) L 03/10/19 04:19 Est GFR (MDRD) Non-Af 48 (>60) L 03/10/19 04:19 Glucose 161 mg/dL (65-99) H 03/10/19 04:19 POC Glucose (mg/dL) 231 mg/dL (65-99) H 03/10/19 13:55 Calcium 8.3 mg/dL (8.5-10.1) L 03/10/19 04:19 Corrected Calcium 9.0 mg/dL (8.5-10.1) 03/10/19 04:19 Total Bilirubin 0.60 mg/dL (0.2-1.0) 03/10/19 04:19 AST 76 Units/L (15-37) H 03/10/19 04:19 ALT 89 Units/L (12-78) H 03/10/19 04:19 Alkaline Phosphatase 71 Units/L (46-116) 03/10/19 04:19 Creatine Kinase 673 Units/L (39-308) H 03/08/19 00:15 CK-MB (CK-2) 5.6 ng/mL (0-4.0) H* 03/08/19 00:15 CK/CKMB % Calc 0.8 % (<4) 03/08/19 00:15 Troponin I 0.07 ng/mL (0-1.5) 03/08/19 00:15 Total Protein 6.3 g/dL (6.4-8.2) L 03/10/19 04:19 Albumin 3.1 g/dL (3.4-5.0) L 03/10/19 04:19 Globulin 3.2 g/dL (2.5-4.5) 03/10/19 04:19 Albumin/Globulin Ratio 1.0 Ratio (1.1-2.1) L 03/10/19 04:19 Specimen Type Catherized urine 03/05/19 03:34 Urine Color Yellow (YELLOW) 03/05/19 03:34 Urine Appearance Slightly hazy (CLEAR) 03/05/19 03:34 Urine pH 5.0 (5.0 - 8.0) 03/05/19 03:34 Ur Specific [place] 1.015 (1.000-1.030) 03/05/19 03:34 Urine Protein 1+ (NEGATIVE) 03/05/19 03:34 Urine Glucose (UA) Negative (NEGATIVE) 03/05/19 03:34 Urine Ketones Negative (NEGATIVE) 03/05/19 03:34 Urine Occult Blood Negative (NEGATIVE) 03/05/19 03:34 Urine Nitrite Negative (NEGATIVE) 03/05/19 03:34 Urine Bilirubin Negative (NEGATIVE) 03/05/19 03:34 Urine Urobilinogen Normal (NORMAL) 03/05/19 03:34 Ur Leukocyte Esterase 2+ (NEGATIVE) 03/05/19 03:34 Urine RBC 0-2 /HPF (0-3) 03/05/19 03:34 Urine WBC 5-10 /HPF (0-5) A 03/05/19 03:34 Ur Squamous Epith Cells Few /HPF (NEGATIVE) 03/05/19 03:34 Amorphous Sediment Trace /HPF (NEGATIVE) 03/05/19 03:34 Urine Bacteria Trace /HPF (NEGATIVE) 03/05/19 03:34 Hyaline Casts Few /LPF (NEGATIVE) 03/05/19 03:34 Urine Trichomonas Rare /HPF (NEGATIVE) 03/05/19 03:34 Ur Culture Indicated? Yes/culture set up 03/05/19 03:34 - Plan (1) CHF (congestive heart failure) Status: Acute Qualifiers: Heart failure type: unspecified Heart failure chronicity: acute on chronic Qualified Code(s): I50.9 - Heart failure, unspecified Plan: NEB TX, BIPAP, RESUME HOME MEDS, SUPPLEMENTAL OXYGEN, CONTINUE TO MONITOR (2) COPD exacerbation Status: Acute Plan: THEOPHYLLINE, SOLU-MEDROL IV, MORPHINE PRN, NEB TX, BIPAP, CONTINUE TO MONITOR (3) UTI (urinary tract infection) Status: Acute Qualifiers: Urinary tract infection type: site unspecified Hematuria presence: with hematuria Qualified Code(s): N39.0 - Urinary tract infection, site not specified; R31.9 - Hematuria, unspecified Plan: LEVAQUIN IV, FORTAZ 1G IV Q8H, CONTINUE TO MONITOR (4) Chest pain Status: Acute Qualifiers: Chest pain type: precordial pain Qualified Code(s): R07.2 - Precordial pain Plan: SERIAL CE AND EKG, ECHO, CAROTID DOPPLER (5) Diabetes Status: Acute Qualifiers: Diabetes mellitus type: type 2 Diabetes mellitus long term care phlebotomist insulin use: without long term care phlebotomist use Diabetes mellitus complication status: with other specified complication Qualified Code(s): E11.69 - Type 2 diabetes mellitus with other specified complication Plan: MONITOR OTBS, HUMULIN R SLIDING SCALE, CONTINUE TO MONITOR
[2019-03-10] MEDS: SNACK - Diabetic Appropriate PO SCH (20:45)
[2019-03-10] MEDS: COLACE CAP 100 MG PO SCH (21:08)
[2019-03-10] MEDS: THEO-DUR TAB 200 MG PO SCH (21:08)
[2019-03-10] MEDS: ZOCOR TAB 20 MG PO SCH (21:08)
[2019-03-10] MEDS: NEURONTIN CAP 300 MG PO SCH (21:09)
[2019-03-10] MEDS: OXYBUTYNIN CHLORIDE ER PO SCH (21:09)
[2019-03-11] MEDS ORDERED: NS 1/2 1000 ML IV 1,000 ML IV ONE (04:04)
[2019-03-11] MEDS: NS 1/2 1000 ML IV 1,000 ML IV SCH ×2 (04:10→08:20)
[2019-03-11 05:27] LABS: BASOPHILS % (AUTO) 0.7 % (0.2-1.0); EOSINOPHILS # (AUTO) 0.1 x10^3/uL (0.0-0.2); EOSINOPHILS % (AUTO) 1.8 % (0.9-2.9); HEMATOCRIT 30.2 % (42.0-54.0); LYMPHOCYTES # (AUTO) 0.7 X10^3/uL (1.3-2.9); LYMPHOCYTES % (AUTO) 10.1 % (21.0-51.0); MEAN CORPUSCULAR HEMOGLOBIN 27.9 pg (27.0-34.0); MEAN CORPUSCULAR VOLUME 84.4 fL (80.0-100.0); MEAN PLATELET VOLUME 9.2 fL (7.4-11.0); MONOCYTES # (AUTO) 0.6 x10^3/uL (0.3-0.8); MONOCYTES % (AUTO) 8.6 % (0.0-13.0); NEUTROPHILS # (AUTO) 5.5 x10^3/uL (2.2-4.8); NEUTROPHILS % (AUTO) 78.8 % (42.0-75.0); PLATELET COUNT 173 X10^3/uL (150.0-450.0); RED BLOOD COUNT 3.57 X10^6/uL (4.7-6.0); RED CELL DISTRIBUTION WIDTH 15.4 % (11.6-16.5)
[2019-03-11 05:38] LABS: ABG ALLEN TEST POS
[2019-03-11] MEDS: FORTAZ or TAZICEF VIAL INJ 1 G in NS 100 ML IV + SPIKE MINIBAG* 100 ML IV SCH ×3 (05:40→22:18)
[2019-03-11 05:47] LABS: ALANINE AMINOTRANSFERASE 88 Units/L (12-78); ALBUMIN 2.8 g/dL (3.4-5.0); ALKALINE PHOSPHATASE 65 Units/L (46-116); ASPARTATE AMINO TRANSFERASE 61 Units/L (15-37); BLOOD UREA NITROGEN 43 mg/dL (7-18); CALCIUM 8.1 mg/dL (8.5-10.1); CARBON DIOXIDE 35.8 mmol/L (21-32); CHLORIDE 114 mmol/L (98-107); COR CA(FOR HYPOALB) 9.1 mg/dL (8.5-10.1); COR NA(FOR HYPERGLY) 151 mmol/L (136-145); CREATININE 1.41 mg/dL (0.70-1.30); TOTAL PROTEIN 5.7 g/dL (6.4-8.2); eGFR NON BLACK RACES 53 (>60)
[2019-03-11 05:58] LABS: SODIUM 150 mmol/L (136-145)
[2019-03-11] MEDS: NORVASC TAB 10 MG PO SCH (08:18)
[2019-03-11] MEDS: FERROUS GLUCONATE PO SCH (08:18)
[2019-03-11] MEDS: ZESTRIL TAB 40 MG PO SCH (08:18)
[2019-03-11] MEDS: THEO-DUR TAB 200 MG PO SCH ×2 (08:18→22:16)
[2019-03-11] MEDS: COREG TAB 25 MG PO SCH ×2 (08:18→22:16)
[2019-03-11] MEDS: ASPIRIN EC 81 MG PO SCH (08:18)
[2019-03-11] MEDS: LEVAQUIN PREMIX IV 500 MG 500 MG/100 ML BAG IV SCH (08:18)
[2019-03-11] MEDS: MILK OF MAGNESIA PO SCH ×2 (08:19→22:17)
[2019-03-11] MEDS: K-DUR TAB 20 MEQ PO SCH (08:19)
[2019-03-11] MEDS: VOLTAREN 1 % GEL MULTI DOSE TUBE TOP SCH ×2 (08:20→22:24)
[2019-03-11] MEDS: PULMICORT NEB TX 0.5 MG NEB SCH ×2 (09:15→21:15)
[2019-03-11] MEDS: DUONEB 0.5 MG/3 MG (3 mL) NEB SCH ×4 (09:15→21:15)
[2019-03-11] MEDS: D5W 1000 ML IV 1,000 ML IV SCH (11:45)
[2019-03-11] MEDS: HumuLIN R SUBCUT PRN ×3 (12:32→22:20)
--- NOTE | 2019-03-11 20:49 | PCM.PROG ---
Progress Note - Progress Note for Day of Date of Exam: 03/11/19 - Subjective Subjective: WAS ADMITTED FOR TREATMENT OF CHF, UTI, COPD EXACERBATION, CHEST PAIN, AND DIABETIES. TODAY, HE IS LYING IN BED WITH EYES CLOSED ON MORNING ROUNDS. HE AWAKENS TO VERBAL STIMULI, BUT IS DISORIENTED. HE CONTINUES WITH COMPLAINTS OF SHORTNESS OF BREATH. HE IS CURRENTLY UTILIZING OXYGEN VIA NASAL CANNULA AT 2L/MIN. STAFF REPORTS THAT HE CONTINUES TO BE AGITATED AND IS PULLING AT EQUIPMENT. ON EXAMINATION, HEART IS REGULAR IN RATE AND RHYTHM. BILATERAL LUNGS ARE NOTED WITH SCATTERED WHEEZING THROUGHOUT, DIMINISHED. ABDOMEN IS ROUND, SOFT, AND NOTED WITH NORMAL BOWEL SOUNDS IN ALL QUADRANTS. HIS VITALS THIS MORNING ARE: 97.6-66-21-95%-150/67. LABS WERE OBTAINED. ABNORMAL LAB VALUES INCLUDED THE FOLLOWIN.57, HGB 10.0, HCT 30.2, SODIUM 150, CHLORIDE 114, CARBON DIOXIDE 35.8, BUN 43, CREATININE 1.41, GLUCOSE 124, CALCIUM 8.1, AST 61, ALT 88, TOTAL PROTEIN 5.7, ALUBMIN 2.8. URINE CULTURE REPORTED GROWTH OF PROTEUS MIRABILIS. BLOOD AND SPUTUM CULTURES ARE PENDING. HE IS CURRENTLY RECEIVING NS AT 125ML/HR, HUMULIN R SLIDING SCALE, FORTAZ 1G IV Q8H, LEVAQUIN IV, SOLU-MEDROL 80MG IV Q8H, THEOPHYLLINE, AND RESPIRATORY TX. TODAY, WE WILL CHANGE IV FLUIDS TO D5W. OTHERWISE, WE WILL CONTINUE WITH CURRENT PLAN OF CARE. WE WILL FOLLOW UP WITH AM LABS, ABG, CHEST XRAY, AND CONTINUE TO MONITOR. - Past Medical Family Social History Past Med/Fam/Surg Hx: No changes since H&P Allergies: Allergies No Known Drug Allergies Allergy (Verified 03/05/19 00:25) - Review of Systems ROS: No change since H&P - Vital Signs and I&O's Vital Signs: Temperature 98.3 F Pulse Rate [Right] 77 Pulse Rate 64 Respiratory Rate 24 Blood Pressure [Right Arm] 178/74 Blood Pressure [Left Arm] 147/57 Blood Pressure 114/59 O2 Sat by Pulse Oximetry 94 Intake and Output: Intake & Output 03/09/19 03/10/19 03/11/19 03/12/19 11:59 11:59 11:59 11:59 Intake Total 2741 / 2741 2300 / 2300 2398 / 2398 1457 / 1457 Output Total 2425 / 2425 1999 / 1999 1785 / 1785 350 / 350 Balance 316 / 316 300 / 300 613 / 613 1107 / 1107 - Physical Exam Oriented: Normal Eyes: Normal Ear: Normal Nose: Normal Throat: Normal Cardiovascular: Normal, Edema (BLE 1+ PITTING EDEMA ). negative: S3, S4, Murmur : Normal Auscultation: Bowel Sounds: Normal Palpation: Normal Tenderness: Normal Skin: Normal Musculoskeletal: Normal Psychiatric: Normal Mood Description: Calm Affect: Normal Speech Pattern: Appropriate, Unclear - Laboratory and Diagnostics Result Diagrams: 03/11/19 04:01 03/11/19 04:01 Labs: 03/10/19 09:13 Sputum - Expectorated Sputum Sputum Culture - Preliminary 03/10/19 09:13 Sputum - Expectorated Sputum - Final 03/05/19 00:37 Blood Blood Culture - Final 03/05/19 00:45 Blood Blood Culture - Final 03/05/19 03:34 Urine,Catheterized Urine Culture - Final [facility] WBC 7.0 X10^3/uL (3.6-10.0) 03/11/19 04:01 RBC 3.57 X10^6/uL (4.7-6.0) L 03/11/19 04:01 Hgb 10.0 g/dL (13.5-18.0) L 03/11/19 04:01 Hct 30.2 % (42.0-54.0) L 03/11/19 04:01 MCV 84.4 fL (80.0-100.0) 03/11/19 04:01 MCH 27.9 pg (27.0-34.0) 03/11/19 04:01 MCHC 33.0 g/dL (33.0-35.0) 03/11/19 04:01 RDW 15.4 % (11.6-16.5) 03/11/19 04:01 Plt Count 173 X10^3/uL (150.0-450.0) 03/11/19 04:01 Plt Count Comment Adequate (ADEQUATE) 03/09/19 04:33 MPV 9.2 fL (7.4-11.0) 03/11/19 04:01 Neut % (Auto) 78.8 % (42.0-75.0) H 03/11/19 04:01 Lymph % (Auto) 10.1 % (21.0-51.0) L 03/11/19 04:01 [place] % (Auto) 8.6 % (0.0-13.0) 03/11/19 04:01 Eos % (Auto) 1.8 % (0.9-2.9) 03/11/19 04:01 Baso % (Auto) 0.7 % (0.2-1.0) 03/11/19 04:01 Neut # (Auto) 5.5 x10^3/uL (2.2-4.8) H 03/11/19 04:01 Lymph # (Auto) 0.7 X10^3/uL (1.3-2.9) L 03/11/19 04:01 [place] # (Auto) 0.6 x10^3/uL (0.3-0.8) 03/11/19 04:01 Eos # (Auto) 0.1 x10^3/uL (0.0-0.2) 03/11/19 04:01 Baso # (Auto) 0.0 X10^3/uL (0.0-0.1) 03/11/19 04:01 Absolute Nucleated RBC 0.1 /100WBC 03/11/19 04:01 Total Counted 100 03/09/19 04:33 Neutrophils % (Manual) 82 % (39-76) H 03/09/19 04:33 Lymphocytes % (Manual) 10 % (13-43) L 03/09/19 04:33 Monocytes % (Manual) 6 % (4-9) 03/09/19 04:33 Eosinophils % (Manual) 2 % (0-6) 03/09/19 04:33 Plt Morphology Comment Normal (NORMAL) 03/09/19 04:33 RBC Morphology Normal (NORMAL) 03/09/19 04:33 PT 15.8 SECONDS (11.8-14.3) 03/09/19 04:33 INR Target Range - 03/09/19 04:33 INR 1.31 (0.8-1.3) H 03/09/19 04:33 APTT 23.5 SECONDS (22.9-36.5) 03/09/19 04:33 PTT Comment - 03/09/19 04:33 Sample Site Lrad 03/11/19 05:34 ABG pH 7.350 (7.35-7.45) 03/11/19 05:34 ABG pCO2 67.0 mmHg (35.0-45.0) H* 03/11/19 05:34 ABG pO2 64.0 mmHg (80.0-100.0) L 03/11/19 05:34 ABG HCO3 37.0 mmol/L (22-26) H* 03/11/19 05:34 ABG O2 Saturation 91.0 % (90-100) 03/11/19 05:34 ABG Base Excess 9.0 mmol/L (-2.0-2.0) H 03/11/19 05:34 Ganesh Test Pos 03/11/19 05:34 A-a Gradient 52.0 mmHg 03/11/19 05:34 FiO2 28.0 03/11/19 05:34 Blood Gas Comments Katy abg well-mtf 03/11/19 05:34 Sodium 150 mmol/L (136-145) H* 03/11/19 04:01 Corrected Sodium 151 mmol/L (136-145) H 03/11/19 04:01 Potassium 4.8 mmol/L (3.5-5.1) 03/11/19 04:01 Chloride 114 mmol/L (98-107) H 03/11/19 04:01 Carbon Dioxide 35.8 mmol/L (21-32) H 03/11/19 04:01 BUN 43 mg/dL (7-18) H 03/11/19 04:01 Creatinine 1.41 mg/dL (0.70-1.30) H 03/11/19 04:01 Est GFR (MDRD) Af Amer > 60 (>60) 03/11/19 04:01 Est GFR (MDRD) Non-Af 53 (>60) L 03/11/19 04:01 Glucose 124 mg/dL (65-99) H 03/11/19 04:01 POC Glucose (mg/dL) 246 mg/dL (65-99) H 03/11/19 16:52 Calcium 8.1 mg/dL (8.5-10.1) L 03/11/19 04:01 Corrected Calcium 9.1 mg/dL (8.5-10.1) 03/11/19 04:01 Total Bilirubin 0.50 mg/dL (0.2-1.0) 03/11/19 04:01 AST 61 Units/L (15-37) H 03/11/19 04:01 ALT 88 Units/L (12-78) H 03/11/19 04:01 Alkaline Phosphatase 65 Units/L (46-116) 03/11/19 04:01 Creatine Kinase 673 Units/L (39-308) H 03/08/19 00:15 CK-MB (CK-2) 5.6 ng/mL (0-4.0) H* 03/08/19 00:15 CK/CKMB % Calc 0.8 % (<4) 03/08/19 00:15 Troponin I 0.07 ng/mL (0-1.5) 03/08/19 00:15 Total Protein 5.7 g/dL (6.4-8.2) L 03/11/19 04:01 Albumin 2.8 g/dL (3.4-5.0) L 03/11/19 04:01 Globulin 2.9 g/dL (2.5-4.5) 03/11/19 04:01 Albumin/Globulin Ratio 1.0 Ratio (1.1-2.1) L 03/11/19 04:01 Specimen Type Catherized urine 03/05/19 03:34 Urine Color Yellow (YELLOW) 03/05/19 03:34 Urine Appearance Slightly hazy (CLEAR) 03/05/19 03:34 Urine pH 5.0 (5.0 - 8.0) 03/05/19 03:34 Ur Specific [place] 1.015 (1.000-1.030) 03/05/19 03:34 Urine Protein 1+ (NEGATIVE) 03/05/19 03:34 Urine Glucose (UA) Negative (NEGATIVE) 03/05/19 03:34 Urine Ketones Negative (NEGATIVE) 03/05/19 03:34 Urine Occult Blood Negative (NEGATIVE) 03/05/19 03:34 Urine Nitrite Negative (NEGATIVE) 03/05/19 03:34 Urine Bilirubin Negative (NEGATIVE) 03/05/19 03:34 Urine Urobilinogen Normal (NORMAL) 03/05/19 03:34 Ur Leukocyte Esterase 2+ (NEGATIVE) 03/05/19 03:34 Urine RBC 0-2 /HPF (0-3) 03/05/19 03:34 Urine WBC 5-10 /HPF (0-5) A 03/05/19 03:34 Ur Squamous Epith Cells Few /HPF (NEGATIVE) 03/05/19 03:34 Amorphous Sediment Trace /HPF (NEGATIVE) 03/05/19 03:34 Urine Bacteria Trace /HPF (NEGATIVE) 03/05/19 03:34 Hyaline Casts Few /LPF (NEGATIVE) 03/05/19 03:34 Urine Trichomonas Rare /HPF (NEGATIVE) 03/05/19 03:34 Ur Culture Indicated? Yes/culture set up 03/05/19 03:34 - Plan (1) CHF (congestive heart failure) Status: Acute Qualifiers: Heart failure type: unspecified Heart failure chronicity: acute on chronic Qualified Code(s): I50.9 - Heart failure, unspecified Plan: NEB TX, BIPAP, RESUME HOME MEDS, SUPPLEMENTAL OXYGEN, CONTINUE TO MONITOR (2) COPD exacerbation Status: Acute Plan: THEOPHYLLINE, SOLU-MEDROL IV, MORPHINE PRN, NEB TX, BIPAP, CONTINUE TO MONITOR (3) UTI (urinary tract infection) Status: Acute Qualifiers: Urinary tract infection type: site unspecified Hematuria presence: with hematuria Qualified Code(s): N39.0 - Urinary tract infection, site not specified; R31.9 - Hematuria, unspecified Plan: LEVAQUIN IV, FORTAZ 1G IV Q8H, CONTINUE TO MONITOR (4) Chest pain Status: Acute Qualifiers: Chest pain type: precordial pain Qualified Code(s): R07.2 - Precordial pain Plan: SERIAL CE AND EKG, ECHO, CAROTID DOPPLER (5) Diabetes Status: Acute Qualifiers: Diabetes mellitus type: type 2 Diabetes mellitus group home insulin use: without group home use Diabetes mellitus complication status: with other specified complication Qualified Code(s): E11.69 - Type 2 diabetes mellitus with other specified complication Plan: MONITOR OTBS, HUMULIN R SLIDING SCALE, CONTINUE TO MONITOR
[2019-03-11] MEDS: NEURONTIN CAP 300 MG PO SCH (22:16)
[2019-03-11] MEDS: COLACE CAP 100 MG PO SCH (22:16)
[2019-03-11] MEDS: OXYBUTYNIN CHLORIDE ER PO SCH (22:16)
[2019-03-11] MEDS: ZOCOR TAB 20 MG PO SCH (22:16)
[2019-03-12 04:29] LABS: ABG BASE EXCESS 0.4 mmol/L (-2.0-2.0); ABG HCO3 29.9 mmol/L (22-26)
[2019-03-12 04:30] LABS: ABG ALLEN TEST P
[2019-03-12 05:37] LABS: ALANINE AMINOTRANSFERASE 77 Units/L (12-78); ALBUMIN 2.5 g/dL (3.4-5.0); ALKALINE PHOSPHATASE 61 Units/L (46-116); ASPARTATE AMINO TRANSFERASE 47 Units/L (15-37); BLOOD UREA NITROGEN 47 mg/dL (7-18); CALCIUM 7.9 mg/dL (8.5-10.1); CARBON DIOXIDE 34.5 mmol/L (21-32); CHLORIDE 111 mmol/L (98-107); COR CA(FOR HYPOALB) 9.1 mg/dL (8.5-10.1); COR NA(FOR HYPERGLY) 150 mmol/L (136-145); SODIUM 147 mmol/L (136-145); TOTAL PROTEIN 5.2 g/dL (6.4-8.2); eGFR NON BLACK RACES 53 (>60)
[2019-03-12 05:40] LABS: BASOPHILS % (AUTO) 0.1 % (0.2-1.0); EOSINOPHILS # (AUTO) 0.3 x10^3/uL (0.0-0.2); EOSINOPHILS % (AUTO) 5.2 % (0.9-2.9); HEMATOCRIT 27.2 % (42.0-54.0); HEMOGLOBIN 9.2 g/dL (13.5-18.0); LYMPHOCYTES # (AUTO) 0.5 X10^3/uL (1.3-2.9); LYMPHOCYTES % (AUTO) 9.2 % (21.0-51.0); MEAN CORPUSCULAR HEMOGLOBIN 28.4 pg (27.0-34.0); MEAN CORPUSCULAR HGB CONC 33.8 g/dL (33.0-35.0); MEAN CORPUSCULAR VOLUME 83.9 fL (80.0-100.0); MEAN PLATELET VOLUME 9.8 fL (7.4-11.0); MONOCYTES # (AUTO) 0.4 x10^3/uL (0.3-0.8); MONOCYTES % (AUTO) 8.3 % (0.0-13.0); NEUTROPHILS % (AUTO) 77.2 % (42.0-75.0); PLATELET COUNT 138 X10^3/uL (150.0-450.0); RED BLOOD COUNT 3.24 X10^6/uL (4.7-6.0); RED CELL DISTRIBUTION WIDTH 15.2 % (11.6-16.5); WHITE BLOOD COUNT 5.2 X10^3/uL (3.6-10.0)
--- NOTE | 2019-03-12 06:39 | RAD ---
HISTORYShortness of breathSTUDYCHEST, 1 [id number] remains enlarged. No definite congestive heart failure is identified. No acute alveolar infiltrates or pleural effusions are identified. The bony thorax is unremarkable.IMPRESSIONContinued cardiomegaly without congestive heart failureNo definite acute infiltratesElectronically signed by: KATHRINE FALLON (Mar 12, 2019 06:37:45)
[2019-03-12] MEDS: DUONEB 0.5 MG/3 MG (3 mL) NEB SCH ×3 (08:42→17:15)
[2019-03-12] MEDS: PULMICORT NEB TX 0.5 MG NEB SCH (08:42)
[2019-03-12] MEDS: SNACK - Diabetic Appropriate PO SCH ×2 (09:14→20:45)
[2019-03-12] MEDS: LEVAQUIN PREMIX IV 500 MG 500 MG/100 ML BAG IV SCH (09:15)
[2019-03-12] MEDS: FERROUS GLUCONATE PO SCH (09:15)
[2019-03-12] MEDS: THEO-DUR TAB 200 MG PO SCH ×2 (09:15→21:50)
[2019-03-12] MEDS: ASPIRIN EC 81 MG PO SCH (09:15)
[2019-03-12] MEDS: COREG TAB 25 MG PO SCH ×2 (09:15→21:45)
[2019-03-12] MEDS: ZESTRIL TAB 40 MG PO SCH (09:15)
[2019-03-12] MEDS: NORVASC TAB 10 MG PO SCH (09:15)
[2019-03-12] MEDS: MILK OF MAGNESIA PO SCH ×2 (09:16→21:45)
[2019-03-12] MEDS: K-DUR TAB 20 MEQ PO SCH (09:16)
[2019-03-12] MEDS: VOLTAREN 1 % GEL MULTI DOSE TUBE TOP SCH ×2 (09:17→21:45)
[2019-03-12] MEDS: FORTAZ or TAZICEF VIAL INJ 1 G in NS 100 ML IV + SPIKE MINIBAG* 100 ML IV SCH ×2 (09:19→22:29)
[2019-03-12] MEDS: D5W 1000 ML IV 1,000 ML IV SCH (14:34)
[2019-03-12] MEDS: HumuLIN R SUBCUT PRN ×2 (17:23→22:10)
[2019-03-12] MEDS: NEURONTIN CAP 300 MG PO SCH (21:40)
[2019-03-12] MEDS: COLACE CAP 100 MG PO SCH (21:49)
[2019-03-12] MEDS: OXYBUTYNIN CHLORIDE ER PO SCH (21:50)
[2019-03-12] MEDS: ZOCOR TAB 20 MG PO SCH (21:55)
[2019-03-13] MEDS: DUONEB 0.5 MG/3 MG (3 mL) NEB SCH (01:25)
[2019-03-13] MEDS: PULMICORT NEB TX 0.5 MG NEB SCH (01:26)
[2019-03-13 01:50] LABS: BLOOD/HEMOGLOBIN,URINE 4+ (NEGATIVE); GLUCOSE, URINE NEGATIVE (NEGATIVE); KETONES,URINE 1+ (NEGATIVE); NITRITES,URINE NEGATIVE (NEGATIVE); PROTEIN,URINE 2+ (NEGATIVE)
[2019-03-13 01:51] LABS: BILIRUBIN,URINE NEGATIVE (NEGATIVE); LEUKOCYTE ESTERASE ,URINE 1+ (NEGATIVE); UROBILINOGEN,URINE NORMAL (NORMAL)
[2019-03-13 01:59] LABS: AMORPHOUS SEDIMENT,UR 1+ /HPF (NEGATIVE); APPEARANCE,URINE CLEAR (CLEAR); BACTERIA,URINE NEGATIVE /HPF (NEGATIVE); COLOR,URINE YELLOW (YELLOW); HYALINE CASTS, URINE FEW /LPF (NEGATIVE); SQUAMOUS EPITHELIAL CELL,UR FEW /HPF (NEGATIVE)
[2019-03-13] MEDS: FORTAZ or TAZICEF VIAL INJ 1 G in NS 100 ML IV + SPIKE MINIBAG* 100 ML IV SCH (05:57)
[2019-03-13] MEDS: HumuLIN R SUBCUT PRN (05:58)
--- NOTE | 2019-03-13 06:04 | RAD ---
HISTORYSOBSTUDYCHEST, 1 [id number] size remains moderately enlarged with pulmonary vascular congestion. No convincing acute airspace disease or CHF. No effusion or pneumothorax.IMPRESSIONStable examination demonstrating cardiomegaly and chronic pulmonary vascular congestion without evidence of acute airspace disease or CHF.Electronically signed by: SUBHASH MAYBERRY (Mar 13, 2019 06:03:13)
[2019-03-13 06:09] LABS: BASOPHILS % (AUTO) 0.1 % (0.2-1.0); EOSINOPHILS # (AUTO) 0.3 x10^3/uL (0.0-0.2); EOSINOPHILS % (AUTO) 5.3 % (0.9-2.9); HEMATOCRIT 26.6 % (42.0-54.0); HEMOGLOBIN 8.9 g/dL (13.5-18.0); LYMPHOCYTES # (AUTO) 0.5 X10^3/uL (1.3-2.9); LYMPHOCYTES % (AUTO) 10.3 % (21.0-51.0); MEAN CORPUSCULAR HGB CONC 33.4 g/dL (33.0-35.0); MEAN CORPUSCULAR VOLUME 83.9 fL (80.0-100.0); MEAN PLATELET VOLUME 9.7 fL (7.4-11.0); MONOCYTES # (AUTO) 0.5 x10^3/uL (0.3-0.8); MONOCYTES % (AUTO) 8.8 % (0.0-13.0); NEUTROPHILS # (AUTO) 3.9 x10^3/uL (2.2-4.8); NEUTROPHILS % (AUTO) 75.5 % (42.0-75.0); PLATELET COUNT 130 X10^3/uL (150.0-450.0); RED BLOOD COUNT 3.17 X10^6/uL (4.7-6.0); RED CELL DISTRIBUTION WIDTH 15.1 % (11.6-16.5); WHITE BLOOD COUNT 5.2 X10^3/uL (3.6-10.0)
[2019-03-13 06:29] LABS: ALBUMIN 2.4 g/dL (3.4-5.0); CALCIUM 7.6 mg/dL (8.5-10.1); CARBON DIOXIDE 33.9 mmol/L (21-32); COR CA(FOR HYPOALB) 8.9 mg/dL (8.5-10.1); CREATININE 1.68 mg/dL (0.70-1.30); TOTAL PROTEIN 5.1 g/dL (6.4-8.2)
[2019-03-13] MEDS: ASPIRIN EC 81 MG PO SCH (09:23)
[2019-03-13] MEDS: FERROUS GLUCONATE PO SCH (09:23)
[2019-03-13] MEDS: COREG TAB 25 MG PO SCH (09:23)
[2019-03-13] MEDS: LEVAQUIN PREMIX IV 500 MG 500 MG/100 ML BAG IV SCH (09:24)
[2019-03-13] MEDS: MILK OF MAGNESIA PO SCH (09:24)
[2019-03-13] MEDS: K-DUR TAB 20 MEQ PO SCH (09:24)
[2019-03-13] MEDS: NORVASC TAB 10 MG PO SCH (09:24)
[2019-03-13] MEDS: VOLTAREN 1 % GEL MULTI DOSE TUBE TOP SCH (09:25)
[2019-03-13] MEDS: ZESTRIL TAB 40 MG PO SCH (09:25)
[2019-03-13] MEDS: THEO-DUR TAB 200 MG PO SCH (09:25)
[2019-03-13 11:52] VITALS: BP 127/59
== END 2019-03-13 11:25 | DRG 292 ==
LOC: OBS 23:45 → ER 23:45 → OBS 03-05 12:30 → ICU 03-06 13:00
PROVIDERS: ADMIT Internal Medicine; ATTEND Internal Medicine
DX: R79.1 Abnormal coagulation profile; I25.10 Atherosclerotic heart disease of native coronary artery without angina pectoris; R94.31 Abnormal electrocardiogram [ECG] [EKG]; I50.43 Acute on chronic combined systolic (congestive) and diastolic (congestive) heart failure; B96.4 Proteus (mirabilis) (morganii) as the cause of diseases classified elsewhere; E78.49 Other hyperlipidemia; I11.0 Hypertensive heart disease with heart failure; N39.0 Urinary tract infection, site not specified; J44.1 Chronic obstructive pulmonary disease with (acute) exacerbation; R07.2 Precordial pain; E11.65 Type 2 diabetes mellitus with hyperglycemia; R06.02 Shortness of breath; Z78.1 Physical restraint status
CPT/HCPCS: 36415; 36600; 51702; 71010; 71045; 80053; 81001; 82550; 82553; 82803; 84484; 85025; 85610; 85730; 87040; 87070; 87086; 87088; 87186; 87205; 92610; 93005; 93306; 93880; 94640; 94660; 94760; 96365; 96367; 96374; 99284; A4222; A4618; A7030; G0378; J0280; J0461; J0696; J0713; J1815; J1940; J1956; J2270; J2920; J7030; J7040; J7050; J7060; J7620; J7626

== ENCOUNTER 2019-07-05 01:30 | Inpatient (IN) ==
--- NOTE | 2019-07-05 02:05 | DR.SOBA ---
HPI Time Seen Time Seen by Provider: 07/05/19 02:04 Primary Care Physician Primary Care Physician: ENEDELIA HPI Comment HPI Comment: PATIENT IS 74YR OLD MALE, A RESIDENT AT THE [facility] HERE IN [place] IS HERE IN ER BECAUSE OF OXYGEN DESATURATION AND INCREASING SOB. O2 SAT WAS 50 TO 60 AND IN ER ON 4L NC, 98%. HISTORY CHF AND RESPIRATORY INSUFFICIENCY. NO FEVER. HE IS SLEEPY BUT AROUSABLE. HOME OXYGEN. Complaints Chief Complaint Doctors Comments: INCREASING SOB AND OXYGEN DESATURATION AT THE NURSING HERE IN [place]. Chief Complaint:: STAFF AT [facility] STATES THAT THEY HAVE CHECKED PTS O2 ON SEVERAL MACHINES AND IT HAS BEEN BETWEEN 50-60% EVEN ON THE BIPAP WITH 4 L OF OXYGEN, PT ASLEEP ON ARRIVAL AND ON 2 L NC PT NOTED TO BE 98-99%. PT WAKES UP WITH VERBAL/PHYSICAL STIMULI. Self Treatment fo Chief Complaint: BIPAP AT [facility] WITH 4 L O2 COVID-19 Coronavirus risk:travel/contact w/high risk person: No Has patient experienced Coronavirus symptoms: Yes Coronavirus symptoms experienced: Shortness of Breath Reviewed Nurses Notes Reviewed: Yes Source History Provided: [facility] Mode of Arrival Mode of Arrival: Stretcher Timing Onset of Chief Complaint: 07/05/19 Duration Duration: Hours Context Onset:: While Asleep PE Risk Factors:: Immobilization History of:: CHF Currently on:: Inhaled Bronchodilators Prehospital Care:: O2, Inhaled B2 and Furosemide Modifying Factors Worsens:: Exertion Improves:: Rest and Sitting Up Associated Signs and Symptoms Associated Signs and Symptoms: Wheeze, Cough, Chest Pain and Leg Swelling If Chest Pain Quality: Pleuritic (TIGHTNESS.) Location: Substernal If Cough Cough: Productive and Clear PMH PMH Past Medical History: Yes Past Medical History: Anemia, Arthritis, Coronary Artery Disease, Depression, Diabetes, Dyslipidemia, Hypertension, Liver Disease and Seizures Past Surgical History: Yes Surgical History: Appendectomy Family History History of Family Medical Conditions: Yes Family Medical History: Diabetes Mellitus, Cancer, [place] and Hypertension Social History Does patient currently use any type of tobacco product: No Have you used tobacco products in the last 12 months: No Type of Tobacco Use: None Does any household member use tobacco: No Alcohol Use: None Do you use any recreational Drugs:: No Lives With: Other Lives Where: [facility] Infectious screening In the last 2 months have you had wt loss of >10#?: NO Have you had fever, night sweats or hemotysis?: No Have you traveled outside the country in the last 6 months?: No Isolation: Standard ROS Review of Systems Constitutional: See HPI, Weakness and Fatigue Eyes: No Symptoms Reported and See HPI; negative Blurred Vision and Diplopia ENTM: See HPI and Nose Congestion; negative Ear Pain, Nose Discharge and Throat Pain Respiratoy: See HPI, Productive Cough, Short of Breath and Wheezing Cardiovascular: See HPI, Chest Pain and Edema Gastrointestinal/Abdominal: No Symptoms Reported and See HPI; negative Abdominal Pain, Diarrhea and Vomiting Genitourinary: No Symptoms Reported and See HPI; negative Dysuria and Hematuria Neurological: See HPI, Weakness and Other (SLEEPY BUT AROUSABLE.); negative Headache and Dizziness Musculoskeletal: See HPI and Back Pain Integumentary: No Symptoms Reported, See HPI and Other (EDEMA); negative Rash and Juandice Hematologic/Lymphatic: No Symptoms Reported and See HPI Endocrine: See HPI, Increased Thirst and Increased Urine Psychiatric: No Symptoms Reported, See HPI and Other All Other Systems: Reviewed and Negative PE Vital Signs Vitals: Temperature 91.3 F Pulse Rate [Right Brachial] 74 Pulse Rate 58 Respiratory Rate 23 Blood Pressure [Right Arm] 155/69 Blood Pressure 137/63 O2 Sat by Pulse Oximetry 91 General Limitations: No Limitations General Appearance: Alert, In Distress and Other (SLEEPY BUT AROUSABLE.) Head Head Exam: Normal Inspection Eyes Eye exam: Normal Appearance and PERRL; negative Scleral Icterus and Conjunctival Injection ENT ENT Exam: Normal Exam, Normal Oropharynx, Normal External Ear Exam and TM's Normal Bilaterally Neck Neck Exam: Normal Inspection and Trachea Midline; negative Tenderness and Lymphadenopathy Chest Chest Inspection: Normal Inspection and Symmetric Chest Wall Rise; negative Tenderness Respiratory Respiratory Exam: Accessory Muscle Use, Chest Wall Tenderness, Prolonged Expiratory Phase and Respiratory Distress Respiratory Exam: Bilateral: Wheezing and Bilateral: Rhonchi and Lower: Wheezing and Lower: Rhonchi Cardiovascular Cardiovascular Exam: Regular Rate, Normal Rhythm, Normal Heart Sounds and +S3 Abdominal Exam Abdominal Exam: Normal Inspection, Normal Bowel Sounds, Soft and Distention; negative Tenderness Extremities Extremities Exam: Edema (3 PLUS EDEMA.) Back Back Exam: Paraspinal Tenderness Neurologic Neurological Exam: Alert and Oriented X3 Psychiatric Psychiatric Exam: Normal Affect and Normal Mood Skin Skin Exam: Erythema and Other (3 PLUS EDEMA LOWER EXTREMITIES.) MDM Additional Information Obtained Additional Information Obtained From: Family Differential Diagnosis Differential Diagnosis: Bronchitis, CHF, COPD, Dysrhythmia, Hyponatremia, Mycardial Infarction, Pneumonia, Pneumothorax, Pulmonary embolism, Respiratory Insufficiency and URI COURSE Treatment Treatment: SEE ORDERS. LASIX 40MG IV. HYPOTHERMIA, WARMING ELECTRIC DEVICE USE TO INCREASE TEMPERATURE. Consultation Consultation Comments: DISCUSSED PATIENT WITH DR. MCDANIELS. HE WILL ADMIT PATIENT. Education/Counseling Education/Counseling: Patient Educated On: Diagnosis ROR Labs Reviewed Laboratory Results Reviewed?: Yes Result Diagrams: 07/07/19 05:27 07/07/19 05:27 Laboratory: Sample Site Rr 07/05/19 05:30 ABG pH 7.270 (7.35-7.45) L 07/05/19 05:30 ABG pCO2 73.0 mmHg (35.0-45.0) H* 07/05/19 05:30 ABG pO2 63.0 mmHg (80.0-100.0) L 07/05/19 05:30 ABG HCO3 33.5 mmol/L (22-26) H* 07/05/19 05:30 ABG O2 Saturation 88.0 % (90-100) L 07/05/19 05:30 ABG Base Excess 4.5 mmol/L (-2.0-2.0) H 07/05/19 05:30 Ganesh Test Pos 07/05/19 05:30 A-a Gradient 131.0 mmHg 07/05/19 05:30 FiO2 40.0 07/05/19 05:30 Blood Gas Comments Katy well sw 07/05/19 05:30 Specimen Type Catherized urine 07/05/19 07:08 Urine Color Yellow (YELLOW) 07/05/19 07:08 Urine Appearance Hazy (CLEAR) 07/05/19 07:08 Urine pH 5.0 (5.0 - 8.0) 07/05/19 07:08 Ur Specific [place] 1.025 (1.000-1.030) 07/05/19 07:08 Urine Protein 2+ (NEGATIVE) 07/05/19 07:08 Urine Glucose (UA) Negative (NEGATIVE) 07/05/19 07:08 Urine Ketones 1+ (NEGATIVE) 07/05/19 07:08 Urine Occult Blood Negative (NEGATIVE) 07/05/19 07:08 Urine Nitrite Negative (NEGATIVE) 07/05/19 07:08 Urine Bilirubin Negative (NEGATIVE) 07/05/19 07:08 Urine Urobilinogen 1+ (NORMAL) 07/05/19 07:08 Ur Leukocyte Esterase 2+ (NEGATIVE) 07/05/19 07:08 Urine RBC None seen /HPF (0-3) 07/05/19 07:08 Urine WBC 0-2 /HPF (0-5) 07/05/19 07:08 Ur Squamous Epith Cells Negative /HPF (NEGATIVE) 07/05/19 07:08 Urine Bacteria Negative /HPF (NEGATIVE) 07/05/19 07:08 Hyaline Casts Few /LPF (NEGATIVE) 07/05/19 07:08 Urine Mucus Few /HPF (NEGATIVE) 07/05/19 07:08 Ur Culture Indicated? No/not indicated 07/05/19 07:08 Other Results Comments: LABS DONE AT THE GA BEFORE COMING TO ER REVIEWED. XRAY XRAY Interpreted by: Radiologist (REPORT REVIEWED .) and Self (PULMNARY CONGESTION/CHF.) EKG Rate: 66 [place]: Normal Rhythm: NSR Block: 1 and RBBB Hypertrophy: None ST: Nonsp Opioid Opioid Risk Tool Age (Paras box if 16-45): No History of Preadolescent Sexual Abuse: No Total: 0 Total Score Risk Category: Low Risk Copyright: Daniel NAGY predicting aberrant behaviors Diagnosis Discharge Problem: Acute respiratory distress, Hypercapnia Congestive heart failure Qualifiers: Heart failure type: combined systolic and diastolic Heart failure chronicity: acute on chronic Qualified Code(s): I50.43 - Acute on chronic combined systolic (congestive) and diastolic (congestive) heart failure Hypothermia Qualifiers: Encounter type: initial encounter Qualified Code(s): T68.XXXA - Hypothermia, initial encounter Pulmonary edema Qualifiers: Chronicity: acute Qualified Code(s): J81.0 - Acute pulmonary edema
[2019-07-05 02:38] LABS: ABG BASE EXCESS 4.8 mmol/L (-2.0-2.0)
[2019-07-05 02:40] LABS: ABG ALLEN TEST POS; ABG HCO3 35.2 mmol/L (22-26)
[2019-07-05] MEDS ORDERED: LASIX IVP ONE ×3 (03:17→21:00)
[2019-07-05 04:20] LABS: ABG BASE EXCESS 3.8 mmol/L (-2.0-2.0)
[2019-07-05 04:22] LABS: ABG ALLEN TEST POS
--- NOTE | 2019-07-05 05:09 | RAD ---
Chest AP portableIndication: Dyspnea. Decreased oxygen saturationCOMPARISONMay 2019 radiographFINDINGSThere is no pneumothorax. There is cardiomegaly. Patchy pulmonary opacities with increased interstitial markings and fluid along the minor fissure noted. Pleural effusions are probably present in the bases.IMPRESSIONCardiomegaly and worsening pulmonary edema compatible with CHF, with effusions. Underlying infection not entirely excludedElectronically signed by: ANNABELLA LUQUE (July 05, 2019 05:07:15)
[2019-07-05 06:10] LABS: ABG BASE EXCESS 4.5 mmol/L (-2.0-2.0)
[2019-07-05 06:12] LABS: ABG ALLEN TEST POS; ABG HCO3 33.5 mmol/L (22-26)
[2019-07-05 07:17] LABS: BILIRUBIN,URINE NEGATIVE (NEGATIVE); BLOOD/HEMOGLOBIN,URINE NEGATIVE (NEGATIVE); GLUCOSE, URINE NEGATIVE (NEGATIVE); KETONES,URINE 1+ (NEGATIVE); LEUKOCYTE ESTERASE ,URINE 2+ (NEGATIVE); NITRITES,URINE NEGATIVE (NEGATIVE); PROTEIN,URINE 2+ (NEGATIVE); UROBILINOGEN,URINE 1+ (NORMAL)
[2019-07-05 07:19] LABS: APPEARANCE,URINE HAZY (CLEAR); COLOR,URINE YELLOW (YELLOW)
[2019-07-05 07:24] LABS: BACTERIA,URINE NEGATIVE /HPF (NEGATIVE); MUCUS,URINE FEW /HPF (NEGATIVE); RBC,URINE NONE SEEN /HPF (0-3); SQUAMOUS EPITHELIAL CELL,UR NEGATIVE /HPF (NEGATIVE)
[2019-07-05 07:25] LABS: HYALINE CASTS, URINE FEW /LPF (NEGATIVE)
[2019-07-05] MEDS: DUONEB 0.5 MG/3 MG (3 mL) NEB SCH ×4 (08:50→20:00)
[2019-07-05] MEDS ORDERED: NS IV SCH (09:54)
[2019-07-05] MEDS ORDERED: FORTAZ OR TAZICEF IV SCH (09:54)
[2019-07-05] MEDS ORDERED: NS 1/2 1000 ML IV 1,000 ML IV ONE (10:17)
[2019-07-05] MEDS: NS 1/2 1000 ML IV 1,000 ML IV SCH ×2 (10:20→22:51)
[2019-07-05 10:58] LABS: HEMOGLOBIN 7.3 g/dL (13.5-18.0)
[2019-07-05] MEDS: VIBRAMYCIN 100 MG in D5W 250 ML IV 250 ML IV SCH ×2 (11:30→22:00)
[2019-07-05 11:38] LABS: CKMB % 11.7 % (<4); TROPONIN I 0.03 ng/mL (0-1.5)
[2019-07-05 11:39] LABS: LACTIC ACID 1.1 mmol/L (0.4-2.0)
[2019-07-05 11:40] LABS: CREATINE KINASE MB 10.6 ng/mL (0-4.0)
[2019-07-05 11:48] LABS: CALCIUM 8.9 mg/dL (8.5-10.1); CARBON DIOXIDE 30.4 mmol/L (21-32); CREATININE 2.55 mg/dL (0.70-1.30)
[2019-07-05] MEDS ORDERED: PHARMACY CONSULT LTC MEDICATIONS XX SCH (14:00)
[2019-07-05] MEDS ORDERED: NS 250 ML IV 250 ML IV ONE (14:40)
[2019-07-05 20:35] LABS: HEMATOCRIT 26.4 % (42.0-54.0); HEMOGLOBIN 8.6 g/dL (13.5-18.0)
[2019-07-05 21:00] LABS: CKMB % 9.7 % (<4); TROPONIN I 0.05 ng/mL (0-1.5)
[2019-07-05] MEDS ORDERED: FORTAZ or TAZICEF VIAL INJ 1 G in NS 100 ML IV + SPIKE MINIBAG* 100 ML IV SCH (21:00)
[2019-07-05 21:04] LABS: CREATINE KINASE MB 7.3 ng/mL (0-4.0)
--- NOTE | 2019-07-05 22:31 | DR.H&P ---
H&P - History & Physical for Day of: H&P Date: 07/05/19 - Chief Complaint Chief Complaint: DECREASED OXYGEN SATURATIONS - History of Present Illness History of Present Illness: IS A 74 YEAR OLD PATIENT OF OURS. HE IS A RESIDENT OF [facility]. HE PRESENTED TO THE ER WITH CUSTODIAL STAFF REPORTING DECREASED OXYGEN SATURATIONS. OXYGEN SATURATIONS HAVE BEEN 50- 60% DESPITE BEING ON THE CPAP WITH 4L OF OXYGEN. ON ARRIVAL TO THE ER, PATIENT WAS NOTED TO BE LETHARGIC, HOWEVER, OXYGEN SATURATIONS WERE NOTED TO BE 98-99% ON 2LPM NASAL CANNULA. SYMPTOMS STARTED EARLIER IN THE EVENING, PRIOR TO ARRIVAL. PATIENT HAS A PMH OF ANEMIA, ARTHRITIS, CAD, DEPRESSION, DIABETES, DYSLIPIDEMIA, HTN, LIVER DISEASE, CHF, AND COPD. ON ARRIVAL TO THE ER, VITALS WERE 96.0-58-23-99%NC-137/63. LABS WERE OBTAINED. ABNORMAL LAB VALUES INCLUDED THE FOLLOWING: RBC 2.78, HGB 7.6, HCT 23.6, CORRECTED SODIUM 149, POTASSIUM 5.2, CARBON DIOXIDE 32.6, BUN 33, CREAININE 2.38, GLUCOSE 304, AST 42, BNP 229, ALBUMIN 3.0, CK-MB 10.6. AN ABG WAS OBTAINED AND REVEALED: PH 7.220, PC02 86.0, P02 63.0, HC03 35.2, 02 SATURATION 87.0, BASE EXCESS 4.8, FI02 21.0. URINALYSIS REVEALED: WBC 0-2, LEUKOCYTES 2+, BACTERIA NEGATIVE. A CHEST XRAY WAS OBTAINED A ND REVEALED: Cardiomegaly and worsening pulmonary edema compatible with CHF, with effusions. Underlying infection not entirely excluded. EKG REVEALED: SINUS RHYTHM WITH HR 64. HE WAS PLACED ON THE BIPAP WITH SETTINGS 20/10, RATE OF 20, O2 @ 40%. HE WAS GIVEN LASIX 40MG IV X 1 DOSE. PATIENT WAS ADMITTED TO THE HOSPITAL FOR FURTHER EVALUATION OF CHF, RESPIRATORY FAILURE WITH HYPERCAPNIA, AND PULMONARY EDEMA. HE WAS STARTED ON 1/2NS AT 50 ML/HR, MORPHINE 2MG IV Q6H PRN, DOXYCYCLINE 100MG IV A12H, FORTAZ 1G IV Q12H, AND DUONEBS QID. WE WILL OBTAIN A LACTIC ACID, HGB Q6H, SERIAL CARDIAC ENZYMES AND EKGS, START NS AT 50 ML/HR, AND WILL ADMINISTER LASIX 20MG IV X 1 DOSE THIS PM. IF HIS HEMOGLOBIN CONTINUES TO DROP, WE WILL TRANSFUSE TWO UNITS OF PRBC. OTHERWISE, WE PLAN TO FOLLOW UP WITH AM LABS AND CONTINUE TO MONITOR. - Past Medical History Past Medical History: Coronary Artery Disease, Hypertension, Dyslipidemia, Diabetes, Liver Disease, Depression, Anemia, Seizures, Arthritis - Past Surgical History Surgical History: Appendectomy - Family History Family Medical History: Diabetes Mellitus, Cancer, [place], Hypertension - Social History Does patient currently use any type of tobacco product: No Have you used tobacco products in the last 12 months: No Type of Tobacco Use: None Does any household member use tobacco: No Alcohol Use: None Drug Use: None - Medications Home Medications: No Known Drug Allergies Allergy (Verified 07/02/19 13:21) CONTINUE taking the following medications clonazepam [Klonopin] 0.5 mg PO BID 07/05/19 [History] losartan 50 mg PO HS 07/05/19 [History] - Review of Systems Constitutional: See HPI, Weakness. denies: Fever Eyes: No Symptoms Reported ENT: No Symptoms Reported Respiratory: No Symptoms Reported Cardiovascular: Edema (BLE AND BUE 2+ PITTING EDEMA) Gastrointestinal: No Symptoms Reported Genitourinary: No Symptoms Reported Musculoskeletal: No Symptoms Reported Skin: No Symptoms Reported Neurological: Weakness - Physical Exam Vital Signs: Temperature 98.6 F Pulse Rate [Right Brachial] 61 Pulse Rate 90 Respiratory Rate 20 Blood Pressure [Right Arm] 107/55 Blood Pressure 151/66 O2 Sat by Pulse Oximetry 99 Oriented: Unable to test Eyes: Normal Ear: Normal Nose: Normal Throat: Normal Respiratory: Rhonchi Throughout, Wheezes Throughout Cardiovascular: Edema (BLE AND BUE 2+ PITTING EDEMA ). negative: S3, S4, Murmur : Normal Auscultation: Bowel Sounds: Normal Palpation: Normal Tenderness: Normal Skin: Normal Musculoskeletal: Normal Psychiatric: Normal Mood Description: Calm Affect: Normal Speech Pattern: Clear - Assessment/Plan (1) Respiratory failure with hypoxia and hypercapnia Qualifiers: Chronicity: acute on chronic Qualified Code(s): J96.21 - Acute and chronic respiratory failure with hypoxia; J96.22 - Acute and chronic respiratory failure with hypercapnia Status: Acute Plan: ADMIT, BIPAP, 1/2NS AT 50 ML/HR, MORPHINE 2MG IV Q6H PRN, DOXYCYCLINE 100MG IV A12H, FORTAZ 1G IV Q12H, AND DUONEBS QID. WE WILL OBTAIN A LACTIC ACID, HGB Q6H, SERIAL CARDIAC ENZYMES AND EKGS, START NS AT 50 ML/HR, AND WILL ADMINISTER LASIX 20MG IV X 1 DOSE THIS PM. TRANSFUSE 2 UNITS PRBC IF HGB DROPS, CONTINUE TO MONITOR (2) CHF (congestive heart failure) Qualifiers: Heart failure type: unspecified Heart failure chronicity: acute on chronic Qualified Code(s): I50.9 - Heart failure, unspecified Status: Acute (3) Pleural effusion Status: Acute Plan: IV FORTAZ, IV DOXY, RESPIRATORY TX, CONTINUE TO MONITOR (4) Pulmonary edema Qualifiers: Chronicity: acute Qualified Code(s): J81.0 - Acute pulmonary edema Status: Acute (5) Anemia Qualifiers: Anemia type: iron deficiency Iron deficiency anemia type: unspecified iron deficiency Qualified Code(s): D50.9 - Iron deficiency anemia, unspecified Status: Acute Plan: MONITOR H&H, TRANSFUSE 2 UNITS PRBC IF HGB DROPS (6) Acute dehydration Status: Acute Plan: 1/2NS AT 50 ML/HR, CONTINUE TO MONITOR - Allergies Allergies/Adverse Reactions: Allergies Allergy/AdvReac Type Severity Reaction Status Date / Time No Known Drug Allergies Allergy Verified 07/02/19 13:21
[2019-07-05] MEDS ORDERED: TYLENOL 325 MG TAB PO PRN (22:38)
[2019-07-06] MEDS ORDERED: D50W ABBOJECT SYR IV ONE (00:28)
[2019-07-06] MEDS ORDERED: D50W ABBOJECT SYR ONE (00:33)
[2019-07-06 04:11] LABS: ABG BASE EXCESS 8.8 mmol/L (-2.0-2.0)
[2019-07-06 04:12] LABS: ABG ALLEN TEST POS; ABG HCO3 35.7 mmol/L (22-26)
[2019-07-06] MEDS ORDERED: NS 1/2 1000 ML IV 1,000 ML IV ONE (05:19)
[2019-07-06 05:26] LABS: BASOPHILS % (AUTO) 0.2 % (0.2-1.0); EOSINOPHILS # (AUTO) 0.1 x10^3/uL (0.0-0.2); EOSINOPHILS % (AUTO) 1.8 % (0.9-2.9); HEMATOCRIT 28.9 % (42.0-54.0); HEMOGLOBIN 9.5 g/dL (13.5-18.0); LYMPHOCYTES # (AUTO) 0.7 X10^3/uL (1.3-2.9); LYMPHOCYTES % (AUTO) 11.1 % (21.0-51.0); MEAN CORPUSCULAR HEMOGLOBIN 27.5 pg (27.0-34.0); MEAN CORPUSCULAR HGB CONC 32.8 g/dL (33.0-35.0); MEAN CORPUSCULAR VOLUME 83.8 fL (80.0-100.0); MEAN PLATELET VOLUME 8.9 fL (7.4-11.0); MONOCYTES # (AUTO) 0.7 x10^3/uL (0.3-0.8); MONOCYTES % (AUTO) 10.9 % (0.0-13.0); NEUTROPHILS # (AUTO) 4.7 x10^3/uL (2.2-4.8); PLATELET COUNT 162 X10^3/uL (150.0-450.0); RED BLOOD COUNT 3.45 X10^6/uL (4.7-6.0); RED CELL DISTRIBUTION WIDTH 18.9 % (11.6-16.5); WHITE BLOOD COUNT 6.2 X10^3/uL (3.6-10.0)
[2019-07-06 05:41] LABS: ALANINE AMINOTRANSFERASE 41 Units/L (12-78); ALBUMIN 2.9 g/dL (3.4-5.0); ALKALINE PHOSPHATASE 81 Units/L (46-116); ASPARTATE AMINO TRANSFERASE 43 Units/L (15-37); BLOOD UREA NITROGEN 34 mg/dL (7-18); CALCIUM 8.9 mg/dL (8.5-10.1); CARBON DIOXIDE 33.3 mmol/L (21-32); CHLORIDE 108 mmol/L (98-107); COR CA(FOR HYPOALB) 9.8 mg/dL (8.5-10.1); CREATININE 2.26 mg/dL (0.70-1.30); MAGNESIUM 2.1 mg/dL (1.7-2.9); SODIUM 147 mmol/L (136-145); TOTAL PROTEIN 6.7 g/dL (6.4-8.2); eGFR NON BLACK RACES 30 (>60)
[2019-07-06] MEDS: NS 1/2 1000 ML IV 1,000 ML IV SCH (05:44)
--- NOTE | 2019-07-06 06:51 | RAD ---
HISTORYShortness of breathSTUDYCHEST, 1 [id number]/11/2020FINDINGSThe heart remains enlarged. Pulmonary venous congestion is present. No definite interstitial or alveolar edema identified. No definite pleural effusions identified. The right hemidiaphragm is elevated. Bony thorax is unremarkable.IMPRESSIONContinued cardiomegaly with pulmonary venous congestionNo definite acute alveolar infiltrates, interstitial, or alveolar edema or pleural effusions identified.Electronically signed by: KATHRINE FALLON (July 06, 2019 06:50:17)
[2019-07-06] MEDS ORDERED: MULTIVITAMIN PO SCH (09:00)
[2019-07-06] MEDS ORDERED: LACTOBACILLUS ACIDOPHILUS CELL PO SCH (09:00)
[2019-07-06 09:05] LABS: CKMB % 7.4 % (<4); TROPONIN I 0.1 ng/mL (0-1.5)
[2019-07-06 09:07] LABS: CREATINE KINASE MB 5.1 ng/mL (0-4.0)
[2019-07-06] MEDS ORDERED: LASIX IVP ONE (09:26)
[2019-07-06] MEDS: DUONEB 0.5 MG/3 MG (3 mL) NEB SCH ×4 (09:50→21:00)
[2019-07-06] MEDS: ARICEPT TAB 10 MG PO SCH (10:02)
[2019-07-06] MEDS: FORTAZ or TAZICEF VIAL INJ 1 G in NS 100 ML IV 100 ML IV SCH ×2 (10:02→20:28)
[2019-07-06] MEDS: NAMENDA TAB 10 MG PO SCH (10:03)
[2019-07-06] MEDS: ZyrTEC TAB 10 MG PO SCH (10:03)
[2019-07-06] MEDS: KLONOPIN TAB 0.5 MG PO SCH ×2 (10:03→20:29)
[2019-07-06] MEDS: ZyPREXA TAB 5 MG PO SCH ×2 (10:04→20:30)
[2019-07-06] MEDS: TAB-A-VITE PO SCH (10:04)
[2019-07-06] MEDS: VSL#3 PO SCH (10:08)
[2019-07-06] MEDS: THEO-DUR TAB 300 MG 12-HR PO SCH ×2 (10:08→20:29)
[2019-07-06] MEDS: VIBRAMYCIN 100 MG in D5W 250 ML IV 250 ML IV SCH ×2 (10:09→21:58)
[2019-07-06] MEDS ORDERED: LASIX ONE (12:16)
[2019-07-06] MEDS: D5 1/2 NS 1000 ML 1,000 ML IV SCH (12:29)
[2019-07-06] MEDS: SOLU-Medrol 40 MG VIAL IVP SCH ×3 (12:32→21:06)
[2019-07-06] MEDS: SNACK - Diabetic Appropriate PO SCH (20:15)
[2019-07-06] MEDS: COZAAR PO SCH (20:28)
[2019-07-06] MEDS: VITAMIN C PO SCH (20:29)
[2019-07-06] MEDS: VITAMIN D3 25 mcg (1,000 UNITS) PO SCH (20:29)
[2019-07-06] MEDS: LIPITOR TAB 10 MG PO SCH (20:29)
[2019-07-06] MEDS: HumuLIN R SC PRN (20:35)
[2019-07-06] MEDS ORDERED: CHOLECALCIFEROL 25 MCG PO SCH (21:00)
[2019-07-06] MEDS: MORPHINE SULFATE INJ 2 MG INJ IVP PRN (23:01)
[2019-07-07] MEDS: SOLU-Medrol 40 MG VIAL IVP SCH ×3 (05:29→21:07)
[2019-07-07] MEDS: HumuLIN R SC PRN ×4 (05:29→21:08)
[2019-07-07 05:38] LABS: BASOPHILS % (AUTO) 0.2 % (0.2-1.0); HEMATOCRIT 29.1 % (42.0-54.0); HEMOGLOBIN 9.5 g/dL (13.5-18.0); LYMPHOCYTES # (AUTO) 0.3 X10^3/uL (1.3-2.9); LYMPHOCYTES % (AUTO) 8.2 % (21.0-51.0); MEAN CORPUSCULAR HEMOGLOBIN 27.3 pg (27.0-34.0); MEAN CORPUSCULAR HGB CONC 32.7 g/dL (33.0-35.0); MEAN CORPUSCULAR VOLUME 83.4 fL (80.0-100.0); MEAN PLATELET VOLUME 8.6 fL (7.4-11.0); MONOCYTES # (AUTO) 0.1 x10^3/uL (0.3-0.8); MONOCYTES % (AUTO) 3.1 % (0.0-13.0); NEUTROPHILS # (AUTO) 3.6 x10^3/uL (2.2-4.8); NEUTROPHILS % (AUTO) 88.5 % (42.0-75.0); PLATELET COUNT 200 X10^3/uL (150.0-450.0); RED BLOOD COUNT 3.49 X10^6/uL (4.7-6.0); RED CELL DISTRIBUTION WIDTH 19.1 % (11.6-16.5)
[2019-07-07 05:50] LABS: ABG BASE EXCESS 6.6 mmol/L (-2.0-2.0)
[2019-07-07 05:53] LABS: ABG ALLEN TEST POS; ABG HCO3 32.8 mmol/L (22-26)
[2019-07-07 05:56] LABS: ALBUMIN 3.1 g/dL (3.4-5.0); CALCIUM 9.1 mg/dL (8.5-10.1); CARBON DIOXIDE 32.5 mmol/L (21-32); COR CA(FOR HYPOALB) 9.8 mg/dL (8.5-10.1); CREATININE 1.91 mg/dL (0.70-1.30); TOTAL PROTEIN 6.9 g/dL (6.4-8.2)
--- NOTE | 2019-07-07 06:49 | RAD ---
HISTORYShortness of breathSTUDYCHEST, 1 [id number]/12/2020FINDINGSThe heart remains enlarged. Mild pulmonary venous congestion is present. No interstitial edema or alveolar edema or pleural effusions identified. There is a subtle right upper lobe infiltrate now visualized. Bony thorax is unremarkable.IMPRESSIONCardiomegaly with mild pulmonary venous congestionSubtle right upper lobe infiltrate now visualizedElectronically signed by: KATHRINE FALLON (July 07, 2019 06:48:13)
[2019-07-07] MEDS: TAB-A-VITE PO SCH (08:38)
[2019-07-07] MEDS: FORTAZ or TAZICEF VIAL INJ 1 G in NS 100 ML IV 100 ML IV SCH ×2 (08:56→20:44)
[2019-07-07] MEDS: KLONOPIN TAB 0.5 MG PO SCH ×2 (08:56→20:45)
[2019-07-07] MEDS: ARICEPT TAB 10 MG PO SCH (08:56)
[2019-07-07] MEDS: NAMENDA TAB 10 MG PO SCH (08:56)
[2019-07-07] MEDS: ZyPREXA TAB 5 MG PO SCH ×2 (08:57→20:47)
[2019-07-07] MEDS: THEO-DUR TAB 300 MG 12-HR PO SCH ×2 (08:57→20:46)
[2019-07-07] MEDS: VSL#3 PO SCH (08:57)
[2019-07-07] MEDS: ZyrTEC TAB 10 MG PO SCH (08:58)
[2019-07-07] MEDS: D5 1/2 NS 1000 ML 1,000 ML IV SCH ×2 (09:28→16:38)
[2019-07-07] MEDS: DUONEB 0.5 MG/3 MG (3 mL) NEB SCH ×4 (10:10→21:15)
[2019-07-07] MEDS: VIBRAMYCIN 100 MG in D5W 250 ML IV 250 ML IV SCH ×2 (10:15→22:05)
[2019-07-07] MEDS: ELIQUIS PO SCH (13:26)
--- NOTE | 2019-07-07 14:49 | PCM.PROG ---
Progress Note - Progress Note for Day of Date of Exam: 07/06/19 - Subjective Subjective: IS BEING TREATED FOR CHF, RESPIRATORY FAILURE WITH HYPERCAPNIA AND HYPOXIA, ANEMIA, AND PULMONARY EDEMA. HE RECEIVED TWO UNITS OF PRBC YESTERDAY. TODAY, HE REMAINS IN THE INTENSIVE CARE UNIT. HE IS SITTING UP IN BED, WITH STAFF ASSITING HIM WITH BREAKFAST THIS MORNING. STAFF REPORTS THAT HE CONTINUES WITH AGITATION AND DISORIENTATION AT TIMES. HE DENIES PAIN THIS MORNING. HE DOES ADMIT TO SHORTNESS OF BREATH. HE IS NOTED TO HAVE A NON- PRODUCTIVE COUGH. ON EXAMINATION, HEART IS REGULAR IN RATE AND RHYTHM. BILATERAL LUNGS ARE NOTED WITH SCATTERED WHEEZING AND RHONCHI THROUGHOUT. ABDOMEN IS ROUND, SOFT, AND NON-TENDER. NORMAL BOWEL SOUNDS ARE NOTED IN ALL QUADRANTS. BILATERAL UPPER AND LOWER EXTREMITIES CONTINUE WITH 2+ PITTING EDEMA. HIS VITALS THIS MORNING ARE: 98.1-89-17-99%-164/74. LABS WERE OBTAINED. ABNORMAL LAB VALUES INCLUDE THE FOLLOWING: RBC 3.45, HGB 9.5, HCT 28.9, SODIUM 147, CHLORIDE 108, CARBON DIOXIDE 33.3, BUN 34, CREATININE 2.26, ALBUMIN 2.9, CK-MB 7.3. A CHEST XRAY WAS REPEATED THIS MORNING AND REVEALED: Continued cardiomegaly with pulmonary venous congestion. No definite acute alveolar infiltrates, interstitial, or alveolar edema or pleural effusions identified. HE IS CURRENTLY RECEIVING D51/2NS AT 50 ML/HR, MORPHINE 2MG IV Q6H PRN, DOXYCYCLINE 100MG IV Q12H, FORTAZ 1G IV Q12H, DUONEBS QID, HUMULIN R SLIDING SCALE, AND HIS HOME MEDICATIONS WERE RESUMED. TODAY, WE WILL START SOLU-MEDROL 40MG IV Q8H AND ADMINISTER LASIX 20MG IV X 1 DOSE. OTHERWISE, WE WILL FOLLOW UP WITH AM LABS AND CONTINUE TO MONITOR. - Past Medical Family Social History Past Med/Fam/Surg Hx: No changes since H&P Allergies: Allergies No Known Drug Allergies Allergy (Verified 07/02/19 13:21) - Review of Systems ROS: No change since H&P - Vital Signs and I&O's Vital Signs: Temperature 99 F Pulse Rate [Right Brachial] 94 Pulse Rate 97 Respiratory Rate 20 Blood Pressure [Left Arm] 171/76 Blood Pressure [Right Arm] 107/55 Blood Pressure 168/76 O2 Sat by Pulse Oximetry 94 Intake and Output: Intake & Output 07/05/19 07/06/19 07/07/19 07/08/19 11:59 11:59 11:59 11:59 Intake Total 1727 / 1727 2079 / 2079 Output Total 1500 / 1500 2149 / 2149 Balance 227 / 227 -70 / -70 - Physical Exam Oriented: Not Oriented Eyes: Normal Ear: Normal Nose: Normal Throat: Normal Respiratory: Wheezes, Rhonchi Cardiovascular: Edema (BLE AND BUE 2+ PITTING EDEMA ). negative: S3, S4, Murmur : Normal Auscultation: Bowel Sounds: Normal Palpation: Normal Tenderness: Normal Skin: Normal Musculoskeletal: Normal Psychiatric: Normal Mood Description: Calm Affect: Normal Speech Pattern: Clear - Laboratory and Diagnostics Result Diagrams: 07/07/19 05:27 07/07/19 05:27 Labs: Laboratory WBC 4.0 X10^3/uL (3.6-10.0) 07/07/19 05:27 RBC 3.49 X10^6/uL (4.7-6.0) L 07/07/19 05:27 Hgb 9.5 g/dL (13.5-18.0) L 07/07/19 05:27 Hct 29.1 % (42.0-54.0) L 07/07/19 05:27 MCV 83.4 fL (80.0-100.0) 07/07/19 05:27 MCH 27.3 pg (27.0-34.0) 07/07/19 05:27 MCHC 32.7 g/dL (33.0-35.0) L 07/07/19 05:27 RDW 19.1 % (11.6-16.5) H 07/07/19 05:27 Plt Count 200 X10^3/uL (150.0-450.0) 07/07/19 05:27 MPV 8.6 fL (7.4-11.0) 07/07/19 05:27 Neut % (Auto) 88.5 % (42.0-75.0) H 07/07/19 05:27 Lymph % (Auto) 8.2 % (21.0-51.0) L 07/07/19 05:27 [place] % (Auto) 3.1 % (0.0-13.0) 07/07/19 05:27 Eos % (Auto) 0.0 % (0.9-2.9) L 07/07/19 05:27 Baso % (Auto) 0.2 % (0.2-1.0) 07/07/19 05:27 Neut # (Auto) 3.6 x10^3/uL (2.2-4.8) 07/07/19 05:27 Lymph # (Auto) 0.3 X10^3/uL (1.3-2.9) L 07/07/19 05:27 [place] # (Auto) 0.1 x10^3/uL (0.3-0.8) L 07/07/19 05:27 Eos # (Auto) 0.0 x10^3/uL (0.0-0.2) 07/07/19 05:27 Baso # (Auto) 0.0 X10^3/uL (0.0-0.1) 07/07/19 05:27 Absolute Nucleated RBC 0.5 /100WBC 07/07/19 05:27 PT 15.2 SECONDS (11.8-14.3) 07/06/19 05:05 INR Target Range - 07/06/19 05:05 INR 1.23 (0.8-1.3) 07/06/19 05:05 APTT 47.1 SECONDS (22.9-36.5) H 07/06/19 05:05 PTT Comment - 07/06/19 05:05 Sample Site Rrad 07/07/19 05:44 ABG pH 7.400 (7.35-7.45) 07/07/19 05:44 ABG pCO2 53.0 mmHg (35.0-45.0) H* 07/07/19 05:44 ABG pO2 102.0 mmHg (80.0-100.0) H 07/07/19 05:44 ABG HCO3 32.8 mmol/L (22-26) H* 07/07/19 05:44 ABG O2 Saturation 98.0 % (90-100) 07/07/19 05:44 ABG Base Excess 6.6 mmol/L (-2.0-2.0) H 07/07/19 05:44 Ganesh Test Pos 07/07/19 05:44 A-a Gradient 117.0 mmHg 07/07/19 05:44 FiO2 40.0 07/07/19 05:44 Blood Gas Comments Katy abg well-mtf 07/07/19 05:44 Sodium 145 mmol/L (136-145) 07/07/19 05:27 Corrected Sodium 149 mmol/L (136-145) H 07/07/19 05:27 Potassium 4.9 mmol/L (3.5-5.1) 07/07/19 05:27 Chloride 106 mmol/L (98-107) 07/07/19 05:27 Carbon Dioxide 32.5 mmol/L (21-32) H 07/07/19 05:27 BUN 38 mg/dL (7-18) H 07/07/19 05:27 Creatinine 1.91 mg/dL (0.70-1.30) H 07/07/19 05:27 Est GFR (MDRD) Af Amer 45 (>60) L 07/07/19 05:27 Est GFR (MDRD) Non-Af 37 (>60) L 07/07/19 05:27 Glucose 273 mg/dL (65-99) H 07/07/19 05:27 Lactic Acid 1.1 mmol/L (0.4-2.0) 07/05/19 10:40 Calcium 9.1 mg/dL (8.5-10.1) 07/07/19 05:27 Corrected Calcium 9.8 mg/dL (8.5-10.1) 07/07/19 05:27 Magnesium 2.1 mg/dL (1.7-2.9) 07/06/19 05:08 Total Bilirubin 0.80 mg/dL (0.2-1.0) 07/07/19 05:27 AST 29 Units/L (15-37) 07/07/19 05:27 ALT 35 Units/L (12-78) 07/07/19 05:27 Alkaline Phosphatase 82 Units/L (46-116) 07/07/19 05:27 Creatine Kinase 69 Units/L (39-308) 07/06/19 05:08 CK-MB (CK-2) 5.1 ng/mL (0-4.0) H* 07/06/19 05:08 CK/CKMB % Calc 7.4 % (<4) 07/06/19 05:08 Troponin I 0.10 ng/mL (0-1.5) 07/06/19 05:08 Total Protein 6.9 g/dL (6.4-8.2) 07/07/19 05:27 Albumin 3.1 g/dL (3.4-5.0) L 07/07/19 05:27 Globulin 3.8 g/dL (2.5-4.5) 07/07/19 05:27 Albumin/Globulin Ratio 0.8 Ratio (1.1-2.1) L 07/07/19 05:27 Specimen Type Catherized urine 07/05/19 07:08 Urine Color Yellow (YELLOW) 07/05/19 07:08 Urine Appearance Hazy (CLEAR) 07/05/19 07:08 Urine pH 5.0 (5.0 - 8.0) 07/05/19 07:08 Ur Specific [place] 1.025 (1.000-1.030) 07/05/19 07:08 Urine Protein 2+ (NEGATIVE) 07/05/19 07:08 Urine Glucose (UA) Negative (NEGATIVE) 07/05/19 07:08 Urine Ketones 1+ (NEGATIVE) 07/05/19 07:08 Urine Occult Blood Negative (NEGATIVE) 07/05/19 07:08 Urine Nitrite Negative (NEGATIVE) 07/05/19 07:08 Urine Bilirubin Negative (NEGATIVE) 07/05/19 07:08 Urine Urobilinogen 1+ (NORMAL) 07/05/19 07:08 Ur Leukocyte Esterase 2+ (NEGATIVE) 07/05/19 07:08 Urine RBC None seen /HPF (0-3) 07/05/19 07:08 Urine WBC 0-2 /HPF (0-5) 07/05/19 07:08 Ur Squamous Epith Cells Negative /HPF (NEGATIVE) 07/05/19 07:08 Urine Bacteria Negative /HPF (NEGATIVE) 07/05/19 07:08 Hyaline Casts Few /LPF (NEGATIVE) 07/05/19 07:08 Urine Mucus Few /HPF (NEGATIVE) 07/05/19 07:08 Ur Culture Indicated? No/not indicated 07/05/19 07:08 Blood Type O POSITIVE 07/05/19 10:40 Antibody Screen Negative 05/11/20 10:40 Crossmatch See Detail 07/05/19 10:40 - Plan (1) Respiratory failure with hypoxia and hypercapnia Status: Acute Qualifiers: Chronicity: acute on chronic Qualified Code(s): J96.21 - Acute and chronic respiratory failure with hypoxia; J96.22 - Acute and chronic respiratory failure with hypercapnia Plan: BIPAP, D51/2AT 50 ML/HR, MORPHINE 2MG IV Q6H PRN, DOXYCYCLINE 100MG IV Q12H, FORTAZ 1G IV Q12H, SOLU-MEDROL 40MG IV Q8H, AND DUONEBS QID. LASIX 20MG IV X 1 DOSE. (2) CHF (congestive heart failure) Status: Chronic Qualifiers: Heart failure type: unspecified Heart failure chronicity: acute on chronic Qualified Code(s): I50.9 - Heart failure, unspecified (3) Pleural effusion Status: Acute Plan: IV FORTAZ, IV DOXY, RESPIRATORY TX, CONTINUE TO MONITOR (4) Pulmonary edema Status: Inactive Qualifiers: Chronicity: acute Qualified Code(s): J81.0 - Acute pulmonary edema (5) Anemia Status: Acute Qualifiers: Anemia type: iron deficiency Iron deficiency anemia type: unspecified iron deficiency Qualified Code(s): D50.9 - Iron deficiency anemia, unspecified Plan: MONITOR H&H, TRANSFUSE 2 UNITS PRBC IF HGB DROPS (6) Acute dehydration Status: Inactive Plan: 1/2NS AT 50 ML/HR, CONTINUE TO MONITOR
[2019-07-07] MEDS: MORPHINE SULFATE INJ 2 MG INJ IVP PRN (16:38)
[2019-07-07] MEDS: COZAAR PO SCH (20:44)
[2019-07-07] MEDS: SNACK - Diabetic Appropriate PO SCH (20:44)
[2019-07-07] MEDS: LIPITOR TAB 10 MG PO SCH (20:45)
[2019-07-07] MEDS: VITAMIN D3 25 mcg (1,000 UNITS) PO SCH (20:47)
[2019-07-07] MEDS: VITAMIN C PO SCH (20:47)
--- NOTE | 2019-07-07 22:37 | PCM.PROG ---
Progress Note - Progress Note for Day of Date of Exam: 07/07/19 - Subjective Subjective: IS BEING TREATED FOR CHF, RESPIRATORY FAILURE WITH HYPERCAPNIA AND HYPOXIA, ANEMIA, AND PULMONARY EDEMA. HE HAS RECEIVED TWO UNITS OF PRBC SINCE ADMISSION. TODAY, HE IS LYING IN BED WITH EYES CLOSED ON MORNING ROUNDS. HE IS CURRENTLY WEARING THE BIPAP. HE OPENS EYES TO VERBAL STIMULI. STAFF REPORTS THAT HE CONTINUES WITH AGITATION AND DISORIENTATION AT TIMES. HE DENIES PAIN THIS MORNING. HE DOES ADMIT TO SHORTNESS OF BREATH AND CONTINUES WITH A NON-PRODUCTIVE COUGH. ON EXAMINATION, HEART IS REGULAR IN RATE AND RHYTHM. BILATERAL LUNGS ARE NOTED WITH SCATTERED WHEEZING AND RHONCHI THROUGHOUT. ABDOMEN IS ROUND, SOFT, AND NON-TENDER. NORMAL BOWEL SOUNDS ARE NOTED IN ALL QUADRANTS. BILATERAL UPPER AND LOWER EXTREMITIES CONTINUE WITH 2+ PITTING EDEMA. HIS VITALS THIS MORNING ARE: 99.2-93-21-97%-159/78. LABS WERE OBTAINED. ABNORMAL LAB VALUES INCLUDE THE FOLLOWING: RBC 3.49, HGB 9.5, HCT 29.1, SODIUM 149, CRBON DIOXIDE 32.5, BUN 38, CREATININE 1.91, GLUCOSE 273, ALBUMIN 3.1. AN ABG WAS OBTAINED AND REVEALED: PH 7.400, PC02 53.0, P02 102.0, HC03 32.8, 02 SATURATION 98.0, BASE EXCESS 6.6, FI02 40.0. A CHEST XRAY WAS REPEATED THIS MORNING AND REVEALED: Cardiomegaly with mild pulmonary venous congestion. Subtle right upper lobe infiltrate now visualized. HE IS CURRENTLY RECEIVING D51/2NS AT 50 ML/HR, MORPHINE 2MG IV Q6H PRN, SOLU-MEDROL 40MG IV Q8H, DOXYCYCLINE 100MG IV Q12H, FORTAZ 1G IV Q12H, DUONEBS QID, HUMULIN R SLIDING SCALE, AND HIS HOME MEDICATIONS WERE RESUMED. TODAY, WE WILL START ELIQUIS 2.5MG PO DAILY FOR DVT PROPHYLAXIS. OTHERWISE, WE WILL CONTINUE WITH CURRENT PLAN OF CARE. WE WILL FOLLOW UP WITH AM LABS AND CONTINUE TO MONITOR. - Past Medical Family Social History Past Med/Fam/Surg Hx: No changes since H&P Allergies: Allergies No Known Drug Allergies Allergy (Verified 07/02/19 13:21) - Review of Systems ROS: No change since H&P - Vital Signs and I&O's Vital Signs: Temperature 97.9 F Pulse Rate [Right Brachial] 115 Pulse Rate 109 Respiratory Rate 20 Blood Pressure [Left Arm] 177/90 Blood Pressure [Right Arm] 107/55 Blood Pressure 168/76 O2 Sat by Pulse Oximetry 96 Intake and Output: Intake & Output 07/05/19 07/06/19 07/07/19 07/08/19 11:59 11:59 11:59 11:59 Intake Total 1727 / 1727 2080 / 2080 880 / 880 Output Total 1500 / 1500 2150 / 2150 Balance 227 / 227 -70 / -70 880 / 880 - Physical Exam Oriented: Not Oriented Eyes: Normal Ear: Normal Nose: Normal Throat: Normal Respiratory: Wheezes, Rhonchi Cardiovascular: Edema (BLE AND BUE 2+ PITTING EDEMA ). negative: S3, S4, Murmur : Normal Auscultation: Bowel Sounds: Normal Tenderness: Normal Skin: Normal Musculoskeletal: Normal Psychiatric: Normal Mood Description: Calm Affect: Normal Speech Pattern: Clear - Laboratory and Diagnostics Result Diagrams: 07/07/19 05:27 07/07/19 05:27 Labs: Laboratory WBC 4.0 X10^3/uL (3.6-10.0) 07/07/19 05:27 RBC 3.49 X10^6/uL (4.7-6.0) L 07/07/19 05:27 Hgb 9.5 g/dL (13.5-18.0) L 07/07/19 05:27 Hct 29.1 % (42.0-54.0) L 07/07/19 05:27 MCV 83.4 fL (80.0-100.0) 07/07/19 05:27 MCH 27.3 pg (27.0-34.0) 07/07/19 05:27 MCHC 32.7 g/dL (33.0-35.0) L 07/07/19 05:27 RDW 19.1 % (11.6-16.5) H 07/07/19 05:27 Plt Count 200 X10^3/uL (150.0-450.0) 07/07/19 05:27 MPV 8.6 fL (7.4-11.0) 07/07/19 05:27 Neut % (Auto) 88.5 % (42.0-75.0) H 07/07/19 05:27 Lymph % (Auto) 8.2 % (21.0-51.0) L 07/07/19 05:27 [place] % (Auto) 3.1 % (0.0-13.0) 07/07/19 05:27 Eos % (Auto) 0.0 % (0.9-2.9) L 07/07/19 05:27 Baso % (Auto) 0.2 % (0.2-1.0) 07/07/19 05:27 Neut # (Auto) 3.6 x10^3/uL (2.2-4.8) 07/07/19 05:27 Lymph # (Auto) 0.3 X10^3/uL (1.3-2.9) L 07/07/19 05:27 [place] # (Auto) 0.1 x10^3/uL (0.3-0.8) L 07/07/19 05:27 Eos # (Auto) 0.0 x10^3/uL (0.0-0.2) 07/07/19 05:27 Baso # (Auto) 0.0 X10^3/uL (0.0-0.1) 07/07/19 05:27 Absolute Nucleated RBC 0.5 /100WBC 07/07/19 05:27 PT 15.2 SECONDS (11.8-14.3) 07/06/19 05:05 INR Target Range - 07/06/19 05:05 INR 1.23 (0.8-1.3) 07/06/19 05:05 APTT 47.1 SECONDS (22.9-36.5) H 07/06/19 05:05 PTT Comment - 07/06/19 05:05 Sample Site Rrad 07/07/19 05:44 ABG pH 7.400 (7.35-7.45) 07/07/19 05:44 ABG pCO2 53.0 mmHg (35.0-45.0) H* 07/07/19 05:44 ABG pO2 102.0 mmHg (80.0-100.0) H 07/07/19 05:44 ABG HCO3 32.8 mmol/L (22-26) H* 07/07/19 05:44 ABG O2 Saturation 98.0 % (90-100) 07/07/19 05:44 ABG Base Excess 6.6 mmol/L (-2.0-2.0) H 07/07/19 05:44 Ganesh Test Pos 07/07/19 05:44 A-a Gradient 117.0 mmHg 07/07/19 05:44 FiO2 40.0 07/07/19 05:44 Blood Gas Comments Katy abg well-mtf 07/07/19 05:44 Sodium 145 mmol/L (136-145) 07/07/19 05:27 Corrected Sodium 149 mmol/L (136-145) H 07/07/19 05:27 Potassium 4.9 mmol/L (3.5-5.1) 07/07/19 05:27 Chloride 106 mmol/L (98-107) 07/07/19 05:27 Carbon Dioxide 32.5 mmol/L (21-32) H 07/07/19 05:27 BUN 38 mg/dL (7-18) H 07/07/19 05:27 Creatinine 1.91 mg/dL (0.70-1.30) H 07/07/19 05:27 Est GFR (MDRD) Af Amer 45 (>60) L 07/07/19 05:27 Est GFR (MDRD) Non-Af 37 (>60) L 07/07/19 05:27 Glucose 273 mg/dL (65-99) H 07/07/19 05:27 Lactic Acid 1.1 mmol/L (0.4-2.0) 07/05/19 10:40 Calcium 9.1 mg/dL (8.5-10.1) 07/07/19 05:27 Corrected Calcium 9.8 mg/dL (8.5-10.1) 07/07/19 05:27 Magnesium 2.1 mg/dL (1.7-2.9) 07/06/19 05:08 Total Bilirubin 0.80 mg/dL (0.2-1.0) 07/07/19 05:27 AST 29 Units/L (15-37) 07/07/19 05:27 ALT 35 Units/L (12-78) 07/07/19 05:27 Alkaline Phosphatase 82 Units/L (46-116) 07/07/19 05:27 Creatine Kinase 69 Units/L (39-308) 07/06/19 05:08 CK-MB (CK-2) 5.1 ng/mL (0-4.0) H* 07/06/19 05:08 CK/CKMB % Calc 7.4 % (<4) 07/06/19 05:08 Troponin I 0.10 ng/mL (0-1.5) 07/06/19 05:08 Total Protein 6.9 g/dL (6.4-8.2) 07/07/19 05:27 Albumin 3.1 g/dL (3.4-5.0) L 07/07/19 05:27 Globulin 3.8 g/dL (2.5-4.5) 07/07/19 05:27 Albumin/Globulin Ratio 0.8 Ratio (1.1-2.1) L 07/07/19 05:27 Specimen Type Catherized urine 07/05/19 07:08 Urine Color Yellow (YELLOW) 07/05/19 07:08 Urine Appearance Hazy (CLEAR) 07/05/19 07:08 Urine pH 5.0 (5.0 - 8.0) 07/05/19 07:08 Ur Specific [place] 1.025 (1.000-1.030) 07/05/19 07:08 Urine Protein 2+ (NEGATIVE) 07/05/19 07:08 Urine Glucose (UA) Negative (NEGATIVE) 07/05/19 07:08 Urine Ketones 1+ (NEGATIVE) 07/05/19 07:08 Urine Occult Blood Negative (NEGATIVE) 07/05/19 07:08 Urine Nitrite Negative (NEGATIVE) 07/05/19 07:08 Urine Bilirubin Negative (NEGATIVE) 07/05/19 07:08 Urine Urobilinogen 1+ (NORMAL) 07/05/19 07:08 Ur Leukocyte Esterase 2+ (NEGATIVE) 07/05/19 07:08 Urine RBC None seen /HPF (0-3) 07/05/19 07:08 Urine WBC 0-2 /HPF (0-5) 07/05/19 07:08 Ur Squamous Epith Cells Negative /HPF (NEGATIVE) 07/05/19 07:08 Urine Bacteria Negative /HPF (NEGATIVE) 07/05/19 07:08 Hyaline Casts Few /LPF (NEGATIVE) 07/05/19 07:08 Urine Mucus Few /HPF (NEGATIVE) 07/05/19 07:08 Ur Culture Indicated? No/not indicated 07/05/19 07:08 Blood Type O POSITIVE 07/05/19 10:40 Antibody Screen Negative 07/05/19 10:40 Crossmatch See Detail 07/05/19 10:40 - Plan (1) Respiratory failure with hypoxia and hypercapnia Status: Acute Qualifiers: Chronicity: acute on chronic Qualified Code(s): J96.21 - Acute and chronic respiratory failure with hypoxia; J96.22 - Acute and chronic respiratory failure with hypercapnia Plan: BIPAP, D51/2AT 50 ML/HR, MORPHINE 2MG IV Q6H PRN, DOXYCYCLINE 100MG IV Q12H, FORTAZ 1G IV Q12H, SOLU-MEDROL 40MG IV Q8H, AND DUONEBS QID. LASIX 20MG IV X 1 DOSE. (2) CHF (congestive heart failure) Status: Chronic Qualifiers: Heart failure type: unspecified Heart failure chronicity: acute on chronic Qualified Code(s): I50.9 - Heart failure, unspecified (3) Pleural effusion Status: Acute Plan: IV FORTAZ, IV DOXY, RESPIRATORY TX, CONTINUE TO MONITOR (4) Pulmonary edema Status: Inactive Qualifiers: Chronicity: acute Qualified Code(s): J81.0 - Acute pulmonary edema (5) Anemia Status: Acute Qualifiers: Anemia type: iron deficiency Iron deficiency anemia type: unspecified iron deficiency Qualified Code(s): D50.9 - Iron deficiency anemia, unspecified Plan: MONITOR H&H, TRANSFUSE 2 UNITS PRBC IF HGB DROPS (6) Acute dehydration Status: Inactive Plan: 1/2NS AT 50 ML/HR, CONTINUE TO MONITOR
[2019-07-08] MEDS: MORPHINE SULFATE INJ 2 MG INJ IVP PRN (01:40)
[2019-07-08] MEDS: D5 1/2 NS 1000 ML 1,000 ML IV SCH ×2 (05:40→19:42)
[2019-07-08] MEDS: SOLU-Medrol 40 MG VIAL IVP SCH ×3 (05:40→21:28)
[2019-07-08] MEDS: HumuLIN R SC PRN ×3 (05:50→17:34)
[2019-07-08 06:01] LABS: ALBUMIN 3.3 g/dL (3.4-5.0); CALCIUM 9.2 mg/dL (8.5-10.1); CARBON DIOXIDE 32.7 mmol/L (21-32); COR CA(FOR HYPOALB) 9.8 mg/dL (8.5-10.1); CREATININE 1.75 mg/dL (0.70-1.30); TOTAL PROTEIN 7.3 g/dL (6.4-8.2)
[2019-07-08 06:05] LABS: BASOPHILS % (AUTO) 0.1 % (0.2-1.0); HEMATOCRIT 31.7 % (42.0-54.0); HEMOGLOBIN 10.3 g/dL (13.5-18.0); LYMPHOCYTES # (AUTO) 0.6 X10^3/uL (1.3-2.9); LYMPHOCYTES % (AUTO) 10.8 % (21.0-51.0); MEAN CORPUSCULAR HGB CONC 32.3 g/dL (33.0-35.0); MEAN CORPUSCULAR VOLUME 83.4 fL (80.0-100.0); MEAN PLATELET VOLUME 8.8 fL (7.4-11.0); MONOCYTES # (AUTO) 0.4 x10^3/uL (0.3-0.8); MONOCYTES % (AUTO) 7.9 % (0.0-13.0); NEUTROPHILS # (AUTO) 4.2 x10^3/uL (2.2-4.8); NEUTROPHILS % (AUTO) 81.2 % (42.0-75.0); PLATELET COUNT 220 X10^3/uL (150.0-450.0); RED CELL DISTRIBUTION WIDTH 18.7 % (11.6-16.5); WHITE BLOOD COUNT 5.2 X10^3/uL (3.6-10.0)
[2019-07-08 07:43] LABS: ABG BASE EXCESS 6.1 mmol/L (-2.0-2.0)
[2019-07-08 07:44] LABS: ABG ALLEN TEST POS; ABG HCO3 30.6 mmol/L (22-26)
[2019-07-08] MEDS ORDERED: HALDOL INJ IM PRN (09:34)
[2019-07-08] MEDS: DUONEB 0.5 MG/3 MG (3 mL) NEB SCH ×4 (10:10→20:31)
[2019-07-08] MEDS: ARICEPT TAB 10 MG PO SCH (10:34)
[2019-07-08] MEDS: ELIQUIS PO SCH (10:35)
[2019-07-08] MEDS: KLONOPIN TAB 0.5 MG PO SCH ×2 (10:35→21:29)
[2019-07-08] MEDS: VSL#3 PO SCH (10:35)
[2019-07-08] MEDS: TAB-A-VITE PO SCH (10:36)
[2019-07-08] MEDS: NAMENDA TAB 10 MG PO SCH (10:36)
[2019-07-08] MEDS: THEO-DUR TAB 300 MG 12-HR PO SCH ×2 (10:37→21:28)
[2019-07-08] MEDS: ZyrTEC TAB 10 MG PO SCH (10:37)
[2019-07-08] MEDS: ZyPREXA TAB 5 MG PO SCH ×2 (10:38→21:28)
[2019-07-08] MEDS: VIBRAMYCIN 100 MG in D5W 250 ML IV 250 ML IV SCH ×2 (10:38→21:27)
[2019-07-08] MEDS ORDERED: NS 100 ML IV + SPIKE MINIBAG* 100 ML IV ONE (15:48)
[2019-07-08] MEDS: FORTAZ or TAZICEF VIAL INJ 1 G in NS 100 ML IV 100 ML IV SCH ×2 (15:54→21:26)
[2019-07-08] MEDS: VITAMIN C PO SCH (21:28)
[2019-07-08] MEDS: COZAAR PO SCH (21:28)
[2019-07-08] MEDS: SNACK - Diabetic Appropriate PO SCH (21:29)
[2019-07-08] MEDS: LIPITOR TAB 10 MG PO SCH (21:29)
[2019-07-08] MEDS: VITAMIN D3 25 mcg (1,000 UNITS) PO SCH (21:32)
[2019-07-08 21:37] VITALS: BMI 38.2
[2019-07-09] MEDS: D5 1/2 NS 1000 ML 1,000 ML IV SCH ×3 (05:58→21:23)
[2019-07-09] MEDS: HumuLIN R SC PRN ×2 (05:59→13:23)
[2019-07-09] MEDS: FORTAZ or TAZICEF VIAL INJ 1 G in NS 100 ML IV 100 ML IV SCH ×3 (05:59→21:26)
[2019-07-09] MEDS: SOLU-Medrol 40 MG VIAL IVP SCH (06:00)
[2019-07-09 06:16] LABS: BASOPHILS % (AUTO) 0.2 % (0.2-1.0); HEMATOCRIT 32.2 % (42.0-54.0); HEMOGLOBIN 10.4 g/dL (13.5-18.0); LYMPHOCYTES # (AUTO) 0.6 X10^3/uL (1.3-2.9); LYMPHOCYTES % (AUTO) 11.2 % (21.0-51.0); MEAN CORPUSCULAR HGB CONC 32.3 g/dL (33.0-35.0); MEAN CORPUSCULAR VOLUME 83.6 fL (80.0-100.0); MEAN PLATELET VOLUME 8.5 fL (7.4-11.0); MONOCYTES # (AUTO) 0.5 x10^3/uL (0.3-0.8); MONOCYTES % (AUTO) 8.5 % (0.0-13.0); NEUTROPHILS # (AUTO) 4.4 x10^3/uL (2.2-4.8); NEUTROPHILS % (AUTO) 80.1 % (42.0-75.0); PLATELET COUNT 239 X10^3/uL (150.0-450.0); RED BLOOD COUNT 3.85 X10^6/uL (4.7-6.0); WHITE BLOOD COUNT 5.5 X10^3/uL (3.6-10.0)
[2019-07-09 06:22] LABS: ALBUMIN 3.1 g/dL (3.4-5.0); CALCIUM 9.2 mg/dL (8.5-10.1); CARBON DIOXIDE 35.8 mmol/L (21-32); COR CA(FOR HYPOALB) 9.9 mg/dL (8.5-10.1); CREATININE 1.49 mg/dL (0.70-1.30); TOTAL PROTEIN 6.9 g/dL (6.4-8.2)
[2019-07-09] MEDS: DUONEB 0.5 MG/3 MG (3 mL) NEB SCH ×4 (09:25→21:35)
[2019-07-09] MEDS: ELIQUIS PO SCH (09:43)
[2019-07-09] MEDS: KLONOPIN TAB 0.5 MG PO SCH ×2 (09:44→21:26)
[2019-07-09] MEDS: NAMENDA TAB 10 MG PO SCH (09:44)
[2019-07-09] MEDS: TAB-A-VITE PO SCH (09:44)
[2019-07-09] MEDS: VSL#3 PO SCH (09:45)
[2019-07-09] MEDS: VIBRAMYCIN 100 MG in D5W 250 ML IV 250 ML IV SCH ×2 (09:45→21:27)
[2019-07-09] MEDS: ZyPREXA TAB 5 MG PO SCH ×2 (09:46→21:27)
[2019-07-09] MEDS: ZyrTEC TAB 10 MG PO SCH (09:46)
[2019-07-09] MEDS: THEO-DUR TAB 300 MG 12-HR PO SCH ×2 (09:47→21:26)
[2019-07-09] MEDS: ARICEPT TAB 10 MG PO SCH (09:47)
--- NOTE | 2019-07-09 10:18 | RAD ---
HISTORYSOB, CHFSTUDYCHEST x-ray, 1 VIEWCOMPARISONX-ray 07/07/2019FINDINGSCHF is likely similar to prior study. There worsening bilateral lung infiltrates that could be pneumonia and/or pulmonary edema. Probable small right pleural effusion has developed. No pneumothorax is seen.IMPRESSIONLikely persistent CHF.Worsening pulmonary infiltrates could be pneumonia and/or pulmonary edema.Electronically signed by: Ramirez Lentz (July 09, 2019 10:17:32)
[2019-07-09 10:45] LABS: ABG BASE EXCESS 6.4 mmol/L (-2.0-2.0)
[2019-07-09 10:46] LABS: ABG ALLEN TEST POS; ABG HCO3 36.9 mmol/L (22-26)
--- NOTE | 2019-07-09 13:44 | PCM.PROG ---
Progress Note - Progress Note for Day of Date of Exam: 07/08/19 - Subjective Subjective: IS BEING TREATED FOR CHF, RESPIRATORY FAILURE WITH HYPERCAPNIA AND HYPOXIA, ANEMIA, AND PULMONARY EDEMA. HE HAS RECEIVED TWO UNITS OF PRBC SINCE ADMISSION. TODAY, HE IS LYING IN BED WITH EYES CLOSED ON MORNING ROUNDS. HE IS CURRENTLY WEARING THE BIPAP. HE OPENS EYES TO VERBAL STIMULI. STAFF REPORTS THAT HE CONTINUES WITH AGITATION AND DISORIENTATION AT TIMES. HE DENIES PAIN THIS MORNING. HE DOES ADMIT TO SHORTNESS OF BREATH AND CONTINUES WITH A NON-PRODUCTIVE COUGH. ON EXAMINATION, HEART IS REGULAR IN RATE AND RHYTHM. BILATERAL LUNGS ARE NOTED WITH SCATTERED WHEEZING AND RHONCHI THROUGHOUT. ABDOMEN IS ROUND, SOFT, AND NON-TENDER. NORMAL BOWEL SOUNDS ARE NOTED IN ALL QUADRANTS. BILATERAL UPPER AND LOWER EXTREMITIES CONTINUE WITH 2+ PITTING EDEMA. HIS VITALS THIS MORNING ARE: 98.1-99-22-96%NC-189/87. LABS WERE OBTAINED. ABNORMAL LAB VALUES INCLUDE THE FOLLOWING: RBC 3.80, HGB 10.3, HCT 31.7, CORRECTED SODIUM 149, CARBON DIOXIDE 32.7, BUN 42, CREATININE 1.75, GLUCOSE 292, ALBUMIN 3.3. ABG REVEALED: PH 7.460, PC02 43.0, P02 90.0, HC03 30.6, 02 SATURATION 97.0, FI02 28.0. HE IS CURRENTLY RECEIVING D51/2NS AT 50 ML/HR, MORPHINE 2MG IV Q6H PRN, SOLU-MEDROL 40MG IV Q8H, DOXYCYCLINE 100MG IV Q12H, FORTAZ 1G IV Q12H, DUONEBS QID, ELIQUIS 2.5MG PO DAILY, HUMULIN R SLIDING SCALE, AND HIS HOME MEDICATIONS WERE RESUMED. TODAY, WE WILL START HALDOL 2-4MG IM Q4H PRN AGITATION. OTHERWISE, WE WILL CONTINUE WITH CURRENT PLAN OF CARE. WE WILL FOLLOW UP WITH AM LABS AND CONTINUE TO MONITOR. - Past Medical Family Social History Past Med/Fam/Surg Hx: No changes since H&P Allergies: Allergies No Known Drug Allergies Allergy (Verified 07/02/19 13:21) - Review of Systems ROS: No change since H&P - Vital Signs and I&O's Vital Signs: Temperature 93.4 F Pulse Rate [Left Brachial] 72 Pulse Rate [Right Brachial] 99 Pulse Rate 57 Respiratory Rate 20 Blood Pressure [Left Arm] 153/73 Blood Pressure [Right Arm] 107/55 Blood Pressure 168/76 O2 Sat by Pulse Oximetry 94 Intake and Output: Intake & Output 07/07/19 07/08/19 07/09/19 07/10/19 11:59 11:59 11:59 11:59 Intake Total 0 / 0 2360 / 2360 3341 / 3341 Output Total 2150 / 2150 Balance -70 / -70 2360 / 2360 3341 / 3341 - Physical Exam Oriented: Not Oriented Eyes: Normal Ear: Normal Nose: Normal Throat: Normal Respiratory: Wheezes, Rhonchi Cardiovascular: Edema (BLE AND BUE 2+ PITTING EDEMA ). negative: S3, S4, Murmur : Normal Auscultation: Bowel Sounds: Normal Palpation: Normal Tenderness: Normal Skin: Normal Musculoskeletal: Normal Psychiatric: Normal Mood Description: Calm Affect: Normal Speech Pattern: Clear - Laboratory and Diagnostics Result Diagrams: 07/09/19 05:25 07/09/19 05:25 Labs: Laboratory WBC 5.5 X10^3/uL (3.6-10.0) 07/09/19 05:25 RBC 3.85 X10^6/uL (4.7-6.0) L 07/09/19 05:25 Hgb 10.4 g/dL (13.5-18.0) L 07/09/19 05:25 Hct 32.2 % (42.0-54.0) L 07/09/19 05:25 MCV 83.6 fL (80.0-100.0) 07/09/19 05:25 MCH 27.0 pg (27.0-34.0) 07/09/19 05:25 MCHC 32.3 g/dL (33.0-35.0) L 07/09/19 05:25 RDW 19.0 % (11.6-16.5) H 07/09/19 05:25 Plt Count 239 X10^3/uL (150.0-450.0) 07/09/19 05:25 MPV 8.5 fL (7.4-11.0) 07/09/19 05:25 Neut % (Auto) 80.1 % (42.0-75.0) H 07/09/19 05:25 Lymph % (Auto) 11.2 % (21.0-51.0) L 07/09/19 05:25 [place] % (Auto) 8.5 % (0.0-13.0) 07/09/19 05:25 Eos % (Auto) 0.0 % (0.9-2.9) L 07/09/19 05:25 Baso % (Auto) 0.2 % (0.2-1.0) 07/09/19 05:25 Neut # (Auto) 4.4 x10^3/uL (2.2-4.8) 07/09/19 05:25 Lymph # (Auto) 0.6 X10^3/uL (1.3-2.9) L 07/09/19 05:25 [place] # (Auto) 0.5 x10^3/uL (0.3-0.8) 07/09/19 05:25 Eos # (Auto) 0.0 x10^3/uL (0.0-0.2) 07/09/19 05:25 Baso # (Auto) 0.0 X10^3/uL (0.0-0.1) 07/09/19 05:25 Absolute Nucleated RBC 0.2 /100WBC 07/09/19 05:25 PT 15.2 SECONDS (11.8-14.3) 07/06/19 05:05 INR Target Range - 07/06/19 05:05 INR 1.23 (0.8-1.3) 07/06/19 05:05 APTT 47.1 SECONDS (22.9-36.5) H 07/06/19 05:05 PTT Comment - 07/06/19 05:05 Sample Site Lr 07/09/19 10:36 ABG pH 7.230 (7.35-7.45) L 07/09/19 10:36 ABG pCO2 88.0 mmHg (35.0-45.0) H* 07/09/19 10:36 ABG pO2 86.0 mmHg (80.0-100.0) 07/09/19 10:36 ABG HCO3 36.9 mmol/L (22-26) H* 07/09/19 10:36 ABG O2 Saturation 95.0 % (90-100) 07/09/19 10:36 ABG Base Excess 6.4 mmol/L (-2.0-2.0) H 07/09/19 10:36 Ganesh Test Pos 07/09/19 10:36 A-a Gradient 32.0 mmHg 07/09/19 10:36 FiO2 32.0 07/09/19 10:36 Blood Gas Comments Pt [email or web address] 07/09/19 10:36 Sodium 145 mmol/L (136-145) 07/09/19 05:25 Corrected Sodium 149 mmol/L (136-145) H 07/09/19 05:25 Potassium 4.7 mmol/L (3.5-5.1) 07/09/19 05:25 Chloride 108 mmol/L (98-107) H 07/09/19 05:25 Carbon Dioxide 35.8 mmol/L (21-32) H 07/09/19 05:25 BUN 35 mg/dL (7-18) H 07/09/19 05:25 Creatinine 1.49 mg/dL (0.70-1.30) H 07/09/19 05:25 Est GFR (MDRD) Af Amer 59 (>60) 07/09/19 05:25 Est GFR (MDRD) Non-Af 49 (>60) L 07/09/19 05:25 Glucose 252 mg/dL (65-99) H 07/09/19 05:25 Lactic Acid 0.7 mmol/L (0.4-2.0) 07/09/19 10:26 Calcium 9.2 mg/dL (8.5-10.1) 07/09/19 05:25 Corrected Calcium 9.9 mg/dL (8.5-10.1) 07/09/19 05:25 Magnesium 2.1 mg/dL (1.7-2.9) 07/06/19 05:08 Total Bilirubin 0.50 mg/dL (0.2-1.0) 07/09/19 05:25 AST 19 Units/L (15-37) 07/09/19 05:25 ALT 31 Units/L (12-78) 07/09/19 05:25 Alkaline Phosphatase 79 Units/L (46-116) 07/09/19 05:25 Creatine Kinase 69 Units/L (39-308) 07/06/19 05:08 CK-MB (CK-2) 5.1 ng/mL (0-4.0) H* 07/06/19 05:08 CK/CKMB % Calc 7.4 % (<4) 07/06/19 05:08 Troponin I 0.10 ng/mL (0-1.5) 07/06/19 05:08 Total Protein 6.9 g/dL (6.4-8.2) 07/09/19 05:25 Albumin 3.1 g/dL (3.4-5.0) L 07/09/19 05:25 Globulin 3.8 g/dL (2.5-4.5) 07/09/19 05:25 Albumin/Globulin Ratio 0.8 Ratio (1.1-2.1) L 07/09/19 05:25 Specimen Type Catherized urine 07/05/19 07:08 Urine Color Yellow (YELLOW) 07/05/19 07:08 Urine Appearance Hazy (CLEAR) 07/05/19 07:08 Urine pH 5.0 (5.0 - 8.0) 07/05/19 07:08 Ur Specific [place] 1.025 (1.000-1.030) 07/05/19 07:08 Urine Protein 2+ (NEGATIVE) 07/05/19 07:08 Urine Glucose (UA) Negative (NEGATIVE) 07/05/19 07:08 Urine Ketones 1+ (NEGATIVE) 07/05/19 07:08 Urine Occult Blood Negative (NEGATIVE) 07/05/19 07:08 Urine Nitrite Negative (NEGATIVE) 07/05/19 07:08 Urine Bilirubin Negative (NEGATIVE) 07/05/19 07:08 Urine Urobilinogen 1+ (NORMAL) 07/05/19 07:08 Ur Leukocyte Esterase 2+ (NEGATIVE) 07/05/19 07:08 Urine RBC None seen /HPF (0-3) 07/05/19 07:08 Urine WBC 0-2 /HPF (0-5) 07/05/19 07:08 Ur Squamous Epith Cells Negative /HPF (NEGATIVE) 07/05/19 07:08 Urine Bacteria Negative /HPF (NEGATIVE) 07/05/19 07:08 Hyaline Casts Few /LPF (NEGATIVE) 07/05/19 07:08 Urine Mucus Few /HPF (NEGATIVE) 07/05/19 07:08 Ur Culture Indicated? No/not indicated 07/05/19 07:08 Blood Type O POSITIVE 07/05/19 10:40 Antibody Screen Negative 07/05/19 10:40 Crossmatch See Detail 07/05/19 10:40 - Plan (1) Respiratory failure with hypoxia and hypercapnia Status: Acute Qualifiers: Chronicity: acute on chronic Qualified Code(s): J96.21 - Acute and chronic respiratory failure with hypoxia; J96.22 - Acute and chronic respiratory failure with hypercapnia Plan: BIPAP, D51/2AT 50 ML/HR, MORPHINE 2MG IV Q6H PRN, DOXYCYCLINE 100MG IV Q12H, FORTAZ 1G IV Q12H, SOLU-MEDROL 40MG IV Q8H, AND DUONEBS QID. (2) CHF (congestive heart failure) Status: Chronic Qualifiers: Heart failure type: unspecified Heart failure chronicity: acute on chronic Qualified Code(s): I50.9 - Heart failure, unspecified (3) Pleural effusion Status: Acute Plan: IV FORTAZ, IV DOXY, RESPIRATORY TX, CONTINUE TO MONITOR (4) Pulmonary edema Status: Inactive Qualifiers: Chronicity: acute Qualified Code(s): J81.0 - Acute pulmonary edema (5) Anemia Status: Acute Qualifiers: Anemia type: iron deficiency Iron deficiency anemia type: unspecified iron deficiency Qualified Code(s): D50.9 - Iron deficiency anemia, unspecified Plan: MONITOR H&H, TRANSFUSE 2 UNITS PRBC IF HGB DROPS (6) Acute dehydration Status: Inactive Plan: D51/2NS AT 50 ML/HR, CONTINUE TO MONITOR
[2019-07-09] MEDS: SNACK - Diabetic Appropriate PO SCH (20:40)
[2019-07-09] MEDS: VITAMIN D3 25 mcg (1,000 UNITS) PO SCH (21:26)
[2019-07-09] MEDS: LIPITOR TAB 10 MG PO SCH (21:26)
[2019-07-09] MEDS: VITAMIN C PO SCH (21:27)
[2019-07-09] MEDS: COZAAR PO SCH (21:28)
[2019-07-10 05:13] LABS: BASOPHILS % (AUTO) 0.3 % (0.2-1.0); EOSINOPHILS # (AUTO) 0.3 x10^3/uL (0.0-0.2); HEMATOCRIT 34.4 % (42.0-54.0); LYMPHOCYTES % (AUTO) 13.8 % (21.0-51.0); MEAN CORPUSCULAR HEMOGLOBIN 26.8 pg (27.0-34.0); MEAN CORPUSCULAR VOLUME 83.7 fL (80.0-100.0); MEAN PLATELET VOLUME 7.6 fL (7.4-11.0); MONOCYTES # (AUTO) 0.6 x10^3/uL (0.3-0.8); MONOCYTES % (AUTO) 8.9 % (0.0-13.0); PLATELET COUNT 221 X10^3/uL (150.0-450.0); RED BLOOD COUNT 4.11 X10^6/uL (4.7-6.0); RED CELL DISTRIBUTION WIDTH 18.5 % (11.6-16.5); WHITE BLOOD COUNT 6.9 X10^3/uL (3.6-10.0)
[2019-07-10 05:24] LABS: ABG BASE EXCESS 8.6 mmol/L (-2.0-2.0)
[2019-07-10 05:25] LABS: ALANINE AMINOTRANSFERASE 25 Units/L (12-78); ALBUMIN 2.8 g/dL (3.4-5.0); ALKALINE PHOSPHATASE 85 Units/L (46-116); ASPARTATE AMINO TRANSFERASE 18 Units/L (15-37); BLOOD UREA NITROGEN 30 mg/dL (7-18); CALCIUM 9.3 mg/dL (8.5-10.1); CARBON DIOXIDE 35.9 mmol/L (21-32); CHLORIDE 109 mmol/L (98-107); COR CA(FOR HYPOALB) 10.3 mg/dL (8.5-10.1); COR NA(FOR HYPERGLY) 150 mmol/L (136-145); CREATININE 1.46 mg/dL (0.70-1.30); SODIUM 148 mmol/L (136-145); TOTAL PROTEIN 6.2 g/dL (6.4-8.2); eGFR NON BLACK RACES 50 (>60)
[2019-07-10 05:26] LABS: ABG ALLEN TEST POS; ABG HCO3 36.2 mmol/L (22-26)
[2019-07-10] MEDS: FORTAZ or TAZICEF VIAL INJ 1 G in NS 100 ML IV 100 ML IV SCH ×3 (05:49→21:00)
[2019-07-10] MEDS: HumuLIN R SC PRN ×4 (06:10→20:56)
--- NOTE | 2019-07-10 08:01 | RAD ---
HISTORYSOBSTUDYPortable AP [id number] cardiomegaly with low volume lungs, vascular congestion a nd diminishing bilateral pulmonary edema. Persistent elevation right hemidiaphragm.IMPRESSIONStable c ardiomegaly with improving CHF/edema. Residual pulmonary vascular congestion.Electronically signed by : TONY GOLDMAN (July 10, 2019 08:00:20)
[2019-07-10] MEDS: DUONEB 0.5 MG/3 MG (3 mL) NEB SCH ×4 (08:02→20:20)
[2019-07-10] MEDS: THEO-DUR TAB 300 MG 12-HR PO SCH ×2 (09:28→20:54)
[2019-07-10] MEDS: ELIQUIS PO SCH (09:29)
[2019-07-10] MEDS: ZyPREXA TAB 5 MG PO SCH ×2 (09:29→20:55)
[2019-07-10] MEDS: VIBRAMYCIN 100 MG in D5W 250 ML IV 250 ML IV SCH ×2 (09:29→22:00)
[2019-07-10] MEDS: VSL#3 PO SCH (09:29)
[2019-07-10] MEDS: TAB-A-VITE PO SCH (09:30)
[2019-07-10] MEDS: NAMENDA TAB 10 MG PO SCH (09:30)
[2019-07-10] MEDS: ARICEPT TAB 10 MG PO SCH (09:30)
[2019-07-10] MEDS: ZyrTEC TAB 10 MG PO SCH (09:30)
[2019-07-10] MEDS: KLONOPIN TAB 0.5 MG PO SCH ×2 (09:30→20:55)
[2019-07-10] MEDS: D5 1/2 NS 1000 ML 1,000 ML IV SCH (09:33)
--- NOTE | 2019-07-10 10:04 | PCM.PROG ---
Progress Note Progress Note for Day of Date of Exam: 07/10/19 Subjective Subjective: PT IS A 74 Y/O M BEING TREATED FOR CHF, RESPIRATORY FAILURE WITH HYPERCAPNIA AND HYPOXIA, ANEMIA, AND PULMONARY EDEMA. THIS MORNING HE IS ALERT AND CURRENTLY OFF HIS BIPAP. HE REPORTS SHORTNESS OF BREATH THAT IS IMPROVING. LABS/IMAGING: CXR: IMPROVING CHF/EDEMA, RESIDUAL PULMONARY VASCULAR CONGESTION. WBC 6.9, HGB 11, PLT 221, NA 150, K 4.2, HCO3 35, CR 1.46, GLUC 183. ABG REVEALED: PH 7.36, PC02 64, P02 86, HC03 36, 02 SATURATION 96.0, FI02 40. HE IS CURRENTLY RECEIVING D5 1/2NS AT 50 ML/HR THAT WILL BE CHANGED TO D5W DUE TO HYPERNATREMIA, MORPHINE 2MG IV Q6H PRN, SOLU-MEDROL 40MG IV Q8H, DOXYCYCLINE 100MG IV Q12H, FORTAZ 1G IV Q12H, DUONEBS QID, ELIQUIS 2.5MG PO DAILY, HUMULIN R SLIDING SCALE, AND HIS HOME MEDICATIONS. HE HAS DONE WELL WITH HALDOL 2-4MG IM Q4H PRN FOR AGITATION. WILL CONTINUE WITH CURRENT PLAN OF CARE. WE WILL FOLLOW UP WITH AM LABS AND CONTINUE TO MONITOR. Past Medical Family Social History Past Med/Fam/Surg Hx: No changes since H&P Allergies: Allergies No Known Drug Allergies Allergy (Verified 07/02/19 13:21) Review of Systems ROS: No change since H&P Vital Signs and I&O's Vital Signs: Temperature 98.2 F Pulse Rate [Left Brachial] 90 Pulse Rate [Right Brachial] 99 Pulse Rate 98 Respiratory Rate 20 Blood Pressure [Left Arm] 172/77 Blood Pressure [Right Arm] 107/55 Blood Pressure 168/76 O2 Sat by Pulse Oximetry 98 Intake and Output: Intake & Output 07/07/19 07/08/19 07/09/19 07/10/19 23:59 23:59 23:59 23:59 Intake Total 2460 / 2460 3741 / 3741 750 / 750 500 / 500 Balance 2460 / 2460 3741 / 3741 750 / 750 500 / 500 Physical Exam Oriented: Not Oriented Eyes: Normal Ear: Normal Nose: Normal Throat: Normal Respiratory: Wheezes and Rhonchi Cardiovascular: Edema (BLE AND BUE 2+ PITTING EDEMA ); negative S3, S4 and Murmur : Normal Auscultation: Bowel Sounds: Normal Tenderness: Normal Skin: Normal Musculoskeletal: Normal Psychiatric: Normal Mood Description: Calm Affect: Normal Speech Pattern: Clear Laboratory and Diagnostics Result Diagrams: 07/10/19 04:39 07/10/19 04:39 Labs: Laboratory WBC 6.9 X10^3/uL (3.6-10.0) 07/10/19 04:39 RBC 4.11 X10^6/uL (4.7-6.0) L 07/10/19 04:39 Hgb 11.0 g/dL (13.5-18.0) L 07/10/19 04:39 Hct 34.4 % (42.0-54.0) L 07/10/19 04:39 MCV 83.7 fL (80.0-100.0) 07/10/19 04:39 MCH 26.8 pg (27.0-34.0) L 07/10/19 04:39 MCHC 32.0 g/dL (33.0-35.0) L 07/10/19 04:39 RDW 18.5 % (11.6-16.5) H 07/10/19 04:39 Plt Count 221 X10^3/uL (150.0-450.0) 07/10/19 04:39 MPV 7.6 fL (7.4-11.0) 07/10/19 04:39 Neut % (Auto) 73.0 % (42.0-75.0) 07/10/19 04:39 Lymph % (Auto) 13.8 % (21.0-51.0) L 07/10/19 04:39 [place] % (Auto) 8.9 % (0.0-13.0) 07/10/19 04:39 Eos % (Auto) 4.0 % (0.9-2.9) H 07/10/19 04:39 Baso % (Auto) 0.3 % (0.2-1.0) 07/10/19 04:39 Neut # (Auto) 5.0 x10^3/uL (2.2-4.8) H 07/10/19 04:39 Lymph # (Auto) 1.0 X10^3/uL (1.3-2.9) L 07/10/19 04:39 [place] # (Auto) 0.6 x10^3/uL (0.3-0.8) 07/10/19 04:39 Eos # (Auto) 0.3 x10^3/uL (0.0-0.2) H 07/10/19 04:39 Baso # (Auto) 0.0 X10^3/uL (0.0-0.1) 07/10/19 04:39 Absolute Nucleated RBC 0.1 /100WBC 07/10/19 04:39 PT 15.2 SECONDS (11.8-14.3) 07/06/19 05:05 INR Target Range - 07/06/19 05:05 INR 1.23 (0.8-1.3) 07/06/19 05:05 APTT 47.1 SECONDS (22.9-36.5) H 07/06/19 05:05 PTT Comment - 07/06/19 05:05 Sample Site Rr 07/10/19 05:00 ABG pH 7.360 (7.35-7.45) 07/10/19 05:00 ABG pCO2 64.0 mmHg (35.0-45.0) H* 07/10/19 05:00 ABG pO2 86.0 mmHg (80.0-100.0) 07/10/19 05:00 ABG HCO3 36.2 mmol/L (22-26) H* 07/10/19 05:00 ABG O2 Saturation 96.0 % (90-100) 07/10/19 05:00 ABG Base Excess 8.6 mmol/L (-2.0-2.0) H 07/10/19 05:00 Ganesh Test Pos 07/10/19 05:00 A-a Gradient 119.0 mmHg 07/10/19 05:00 FiO2 40.0 07/10/19 05:00 Blood Gas Comments Katy well sw 07/10/19 05:00 Sodium 148 mmol/L (136-145) H 07/10/19 04:39 Corrected Sodium 150 mmol/L (136-145) H 07/10/19 04:39 Potassium 4.2 mmol/L (3.5-5.1) 07/10/19 04:39 Chloride 109 mmol/L (98-107) H 07/10/19 04:39 Carbon Dioxide 35.9 mmol/L (21-32) H 07/10/19 04:39 BUN 30 mg/dL (7-18) H 07/10/19 04:39 Creatinine 1.46 mg/dL (0.70-1.30) H 07/10/19 04:39 Est GFR (MDRD) Af Amer > 60 (>60) 07/10/19 04:39 Est GFR (MDRD) Non-Af 50 (>60) L 07/10/19 04:39 Glucose 183 mg/dL (65-99) H 07/10/19 04:39 Lactic Acid 0.7 mmol/L (0.4-2.0) 07/09/19 10:26 Calcium 9.3 mg/dL (8.5-10.1) 07/10/19 04:39 Corrected Calcium 10.3 mg/dL (8.5-10.1) H 07/10/19 04:39 Magnesium 2.1 mg/dL (1.7-2.9) 07/06/19 05:08 Total Bilirubin 0.50 mg/dL (0.2-1.0) 07/10/19 04:39 AST 18 Units/L (15-37) 07/10/19 04:39 ALT 25 Units/L (12-78) 07/10/19 04:39 Alkaline Phosphatase 85 Units/L (46-116) 07/10/19 04:39 Creatine Kinase 69 Units/L (39-308) 07/06/19 05:08 CK-MB (CK-2) 5.1 ng/mL (0-4.0) H* 07/06/19 05:08 CK/CKMB % Calc 7.4 % (<4) 07/06/19 05:08 Troponin I 0.10 ng/mL (0-1.5) 07/06/19 05:08 Total Protein 6.2 g/dL (6.4-8.2) L 07/10/19 04:39 Albumin 2.8 g/dL (3.4-5.0) L 07/10/19 04:39 Globulin 3.4 g/dL (2.5-4.5) 07/10/19 04:39 Albumin/Globulin Ratio 0.8 Ratio (1.1-2.1) L 07/10/19 04:39 Specimen Type Catherized urine 07/05/19 07:08 Urine Color Yellow (YELLOW) 07/05/19 07:08 Urine Appearance Hazy (CLEAR) 07/05/19 07:08 Urine pH 5.0 (5.0 - 8.0) 07/05/19 07:08 Ur Specific [place] 1.025 (1.000-1.030) 07/05/19 07:08 Urine Protein 2+ (NEGATIVE) 07/05/19 07:08 Urine Glucose (UA) Negative (NEGATIVE) 07/05/19 07:08 Urine Ketones 1+ (NEGATIVE) 07/05/19 07:08 Urine Occult Blood Negative (NEGATIVE) 07/05/19 07:08 Urine Nitrite Negative (NEGATIVE) 07/05/19 07:08 Urine Bilirubin Negative (NEGATIVE) 07/05/19 07:08 Urine Urobilinogen 1+ (NORMAL) 07/05/19 07:08 Ur Leukocyte Esterase 2+ (NEGATIVE) 07/05/19 07:08 Urine RBC None seen /HPF (0-3) 07/05/19 07:08 Urine WBC 0-2 /HPF (0-5) 07/05/19 07:08 Ur Squamous Epith Cells Negative /HPF (NEGATIVE) 07/05/19 07:08 Urine Bacteria Negative /HPF (NEGATIVE) 07/05/19 07:08 Hyaline Casts Few /LPF (NEGATIVE) 07/05/19 07:08 Urine Mucus Few /HPF (NEGATIVE) 07/05/19 07:08 Ur Culture Indicated? No/not indicated 07/05/19 07:08 Blood Type O POSITIVE 07/05/19 10:40 Antibody Screen Negative 07/05/19 10:40 Crossmatch See Detail 07/05/19 10:40 Plan (1) Respiratory failure with hypoxia and hypercapnia: Status: Acute Qualifiers: Chronicity: acute on chronic Qualified Code(s): J96.21 - Acute and chronic respiratory failure with hypoxia; J96.22 - Acute and chronic respiratory failure with hypercapnia Plan: BIPAP, D5 1/2NS@50 ML/HR, MORPHINE 2MG IV Q6H PRN, DOXYCYCLINE 100MG IV Q12H, FORTAZ 1G IV Q12H, SOLU-MEDROL 40MG IV Q8H, AND DUONEBS QID. (2) CHF (congestive heart failure): Status: Chronic Qualifiers: Heart failure chronicity: acute on chronic Heart failure type: unspecified Qualified Code(s): I50.9 - Heart failure, unspecified (3) Pleural effusion: Status: Acute Plan: IV FORTAZ, IV DOXY, RESPIRATORY TX, CONTINUE TO MONITOR (4) Pulmonary edema: Status: Inactive Qualifiers: Chronicity: acute Qualified Code(s): J81.0 - Acute pulmonary edema (5) Anemia: Status: Acute Qualifiers: Anemia type: iron deficiency Iron deficiency anemia type: unspecified iron deficiency Qualified Code(s): D50.9 - Iron deficiency anemia, unspecified Plan: MONITOR H&H, TRANSFUSE 2 UNITS PRBC IF HGB DROPS (6) Acute dehydration: Status: Inactive Plan: D51/2NS AT 50 ML/HR, CONTINUE TO MONITOR (7) Hypernatremia: Status: Acute Plan: Start D5w@50 ml/h. Corrected Na 150.
[2019-07-10] MEDS: D5W 1000 ML IV 1,000 ML IV SCH (12:15)
[2019-07-10] MEDS: SNACK - Diabetic Appropriate PO SCH (20:00)
[2019-07-10] MEDS: LIPITOR TAB 10 MG PO SCH (20:55)
[2019-07-10] MEDS: VITAMIN D3 25 mcg (1,000 UNITS) PO SCH (20:55)
[2019-07-10] MEDS: COZAAR PO SCH (20:55)
[2019-07-10] MEDS: VITAMIN C PO SCH (20:55)
[2019-07-11] MEDS: D5W 1000 ML IV 1,000 ML IV SCH ×3 (03:33→15:08)
[2019-07-11] MEDS: FORTAZ or TAZICEF VIAL INJ 1 G in NS 100 ML IV 100 ML IV SCH ×3 (06:03→21:11)
[2019-07-11 06:18] LABS: BASOPHILS % (AUTO) 0.3 % (0.2-1.0); EOSINOPHILS # (AUTO) 0.3 x10^3/uL (0.0-0.2); EOSINOPHILS % (AUTO) 5.5 % (0.9-2.9); HEMATOCRIT 32.3 % (42.0-54.0); HEMOGLOBIN 10.5 g/dL (13.5-18.0); LYMPHOCYTES # (AUTO) 0.8 X10^3/uL (1.3-2.9); LYMPHOCYTES % (AUTO) 16.6 % (21.0-51.0); MEAN CORPUSCULAR HEMOGLOBIN 26.6 pg (27.0-34.0); MEAN CORPUSCULAR HGB CONC 32.4 g/dL (33.0-35.0); MONOCYTES # (AUTO) 0.5 x10^3/uL (0.3-0.8); MONOCYTES % (AUTO) 10.1 % (0.0-13.0); NEUTROPHILS # (AUTO) 3.4 x10^3/uL (2.2-4.8); NEUTROPHILS % (AUTO) 67.5 % (42.0-75.0); PLATELET COUNT 200 X10^3/uL (150.0-450.0); RED BLOOD COUNT 3.94 X10^6/uL (4.7-6.0); RED CELL DISTRIBUTION WIDTH 18.3 % (11.6-16.5); WHITE BLOOD COUNT 5.1 X10^3/uL (3.6-10.0)
[2019-07-11 06:33] LABS: ALANINE AMINOTRANSFERASE 21 Units/L (12-78); ALBUMIN 2.7 g/dL (3.4-5.0); ALKALINE PHOSPHATASE 83 Units/L (46-116); ASPARTATE AMINO TRANSFERASE 16 Units/L (15-37); BLOOD UREA NITROGEN 27 mg/dL (7-18); CALCIUM 9.1 mg/dL (8.5-10.1); CARBON DIOXIDE 36.4 mmol/L (21-32); CHLORIDE 109 mmol/L (98-107); COR CA(FOR HYPOALB) 10.1 mg/dL (8.5-10.1); COR NA(FOR HYPERGLY) 148 mmol/L (136-145); CREATININE 1.33 mg/dL (0.70-1.30); SODIUM 147 mmol/L (136-145); TOTAL PROTEIN 6.1 g/dL (6.4-8.2); eGFR NON BLACK RACES 56 (>60)
[2019-07-11] MEDS: VIBRAMYCIN 100 MG in D5W 250 ML IV 250 ML IV SCH ×2 (08:52→21:12)
[2019-07-11] MEDS: DUONEB 0.5 MG/3 MG (3 mL) NEB SCH ×4 (08:54→21:05)
[2019-07-11] MEDS: KLONOPIN TAB 0.5 MG PO SCH ×2 (08:57→21:13)
[2019-07-11] MEDS: ELIQUIS PO SCH (08:59)
[2019-07-11] MEDS: ZyPREXA TAB 5 MG PO SCH ×2 (09:00→21:13)
[2019-07-11] MEDS: ARICEPT TAB 10 MG PO SCH (09:01)
[2019-07-11] MEDS: VSL#3 PO SCH (09:01)
[2019-07-11] MEDS: TAB-A-VITE PO SCH (09:01)
[2019-07-11] MEDS: ZyrTEC TAB 10 MG PO SCH (09:02)
[2019-07-11] MEDS: THEO-DUR TAB 300 MG 12-HR PO SCH ×2 (09:02→21:13)
[2019-07-11] MEDS: NAMENDA TAB 10 MG PO SCH (09:03)
--- NOTE | 2019-07-11 10:07 | PCM.PROG ---
Progress Note Progress Note for Day of Date of Exam: 07/11/19 Subjective Subjective: PT IS A 74 Y/O M BEING TREATED FOR CHF, RESPIRATORY FAILURE WITH HYPERCAPNIA AND HYPOXIA, ANEMIA, AND PULMONARY EDEMA. THIS MORNING HE IS ALERT AND OFF HIS BIPAP. HE HAS HAD RESPITATORY IMPROVEMENT. LABS/IMAGING: WBC 5.1, HGB 10.5, PLT 200, NA 148, K 4, HCO3 36, CR 1.33, GLUC 122. HE IS CURRENTLY RECEIVING D5W DUE TO HYPERNATREMIA WHICH HAS IMPROVED, MORPHINE 2MG IV Q6H PRN, SOLU-MEDROL 40MG IV Q8H, DOXYCYCLINE 100MG IV Q12H, FORTAZ 1G IV Q12H, DUONEBS QID, ELIQUIS 2.5MG PO DAILY, HUMULIN R SLIDING SCALE, AND HIS HOME MEDICATIONS. WILL CONTINUE WITH CURRENT PLAN OF CARE AND FOLLOW UP WITH AM LABS AND CONTINUE TO MONITOR. Past Medical Family Social History Past Med/Fam/Surg Hx: No changes since H&P Allergies: Allergies No Known Drug Allergies Allergy (Verified 07/02/19 13:21) Review of Systems ROS: No change since H&P Vital Signs and I&O's Vital Signs: Temperature 98.5 F Pulse Rate [Left Brachial] 92 Pulse Rate [Right Brachial] 99 Pulse Rate 102 Respiratory Rate 20 Blood Pressure [Left Arm] 190/88 Blood Pressure [Right Arm] 107/55 Blood Pressure 168/76 O2 Sat by Pulse Oximetry 92 Intake and Output: Intake & Output 07/08/19 07/09/19 07/10/19 07/11/19 23:59 23:59 23:59 23:59 Intake Total 3741 / 3741 750 / 750 2089 454 / 454 Balance 3741 / 3741 750 / 750 2089 454 / 454 Physical Exam Oriented: Not Oriented Eyes: Normal Ear: Normal Nose: Normal Throat: Normal Respiratory: Wheezes and Rhonchi Cardiovascular: Edema (BLE AND BUE 2+ PITTING EDEMA ); negative S3, S4 and Murmur : Normal Auscultation: Bowel Sounds: Normal Tenderness: Normal Skin: Normal Musculoskeletal: Normal Psychiatric: Normal Mood Description: Calm Affect: Normal Speech Pattern: Clear Laboratory and Diagnostics Result Diagrams: 07/11/19 05:10 07/11/19 05:10 Labs: 07/09/19 10:26 Blood Blood Culture - Preliminary 07/09/19 10:18 Blood Blood Culture - Preliminary Laboratory WBC 5.1 X10^3/uL (3.6-10.0) 07/11/19 05:10 RBC 3.94 X10^6/uL (4.7-6.0) L 07/11/19 05:10 Hgb 10.5 g/dL (13.5-18.0) L 07/11/19 05:10 Hct 32.3 % (42.0-54.0) L 07/11/19 05:10 MCV 82.0 fL (80.0-100.0) 07/11/19 05:10 MCH 26.6 pg (27.0-34.0) L 07/11/19 05:10 MCHC 32.4 g/dL (33.0-35.0) L 07/11/19 05:10 RDW 18.3 % (11.6-16.5) H 07/11/19 05:10 Plt Count 200 X10^3/uL (150.0-450.0) 07/11/19 05:10 MPV 8.0 fL (7.4-11.0) 07/11/19 05:10 Neut % (Auto) 67.5 % (42.0-75.0) 07/11/19 05:10 Lymph % (Auto) 16.6 % (21.0-51.0) L 07/11/19 05:10 [place] % (Auto) 10.1 % (0.0-13.0) 07/11/19 05:10 Eos % (Auto) 5.5 % (0.9-2.9) H 07/11/19 05:10 Baso % (Auto) 0.3 % (0.2-1.0) 07/11/19 05:10 Neut # (Auto) 3.4 x10^3/uL (2.2-4.8) 07/11/19 05:10 Lymph # (Auto) 0.8 X10^3/uL (1.3-2.9) L 07/11/19 05:10 [place] # (Auto) 0.5 x10^3/uL (0.3-0.8) 07/11/19 05:10 Eos # (Auto) 0.3 x10^3/uL (0.0-0.2) H 07/11/19 05:10 Baso # (Auto) 0.0 X10^3/uL (0.0-0.1) 07/11/19 05:10 Absolute Nucleated RBC 0.2 /100WBC 07/11/19 05:10 PT 15.2 SECONDS (11.8-14.3) 07/06/19 05:05 INR Target Range - 07/06/19 05:05 INR 1.23 (0.8-1.3) 07/06/19 05:05 APTT 47.1 SECONDS (22.9-36.5) H 07/06/19 05:05 PTT Comment - 07/06/19 05:05 Sample Site Rr 07/10/19 05:00 ABG pH 7.360 (7.35-7.45) 07/10/19 05:00 ABG pCO2 64.0 mmHg (35.0-45.0) H* 07/10/19 05:00 ABG pO2 86.0 mmHg (80.0-100.0) 07/10/19 05:00 ABG HCO3 36.2 mmol/L (22-26) H* 07/10/19 05:00 ABG O2 Saturation 96.0 % (90-100) 07/10/19 05:00 ABG Base Excess 8.6 mmol/L (-2.0-2.0) H 07/10/19 05:00 Ganesh Test Pos 07/10/19 05:00 A-a Gradient 119.0 mmHg 07/10/19 05:00 FiO2 40.0 07/10/19 05:00 Blood Gas Comments Katy well sw 07/10/19 05:00 Sodium 147 mmol/L (136-145) H 07/11/19 05:10 Corrected Sodium 148 mmol/L (136-145) H 07/11/19 05:10 Potassium 4.0 mmol/L (3.5-5.1) 07/11/19 05:10 Chloride 109 mmol/L (98-107) H 07/11/19 05:10 Carbon Dioxide 36.4 mmol/L (21-32) H 07/11/19 05:10 BUN 27 mg/dL (7-18) H 07/11/19 05:10 Creatinine 1.33 mg/dL (0.70-1.30) H 07/11/19 05:10 Est GFR (MDRD) Af Amer > 60 (>60) 07/11/19 05:10 Est GFR (MDRD) Non-Af 56 (>60) L 07/11/19 05:10 Glucose 122 mg/dL (65-99) H 07/11/19 05:10 POC Glucose (mg/dL) 123 mg/dL (65-99) H 07/11/19 05:18 Lactic Acid 0.7 mmol/L (0.4-2.0) 07/09/19 10:26 Calcium 9.1 mg/dL (8.5-10.1) 07/11/19 05:10 Corrected Calcium 10.1 mg/dL (8.5-10.1) 07/11/19 05:10 Magnesium 2.1 mg/dL (1.7-2.9) 07/06/19 05:08 Total Bilirubin 0.60 mg/dL (0.2-1.0) 07/11/19 05:10 AST 16 Units/L (15-37) 07/11/19 05:10 ALT 21 Units/L (12-78) 07/11/19 05:10 Alkaline Phosphatase 83 Units/L (46-116) 07/11/19 05:10 Creatine Kinase 69 Units/L (39-308) 07/06/19 05:08 CK-MB (CK-2) 5.1 ng/mL (0-4.0) H* 07/06/19 05:08 CK/CKMB % Calc 7.4 % (<4) 07/06/19 05:08 Troponin I 0.10 ng/mL (0-1.5) 07/06/19 05:08 Total Protein 6.1 g/dL (6.4-8.2) L 07/11/19 05:10 Albumin 2.7 g/dL (3.4-5.0) L 07/11/19 05:10 Globulin 3.4 g/dL (2.5-4.5) 07/11/19 05:10 Albumin/Globulin Ratio 0.8 Ratio (1.1-2.1) L 07/11/19 05:10 Specimen Type Catherized urine 07/05/19 07:08 Urine Color Yellow (YELLOW) 07/05/19 07:08 Urine Appearance Hazy (CLEAR) 07/05/19 07:08 Urine pH 5.0 (5.0 - 8.0) 07/05/19 07:08 Ur Specific [place] 1.025 (1.000-1.030) 07/05/19 07:08 Urine Protein 2+ (NEGATIVE) 07/05/19 07:08 Urine Glucose (UA) Negative (NEGATIVE) 07/05/19 07:08 Urine Ketones 1+ (NEGATIVE) 07/05/19 07:08 Urine Occult Blood Negative (NEGATIVE) 07/05/19 07:08 Urine Nitrite Negative (NEGATIVE) 07/05/19 07:08 Urine Bilirubin Negative (NEGATIVE) 07/05/19 07:08 Urine Urobilinogen 1+ (NORMAL) 07/05/19 07:08 Ur Leukocyte Esterase 2+ (NEGATIVE) 07/05/19 07:08 Urine RBC None seen /HPF (0-3) 07/05/19 07:08 Urine WBC 0-2 /HPF (0-5) 07/05/19 07:08 Ur Squamous Epith Cells Negative /HPF (NEGATIVE) 07/05/19 07:08 Urine Bacteria Negative /HPF (NEGATIVE) 07/05/19 07:08 Hyaline Casts Few /LPF (NEGATIVE) 07/05/19 07:08 Urine Mucus Few /HPF (NEGATIVE) 07/05/19 07:08 Ur Culture Indicated? No/not indicated 07/05/19 07:08 Blood Type O POSITIVE 07/05/19 10:40 Antibody Screen Negative 07/05/19 10:40 Crossmatch See Detail 07/05/19 10:40 Plan (1) Respiratory failure with hypoxia and hypercapnia: Status: Acute Qualifiers: Chronicity: acute on chronic Qualified Code(s): J96.21 - Acute and chronic respiratory failure with hypoxia; J96.22 - Acute and chronic respiratory failure with hypercapnia Plan: BIPAP, D5W, MORPHINE 2MG IV Q6H PRN, DOXYCYCLINE 100MG IV Q12H, FORTAZ 1G IV Q12H, SOLU-MEDROL 40MG IV Q8H, AND DUONEBS QID. (2) CHF (congestive heart failure): Status: Chronic Qualifiers: Heart failure chronicity: acute on chronic Heart failure type: unspe cified Qualified Code(s): I50.9 - Heart failure, unspecified (3) Pleural effusion: Status: Acute Plan: IV FORTAZ, IV DOXY, RESPIRATORY TX, CONTINUE TO MONITOR (4) Pulmonary edema: Status: Inactive Qualifiers: Chronicity: acute Qualified Code(s): J81.0 - Acute pulmonary edema (5) Anemia: Status: Acute Qualifiers: Anemia type: iron deficiency Iron deficiency anemia type: unspecified iron deficiency Qualified Code(s): D50.9 - Iron deficiency anemia, unspecified Plan: MONITOR H&H, TRANSFUSE 2 UNITS PRBC IF HGB DROPS (6) Acute dehydration: Status: Inactive Plan: D5W 50 ML/HR, CONTINUE TO MONITOR (7) Hypernatremia: Status: Acute Plan: IVF D5w@50 ml/h. Corrected Na 148
[2019-07-11] MEDS: HumuLIN R SC PRN ×3 (11:49→21:15)
--- NOTE | 2019-07-11 14:24 | RAD ---
HISTORYShortness of breathSTUDYCHEST, 1 VIEWCOMPARISONMay 2019FINDINGSThe patient is rotated. The cardiac silhouette is enlarged pulmonary vascular congestion and questionable edema. Portions of the lung apices are partially obscured by overlying soft tissues.IMPRESSIONCardiomegaly with pulmonary vascular congestion and questionable edema.Electronically signed by: DARLING POLO (July 11, 2019 14:22:41)
[2019-07-11] MEDS: SNACK - Diabetic Appropriate PO SCH (21:11)
[2019-07-11] MEDS: LIPITOR TAB 10 MG PO SCH (21:13)
[2019-07-11] MEDS: VITAMIN D3 25 mcg (1,000 UNITS) PO SCH (21:13)
[2019-07-11] MEDS: VITAMIN C PO SCH (21:14)
[2019-07-11] MEDS: COZAAR PO SCH (21:14)
[2019-07-11] MEDS ORDERED: MILK OF MAGNESIA PO PRN (22:49)
[2019-07-11] MEDS ORDERED: COLACE CAP 100 MG PO PRN (22:49)
[2019-07-12] MEDS: D5W 1000 ML IV 1,000 ML IV SCH (04:04)
[2019-07-12 05:20] LABS: ABG BASE EXCESS 11.7 mmol/L (-2.0-2.0)
[2019-07-12 05:27] LABS: ABG ALLEN TEST POSS; ABG HCO3 38.7 mmol/L (22-26)
[2019-07-12] MEDS: FORTAZ or TAZICEF VIAL INJ 1 G in NS 100 ML IV 100 ML IV SCH (05:45)
[2019-07-12 06:35] LABS: BASOPHILS % (AUTO) 0.3 % (0.2-1.0); EOSINOPHILS # (AUTO) 0.2 x10^3/uL (0.0-0.2); EOSINOPHILS % (AUTO) 4.8 % (0.9-2.9); HEMATOCRIT 32.7 % (42.0-54.0); HEMOGLOBIN 10.7 g/dL (13.5-18.0); LYMPHOCYTES # (AUTO) 0.9 X10^3/uL (1.3-2.9); LYMPHOCYTES % (AUTO) 19.4 % (21.0-51.0); MEAN CORPUSCULAR HEMOGLOBIN 26.9 pg (27.0-34.0); MEAN CORPUSCULAR HGB CONC 32.9 g/dL (33.0-35.0); MEAN CORPUSCULAR VOLUME 81.8 fL (80.0-100.0); MEAN PLATELET VOLUME 8.1 fL (7.4-11.0); MONOCYTES # (AUTO) 0.4 x10^3/uL (0.3-0.8); MONOCYTES % (AUTO) 7.8 % (0.0-13.0); NEUTROPHILS # (AUTO) 3.3 x10^3/uL (2.2-4.8); NEUTROPHILS % (AUTO) 67.7 % (42.0-75.0); PLATELET COUNT 188 X10^3/uL (150.0-450.0); RED BLOOD COUNT 3.99 X10^6/uL (4.7-6.0); WHITE BLOOD COUNT 4.8 X10^3/uL (3.6-10.0)
[2019-07-12 06:51] LABS: ALANINE AMINOTRANSFERASE 24 Units/L (12-78); ALBUMIN 2.7 g/dL (3.4-5.0); ALKALINE PHOSPHATASE 85 Units/L (46-116); ASPARTATE AMINO TRANSFERASE 20 Units/L (15-37); BLOOD UREA NITROGEN 20 mg/dL (7-18); CALCIUM 9.1 mg/dL (8.5-10.1); CHLORIDE 109 mmol/L (98-107); COR CA(FOR HYPOALB) 10.1 mg/dL (8.5-10.1); COR NA(FOR HYPERGLY) 150 mmol/L (136-145); CREATININE 1.16 mg/dL (0.70-1.30); SODIUM 149 mmol/L (136-145); TOTAL PROTEIN 6.1 g/dL (6.4-8.2); eGFR NON BLACK RACES > 60 (>60)
--- NOTE | 2019-07-12 07:31 | RAD ---
HISTORYshortness of breathSTUDYCHEST, 1 VIEWCOMPARISONChest film July 11, 2019FINDINGSThe trachea is midline. The cardiac silhouette is markedly enlarged but stable compared to the July 11, 2019 exam. There is persistent central vascular congestion. No consolidating infiltrates are observed. Hazy density in the left lung base is felt to represent probable pleural effusion. The central vascular congestion has increased since yesterday's film. The bony thorax is unremarkable.IMPRESSIONMarked cardiomegaly vascular congestion and probable small pleural effusion all findings consistent with CHF with mild worsening compared to yesterdays film.Electronically signed by: EVELIA CHISHOLM (July 12, 2019 07:30:14)
[2019-07-12] MEDS: TAB-A-VITE PO SCH (09:35)
[2019-07-12] MEDS: VSL#3 PO SCH (09:35)
[2019-07-12] MEDS: VIBRAMYCIN 100 MG in D5W 250 ML IV 250 ML IV SCH (09:35)
[2019-07-12] MEDS: THEO-DUR TAB 300 MG 12-HR PO SCH (09:35)
[2019-07-12] MEDS: ZyPREXA TAB 5 MG PO SCH (09:36)
[2019-07-12] MEDS: ZyrTEC TAB 10 MG PO SCH (09:36)
[2019-07-12] MEDS: KLONOPIN TAB 0.5 MG PO SCH (09:37)
[2019-07-12] MEDS: ARICEPT TAB 10 MG PO SCH (09:37)
[2019-07-12] MEDS: ELIQUIS PO SCH (09:37)
[2019-07-12] MEDS: NAMENDA TAB 10 MG PO SCH (09:39)
[2019-07-12] MEDS: DUONEB 0.5 MG/3 MG (3 mL) NEB SCH (09:42)
[2019-07-12] MEDS ORDERED: DULCOLAX SUPPOSITORY 10 MG RECTAL ONE (11:20)
[2019-07-12] MEDS: HumuLIN R SC PRN (11:30)
[2019-07-12 13:28] VITALS: BP 164/72
== END 2019-07-12 14:00 | DRG 291 ==
LOC: ER 01:30 → ICU 07:18 → MED/SURG 07-06 16:25
PROVIDERS: ADMIT Internal Medicine; ATTEND Internal Medicine
DX: E11.65 Type 2 diabetes mellitus with hyperglycemia; J90 Pleural effusion, not elsewhere classified; E87.0 Hyperosmolality and hypernatremia; Z78.1 Physical restraint status; I50.9 Heart failure, unspecified; J96.22 Acute and chronic respiratory failure with hypercapnia; E86.0 Dehydration; D50.9 Iron deficiency anemia, unspecified; J96.21 Acute and chronic respiratory failure with hypoxia
CPT/HCPCS: 36415; 36430; 36600; 51702; 71010; 71045; 80048; 80053; 81001; 82550; 82553; 82803; 83605; 83735; 83880; 84484; 85014; 85018; 85025; 85610; 85730; 86850; 86900; 86901; 86922; 87040; 93005; 94640; 94660; 96365; 96374; 97110; 97167; 97530; 99285; A4216; A4222; A4618; A7030; J0713; J1630; J1815; J1940; J2270; J2920; J3490; J7050; J7060; J7620; P9016; S5010

== ENCOUNTER 2019-07-25 20:19 | Inpatient (IN) ==
[2019-07-25] MEDS ORDERED: D50W ABBOJECT SYR ONE (20:25)
[2019-07-25] MEDS ORDERED: GLUTOSE 15 GEL ORAL PO ONE (20:50)
[2019-07-25] MEDS ORDERED: GLUTOSE 15 GEL ORAL PO PRN (20:58)
[2019-07-25] MEDS ORDERED: D50W ABBOJECT SYR IV ONE ×2 (20:59→22:05)
[2019-07-25 21:03] LABS: BASOPHILS # (AUTO) 0.1 X10^3/uL (0.0-0.1); BASOPHILS % (AUTO) 0.6 % (0.2-1.0); EOSINOPHILS # (AUTO) 0.1 x10^3/uL (0.0-0.2); EOSINOPHILS % (AUTO) 0.6 % (0.9-2.9); HEMATOCRIT 33.1 % (42.0-54.0); HEMOGLOBIN 10.6 g/dL (13.5-18.0); LYMPHOCYTES # (AUTO) 0.5 X10^3/uL (1.3-2.9); LYMPHOCYTES % (AUTO) 5.2 % (21.0-51.0); MEAN CORPUSCULAR HEMOGLOBIN 26.6 pg (27.0-34.0); MEAN CORPUSCULAR HGB CONC 31.9 g/dL (33.0-35.0); MEAN CORPUSCULAR VOLUME 83.6 fL (80.0-100.0); MEAN PLATELET VOLUME 8.8 fL (7.4-11.0); MONOCYTES # (AUTO) 0.7 x10^3/uL (0.3-0.8); MONOCYTES % (AUTO) 7.7 % (0.0-13.0); NEUTROPHILS # (AUTO) 8.2 x10^3/uL (2.2-4.8); NEUTROPHILS % (AUTO) 85.9 % (42.0-75.0); PLATELET COUNT 241 X10^3/uL (150.0-450.0); RED BLOOD COUNT 3.96 X10^6/uL (4.7-6.0); RED CELL DISTRIBUTION WIDTH 18.6 % (11.6-16.5); WHITE BLOOD COUNT 9.5 X10^3/uL (3.6-10.0)
[2019-07-25 21:15] LABS: ALANINE AMINOTRANSFERASE 25 Units/L (12-78); ALBUMIN 2.9 g/dL (3.4-5.0); ALKALINE PHOSPHATASE 111 Units/L (46-116); ASPARTATE AMINO TRANSFERASE 30 Units/L (15-37); BLOOD UREA NITROGEN 42 mg/dL (7-18); CALCIUM 9.2 mg/dL (8.5-10.1); CHLORIDE 109 mmol/L (98-107); COR CA(FOR HYPOALB) 10.1 mg/dL (8.5-10.1); CREATININE 1.47 mg/dL (0.70-1.30); SODIUM 149 mmol/L (136-145); TOTAL PROTEIN 6.9 g/dL (6.4-8.2); eGFR NON BLACK RACES 50 (>60)
[2019-07-25 21:58] LABS: CKMB % 15.9 % (<4); TROPONIN I 0.06 ng/mL (0-1.5)
[2019-07-25 22:04] LABS: CREATINE KINASE MB 6.5 ng/mL (0-4.0)
[2019-07-25 22:19] VITALS: BMI 39.3
[2019-07-25] MEDS: D5 NS 1000 ML 1,000 ML IV SCH (22:28)
[2019-07-25] MEDS: ROCEPHIN VIAL 1 GRAM 1 G in NS 100 ML IV + SPIKE MINIBAG* 100 ML IV SCH (22:28)
[2019-07-25] MEDS ORDERED: PHARMACY CONSULT LTC MEDICATIONS XX SCH (23:00)
[2019-07-25 23:43] LABS: BILIRUBIN,URINE NEGATIVE (NEGATIVE); BLOOD/HEMOGLOBIN,URINE 2+ (NEGATIVE); GLUCOSE, URINE NEGATIVE (NEGATIVE); KETONES,URINE NEGATIVE (NEGATIVE); LEUKOCYTE ESTERASE ,URINE NEGATIVE (NEGATIVE); NITRITES,URINE NEGATIVE (NEGATIVE); PROTEIN,URINE 3+ (NEGATIVE); UROBILINOGEN,URINE NORMAL (NORMAL)
[2019-07-26 00:04] LABS: APPEARANCE,URINE CLOUDY (CLEAR); BACTERIA,URINE TRACE /HPF (NEGATIVE); COLOR,URINE YELLOW (YELLOW); GRANULAR CASTS,URINE FEW /LPF (NEGATIVE); HYALINE CASTS, URINE FEW /LPF (NEGATIVE); RBC,URINE 0-2 /HPF (0-3); SQUAMOUS EPITHELIAL CELL,UR NUMEROUS /HPF (NEGATIVE)
[2019-07-26] MEDS ORDERED: D50W ABBOJECT SYR IV ONE (01:12)
[2019-07-26] MEDS ORDERED: D50W ABBOJECT SYR ONE (01:16)
[2019-07-26 06:15] LABS: BASOPHILS % (AUTO) 0.4 % (0.2-1.0); EOSINOPHILS # (AUTO) 0.1 x10^3/uL (0.0-0.2); EOSINOPHILS % (AUTO) 0.6 % (0.9-2.9); HEMATOCRIT 31.7 % (42.0-54.0); HEMOGLOBIN 10.4 g/dL (13.5-18.0); LYMPHOCYTES # (AUTO) 0.5 X10^3/uL (1.3-2.9); LYMPHOCYTES % (AUTO) 5.2 % (21.0-51.0); MEAN CORPUSCULAR HEMOGLOBIN 27.1 pg (27.0-34.0); MEAN CORPUSCULAR HGB CONC 32.8 g/dL (33.0-35.0); MEAN CORPUSCULAR VOLUME 82.7 fL (80.0-100.0); MEAN PLATELET VOLUME 9.5 fL (7.4-11.0); MONOCYTES # (AUTO) 0.7 x10^3/uL (0.3-0.8); MONOCYTES % (AUTO) 8.4 % (0.0-13.0); NEUTROPHILS # (AUTO) 7.6 x10^3/uL (2.2-4.8); NEUTROPHILS % (AUTO) 85.4 % (42.0-75.0); PLATELET COUNT 242 X10^3/uL (150.0-450.0); RED BLOOD COUNT 3.83 X10^6/uL (4.7-6.0); RED CELL DISTRIBUTION WIDTH 18.8 % (11.6-16.5); WHITE BLOOD COUNT 8.8 X10^3/uL (3.6-10.0)
[2019-07-26 06:39] LABS: ALANINE AMINOTRANSFERASE 23 Units/L (12-78); ALBUMIN 2.7 g/dL (3.4-5.0); ALKALINE PHOSPHATASE 103 Units/L (46-116); ASPARTATE AMINO TRANSFERASE 30 Units/L (15-37); BLOOD UREA NITROGEN 37 mg/dL (7-18); CALCIUM 9.2 mg/dL (8.5-10.1); CHLORIDE 108 mmol/L (98-107); CKMB % 9.8 % (<4); COR CA(FOR HYPOALB) 10.2 mg/dL (8.5-10.1); CREATINE KINASE 51 Units/L (39-308); CREATININE 1.44 mg/dL (0.70-1.30); SODIUM 149 mmol/L (136-145); TOTAL PROTEIN 6.6 g/dL (6.4-8.2); TROPONIN I 0.07 ng/mL (0-1.5); eGFR NON BLACK RACES 51 (>60)
--- NOTE | 2019-07-26 07:26 | RAD ---
HISTORYHypoxiaSTUDYCHEST, 1 [id number]/19/2020FINDINGSThe heart is enlarged. Pulmonary venous congestion is present. No interstitial edema, alveolar edema, alveolar infiltrates or pleural effusions are identified. The lungs are hypoinflated. The right hemidiaphragm is elevated.IMPRESSIONCardiomegaly with pulmonary venous congestionHypo inflationNo acute infiltratesElevated right hemidiaphragmElectronically signed by: KATHRINE FALLON (Jul 26, 2019 07:24:45)
[2019-07-26] MEDS: ROCEPHIN VIAL 1 GRAM 1 G in NS 100 ML IV + SPIKE MINIBAG* 100 ML IV SCH (08:17)
[2019-07-26] MEDS ORDERED: PULMICORT NEB TX 0.5 MG NEB ONE (09:37)
[2019-07-26] MEDS: DUONEB 0.5 MG/3 MG (3 mL) NEB SCH ×4 (09:40→20:25)
[2019-07-26] MEDS: PULMICORT NEB TX 0.5 MG NEB SCH ×2 (09:40→20:25)
--- NOTE | 2019-07-26 10:15 | DR.H&P ---
H&P - History & Physical for Day of: H&P Date: 07/25/19 - Chief Complaint Chief Complaint: HYPOGLYCEMIA, DECREASED RESPONSIVENESS - History of Present Illness History of Present Illness: IS A 74 YEAR OLD PATIENT OF OURS WHO PRESENTED TO THE HOSPITAL A DIRECT ADMISSION FROM [facility] WITH REPORTS OF HYPOGLYCEMIA AND DECREASED RESPONSIVENESS. ALF STAFF REPORTS THAT PATIENT HAD BEEN ON COMFORT MEASURES AND THAT OTBS HAD BEEN DISCONTINUED, HOWEVER, THEY HAD CONTINUED WITH HIS INSULIN ADMINISTRATION. ON ARRIVAL TO THE HOSPITAL, PATIENT IS NOTED TO BE LETHARGIC BUT HE DID RESPOND TO VERBAL STIMULI. VITALS WERE 97.6-80-22-92%NC-134/74. LABS WERE OBTAINED. ABNORMAL LAB VALUES INCLUDE THE FOLLOWING: RBC 3.96, HGB 10.6, HCT 33.1, SODIUM 149, CHLORIDE 109, CARBON DIOXIDE 41.0, BUN 42, CREATININE 1.47, GLUCOSE 20, ALBUMIN 2.9. URINALYSIS REVEALED: WBC 0-2, RBC 0-2, BACTERIA TRACE, LEUKOCYTES NEGATIVE. BLOOD AND URINE CULTURES WERE SET UP. A CHEST XRAY WAS OBTAINED AND REVEALED: Cardiomegaly with pulmonary venous congestion. Hypo inflation. No acute infiltrates. Elevated right hemidiaphragm. PATIENTS FAMILY MEMBERS HAVE MADE PATIENT A LIMITED DNR. THEY REQUEST MEDICATION ADMINISTRATION AND ALSO REQUEST FOR A PEG TUBE TO BE PLACED. HE WAS GIVEN AN AMP OF D50 X 2 DOSES. OTBS INCREASED TO THE 90s. HE WAS STARTED ON D5NS AT KVO, ROCEPHIN 1G IV DAILY, DUONEBS QID AND PULMICORT BID. WE WILL MONITOR OTBS Q2H. WE WILL CONSULT WITH FOR PEG TUBE. OTHERWISE, WE WILL FOLLOW UP WITH AM LABS AND CONTINUE TO MONITOR. - Past Medical History Past Medical History: Anemia, Arthritis, COPD, Coronary Artery Disease, Depression, Diabetes, Dyslipidemia, Hypertension, Liver Disease, Seizures - Past Surgical History Surgical History: Appendectomy - Family History Family Medical History: Diabetes Mellitus, Cancer, NH, Hypertension - Social History Alcohol Use: None Drug Use: None - Medications Home Medications: No Known Drug Allergies Allergy (Verified 07/02/19 13:21) CONTINUE taking the following medications atropine 1 drp SUBLINGUAL Q2H PRN 07/26/19 [History] insulin detemir U-100 [Levemir U-100 Insulin] 22 unit SUBCUT HS 07/26/19 [History] morphine concentrate 5 mg SUBLINGUAL Q2H PRN 07/26/19 [History] - Review of Systems Constitutional: See HPI, Weakness Eyes: No Symptoms Reported ENT: No Symptoms Reported Respiratory: No Symptoms Reported Cardiovascular: No Symptoms Reported Gastrointestinal: No Symptoms Reported Genitourinary: No Symptoms Reported Musculoskeletal: No Symptoms Reported Skin: No Symptoms Reported Neurological: See HPI, Weakness - Physical Exam Vital Signs: Temperature 97.8 F Pulse Rate [Apical] 87 Pulse Rate 89 Respiratory Rate 20 Blood Pressure [Left Arm] 173/75 Blood Pressure [Right Arm] 107/55 Blood Pressure [Left Arm] 147/57 Blood Pressure 178/84 O2 Sat by Pulse Oximetry 95 Oriented: Unable to test Eyes: Normal Ear: Normal Nose: Normal Throat: Normal Respiratory: Wheezes Throughout Cardiovascular: Normal : Normal Auscultation: Bowel Sounds: Normal Palpation: Normal Tenderness: Normal Skin: Normal Musculoskeletal: Normal Psychiatric: Normal Affect: Flat Speech Pattern: Unclear, Inappropriate - Allergies Allergies/Adverse Reactions: Allergies Allergy/AdvReac Type Severity Reaction Status Date / Time No Known Drug Allergies Allergy Verified 07/02/19 13:21
[2019-07-26] MEDS ORDERED: DIPRIVAN VIAL 20 ML ONE (12:35)
[2019-07-26] MEDS ORDERED: NS 1000 ML 1,000 ML ONE (12:49)
[2019-07-26] MEDS ORDERED: ANCEF VIAL 1 GRAM IVP ONE (13:27)
[2019-07-26] MEDS ORDERED: ANCEF 1 GRAM IV PREMIX* 2 G/100 ML BAG IV ONE (13:37)
--- NOTE | 2019-07-26 15:10 | OR.IMMED ---
Immediate Post-Op Note - Immediate Post-Op Note Pre-Op Diagnosis: dehydration . poor oral intake . confinement to bed . Post-Op Diagnosis: same as above . Procedure: EGD and [lacement of PEG feeding tube .. Surgeon/Adjunct Physics Instructor: Anshul Findings: mild gastritis . Specimens Removed: none Estimated Blood Loss: minimal . Drains: NONE Complications: none Condition: Stable Post Hospital Plans and Medications: NPO for 24 h. PEG to gravity drainage for 15 mnts every 6 hours
[2019-07-26] MEDS: LOVENOX INJ 40 MG SYR SC SCH (15:26)
[2019-07-26] MEDS: MORPHINE SULFATE INJ 2 MG INJ IVP PRN (20:46)
[2019-07-26] MEDS: D5 NS 1000 ML 1,000 ML IV SCH (21:35)
[2019-07-27 05:32] LABS: BASOPHILS % (AUTO) 0.5 % (0.2-1.0); EOSINOPHILS # (AUTO) 0.1 x10^3/uL (0.0-0.2); EOSINOPHILS % (AUTO) 1.3 % (0.9-2.9); HEMATOCRIT 33.1 % (42.0-54.0); HEMOGLOBIN 10.6 g/dL (13.5-18.0); LYMPHOCYTES # (AUTO) 0.7 X10^3/uL (1.3-2.9); LYMPHOCYTES % (AUTO) 9.5 % (21.0-51.0); MEAN CORPUSCULAR HEMOGLOBIN 26.3 pg (27.0-34.0); MEAN CORPUSCULAR VOLUME 82.3 fL (80.0-100.0); MONOCYTES # (AUTO) 0.6 x10^3/uL (0.3-0.8); MONOCYTES % (AUTO) 9.3 % (0.0-13.0); NEUTROPHILS # (AUTO) 5.5 x10^3/uL (2.2-4.8); NEUTROPHILS % (AUTO) 79.4 % (42.0-75.0); PLATELET COUNT 222 X10^3/uL (150.0-450.0); RED BLOOD COUNT 4.02 X10^6/uL (4.7-6.0); RED CELL DISTRIBUTION WIDTH 18.6 % (11.6-16.5); WHITE BLOOD COUNT 6.9 X10^3/uL (3.6-10.0)
[2019-07-27 05:47] LABS: ALANINE AMINOTRANSFERASE 20 Units/L (12-78); ALBUMIN 2.6 g/dL (3.4-5.0); ALKALINE PHOSPHATASE 104 Units/L (46-116); ASPARTATE AMINO TRANSFERASE 31 Units/L (15-37); BLOOD UREA NITROGEN 24 mg/dL (7-18); CALCIUM 9.3 mg/dL (8.5-10.1); CARBON DIOXIDE 37.2 mmol/L (21-32); CHLORIDE 109 mmol/L (98-107); COR CA(FOR HYPOALB) 10.4 mg/dL (8.5-10.1); COR NA(FOR HYPERGLY) 148 mmol/L (136-145); CREATININE 1.19 mg/dL (0.70-1.30); SODIUM 148 mmol/L (136-145); TOTAL PROTEIN 6.5 g/dL (6.4-8.2); eGFR NON BLACK RACES > 60 (>60)
[2019-07-27] MEDS: LOVENOX INJ 40 MG SYR SC SCH (09:01)
[2019-07-27] MEDS: ROCEPHIN VIAL 1 GRAM 1 G in NS 100 ML IV + SPIKE MINIBAG* 100 ML IV SCH (09:02)
[2019-07-27] MEDS: DUONEB 0.5 MG/3 MG (3 mL) NEB SCH ×4 (09:08→20:15)
[2019-07-27] MEDS: PULMICORT NEB TX 0.5 MG NEB SCH ×2 (09:08→20:15)
[2019-07-27] MEDS ORDERED: THEO-DUR TAB 200 MG 12-HR PO SCH (10:00)
--- NOTE | 2019-07-27 16:01 | DR.PROGNOT ---
Hospital Progress Notes - Progress Note for Day of: Progress Note Date: 07/27/19 - Chief Complaint Chief Complaint: s/p PEG tube placement for nutritional support . afebrile and comfortable . abdomen soft , flat . nontender . BS+. no kayla around PEG insertion . - Past Medical Family Social History Past Med/Fam/Surg Hx: No changes since H&P Allergies: Allergies No Known Drug Allergies Allergy (Verified 07/02/19 13:21) - Review Of Systems ROS: No change since H&P - Vital Signs Vital Signs: Temperature 98.3 F Pulse Rate [Apical] 86 Pulse Rate 89 Respiratory Rate 20 Blood Pressure [Left Arm] 157/70 Blood Pressure [Right Arm] 107/55 Blood Pressure [Left Arm] 147/57 Blood Pressure 178/84 O2 Sat by Pulse Oximetry 96 - Physical Exam Oriented: Normal, Unable to test Eyes: Normal Ear: Normal Nose: Normal Throat: Normal Cardiovascular: Normal : Normal GI:Auscultation: Normal GI:Palpation: Normal GI: Tenderness: Normal Skin: Normal Musculoskeletal: Normal Psychiatric: Normal Affect: Flat Speech Pattern: Unclear, Inappropriate - Laboratory and Diagnostics Result Diagrams: 07/27/19 04:23 07/27/19 04:23 Labs: 07/25/19 21:39 Blood Blood Culture - Preliminary 07/25/19 21:30 Blood Blood Culture - Preliminary 07/25/19 22:30 Urine,Clean Catch Urine Culture - Preliminary Laboratory WBC 6.9 X10^3/uL (3.6-10.0) 07/27/19 04:23 RBC 4.02 X10^6/uL (4.7-6.0) L 07/27/19 04:23 Hgb 10.6 g/dL (13.5-18.0) L 07/27/19 04:23 Hct 33.1 % (42.0-54.0) L 07/27/19 04:23 MCV 82.3 fL (80.0-100.0) 07/27/19 04:23 MCH 26.3 pg (27.0-34.0) L 07/27/19 04:23 MCHC 32.0 g/dL (33.0-35.0) L 07/27/19 04:23 RDW 18.6 % (11.6-16.5) H 07/27/19 04:23 Plt Count 222 X10^3/uL (150.0-450.0) 07/27/19 04:23 MPV 9.0 fL (7.4-11.0) 07/27/19 04:23 Neut % (Auto) 79.4 % (42.0-75.0) H 07/27/19 04:23 Lymph % (Auto) 9.5 % (21.0-51.0) L 07/27/19 04:23 [place] % (Auto) 9.3 % (0.0-13.0) 07/27/19 04:23 Eos % (Auto) 1.3 % (0.9-2.9) 07/27/19 04:23 Baso % (Auto) 0.5 % (0.2-1.0) 07/27/19 04:23 Neut # (Auto) 5.5 x10^3/uL (2.2-4.8) H 07/27/19 04:23 Lymph # (Auto) 0.7 X10^3/uL (1.3-2.9) L 07/27/19 04:23 [place] # (Auto) 0.6 x10^3/uL (0.3-0.8) 07/27/19 04:23 Eos # (Auto) 0.1 x10^3/uL (0.0-0.2) 07/27/19 04:23 Baso # (Auto) 0.0 X10^3/uL (0.0-0.1) 07/27/19 04:23 Absolute Nucleated RBC 0.3 /100WBC 07/27/19 04:23 PT 14.8 SECONDS (11.8-14.3) 07/26/19 04:00 INR Target Range - 07/26/19 04:00 INR 1.20 (0.8-1.3) 07/26/19 04:00 APTT 44.6 SECONDS (22.9-36.5) H 07/26/19 04:00 PTT Comment - 07/26/19 04:00 Sodium 148 mmol/L (136-145) H 07/27/19 04:23 Corrected Sodium 148 mmol/L (136-145) H 07/27/19 04:23 Potassium 4.1 mmol/L (3.5-5.1) 07/27/19 04:23 Chloride 109 mmol/L (98-107) H 07/27/19 04:23 Carbon Dioxide 37.2 mmol/L (21-32) H 07/27/19 04:23 BUN 24 mg/dL (7-18) H 07/27/19 04:23 Creatinine 1.19 mg/dL (0.70-1.30) 07/27/19 04:23 Est GFR (MDRD) Af Amer > 60 (>60) 07/27/19 04:23 Est GFR (MDRD) Non-Af > 60 (>60) 07/27/19 04:23 Glucose 114 mg/dL (65-99) H 07/27/19 04:23 POC Glucose (mg/dL) 115 mg/dL (65-99) H 07/27/19 13:14 Lactic Acid 1.0 mmol/L (0.4-2.0) 07/25/19 20:55 Calcium 9.3 mg/dL (8.5-10.1) 07/27/19 04:23 Corrected Calcium 10.4 mg/dL (8.5-10.1) H 07/27/19 04:23 Total Bilirubin 0.80 mg/dL (0.2-1.0) 07/27/19 04:23 AST 31 Units/L (15-37) 07/27/19 04:23 ALT 20 Units/L (12-78) 07/27/19 04:23 Alkaline Phosphatase 104 Units/L (46-116) 07/27/19 04:23 Creatine Kinase 51 Units/L (39-308) 07/26/19 04:00 CK-MB (CK-2) 5.0 ng/mL (0-4.0) H* 07/26/19 04:00 CK/CKMB % Calc 9.8 % (<4) 07/26/19 04:00 Troponin I 0.07 ng/mL (0-1.5) 07/26/19 04:00 Total Protein 6.5 g/dL (6.4-8.2) 07/27/19 04:23 Albumin 2.6 g/dL (3.4-5.0) L 07/27/19 04:23 Globulin 3.9 g/dL (2.5-4.5) 07/27/19 04:23 Albumin/Globulin Ratio 0.7 Ratio (1.1-2.1) L 07/27/19 04:23 Specimen Type Clean catch urine 07/25/19 22:30 Urine Color Yellow (YELLOW) 07/25/19 22:30 Urine Appearance Cloudy (CLEAR) 07/25/19 22:30 Urine pH 7.0 (5.0 - 8.0) 07/25/19 22:30 Ur Specific [place] 1.010 (1.000-1.030) 07/25/19 22:30 Urine Protein 3+ (NEGATIVE) 07/25/19 22:30 Urine Glucose (UA) Negative (NEGATIVE) 07/25/19 22: Urine Ketones Negative (NEGATIVE) 07/25/19 22: Urine Occult Blood 2+ (NEGATIVE) 07/25/19 22:30 Urine Nitrite Negative (NEGATIVE) 07/25/19 22:30 Urine Bilirubin Negative (NEGATIVE) 07/25/19 22:30 Urine Urobilinogen Normal (NORMAL) 07/25/19 22:30 Ur Leukocyte Esterase Negative (NEGATIVE) 07/25/19 22:30 Urine RBC 0-2 /HPF (0-3) 07/25/19 22:30 Urine WBC 0-2 /HPF (0-5) 07/25/19 22:30 Ur Squamous Epith Cells Numerous /HPF (NEGATIVE) 07/25/19 22:30 Urine Bacteria Trace /HPF (NEGATIVE) 07/25/19 22:30 Hyaline Casts Few /LPF (NEGATIVE) 07/25/19 22:30 Granular Casts Few /LPF (NEGATIVE) 07/25/19 22:30 Ur Culture Indicated? No/not indicated 07/25/19 22:30 SARS-CoV-2 (PCR) Negative (NEGATIVE) 07/26/19 10:36 - Assessment and Plan 1: s/p placement of PEG feeding tube . to starty feeding today with 30 cc/h of [place]
--- NOTE | 2019-07-27 20:24 | PCM.PROG ---
Progress Note - Progress Note for Day of Date of Exam: 07/27/19 - Subjective Subjective: WAS ADMITTED FOR HYPOGLYCEMIA, AMS. AND DEHYDRATION. TODAY, HE IS ALERT, SITTING UP IN BED ON MORNING ROUNDS. HE RESPONDS TO VERBAL STIMULI, BUT HIS WORDS ARE INCOMPREHENSIBLE. HE HAD A PEG TUBE INSERTED BY YESTERDAY. ON EXAMINATION, HEART IS REGULAR IN RATE AND RHYTHM. BILATERAL LUNGS ARE NOTED WITH SCATTERED WHEEZING THROUGHOUT. ABDOMEN IS ROUND, SOFT, AND NON- TENDER WITH NORMAL BOWEL SOUNDS NOTED IN ALL QUADRANTS. THERE IS AN PEG TUBE NOTED. HIS VITALS THIS MORNING ARE: 98.2-90-19-98%-156/67. LABS WERE OBTAINED. ABNORMAL LAB VALUES INCLUDE THE FOLLOWING: RBC 4.02, HGB 10.6, HCT 33.1, SODIUM 148, CHLORIDE 109, CARBON DIOXIDE 37.2, BUN 24, GLUCOSE 114, ALBUMIN 2.6. BLOOD AND URINE CULTURES ARE PENDING. HE IS CURRENTLY RECEIVING D5NS AT KVO, ROCEPHIN 1G IV DAILY, LOVENOX 40MG SC DAILY, DUONEBS QID, AND PULMICORT BID. PLANS TO START TUBE FEEDINGS TODAY. WE ARE IN AGREEMENT WITH PLANS. OTHERWISE, WE PLAN TO FOLLOW UP WITH AM LABS AND CONTINUE TO MONITOR. - Past Medical Family Social History Past Med/Fam/Surg Hx: No changes since H&P Allergies: Allergies No Known Drug Allergies Allergy (Verified 07/02/19 13:21) - Review of Systems ROS: No change since H&P - Vital Signs and I&O's Vital Signs: Temperature 97.9 F Pulse Rate [Apical] 89 Pulse Rate 89 Respiratory Rate 20 Blood Pressure [Left Arm] 167/77 Blood Pressure [Right Arm] 107/55 Blood Pressure [Left Arm] 147/57 Blood Pressure 178/84 O2 Sat by Pulse Oximetry 98 Intake and Output: Intake & Output 07/25/19 07/26/19 07/27/19 07/28/19 11:59 11:59 11:59 11:59 Intake Total 515 / 515 1590 / 1590 0 / 0 Output Total 3925 / 3925 850 / 850 Balance 515 / 515 -2335 / -2335 -850 / -850 - Physical Exam Oriented: Not Oriented Eyes: Normal Ear: Normal Nose: Normal Throat: Normal Respiratory: Generalized, Wheezes Cardiovascular: Normal : Normal Auscultation: Bowel Sounds: Normal Palpation: Normal Tenderness: Normal Skin: Normal Musculoskeletal: Normal Psychiatric: Normal Affect: Flat Speech Pattern: Unclear, Inappropriate - Laboratory and Diagnostics Result Diagrams: 07/27/19 04:23 07/27/19 04:23 Labs: 07/25/19 21:39 Blood Blood Culture - Preliminary 07/25/19 21:30 Blood Blood Culture - Preliminary 07/25/19 22:30 Urine,Clean Catch Urine Culture - Preliminary Laboratory WBC 6.9 X10^3/uL (3.6-10.0) 07/27/19 04:23 RBC 4.02 X10^6/uL (4.7-6.0) L 07/27/19 04:23 Hgb 10.6 g/dL (13.5-18.0) L 07/27/19 04:23 Hct 33.1 % (42.0-54.0) L 07/27/19 04:23 MCV 82.3 fL (80.0-100.0) 07/27/19 04:23 MCH 26.3 pg (27.0-34.0) L 07/27/19 04:23 MCHC 32.0 g/dL (33.0-35.0) L 07/27/19 04:23 RDW 18.6 % (11.6-16.5) H 07/27/19 04:23 Plt Count 222 X10^3/uL (150.0-450.0) 07/27/19 04:23 MPV 9.0 fL (7.4-11.0) 07/27/19 04:23 Neut % (Auto) 79.4 % (42.0-75.0) H 07/27/19 04:23 Lymph % (Auto) 9.5 % (21.0-51.0) L 07/27/19 04:23 [place] % (Auto) 9.3 % (0.0-13.0) 07/27/19 04:23 Eos % (Auto) 1.3 % (0.9-2.9) 07/27/19 04:23 Baso % (Auto) 0.5 % (0.2-1.0) 07/27/19 04:23 Neut # (Auto) 5.5 x10^3/uL (2.2-4.8) H 07/27/19 04:23 Lymph # (Auto) 0.7 X10^3/uL (1.3-2.9) L 07/27/19 04:23 [place] # (Auto) 0.6 x10^3/uL (0.3-0.8) 07/27/19 04:23 Eos # (Auto) 0.1 x10^3/uL (0.0-0.2) 07/27/19 04:23 Baso # (Auto) 0.0 X10^3/uL (0.0-0.1) 07/27/19 04:23 Absolute Nucleated RBC 0.3 /100WBC 07/27/19 04:23 PT 14.8 SECONDS (11.8-14.3) 07/26/19 04:00 INR Target Range - 07/26/19 04:00 INR 1.20 (0.8-1.3) 07/26/19 04:00 APTT 44.6 SECONDS (22.9-36.5) H 07/26/19 04:00 PTT Comment - 07/26/19 04:00 Sodium 148 mmol/L (136-145) H 07/27/19 04:23 Corrected Sodium 148 mmol/L (136-145) H 07/27/19 04:23 Potassium 4.1 mmol/L (3.5-5.1) 07/27/19 04:23 Chloride 109 mmol/L (98-107) H 07/27/19 04:23 Carbon Dioxide 37.2 mmol/L (21-32) H 07/27/19 04:23 BUN 24 mg/dL (7-18) H 07/27/19 04:23 Creatinine 1.19 mg/dL (0.70-1.30) 07/27/19 04:23 Est GFR (MDRD) Af Amer > 60 (>60) 07/27/19 04:23 Est GFR (MDRD) Non-Af > 60 (>60) 07/27/19 04:23 Glucose 114 mg/dL (65-99) H 07/27/19 04:23 POC Glucose (mg/dL) 124 mg/dL (65-99) H 07/27/19 17:53 Lactic Acid 1.0 mmol/L (0.4-2.0) 07/25/19 20:55 Calcium 9.3 mg/dL (8.5-10.1) 07/27/19 04:23 Corrected Calcium 10.4 mg/dL (8.5-10.1) H 07/27/19 04:23 Total Bilirubin 0.80 mg/dL (0.2-1.0) 07/27/19 04:23 AST 31 Units/L (15-37) 07/27/19 04:23 ALT 20 Units/L (12-78) 07/27/19 04:23 Alkaline Phosphatase 104 Units/L (46-116) 07/27/19 04:23 Creatine Kinase 51 Units/L (39-308) 07/26/19 04:00 CK-MB (CK-2) 5.0 ng/mL (0-4.0) H* 07/26/19 04:00 CK/CKMB % Calc 9.8 % (<4) 07/26/19 04:00 Troponin I 0.07 ng/mL (0-1.5) 07/26/19 04:00 Total Protein 6.5 g/dL (6.4-8.2) 07/27/19 04:23 Albumin 2.6 g/dL (3.4-5.0) L 07/27/19 04:23 Globulin 3.9 g/dL (2.5-4.5) 07/27/19 04:23 Albumin/Globulin Ratio 0.7 Ratio (1.1-2.1) L 07/27/19 04:23 Specimen Type Clean catch urine 07/25/19 22:30 Urine Color Yellow (YELLOW) 07/25/19 22:30 Urine Appearance Cloudy (CLEAR) 07/25/19 22:30 Urine pH 7.0 (5.0 - 8.0) 07/25/19 22:30 Ur Specific [place] 1.010 (1.000-1.030) 07/25/19 22:30 Urine Protein 3+ (NEGATIVE) 07/25/19 22:30 Urine Glucose (UA) Negative (NEGATIVE) 07/25/19 22:30 Urine Ketones Negative (NEGATIVE) 07/25/19 22:30 Urine Occult Blood 2+ (NEGATIVE) 07/25/19 22: Urine Nitrite Negative (NEGATIVE) 07/25/19 22:30 Urine Bilirubin Negative (NEGATIVE) 07/25/19 22:30 Urine Urobilinogen Normal (NORMAL) 07/25/19 22:30 Ur Leukocyte Esterase Negative (NEGATIVE) 07/25/19 22:30 Urine RBC 0-2 /HPF (0-3) 07/25/19 22:30 Urine WBC 0-2 /HPF (0-5) 07/25/19 22:30 Ur Squamous Epith Cells Numerous /HPF (NEGATIVE) 07/25/19 22:30 Urine Bacteria Trace /HPF (NEGATIVE) 07/25/19 22:30 Hyaline Casts Few /LPF (NEGATIVE) 07/25/19 22:30 Granular Casts Few /LPF (NEGATIVE) 07/25/19 22:30 Ur Culture Indicated? No/not indicated 07/25/19 22:30 SARS-CoV-2 (PCR) Negative (NEGATIVE) 07/26/19 10:36
[2019-07-27] MEDS: D5 NS 1000 ML 1,000 ML IV SCH (21:30)
[2019-07-28] MEDS: MORPHINE SULFATE INJ 2 MG INJ IVP PRN (02:51)
--- NOTE | 2019-07-28 05:02 | RAD ---
HISTORYshortness of breathSTUDYCHEST, 1 [id number]/31/2020 6FINDINGSThe trachea is midline. The cardiac silhouette is enlarged.. Pulmonary vascular congestion. The lungs are clear of acute consolidation. There is persistent elevation of the right hemidiaphragm.. The bony thorax is unremarkable.IMPRESSIONCardiomegaly with pulmonary vascular congestion minimally improved from previous 07/25/2019Electronically signed by: Caden Lee (Jul 28, 2019 05:01:17)
[2019-07-28 05:06] LABS: BASOPHILS % (AUTO) 0.4 % (0.2-1.0); EOSINOPHILS # (AUTO) 0.1 x10^3/uL (0.0-0.2); EOSINOPHILS % (AUTO) 1.3 % (0.9-2.9); HEMATOCRIT 31.6 % (42.0-54.0); HEMOGLOBIN 10.2 g/dL (13.5-18.0); LYMPHOCYTES # (AUTO) 0.8 X10^3/uL (1.3-2.9); LYMPHOCYTES % (AUTO) 11.8 % (21.0-51.0); MEAN CORPUSCULAR HEMOGLOBIN 26.3 pg (27.0-34.0); MEAN CORPUSCULAR HGB CONC 32.2 g/dL (33.0-35.0); MEAN CORPUSCULAR VOLUME 81.7 fL (80.0-100.0); MEAN PLATELET VOLUME 9.1 fL (7.4-11.0); MONOCYTES # (AUTO) 0.8 x10^3/uL (0.3-0.8); MONOCYTES % (AUTO) 11.8 % (0.0-13.0); NEUTROPHILS % (AUTO) 74.7 % (42.0-75.0); PLATELET COUNT 195 X10^3/uL (150.0-450.0); RED BLOOD COUNT 3.86 X10^6/uL (4.7-6.0); RED CELL DISTRIBUTION WIDTH 18.6 % (11.6-16.5); WHITE BLOOD COUNT 6.7 X10^3/uL (3.6-10.0)
[2019-07-28 05:16] LABS: ALANINE AMINOTRANSFERASE 16 Units/L (12-78); ALBUMIN 2.4 g/dL (3.4-5.0); ALKALINE PHOSPHATASE 100 Units/L (46-116); ASPARTATE AMINO TRANSFERASE 26 Units/L (15-37); BLOOD UREA NITROGEN 21 mg/dL (7-18); CALCIUM 9.1 mg/dL (8.5-10.1); CARBON DIOXIDE 35.8 mmol/L (21-32); CHLORIDE 108 mmol/L (98-107); COR CA(FOR HYPOALB) 10.4 mg/dL (8.5-10.1); COR NA(FOR HYPERGLY) 150 mmol/L (136-145); CREATININE 1.25 mg/dL (0.70-1.30); SODIUM 147 mmol/L (136-145); TOTAL PROTEIN 6.3 g/dL (6.4-8.2); eGFR NON BLACK RACES > 60 (>60)
[2019-07-28] MEDS: LOVENOX INJ 40 MG SYR SC SCH (08:25)
[2019-07-28] MEDS: ROCEPHIN VIAL 1 GRAM 1 G in NS 100 ML IV + SPIKE MINIBAG* 100 ML IV SCH (08:26)
[2019-07-28] MEDS: DUONEB 0.5 MG/3 MG (3 mL) NEB SCH (08:47)
[2019-07-28] MEDS: PULMICORT NEB TX 0.5 MG NEB SCH (08:47)
[2019-07-28] MEDS ORDERED: LASIX IVP SCH (09:37)
[2019-07-28] MEDS ORDERED: DULCOLAX SUPPOSITORY 10 MG RECTAL ONE (11:15)
[2019-07-28] MEDS ORDERED: DULCOLAX SUPPOSITORY 10 MG ONE (13:36)
[2019-07-28 15:40] VITALS: BP 152/67
== END 2019-07-28 15:35 | DRG 948 ==
LOC: MED/SURG 20:21
PROVIDERS: ADMIT Internal Medicine; ATTEND Internal Medicine
DX: M19.90 Unspecified osteoarthritis, unspecified site; I25.10 Atherosclerotic heart disease of native coronary artery without angina pectoris; E86.0 Dehydration; Z74.01 Bed confinement status; I51.7 Cardiomegaly; D64.9 Anemia, unspecified; Z11.59 Encounter for screening for other viral diseases; R41.82 Altered mental status, unspecified; E11.65 Type 2 diabetes mellitus with hyperglycemia; I10 Essential (primary) hypertension; J44.9 Chronic obstructive pulmonary disease, unspecified; K29.70 Gastritis, unspecified, without bleeding
CPT/HCPCS: 36415; 71010; 71045; 80053; 81001; 82550; 82553; 83605; 84484; 85025; 85610; 85730; 87040; 87086; 87635; 93005; 94640; 94760; 99100; A4222; J0690; J0696; J1650; J1940; J2270; J2704; J3490; J7030; J7042; J7050; J7620; J7626